=== PATIENT | female | born 1970 | race Caucasian/White ===

== ENCOUNTER 2018-05-04 12:03 | Inpatient (IN) | payer OTHER ==
[2018-05-04 12:42] VITALS: BMI 42.2
--- NOTE | 2018-05-04 15:35 | HP ---
CIWA Score - CIWA Score Nausea/Vomitin-No Nausea/No Vomiting Muscle Tremors: 4-Moderate,w/Arms Extend Anxiety: 5 Agitation: 4-Moderately Restless Paroxysmal Sweats: 2 Orientation: 0-Oriented Tacttile Disturbances: 0-None Auditory Disturbances: 0-None Visual Disturbances: 0-None Headache: 0-None Present CIWA-Ar Total Score: 15 Admission ROS BHS - HPI Chief Complaint: ALCOHOL WITHDRAWAL SX Allergies/Adverse Reactions: Allergies Allergy/AdvReac Type Severity Reaction Status Date / Time No Known Allergies Allergy Verified 05/04/18 12:52 History of Present Illness: 47 Y/O FEMALE WITH A HX OF ALCOHOL DEPENDENCE SEEKING DETOX TREATMENT. PT REPORTS ABOUT 2 MONTHS CLEAN TIME AND STARTED DRINKING HEAVILY AGAIN WITH TREMORS ASSOCIATED. Exam Limitations: No Limitations - Ebola screening Have you traveled outside of the country in the last 21 days: No (N) Have you had contact with anyone from an Ebola affected area: No Have you been sick,other than usual withdrawal symptoms: No Do you have a fever: No - Review of Systems Constitutional: Chills, Loss of Appetite, Night Sweats, Changes in sleep EENT: reports: Blurred Vision, Nose Congestion (ALLERGIES) Respiratory: reports: No Symptoms reported Cardiac: reports: Lightheadedness GI: reports: Constipated, Diarrhea, Nausea, Poor Appetite, Vomiting, Indigestion , Abdominal cramping : reports: No Symptoms Reported Musculoskeletal: reports: Back Pain, Joint Pain, Muscle Pain Integumentary: reports: No Symptoms Reported Neuro: reports: Headache, Dizziness Endocrine: reports: No Symptoms Reported Hematology: reports: No Symptoms Reported Psychiatric: reports: Orientated x3, Anxious, Depressed Other Systems: Reviewed and Negative Patient History - Patient Medical History Hx Anemia: No Hx Asthma: No Hx Chronic Obstructive Pulmonary Disease (COPD): No Hx Cardiac Disorders: No Hx Hypertension: No Hx Hypercholesterolemia: No HX Cerebrovascular Accident: No Hx Seizures: No Hx Diabetes: No Hx Gastrointestinal Disorders: Yes (HX GERD-NO MED) Hx Genitourinary Disorders: No Hx Sexually Transmitted Disorders: No (DENIES) Hx Renal Disease (ESRD): No Hx Thyroid Disease: No Hx Human Immunodeficiency Virus (HIV): No (NEGATIVE HX) Hx Hepatitis C: No Hx Depression: Yes (AND ANXIETY-ON MEDS) Hx Suicide Attempt: No (DENIES S/H/I) Hx Schizophrenia: No - Patient Surgical History Past Surgical History: Yes Other Surgical History: D AND C IN 2007 Anesthesia Reaction: No - PPD History Previous Implant?: Yes Documented Results: Negative w/proof Implanted On Prior R Admission?: Yes Date: 06/28/15 PPD to be Administered?: Yes - Reproductive History Patient is a Female of Child Bearing Age (11 -55 yrs old): Yes Last Menstrual Period: 06/01/15 Patient : No - Smoking Cessation Smoking history: Never smoked Have you smoked in the past 12 months: No Hx Chewing Tobacco Use: No Initiated information on smoking cessation: No - Substance & Tx. History Hx Alcohol Use: Yes (WINE/VODKA) Hx Substance Use: No (DENIES) Hx Substance Use Treatment: Yes (LAST TX AT [facility]) - Substances Abused Alcohol Route: Oral Frequency: Daily Amount used: 5 GLASSES OF WINE OR VODKA Age of first use: 18 Date of Last Use: 05/03/18 Family Disease History - Family Disease History Family Disease History: [place]: Grandparent (GF-PROSTATE) Admission Physical Exam S - Vital Signs Vital Signs: Vital Signs - 24 hr 05/04/18 12:40 Temperature 99.9 F H Pulse Rate 91 H Respiratory 19 Rate Blood Pressure 140/97 - Physical General Appearance: Yes: Moderate Distress, Irritable, Anxious HEENTM: Yes: EOMI, Normocephalic, ROSANA, Pharynx Normal Respiratory: Yes: Chest Non-Tender, Lungs Clear, Normal Breath Sounds, No Respiratory Distress Neck: Yes: No masses,lesions,Nodules, Supple, Trachea in good position Breast: Yes: Breast Exam Deferred Cardiology: Yes: Regular Rhythm, Regular Rate, S1, S2 Abdominal: Yes: Normal Bowel Sounds, Non Tender, Soft Genitourinary: Yes: Other (N/C) Back: Yes: Within Normal Limits Musculoskeletal: Yes: full range of Motion, Gait Steady Extremities: Yes: Normal Capillary Refill, Normal Range of Motion, Non-Tender Neurological: Yes: property maintenance supervisor II-XII NML intact, Fully Oriented, Alert, Motor Strength 5/5 Integumentary: Yes: Dry, Warm Lymphatic: Yes: Within Normal Limits - Diagnostic (1) GERD (gastroesophageal reflux disease) Current Visit: Yes Status: Chronic Qualifiers: Esophagitis presence: esophagitis presence not specified Qualified Code(s) : K21.9 - Gastro-esophageal reflux disease without esophagitis (2) Alcohol dependence with uncomplicated withdrawal Current Visit: Yes Status: Acute Cleared for Admission [facility] - Detox or Rehab [facility] Level of Care: Medically Managed Detox Regimen/Protocol: Librium [facility] Breath Alcohol Content Breath Alcohol Content: 0 Urine Pregancy Test - Result Urine Test Results: Negative- NO Line Present Urine Drug Screen - Results Urine Drug Screen Results: TCA-Tricyclic Antidepress
[2018-05-04] MEDS ORDERED: guaiFENesin/D-METHORPHAN HB 10 ML UNIT-DOSE CUPS PO PRN (15:43)
[2018-05-04] MEDS ORDERED: P-EPHED 60MG/TRIPROLIDI 2.5MG TABLET PO PRN (15:43)
[2018-05-04] MEDS ORDERED: MAG HYDROX/AL HYDROX/SIMETH 30 ML UNIT-DOSE CUP PO PRN (15:43)
[2018-05-04] MEDS ORDERED: MAGNESIUM CITRATE 300 ML BOTTLE PO PRN (15:43)
[2018-05-04] MEDS ORDERED: LOPERAMIDE HCL 2 MG CAPSULE PO PRN (15:43)
[2018-05-04] MEDS ORDERED: ACETAMINOPHEN 325 MG TABLET (FP) PO PRN (15:43)
[2018-05-04] MEDS ORDERED: hydrOXYzine PAMOATE 50 MG CAPSULE (FP) PO PRN (15:43)
[2018-05-04] MEDS ORDERED: MAGNESIUM HYDROX 2400MG/30ML ORAL SUSPENSION 30 ML CUP PO PRN (15:43)
[2018-05-04] MEDS ORDERED: MENTHOL/PHENOL 1 EACH UD MM PRN (15:43)
[2018-05-04] MEDS ORDERED: chlordiazePOXIDE HCL 25 MG CAPSULE PO PRN (15:48)
[2018-05-04] MEDS: chlordiazePOXIDE HCL 25 MG CAPSULE PO SCH ×2 (17:51→22:37)
[2018-05-04] MEDS ORDERED: COLLOIDAL OATMEAL 1 BAR EACH TP PRN (19:53)
[2018-05-04 22:32] LABS: URINE APPEARANCE CLEAR; URINE BILIRUBIN NEGATIVE (<2.0 mg/dL); URINE COLOR YELLOW; URINE GLUCOSE (UA) NEGATIVE (NEGATIVE); URINE KETONE NEGATIVE (NEGATIVE); URINE LEUK ESTERASE TRACE (NEGATIVE); URINE NITRITE NEGATIVE (NEGATIVE)
[2018-05-04 22:34] LABS: URINE PROTEIN 1+ (NEGATIVE)
[2018-05-04] MEDS: THIAMINE HCL 100 MG TABLET (FP) PO SCH (22:37)
[2018-05-04 22:38] LABS: EPI CELLS RARE /HPF (FEW); URINE BACTERIA RARE /hpf (NONE SEEN); URINE MUCUS MODERATE
[2018-05-05] MEDS: chlordiazePOXIDE HCL 25 MG CAPSULE PO SCH ×4 (05:49→22:34)
--- NOTE | 2018-05-05 09:23 | EKG ---
Test Reason : Blood Pressure : / mmHG Vent. Rate : 067 BPM Atrial Rate : 067 BPM P-R Int : 130 ms QRS Dur : 076 ms QT Int : 392 ms P-R-T Axes : 049 007 020 degrees QTc Int : 414 ms NORMAL SINUS RHYTHM NORMAL ECG WHEN COMPARED WITH ECG OF 23-DEC-2010 15:41, NO SIGNIFICANT CHANGE WAS FOUND Confirmed by ADELAIDA LOZADA MD ([id number]) on 05/05/2018 9:23:08 AM Referred By: Confirmed By:ADELAIDA LOZADA MD
[2018-05-05 09:58] LABS: HEMATOCRIT 43.7 % (32.4-45.2); HEMOGLOBIN 14.9 GM/dL (10.7-15.3); MCH 32.2 pg (25.7-33.7); MEAN CELL VOLUME 94.9 fl (80-96); MEAN PLT VOLUME 8.8 fl (7.5-11.1); PLATELET COUNT 214 K/MM3 (134-434); RBC 4.61 M/mm3 (3.60-5.2); RDW 14.3 % (11.6-15.6); WHITE BLOOD COUNT 5.5 K/mm3 (4.0-10.0)
[2018-05-05 10:43] LABS: CHLORIDE 99 mmol/L (98-107); SODIUM 136 mmol/L (136-145)
[2018-05-05] MEDS: PRENATAL VITAMINS W/ FOLIC ACID TABLET (FP) PO SCH (10:53)
[2018-05-05 11:14] LABS: ALBUMIN 4.1 g/dl (3.4-5.0); ALK PHOS 93 U/L (45-117); ANION GAP 8 (8-16); BILIRUBIN,TOTAL 1.2 mg/dL (0.2-1.0); BLOOD UREA NITROGEN 13 mg/dL (7-18); CALCIUM 9.1 mg/dL (8.5-10.1); CO2 29 mmol/L (21-32); CREATININE 0.6 mg/dL (0.55-1.02); GLUCOSE,RANDOM 98 mg/dL (74-106); SGOT/AST 202 U/L (15-37); SGPT/ALT 255 U/L (12-78); TOT PROT 7.7 g/dl (6.4-8.2)
--- NOTE | 2018-05-05 14:45 | PN ---
S CIWA - CIWA Score Nausea/Vomitin Muscle Tremors: 3 Anxiety: 2 Agitation: 2 Paroxysmal Sweats: 2 Orientation: 0-Oriented Tacttile Disturbances: 0-None Auditory Disturbances: 0-None Visual Disturbances: 0-None Headache: 0-None Present CIWA-Ar Total Score: 12 S Progress Note (SOAP) Subjective: Abd pain/constipation Sweats Objective: 05/05/18 14:42 A & O x 3 gait steady Vital Signs Temperature 98.2 F 05/05/18 14:35 Pulse Rate 84 05/05/18 14:35 Respiratory Rate 18 05/05/18 14:35 Blood Pressure 146/84 05/05/18 14:35 O2 Sat by Pulse Oximetry (%) Laboratory Last Values WBC 5.5 K/mm3 (4.0-10.0) D 05/05/18 08:00 RBC 4.61 M/mm3 (3.60-5.2) 05/05/18 08:00 Hgb 14.9 GM/dL (10.7-15.3) D 05/05/18 08:00 Hct 43.7 % (32.4-45.2) D 05/05/18 08:00 MCV 94.9 fl (80-96) 05/05/18 08:00 MCH 32.2 pg (25.7-33.7) D 05/05/18 08:00 MCHC 34.0 g/dl (32.0-36.0) 05/05/18 08:00 RDW 14.3 % (11.6-15.6) 05/05/18 08:00 Plt Count 214 K/MM3 (134-434) 05/05/18 08:00 MPV 8.8 fl (7.5-11.1) 05/05/18 08:00 Sodium 136 mmol/L (136-145) 05/05/18 08:00 Potassium 4.0 mmol/L (3.5-5.1) 05/05/18 08:00 Chloride 99 mmol/L (98-107) 05/05/18 08:00 Carbon Dioxide 29 mmol/L (21-32) 05/05/18 08:00 Anion Gap 8 (8-16) 05/05/18 08:00 BUN 13 mg/dL (7-18) 05/05/18 08:00 Creatinine 0.6 mg/dL (0.55-1.02) 05/05/18 08:00 Creat Clearance w eGFR > 60 (>60) 05/05/18 08:00 Random Glucose 98 mg/dL (74-106) 05/05/18 08:00 Calcium 9.1 mg/dL (8.5-10.1) 05/05/18 08:00 Total Bilirubin 1.2 mg/dL (0.2-1.0) H D 05/05/18 08:00 AST 202 U/L (15-37) H 05/05/18 08:00 ALT 255 U/L (12-78) H 05/05/18 08:00 Alkaline Phosphatase 93 U/L (45-117) 05/05/18 08:00 Total Protein 7.7 g/dl (6.4-8.2) 05/05/18 08:00 Albumin 4.1 g/dl (3.4-5.0) 05/05/18 08:00 Urine Color Yellow 05/04/18 22:00 Urine Appearance Clear 05/04/18 22:00 Urine pH 5.0 (5.0-8.0) 05/04/18 22:00 Ur Specific [place] 1.025 (1.001-1.035) 05/04/18 22:00 Urine Protein 1+ (NEGATIVE) H 05/04/18 22:00 Urine Glucose (UA) Negative (NEGATIVE) 05/04/18 22:00 Urine Ketones Negative (NEGATIVE) 05/04/18 22:00 Urine Blood 1+ (NEGATIVE) H 05/04/18 22:00 Urine Nitrite Negative (NEGATIVE) 05/04/18 22:00 Urine Bilirubin Negative (<2.0 mg/dL) 05/04/18 22:00 Urine Urobilinogen 2.0 mg/dL (0.2-1.0) H 05/04/18 22:00 Ur Leukocyte Esterase Trace (NEGATIVE) 05/04/18 22:00 Urine WBC (Auto) 3 /hpf (3-5) 05/04/18 22:00 Urine RBC (Auto) <1 /hpf (0-3) 05/04/18 22:00 Ur Epithelial Cells Rare /HPF (FEW) 05/04/18 22:00 Urine Bacteria Rare /hpf (NONE SEEN) 05/04/18 22:00 Urine Mucus Moderate 05/04/18 22:00 labs noted, abnormal urine result Assessment: 05/05/18 14:44 withdrawal sx Abnormal urinalysis Plan: Continue detox Increase hydration repeat UA in a.m
[2018-05-05] MEDS: LORATADINE 10 MG TABLET PO SCH (15:25)
[2018-05-05] MEDS: IBUPROFEN 400 MG TABLET (FP) PO PRN (18:32)
[2018-05-05 19:33] LABS: URINE APPEARANCE CLEAR; URINE BILIRUBIN NEGATIVE (<2.0 mg/dL); URINE COLOR LTYELLOW; URINE GLUCOSE (UA) NEGATIVE (NEGATIVE); URINE KETONE NEGATIVE (NEGATIVE); URINE NITRITE NEGATIVE (NEGATIVE); URINE PROTEIN NEGATIVE (NEGATIVE); URINE UROBILINOGEN NEGATIVE mg/dL (0.2-1.0)
[2018-05-05 19:34] LABS: URINE LEUK ESTERASE 3+ (NEGATIVE)
[2018-05-05 19:38] LABS: EPI CELLS FEW /HPF (FEW); URINE BACTERIA FEW /hpf (NONE SEEN); URINE MUCUS RARE
[2018-05-05] MEDS: MELATONIN 5 MG TABLETS PO PRN (22:34)
[2018-05-05] MEDS: THIAMINE HCL 100 MG TABLET (FP) PO SCH (22:34)
[2018-05-06] MEDS: chlordiazePOXIDE HCL 25 MG CAPSULE PO SCH ×2 (05:46→10:51)
[2018-05-06] MEDS: LORATADINE 10 MG TABLET PO SCH (10:51)
[2018-05-06] MEDS: PRENATAL VITAMINS W/ FOLIC ACID TABLET (FP) PO SCH (10:51)
--- NOTE | 2018-05-06 11:38 | CONSULT ---
[facility] Psychiatric Consult - Data Date of interview: 05/06/18 Admission source: Self-referred was accompanied by family Identifying data: Patient is a 47 y/o female , employed , no children Substance Abuse History: She reporta a [facility] history of alcohol use disorder, drink mostly wine and Vokka. She has been drinking daily, she has a prior Deox treatment @ This facility in 2014. She felt stressed over her chronic medical sickness. Piease refer to addiction counselor summary for more detailed drug history Medical History: She denies past acute medical illnesses, History of G-E reflux. Past history of tonsillectomy Psychiatric History: Patient has a history of depression and anxiety, she has no prior psychiatric hospitalization, she is treated by a private psychiatrist and medciated with Zoloft 100 mg po daily with effectiveness and good outcome Physical/Sexual Abuse/Trauma History: Denied Additional Comment: No history of prior trouble with the law Mental Status Exam - Mental Status Exam Alert and Oriented to: Time, Place, Person Cognitive Function: Grossly Intact Patient Appearance: Well Groomed Mood: Nervous, Euthymic Affect: Appropriate Patient Behavior: Cooperative Speech Pattern: Clear Voice Loudness: Normal Thought Process: Intact Thought Disorder: Not Present Hallucinations: Denies Suicidal Ideation: Denies Homicidal Ideation: Denies Insight/Judgement: Poor Sleep: Poorly Appetite: Good Muscle strength/Tone: Normal Gait/Station: Normal Psychiatric Findings - Problem List ([place] 1, 2,3) (1) Alcohol dependence with uncomplicated withdrawal Current Visit: Yes Status: Acute (2) GERD (gastroesophageal reflux disease) Current Visit: Yes Status: Chronic Qualifiers: Esophagitis presence: esophagitis presence not specified Qualified Code(s) : K21.9 - Gastro-esophageal reflux disease without esophagitis (3) Alcohol-induced mood disorder Current Visit: No Status: Chronic (4) Depression Current Visit: No Status: Chronic - Initial Treatment Plan Initial Treatment Plan: Continue currentDetox treatment. Renew Zoloft 100 mg po daily
[2018-05-06] MEDS ORDERED: SERTRALINE HCL 50 MG TABLET (FP) PO SCH (12:00)
--- NOTE | 2018-05-06 12:40 | PN ---
S CIWA - CIWA Score Nausea/Vomitin-Mild Nausea/No Vomiting Muscle Tremors: 4-Moderate,w/Arms Extend Anxiety: 3 Agitation: 3 Paroxysmal Sweats: 1-Minimal Palms Moist Orientation: 0-Oriented Tacttile Disturbances: 0-None Auditory Disturbances: 0-None Visual Disturbances: 0-None Headache: 1-Very Mild CIWA-Ar Total Score: 13 BHS Progress Note (SOAP) Subjective: SWEAT TREMOR TROUBLE SLEEP AT NIGHT GI DISTRESS IRRITABLE Objective: 05/06/18 12:41 Vital Signs Temperature 98.1 F 05/06/18 09:56 Pulse Rate 83 05/06/18 09:56 Respiratory Rate 18 05/06/18 09:56 Blood Pressure 129/76 05/06/18 09:56 O2 Sat by Pulse Oximetry (%) Laboratory Last Values WBC 5.5 K/mm3 (4.0-10.0) D 05/05/18 08:00 RBC 4.61 M/mm3 (3.60-5.2) 05/05/18 08:00 Hgb 14.9 GM/dL (10.7-15.3) D 05/05/18 08:00 Hct 43.7 % (32.4-45.2) D 05/05/18 08:00 MCV 94.9 fl (80-96) 05/05/18 08:00 MCH 32.2 pg (25.7-33.7) D 05/05/18 08:00 MCHC 34.0 g/dl (32.0-36.0) 05/05/18 08:00 RDW 14.3 % (11.6-15.6) 05/05/18 08:00 Plt Count 214 K/MM3 (134-434) 05/05/18 08:00 MPV 8.8 fl (7.5-11.1) 05/05/18 08:00 Sodium 136 mmol/L (136-145) 05/05/18 08:00 Potassium 4.0 mmol/L (3.5-5.1) 05/05/18 08:00 Chloride 99 mmol/L (98-107) 05/05/18 08:00 Carbon Dioxide 29 mmol/L (21-32) 05/05/18 08:00 Anion Gap 8 (8-16) 05/05/18 08:00 BUN 13 mg/dL (7-18) 05/05/18 08:00 Creatinine 0.6 mg/dL (0.55-1.02) 05/05/18 08:00 Creat Clearance w eGFR > 60 (>60) 05/05/18 08:00 Random Glucose 98 mg/dL (74-106) 05/05/18 08:00 Calcium 9.1 mg/dL (8.5-10.1) 05/05/18 08:00 Total Bilirubin 1.2 mg/dL (0.2-1.0) H D 05/05/18 08:00 AST 202 U/L (15-37) H 05/05/18 08:00 ALT 255 U/L (12-78) H 05/05/18 08:00 Alkaline Phosphatase 93 U/L (45-117) 05/05/18 08:00 Total Protein 7.7 g/dl (6.4-8.2) 05/05/18 08:00 Albumin 4.1 g/dl (3.4-5.0) 05/05/18 08:00 Urine Color Ltyellow 05/05/18 15:50 Urine Appearance Clear 05/05/18 15:50 Urine pH 7.0 (5.0-8.0) D 05/05/18 15:50 Ur Specific [place] 1.014 (1.001-1.035) 05/05/18 15:50 Urine Protein Negative (NEGATIVE) 05/05/18 15:50 Urine Glucose (UA) Negative (NEGATIVE) 05/05/18 15:50 Urine Ketones Negative (NEGATIVE) 05/05/18 15:50 Urine Blood Negative (NEGATIVE) 05/05/18 15:50 Urine Nitrite Negative (NEGATIVE) 05/05/18 15:50 Urine Bilirubin Negative (<2.0 mg/dL) 05/05/18 15:50 Urine Urobilinogen Negative mg/dL (0.2-1.0) 05/05/18 15:50 Ur Leukocyte Esterase 3+ (NEGATIVE) H 05/05/18 15:50 Urine WBC (Auto) 41 /hpf (3-5) 05/05/18 15:50 Urine RBC (Auto) 2 /hpf (0-3) 05/05/18 15:50 Ur Epithelial Cells Few /HPF (FEW) 05/05/18 15:50 Urine Bacteria Few /hpf (NONE SEEN) 05/05/18 15:50 Urine Mucus Rare 05/05/18 15:50 RPR Titer Nonreactive (NONREACTIVE) 05/05/18 08:00 LAB NOTED REPEAT AST ALT REPEAT UA Assessment: 05/06/18 12:44 WITHDRAWAL SX ELEVATION OF LIVER ENZYME Plan: CONTINUE DETOX REPEAT ALT AST PERSONAL HYGIENE REPEAT UA
[2018-05-06] MEDS: chlordiazePOXIDE 5 MG CAPSULE PO SCH ×2 (17:22→22:20)
[2018-05-06] MEDS: THIAMINE HCL 100 MG TABLET (FP) PO SCH (22:19)
[2018-05-06] MEDS: MELATONIN 5 MG TABLETS PO PRN (22:20)
[2018-05-06] MEDS: IBUPROFEN 400 MG TABLET (FP) PO PRN (22:28)
[2018-05-07] MEDS ORDERED: chlordiazePOXIDE HCL 10 MG CAPSULE PO SCH (05:00)
[2018-05-07 07:06] VITALS: BP 122/84; PULSE 76; TEMP 97.3
[2018-05-07 10:31] LABS: URINE APPEARANCE CLEAR; URINE BILIRUBIN NEGATIVE (<2.0 mg/dL); URINE COLOR YELLOW; URINE GLUCOSE (UA) NEGATIVE (NEGATIVE); URINE KETONE NEGATIVE (NEGATIVE); URINE NITRITE NEGATIVE (NEGATIVE); URINE PROTEIN NEGATIVE (NEGATIVE); URINE UROBILINOGEN NEGATIVE mg/dL (0.2-1.0)
[2018-05-07 10:49] LABS: URINE LEUK ESTERASE 2+ (NEGATIVE)
[2018-05-07 10:58] LABS: SGOT/AST 114 U/L (15-37); SGPT/ALT 217 U/L (12-78)
--- NOTE | 2018-05-07 11:08 | DS ---
[facility] Detox Discharge Summary Admission Date: 05/04/18 Discharge Date: 05/07/18 - History Present History: Alcohol Dependence Additional Comments: 47 years old female admitted 05/04/18 for alcohol withdrawal sx denies alcohol withdrawal sx alert oriented x 3 no acute distress discussed aftercare community self support groups and meetings patient wants to maintenance sober through sponsor ship - Physical Exam Results Vital Signs: Vital Signs Temperature 97.3 F L 05/07/18 07:05 Pulse Rate 76 05/07/18 07:05 Respiratory Rate 18 05/07/18 07:05 Blood Pressure 122/84 05/07/18 07:05 O2 Sat by Pulse Oximetry (%) Pertinent Admission Physical Exam Findings: alcohol withdrawal sx Vital Signs Temperature 97.3 F L 05/07/18 07:05 Pulse Rate 76 05/07/18 07:05 Respiratory Rate 18 05/07/18 07:05 Blood Pressure 122/84 05/07/18 07:05 O2 Sat by Pulse Oximetry (%) Laboratory Last Values WBC 5.5 K/mm3 (4.0-10.0) D 05/05/18 08:00 RBC 4.61 M/mm3 (3.60-5.2) 05/05/18 08:00 Hgb 14.9 GM/dL (10.7-15.3) D 05/05/18 08:00 Hct 43.7 % (32.4-45.2) D 05/05/18 08:00 MCV 94.9 fl (80-96) 05/05/18 08:00 MCH 32.2 pg (25.7-33.7) D 05/05/18 08:00 MCHC 34.0 g/dl (32.0-36.0) 05/05/18 08:00 RDW 14.3 % (11.6-15.6) 05/05/18 08:00 Plt Count 214 K/MM3 (134-434) 05/05/18 08:00 MPV 8.8 fl (7.5-11.1) 05/05/18 08:00 Sodium 136 mmol/L (136-145) 05/05/18 08:00 Potassium 4.0 mmol/L (3.5-5.1) 05/05/18 08:00 Chloride 99 mmol/L (98-107) 05/05/18 08:00 Carbon Dioxide 29 mmol/L (21-32) 05/05/18 08:00 Anion Gap 8 (8-16) 05/05/18 08:00 BUN 13 mg/dL (7-18) 05/05/18 08:00 Creatinine 0.6 mg/dL (0.55-1.02) 05/05/18 08:00 Creat Clearance w eGFR > 60 (>60) 05/05/18 08:00 Random Glucose 98 mg/dL (74-106) 05/05/18 08:00 Calcium 9.1 mg/dL (8.5-10.1) 05/05/18 08:00 Total Bilirubin 1.2 mg/dL (0.2-1.0) H D 05/05/18 08:00 AST 202 U/L (15-37) H 05/05/18 08:00 ALT 255 U/L (12-78) H 05/05/18 08:00 Alkaline Phosphatase 93 U/L (45-117) 05/05/18 08:00 Total Protein 7.7 g/dl (6.4-8.2) 05/05/18 08:00 Albumin 4.1 g/dl (3.4-5.0) 05/05/18 08:00 Urine Color Yellow 05/07/18 06:50 Urine Appearance Clear 05/07/18 06:50 Urine pH 6.0 (5.0-8.0) 05/07/18 06:50 Ur Specific [place] 1.012 (1.001-1.035) 05/07/18 06:50 Urine Protein Negative (NEGATIVE) 05/07/18 06:50 Urine Glucose (UA) Negative (NEGATIVE) 05/07/18 06:50 Urine Ketones Negative (NEGATIVE) 05/07/18 06:50 Urine Blood Negative (NEGATIVE) 05/07/18 06:50 Urine Nitrite Negative (NEGATIVE) 05/07/18 06:50 Urine Bilirubin Negative (<2.0 mg/dL) 05/07/18 06:50 Urine Urobilinogen Negative mg/dL (0.2-1.0) 05/07/18 06:50 Ur Leukocyte Esterase 2+ (NEGATIVE) H 05/07/18 06:50 Urine WBC (Auto) 10 /hpf (3-5) 05/07/18 06:50 Urine RBC (Auto) None /hpf (0-3) 05/07/18 06:50 Ur Epithelial Cells Rare /HPF (FEW) 05/07/18 06:50 Urine Bacteria Few /hpf (NONE SEEN) 05/05/18 15:50 Urine Mucus Few 05/07/18 06:50 RPR Titer Nonreactive (NONREACTIVE) 05/05/18 08:00 lab noted repeat liver enzyme pending - Treatment Hospital Course: Detox Protocol Followed, Detoxed Safely, Responded well, Discharged Condition Good, Rehab Referral Accepted Patient has Accepted a Rehab Referral to: community self help support groups - Medication Discharge Medications: Ambulatory Orders Sertraline HCl [Zoloft -] 100 mg PO DAILY #30 tablet 06/27/15 Cetirizine HCl [Zyrtec -] 10 mg PO DAILY 05/04/18 - Diagnosis (1) Alcohol dependence with uncomplicated withdrawal Status: Acute (2) GERD (gastroesophageal reflux disease) Status: Chronic Qualifiers: Esophagitis presence: without esophagitis Qualified Code(s): K21.9 - Gastro -esophageal reflux disease without esophagitis - AMA Did Patient Leave Against Medical Advice: No
[2018-05-07 11:09] LABS: EPI CELLS RARE /HPF (FEW); URINE MUCUS FEW
== END 2018-05-07 10:10 | disposition home or self-care (01) | DRG 897 ==
LOC: YASAS 12:03 → Y6N 15:34
PROVIDERS: ADMIT Family Medicine Addiction Medicine; ATTEND Family Medicine Addiction Medicine
PROC: HZ2ZZZZ Detoxification Services for Substance Abuse Treatment (ICD-10-PCS; principal; 2018-05-04)
DX: F10.230 Alcohol dependence with withdrawal, uncomplicated (principal); F10.24 Alcohol dependence with alcohol-induced mood disorder; F32.9 Major depressive disorder, single episode, unspecified; F41.8 Other specified anxiety disorders; K21.9 Gastro-esophageal reflux disease without esophagitis
CPT/HCPCS: 36415; 80053; 81003; 81015; 84450; 84460; 85027; 86593; 93005; 93010

== ENCOUNTER 2018-07-30 10:28 | Inpatient (IN) | payer OTHER ==
[2018-07-30] MEDS ORDERED: morphine CARPU-JECT 4 MG/1 ML DISP.SYRIN IVPUSH ONE ×3 (10:59→17:37)
[2018-07-30] MEDS ORDERED: SODIUM CHLORIDE 1,000 ML IV SCH (11:00)
--- NOTE | 2018-07-30 11:07 | PDOC ---
History of Present Illness - General Stated Complaint: LEG PAIN Time Seen by Provider: 07/30/18 10:40 History Source: Patient Exam Limitations: No Limitations - History of Present Illness Initial Comments: 07/30/18 11:05 48 year old woman with history of anxiety who presents with L knee pain, warmth and difficulty walking for the past 2 days. The patient was assessed at her PCP last week for L knee pain was referred to orthopedics and was found to have a higgins cyst. She did not have any procedures, injections or aspirations done on the knee. She was informed that if the pain worsened, it would likely be due to a ruptured higgins cyst and she should come to the ED. The patient complains of swelling on the L knee and some tingling on the L worthy, ankle and foot. She denies fever, chills, sweating, shortness of breath, chest pain. She has no other complaints at bedside. PMHX: as in HPI PSHX: Meds: zoloft Allergies: none Tob: Etoh: nightly use Rec drugs: none Past History - Past Medical History Allergies/Adverse Reactions: Allergies Allergy/AdvReac Type Severity Reaction Status Date / Time No Known Allergies Allergy Verified 07/30/18 10:34 Home Medications: Ambulatory Orders Sertraline HCl [Zoloft -] 100 mg PO DAILY #30 tablet 06/27/15 Cetirizine HCl [Zyrtec -] 10 mg PO DAILY 05/04/18 Oxycodone HCl/Acetaminophen [Percocet 5-325 mg Tablet] 1 - 2 tab PO Q6H PRN #20 tab MDD 8 tabs 07/30/18 Anemia: No Asthma: No Cardiac Disorders: No CVA: No COPD: No Diabetes: No GI Disorders: Yes (HX GERD) Disorders: No HTN: No Hypercholesterolemia: No Kidney Stones: No Seizures: No Thyroid Disease: No - Reproductive History PID: No - Suicide/Smoking/Psychosocial Hx Smoking History: Never smoked Have you smoked in the past 12 months: No Hx Alcohol Use: Yes (WINE/VODKA) Drug/Substance Use Hx: No (DENIES) Substance Use Type: Alcohol Hx Substance Use Treatment: Yes (LAST TX AT [facility]) Review of Systems - Review of Systems Able to Perform ROS?: Yes Is the patient limited [place] proficient: No Constitutional: No: Chills, Diaphoresis, Fever Respiratory: No: Cough, Orthopnea, Shortness of Breath Cardiac (ROS): No: Chest Pain ABD/GI: No: Constipated, Diarrhea, Nausea, Vomiting : No: Burning, Dysuria Neurological: No: Headache *Physical Exam - Vital Signs Last Vital Signs Temp Pulse Resp BP Pulse Ox 98.5 F 104 H 20 116/76 96 07/30/18 10:34 07/30/18 10:34 07/30/18 10:34 07/30/18 10:34 07/30/18 10:34 - Physical Exam Comments: 07/30/18 11:45 GENERAL: Awake, alert, and fully oriented HEAD: No signs of trauma, normocephalic, atraumatic EYES: EOMI, sclera anicteric, conjunctiva clear ENT: oropharynx clear without exudates. Moist mucosa NECK: Normal ROM, supple, no lymphadenopathy, JVD, or masses LUNGS: No distress, speaks full sentences, clear to auscultation bilaterally HEART: Regular rate and rhythm, normal S1 and S2, no murmurs, rubs or gallops, peripheral pulses normal and equal bilaterally. ABDOMEN: Soft, nontender, normoactive bowel sounds. No guarding, no rebound. No masses EXTREMITIES : L knee with notable swelling, decreased passive ROM to 45 degrees. Very limited active ROM on L knee 2/2 pain. Palpable pulses with normal L ankle ROM and NV intact. Mild to moderate warmth to touch of L knee. No erythema. NEUROLOGICAL: Normal speech, normal gait, no focal sensorimotor deficits SKIN: Warm, Dry, normal turgor, no rashes or lesions noted ED Treatment Course - LABORATORY CBC & Chemistry Diagram: 07/30/18 11:09 07/30/18 11:09 Medical Decision Making - Medical Decision Making 48 year old woman with history of anxiety who presents with L knee pain, warmth and difficulty walking for the past 2 days. The patient was assessed at her PCP last week for L knee pain was referred to orthopedics and was found to have a higgins cyst. She did not have any procedures, injections or aspirations done on the knee. She was informed that of the pain worsened, it would likely be due to a ruptured higgins cyst. DDX including but not limited to: higgins cyst rupture vs septic joint vs gout vs cellutlitis W/U: - cbc, cmp, PT/ INR, PTT, blood culture - soft tissue US - L knee XR TX: - morphine 4 - 1L NS Scores: Zak = 2 ED Course: 07/30/18 11:46 Pt assessed. In pain but stable. 07/30/18 14:53 US: thrombosed superficial varicosity 07/30/18 15:19 Patient and family informed lab results 07/30/18 18:32 PCP informed of patient in the ED. 07/30/18 18:57 Patient with intractable pain and unable to ambulate. Patient admitted for observation. *DC/Admit/Observation/Transfer Diagnosis at time of Disposition: Leg pain, Superficial thrombophlebitis - Discharge Dispostion Condition at time of disposition: Stable Decision to Admit order: Yes - Prescriptions - Referrals - Patient Instructions - Post Discharge Activity
[2018-07-30 11:14] LABS: BASO % 1.3 % (0-2.0); EOS % 3.6 % (0-4.5); HEMATOCRIT 43.9 % (32.4-45.2); HEMOGLOBIN 14.9 GM/dL (10.7-15.3); MCH 31.3 pg (25.7-33.7); MEAN CELL VOLUME 91.9 fl (80-96); MEAN PLT VOLUME 7.6 fl (7.5-11.1); MONO % 6.5 % (3.8-10.2); NEUT % 70.6 % (42.8-82.8); PLATELET COUNT 367 K/MM3 (134-434); RBC 4.78 M/mm3 (3.60-5.2); RDW 14.1 % (11.6-15.6); WHITE BLOOD COUNT 7.3 K/mm3 (4.0-10.0)
[2018-07-30 11:26] LABS: PROTHROMBIN TIME (PATIENT) 11.3 SEC (9.7-13.0)
[2018-07-30] MEDS ORDERED: morphine SULFATE 4 MG/ML VIAL ONE ×3 (11:37→18:03)
[2018-07-30 11:39] LABS: ALBUMIN 3.6 g/dl (3.4-5.0); ALK PHOS 134 U/L (45-117); ANION GAP 8 MMOL/L (8-16); BILIRUBIN,TOTAL 0.4 mg/dL (0.2-1.0); BLOOD UREA NITROGEN 8 mg/dL (7-18); CALCIUM 8.8 mg/dL (8.5-10.1); CHLORIDE 102 mmol/L (98-107); CO2 31 mmol/L (21-32); CREATININE 0.5 mg/dL (0.55-1.02); GLUCOSE,RANDOM 90 mg/dL (74-106); SGPT/ALT 38 U/L (12-78); SODIUM 141 mmol/L (136-145); TOT PROT 8.6 g/dl (6.4-8.2)
--- NOTE | 2018-07-30 11:42 | PDOC ---
Attending Attestation - HPI HPI: 07/30/18 13:32 Patient is a 48 yoF with a pmh of anxiety c/o of a 2 day history of moderate left knee pain with +swelling. Pt reports difficulty ambulating. Pt saw orthopedics last week and was found to have a cheek cyst. She notes tingling of the left lower extremity. Pt prompted to visit the ED if the pain worsened. The patient denies chest pain, SOB, fever, chills, sweating, dizziness, and headache. She has no other complaints at bedside. <Chinyere Acuna - Last Filed: 07/30/18 13:31> - Resident Resident Name: Tami Brown - ED Attending Attestation I have performed the following: I have examined & evaluated the patient, The case was reviewed & discussed with the resident, I agree w/resident's findings & plan, Exceptions are as noted - Physicial Exam PE: GENERAL: Awake, alert, and fully oriented, in no acute distress HEAD: No signs of trauma EYES: PERRLA, EOMI, sclera anicteric, conjunctiva clear ENT: Auricles normal inspection, hearing grossly normal, nares patent, oropharynx clear without exudates. Moist mucosa NECK: Normal ROM, supple, no lymphadenopathy, JVD, or masses LUNGS: Breath sounds equal, clear to auscultation bilaterally. No wheezes, and no crackles HEART: Regular rate and rhythm, normal S1 and S2, no murmurs, rubs or gallops ABDOMEN: Soft, nontender, normoactive bowel sounds. No guarding, no rebound. No masses EXTREMITIES: L knee with edema, effusion, tenderness. No erythema, no warmth. Dec ROM due to severe pain. +Tenderness in the popliteal fossa and calf. Distal N/V intact. Remainder of extremities with normal range of motion, no edema. No clubbing or cyanosis. No cords, erythema, or tenderness NEUROLOGICAL: Cranial nerves II through XII grossly intact. Normal speech, normal gait SKIN: Warm, Dry, normal turgor, no rashes or lesions noted. - Medical Decision Making Pt with knee pain, possibly ruptured Cheek's cyst based on prior history. Septic joint unlikely based on presentation- no warmth, redness, fever. Obtained labs, XR, and sono. Sono showed Cheek's Cyst, but also with what appeared to be superficial vessel with thrombus. Reading somewhat unclear, attempted to obtain CT to further elucidate, but radiology advised against. Will d/w Dr. Guzman, as the size of the patient's knee is out of proportion to a superficial thrombophlebitis. <Shelly iY - Last Filed: 07/30/18 18:07> Attestations - Attestations Documentation prepared by Chinyere Acuna, acting as medical administrative technician for Shelly Yi MD. <Chinyere Acuna - Last Filed: 07/30/18 13:31>
[2018-07-30 11:52] LABS: SGOT/AST 30 U/L (15-37)
[2018-07-30] MEDS ORDERED: KETOROLAC TROMETHAMINE 30 MG/1 ML VIAL IVPUSH ONE ×2 (13:34→17:37)
[2018-07-30] MEDS ORDERED: KETOROLAC TROMETHAMINE 30 MG/1 ML VIAL ONE ×2 (13:41→18:03)
[2018-07-30] MEDS ORDERED: ASPIRIN 325 MG TABLET PO ONE (18:54)
[2018-07-30] MEDS ORDERED: ASPIRIN 81 MG CHEWABLE TABLETS ONE (18:58)
--- NOTE | 2018-07-30 19:18 | HP ---
Admitting History and Physical - Primary Care Physician PCP: George Evans - Admission Chief Complaint: pain LLex History of Present Illness: 48 yoF with a pmh of anxiety c/o of a 2 day history of moderate left knee pain with +swelling. Pt reports difficulty ambulating. Pt saw orthopedics last week and was found to have a higgins cyst. She notes tingling of the left lower extremity. Pt prompted to visit the ED if the pain worsened. The patient denies chest pain, SOB, fever, chills, sweating, dizziness, and headache. She has no other complaints at bedside. - Past Medical History ...LMP: 06/01/15 - Smoking History Smoking history: Never smoked Have you smoked in the past 12 months: No - Alcohol/Substance Use Hx Alcohol Use: Yes (WINE/VODKA) Home Medications - Allergies Allergies/Adverse Reactions: Allergies Allergy/AdvReac Type Severity Reaction Status Date / Time No Known Allergies Allergy Verified 07/30/18 10:34 - Home Medications Home Medications: Ambulatory Orders Sertraline HCl [Zoloft -] 100 mg PO DAILY #30 tablet 06/27/15 Cetirizine HCl [Zyrtec -] 10 mg PO DAILY 05/04/18 Oxycodone HCl/Acetaminophen [Percocet 5-325 mg Tablet] 1 - 2 tab PO Q6H PRN #20 tab MDD 8 tabs 07/30/18 Family Disease History - Family Disease History Family Disease History: CA: Grandparent (GF-PROSTATE) Physical Examination Vital Signs: Vital Signs Temperature 98.5 F 07/30/18 10:34 Pulse Rate 104 H 07/30/18 10:34 Respiratory Rate 20 07/30/18 10:34 Blood Pressure 116/76 07/30/18 10:34 O2 Sat by Pulse Oximetry (%) 96 07/30/18 10:34 Constitutional: Yes: Anxious HENT: Yes: Atraumatic Cardiovascular: Yes: Regular Rate and Rhythm Respiratory: Yes: CTA Bilaterally Gastrointestinal: Yes: Normal Bowel Sounds Extremities: Yes: Other (L knee swollen , warm and tender) Edema: Yes Edema: LLE: 1+ Neurological: Yes: Alert, Oriented Labs: CBC, BMP 07/30/18 11:09 07/30/18 11:09 Imaging - Results Ultrasound: Report Reviewed Problem List - Problems (1) Leg pain Assessment/Plan: on pain meds will get ortho involved Code(s): M79.606 - PAIN IN LEG, UNSPECIFIED (2) Superficial thrombophlebitis Assessment/Plan: nsaids Code(s): I80.9 - PHLEBITIS AND THROMBOPHLEBITIS OF UNSPECIFIED SITE (3) GERD (gastroesophageal reflux disease) Code(s): K21.9 - GASTRO-ESOPHAGEAL REFLUX DISEASE WITHOUT ESOPHAGITIS Qualifiers: Assessment/Plan Laboratory Tests 07/30/18 07/30/18 07/30/18 11:09 11:09 11:09 WBC 7.3 RBC 4.78 Hgb 14.9 Hct 43.9 MCV 91.9 MCH 31.3 MCHC 34.0 RDW 14.1 Plt Count 367 D MPV 7.6 D Absolute Neuts (auto) 5.1 Neutrophils % 70.6 Lymphocytes % 18.0 Monocytes % 6.5 Eosinophils % 3.6 Basophils % 1.3 Nucleated RBC % 0 ESR PT with INR 11.30 INR 1.00 PTT (Actin FS) Sodium 141 Potassium 4.0 Chloride 102 Carbon Dioxide 31 Anion Gap 8 BUN 8 Creatinine 0.5 L Creat Clearance w eGFR > 60 Random Glucose 90 Calcium 8.8 Total Bilirubin 0.4 AST 30 ALT 38 Alkaline Phosphatase 134 H Total Protein 8.6 H Albumin 3.6 07/30/18 07/30/18 11:09 11:35 WBC RBC Hgb Hct MCV MCH MCHC RDW Plt Count MPV Absolute Neuts (auto) Neutrophils % Lymphocytes % Monocytes % Eosinophils % Basophils % Nucleated RBC % ESR 68 H PT with INR INR PTT (Actin FS) 38.1 H Sodium Potassium Chloride Carbon Dioxide Anion Gap BUN Creatinine Creat Clearance w eGFR Random Glucose Calcium Total Bilirubin AST ALT Alkaline Phosphatase Total Protein Albumin Active Medications Generic Name Dose Route Start Last Admin Trade Name Freq PRN Reason Stop Dose Admin Sodium Chloride 1,000 mls @ 0 mls/hr 07/30/18 11:00 07/30/18 11:42 Normal Saline - IV 1,000 mls/hr ASDIR MANDI Administration Wide Open Active Medications Generic Name Dose Route Start Last Admin Trade Name Freq PRN Reason Stop Dose Admin Heparin Sodium (Porcine) 5,000 unit 07/30/18 22:00 08/02/18 09:59 Heparin - SQ 5,000 unit BID MANDI Administration Ceftriaxone Sodium 2 gm/ 100 mls @ 100 mls/hr 08/01/18 12:45 08/02/18 10:00 Dextrose IVPB 100 mls/hr DAILY MANDI Administration Protocol Vancomycin HCl 1,000 mg/ 250 mls @ 166.667 mls/hr 08/01/18 13:00 08/02/18 13: 49 Dextrose IVPB 166.667 mls/hr Q12H MANDI Administration Protocol Ibuprofen 600 mg 07/31/18 22:00 08/02/18 13:16 Motrin - PO 600 mg TID MANDI Administration Morphine Sulfate 3 mg 07/31/18 18:25 07/31/18 19:01 Morphine Sulfate IVPUSH 3 mg Q4H PRN Administration PAIN LEVEL 4 - 6 Oxycodone HCl 10 mg 07/30/18 19:18 08/01/18 13:56 Roxicodone - PO 10 mg Q6H PRN Administration PAIN LEVEL 4 - 6 Sertraline HCl 100 mg 07/31/18 10:00 08/02/18 09:59 Zoloft - PO 100 mg DAILY MANDI Administration
[2018-07-30] MEDS: ACETAMINOPHEN 325 MG TABLET (FP) PO PRN (22:39)
[2018-07-30] MEDS: HEPARIN NA (PORCINE) 5,000 UNITS/ML 1ML VIAL SQ SCH (22:42)
[2018-07-31] MEDS: oxyCODONE HCL 5 MG TABLET PO PRN ×2 (03:38→09:54)
[2018-07-31] MEDS: SERTRALINE HCL 50 MG TABLET (FP) PO SCH (09:57)
[2018-07-31] MEDS: HEPARIN NA (PORCINE) 5,000 UNITS/ML 1ML VIAL SQ SCH ×2 (09:58→21:39)
--- NOTE | 2018-07-31 13:44 | CON.ID ---
Consult - History of Present Illness History of Present Illness: 48 y.o. female with PMH of Anxiety presents with c/o Lt knee pain that began over a week ago. She was referred to Orthopedics that attributed it to a possible bakers cyst. She came to the ER because pain became severe 2 days ago after work. 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 She describes the pain as severe and persistent and she is unable to walk. Pt denies recent injection at site or trauma. She has been afebrile but with occasional chills (none currently). Knee Xray revealed suprapatellar joint effusion and LE US revealed possible medial bakers cyst on 07/27/18 and on current one a largely thrombosed superficial vein. No other specific complaints. - History Source History Provided By: Patient Limitations to Obtaining History: No Limitations - Past Medical History ...LMP: 06/01/15 ...: No Psych: Yes: Anxiety - Alcohol/Substance Use Hx Alcohol Use: Yes (WINE/VODKA) - Smoking History Smoking history: Never smoked Have you smoked in the past 12 months: No - Social History History of Recent Travel: No Home Medications - Allergies Allergies/Adverse Reactions: Allergies Allergy/AdvReac Type Severity Reaction Status Date / Time No Known Allergies Allergy Verified 07/30/18 10:34 - Home Medications Home Medications: Ambulatory Orders Sertraline HCl [Zoloft -] 100 mg PO DAILY #30 tablet 06/27/15 Cetirizine HCl [Zyrtec -] 10 mg PO DAILY 05/04/18 Oxycodone HCl/Acetaminophen [Percocet 5-325 mg Tablet] 1 - 2 tab PO Q6H PRN #20 tab MDD 8 tabs 07/30/18 Family Disease History - Family Disease History Family Disease History: CA: Grandparent (GF-PROSTATE) Physical Exam Vital Signs: Vital Signs Temperature 99.2 F 07/31/18 10:00 Pulse Rate 84 07/31/18 10:00 Respiratory Rate 18 07/31/18 10:00 Blood Pressure 140/92 07/31/18 10:00 O2 Sat by Pulse Oximetry (%) 100 07/31/18 03:19 Constitutional: Yes: Mild Distress (due to pain in LLE) Eyes: Yes: Conjunctiva Clear HENT: Yes: Atraumatic Neck: Yes: Supple Cardiovascular: Yes: Regular Rate and Rhythm Respiratory: Yes: CTA Bilaterally Gastrointestinal: Yes: Normal Bowel Sounds, Soft Renal/: Yes: WNL Musculoskeletal: Yes: Other (Lt knee mild edema/+tenderness/mild warmth/ decreased ROM due to pain, no erythema no clear calf edema/warmth) Integumentary: Yes: WNL Neurological: Yes: Alert, Oriented Psychiatric: Yes: Alert Labs: CBC, BMP 07/30/18 11:09 07/30/18 11:09 Laboratory Tests 07/30/18 07/30/18 07/30/18 11:09 11:09 11:09 WBC 7.3 RBC 4.78 Hgb 14.9 Hct 43.9 MCV 91.9 MCH 31.3 MCHC 34.0 RDW 14.1 Plt Count 367 D MPV 7.6 D Absolute Neuts (auto) 5.1 Neutrophils % 70.6 Lymphocytes % 18.0 Monocytes % 6.5 Eosinophils % 3.6 Basophils % 1.3 Nucleated RBC % 0 ESR PT with INR 11.30 INR 1.00 PTT (Actin FS) Sodium 141 Potassium 4.0 Chloride 102 Carbon Dioxide 31 Anion Gap 8 BUN 8 Creatinine 0.5 L Creat Clearance w eGFR > 60 Random Glucose 90 Calcium 8.8 Total Bilirubin 0.4 AST 30 ALT 38 Alkaline Phosphatase 134 H Total Protein 8.6 H Albumin 3.6 07/30/18 07/30/18 11:09 11:35 WBC RBC Hgb Hct MCV MCH MCHC RDW Plt Count MPV Absolute Neuts (auto) Neutrophils % Lymphocytes % Monocytes % Eosinophils % Basophils % Nucleated RBC % ESR 68 H PT with INR INR PTT (Actin FS) 38.1 H Sodium Potassium Chloride Carbon Dioxide Anion Gap BUN Creatinine Creat Clearance w eGFR Random Glucose Calcium Total Bilirubin AST ALT Alkaline Phosphatase Total Protein Albumin Imaging - Results Chest X-ray: Report Reviewed X-ray: Report Reviewed (Lt knee) Ultrasound: Report Reviewed (LE) Problem List - Problems (1) Leg pain Code(s): M79.606 - PAIN IN LEG, UNSPECIFIED (2) Superficial thrombophlebitis Code(s): I80.9 - PHLEBITIS AND THROMBOPHLEBITIS OF UNSPECIFIED SITE Assessment/Plan 48 y.o. female with PMH of anxiety presents with LT knee pain/mild swelling/ with difficulty ambulating worsened in the last 2 days. She is afebrile, without leukocytosis, blood cultures no growth in 24 hrs. LE US with thrombosis of superficial vein. Superficial venous thrombosis/thrombophlebitis -- no clear evidence/risk factor for suppurative thrombophlebitis -- pt afebrile, blood cultures negative so far -- monitor off antibiotics for now -- pt on anticoagulation, suggest NSAIDS -- pain control will f/u Thank you
[2018-07-31] MEDS: ACETAMINOPHEN 325 MG TABLET (FP) PO PRN (15:04)
[2018-07-31 16:24] LABS: BASO % 0.8 % (0-2.0); EOS % 5.8 % (0-4.5); HEMATOCRIT 38.6 % (32.4-45.2); HEMOGLOBIN 13.1 GM/dL (10.7-15.3); LYMPH % 16.4 % (8-40); MCH 31.1 pg (25.7-33.7); MCHC 33.8 g/dl (32.0-36.0); MEAN PLT VOLUME 8.1 fl (7.5-11.1); MONO % 8.1 % (3.8-10.2); NEUT % 68.9 % (42.8-82.8); PLATELET COUNT 279 K/MM3 (134-434); RDW 13.8 % (11.6-15.6); WHITE BLOOD COUNT 5.3 K/mm3 (4.0-10.0)
--- NOTE | 2018-07-31 18:24 | PN ---
Progress Note, Physician - Current Medication List Current Medications: Active Medications Acetaminophen (Tylenol -) 650 mg PO Q6H PRN PRN Reason: FEVER Last Admin: 07/31/18 15:04 Dose: 650 mg Heparin Sodium (Porcine) (Heparin -) 5,000 unit SQ BID [facility] Last Admin: 07/31/18 09:58 Dose: 5,000 unit Oxycodone HCl (Roxicodone -) 10 mg PO Q6H PRN PRN Reason: PAIN LEVEL 4 - 6 Last Admin: 07/31/18 09:54 Dose: 10 mg Sertraline HCl (Zoloft -) 100 mg PO DAILY [facility] Last Admin: 07/31/18 09:57 Dose: 100 mg - Objective Vital Signs: Vital Signs Temperature 98.9 F 07/31/18 18:00 Pulse Rate 96 H 07/31/18 18:00 Respiratory Rate 20 07/31/18 18:00 Blood Pressure 126/77 07/31/18 18:00 O2 Sat by Pulse Oximetry (%) 100 07/31/18 03:19 Constitutional: Yes: Anxious HENT: Yes: Atraumatic Neck: Yes: Supple Cardiovascular: Yes: Regular Rate and Rhythm Respiratory: Yes: CTA Bilaterally Gastrointestinal: Yes: Normal Bowel Sounds Extremities: Yes: Other (llecx tender to touch) Edema: LLE: Trace Neurological: Yes: Alert, Oriented Labs: CBC, BMP 07/31/18 15:30 07/30/18 11:09 INR, PTT INR 1.00 (0.83-1.09) 07/30/18 11:09 Problem List - Problems (1) Leg pain Assessment/Plan: on pain meds will get ortho involved Code(s): M79.606 - PAIN IN LEG, UNSPECIFIED (2) Superficial thrombophlebitis Assessment/Plan: nsaids Code(s): I80.9 - PHLEBITIS AND THROMBOPHLEBITIS OF UNSPECIFIED SITE (3) GERD (gastroesophageal reflux disease) Code(s): K21.9 - GASTRO-ESOPHAGEAL REFLUX DISEASE WITHOUT ESOPHAGITIS Qualifiers:
[2018-07-31] MEDS ORDERED: morphine SULFATE 4 MG/ML VIAL IVPUSH PRN (18:25)
[2018-07-31] MEDS: IBUPROFEN 600 MG TABLET (FP) PO SCH (21:39)
[2018-08-01] MEDS: IBUPROFEN 600 MG TABLET (FP) PO SCH ×3 (06:13→22:16)
--- NOTE | 2018-08-01 10:16 | CONSULT ---
Consult - text type - Consultation Consultation Note: FULL CONSULT DICTATED IMP: EFFUSION RIGHT KNEE PLAN: WE WILL ASPIRATE AND INJECT DEPOMEDROL INTO THE KNEE LATER TODAY
[2018-08-01] MEDS ORDERED: methylPREDNISolone ACET (DEPO) 80 MG/1 ML VIAL IAR ONE (10:30)
[2018-08-01] MEDS ORDERED: LIDOCAINE HCL 1%, 10 MG/ML (50 mL VIAL) SQ ONE (10:35)
[2018-08-01] MEDS ORDERED: LIDOCAINE HCL 2% (50ML VIAL) NR ONE (10:45)
--- NOTE | 2018-08-01 10:46 | PROC ---
Arthrocentesis - Arthrocentesis Indication: Septic Joint, Inflammation, Reduce Pain Arthrocentesis Site: left: knee Flexion: <20 degrees Skin prep: Betadine Anesthesia: 2% Lidocaine Drainage, Color/Appearance: Cloudy Tube Drainage(ml): 60 Sterile Dressing Applied: Yes
--- NOTE | 2018-08-01 11:52 | CONS ---
DATE OF CONSULTATION: 08/01/2018 ORTHOPEDIC CONSULTATION/[facility] Patient is a 48-year-old female complaining of atraumatic left knee pain. She had been in to see my partner, Dr. Montague last week, who diagnosed her with a small Cheek cyst and she was sent home. Patient's pain only increased over the weekend and was admitted on Monday with significant pain inside the knee. No fever or chills. No recent fall or trauma. On physical exam she has moderate effusion in the left knee. No erythema, no tenderness to light touch around the knee, no ecchymosis. Her calf is soft, nontender, negative Homans sign. She has tenderness of the lateral joint line and posteriorly. No tenderness medially. Negative Beni, anterior, posterior draw. She has no tenderness in the patellar facets, negative apprehension. Good stability varus, valgus, anterior, posterior. Good motion of hip, ankle, and toes. Pulses and reflexes 2+, intact sensation throughout. Ultrasound was positive for a Cheek cyst and a thrombosed varicosity. Lab values revealed normal white count. She does have a C-reactive protein of 6.7, though. Sedimentation rate is 85. IMPRESSION: Infusion, left knee. We will tap the knee later today, possibly inject cortisone. See what the tap results show. Ice and antiinflammatories in the interim. GEORGI GRIFFIN M.D. TONG/[id number]
[2018-08-01 12:29] LABS: SYNOVIAL FLUID RBC 9081 /mm3
--- NOTE | 2018-08-01 12:42 | PN ---
Progress Note, Physician History of Present Illness: Pt remains afebrile. States she began ambulating yesterday. Had Lt knee fluid aspiration with steroid injection. Pain controlled. - Current Medication List Current Medications: Active Medications Heparin Sodium (Porcine) (Heparin -) 5,000 unit SQ BID [facility] Last Admin: 07/31/18 21:39 Dose: 5,000 unit Ceftriaxone Sodium (Ceftriaxone 2 Gm-D5w Bag) 2 gm in 50 mls @ 100 mls/hr IVPB DAILY MANDI; Protocol Vancomycin HCl 1,000 mg/ (Dextrose) 250 mls @ 166.667 mls/hr IVPB Q12H MANDI; Protocol Ibuprofen (Motrin -) 600 mg PO TID MANDI Last Admin: 08/01/18 06:13 Dose: 600 mg Morphine Sulfate (Morphine Sulfate) 3 mg IVPUSH Q4H PRN PRN Reason: PAIN LEVEL 4 - 6 Last Admin: 07/31/18 19:01 Dose: 3 mg Oxycodone HCl (Roxicodone -) 10 mg PO Q6H PRN PRN Reason: PAIN LEVEL 4 - 6 Last Admin: 07/31/18 09:54 Dose: 10 mg Sertraline HCl (Zoloft -) 100 mg PO DAILY [facility] Last Admin: 07/31/18 09:57 Dose: 100 mg - Objective Vital Signs: Vital Signs Temperature 98.2 F 08/01/18 05:00 Pulse Rate 83 08/01/18 05:00 Respiratory Rate 20 08/01/18 05:00 Blood Pressure 137/76 08/01/18 05:00 O2 Sat by Pulse Oximetry (%) 96 08/01/18 03:00 Constitutional: Yes: No Distress, Calm Neck: Yes: Supple Cardiovascular: Yes: Regular Rate and Rhythm Respiratory: Yes: CTA Bilaterally Gastrointestinal: Yes: Normal Bowel Sounds, Soft Genitourinary: Yes: WNL Wound/Incision: Yes: Dressing Dry and Intact (Lt knee wrapped) Neurological: Yes: Alert, Oriented Labs: CBC, BMP 07/31/18 15:30 07/30/18 11:09 INR, PTT INR 1.00 (0.83-1.09) 07/30/18 11:09 Microbiology 07/30/18 11:09 Blood - Peripheral Venous Blood Culture - Preliminary NO GROWTH OBTAINED AFTER 48 HOURS, INCUBATION TO CONTINUE FOR 3 DAYS. 07/30/18 11:09 Blood - Peripheral Venous Blood Culture - Preliminary NO GROWTH OBTAINED AFTER 48 HOURS, INCUBATION TO CONTINUE FOR 3 DAYS. Lt knee synovial culture pending synovial: Laboratory Last Values WBC 5.3 K/mm3 (4.0-10.0) 07/31/18 15:30 RBC 4.20 M/mm3 (3.60-5.2) 07/31/18 15:30 Hgb 13.1 GM/dL (10.7-15.3) 07/31/18 15:30 Hct 38.6 % (32.4-45.2) 07/31/18 15:30 MCV 92.0 fl (80-96) 07/31/18 15:30 MCH 31.1 pg (25.7-33.7) 07/31/18 15:30 MCHC 33.8 g/dl (32.0-36.0) 07/31/18 15:30 RDW 13.8 % (11.6-15.6) 07/31/18 15:30 Plt Count 279 K/MM3 (134-434) D 07/31/18 15:30 MPV 8.1 fl (7.5-11.1) 07/31/18 15:30 Absolute Neuts (auto) 3.6 K/mm3 (1.5-8.0) 07/31/18 15:30 Neutrophils % 68.9 % (42.8-82.8) 07/31/18 15:30 Lymphocytes % 16.4 % (8-40) 07/31/18 15:30 Monocytes % 8.1 % (3.8-10.2) 07/31/18 15:30 Eosinophils % 5.8 % (0-4.5) H 07/31/18 15:30 Basophils % 0.8 % (0-2.0) 07/31/18 15:30 Nucleated RBC % 0 % (0-0) 07/31/18 15:30 ESR 85 mm/hr (0-30) H 07/31/18 15:30 PT with INR 11.30 SEC (9.7-13.0) 07/30/18 11:09 INR 1.00 (0.83-1.09) 07/30/18 11:09 PTT (Actin FS) 38.1 SECONDS (25.2-36.5) H 07/30/18 11:09 Sodium 141 mmol/L (136-145) 07/30/18 11:09 Potassium 4.0 mmol/L (3.5-5.1) 07/30/18 11:09 Chloride 102 mmol/L (98-107) 07/30/18 11:09 Carbon Dioxide 31 mmol/L (21-32) 07/30/18 11:09 Anion Gap 8 MMOL/L (8-16) 07/30/18 11:09 BUN 8 mg/dL (7-18) 07/30/18 11:09 Creatinine 0.5 mg/dL (0.55-1.02) L 07/30/18 11:09 Creat Clearance w eGFR > 60 (>60) 07/30/18 11:09 Random Glucose 90 mg/dL (74-106) 07/30/18 11:09 Calcium 8.8 mg/dL (8.5-10.1) 07/30/18 11:09 Total Bilirubin 0.4 mg/dL (0.2-1.0) 07/30/18 11:09 AST 30 U/L (15-37) 07/30/18 11:09 ALT 38 U/L (12-78) 07/30/18 11:09 Alkaline Phosphatase 134 U/L (45-117) H 07/30/18 11:09 C-Reactive Protein 6.7 MG/DL (0.00-0.3) H 07/31/18 15:30 Total Protein 8.6 g/dl (6.4-8.2) H 07/30/18 11:09 Albumin 3.6 g/dl (3.4-5.0) 07/30/18 11:09 Synovial WBC 92466 /mm3 08/01/18 10:00 Synovial RBC 9081 /mm3 08/01/18 10:00 Problem List - Problems (1) Leg pain Code(s): M79.606 - PAIN IN LEG, UNSPECIFIED (2) Superficial thrombophlebitis Code(s): I80.9 - PHLEBITIS AND THROMBOPHLEBITIS OF UNSPECIFIED SITE Assessment/Plan 48 y.o. female with PMH of anxiety presents with LT knee pain/mild swelling/ with difficulty ambulating worsened in the last 2 days. She is afebrile, without leukocytosis, blood cultures no growth in 24 hrs. LE US with thrombosis of superficial vein. Superficial venous thrombosis/thrombophlebitis R/O Lt knee septic arthritis -- Lt knee fluid aspirated -- synovial fluid analysis noted, wbc >40K, rbc>9K, f/u fluid cultures -- will empirically start Ceftriaxone, Vancomycin while cultures pending -- pt remains afebrile, without leukocytosis
[2018-08-01] MEDS: HEPARIN NA (PORCINE) 5,000 UNITS/ML 1ML VIAL SQ SCH ×2 (12:43→22:16)
[2018-08-01] MEDS: SERTRALINE HCL 50 MG TABLET (FP) PO SCH (12:44)
[2018-08-01] MEDS ORDERED: DEXTROSE 5%-WATER 100 ML IVPB ONE (12:54)
[2018-08-01 13:23] LABS: SYNOVIAL FLUID LYMPHOCYTES 4 %; SYNOVIAL FLUID MONOCYTES 5 %; SYNOVIAL FLUID NEUTROPHILS 91 %; SYNOVIAL FLUID SOURCE KNEE
[2018-08-01 13:55] LABS: CRYSTALS,SYNOVIAL FLUID NEGATIVE
[2018-08-01] MEDS: oxyCODONE HCL 5 MG TABLET PO PRN (13:56)
[2018-08-01] MEDS: CEFTRIAXONE 2 GM in DEXTROSE 5%-WATER 100 ML IVPB SCH (13:57)
[2018-08-01] MEDS: VANCOMYCIN 1,000 MG in DEXTROSE 5%-WATER - 250 ML IVPB SCH (16:27)
[2018-08-01] MEDS ORDERED: PT OWN MED DRAWER 7, Y5N ONE (18:50)
--- NOTE | 2018-08-01 20:01 | PN ---
Progress Note, Physician - Current Medication List Current Medications: Active Medications Heparin Sodium (Porcine) (Heparin -) 5,000 unit SQ BID [facility] Last Admin: 08/01/18 12:43 Dose: 5,000 unit Ceftriaxone Sodium 2 gm/ (Dextrose) 100 mls @ 100 mls/hr IVPB DAILY [facility]; Protocol Last Admin: 08/01/18 13:57 Dose: 100 mls/hr Vancomycin HCl 1,000 mg/ (Dextrose) 250 mls @ 166.667 mls/hr IVPB Q12H MANDI; Protocol Last Admin: 08/01/18 16:27 Dose: 166.667 mls/hr Ibuprofen (Motrin -) 600 mg PO TID [facility] Last Admin: 08/01/18 15:01 Dose: 600 mg Morphine Sulfate (Morphine Sulfate) 3 mg IVPUSH Q4H PRN PRN Reason: PAIN LEVEL 4 - 6 Last Admin: 07/31/18 19:01 Dose: 3 mg Oxycodone HCl (Roxicodone -) 10 mg PO Q6H PRN PRN Reason: PAIN LEVEL 4 - 6 Last Admin: 08/01/18 13:56 Dose: 10 mg Sertraline HCl (Zoloft -) 100 mg PO DAILY [facility] Last Admin: 08/01/18 12:44 Dose: 100 mg - Objective Vital Signs: Vital Signs Temperature 98.9 F 08/01/18 18:00 Pulse Rate 101 H 08/01/18 18:00 Respiratory Rate 20 08/01/18 18:00 Blood Pressure 117/72 08/01/18 18:00 O2 Sat by Pulse Oximetry (%) 96 08/01/18 03:00 Constitutional: Yes: No Distress HENT: Yes: Atraumatic Neck: Yes: Supple Cardiovascular: Yes: Regular Rate and Rhythm Respiratory: Yes: CTA Bilaterally Gastrointestinal: Yes: Normal Bowel Sounds Extremities: Yes: Other (llex tender, mild swelling) Neurological: Yes: Alert, Oriented Labs: CBC, BMP 07/31/18 15:30 07/30/18 11:09 INR, PTT INR 1.00 (0.83-1.09) 07/30/18 11:09 Problem List - Problems (1) Leg pain Assessment/Plan: on pain meds will get ortho involved s/p needle aspiration L knee Code(s): M79.606 - PAIN IN LEG, UNSPECIFIED (2) Superficial thrombophlebitis Assessment/Plan: nsaids Code(s): I80.9 - PHLEBITIS AND THROMBOPHLEBITIS OF UNSPECIFIED SITE (3) GERD (gastroesophageal reflux disease) Code(s): K21.9 - GASTRO-ESOPHAGEAL REFLUX DISEASE WITHOUT ESOPHAGITIS Qualifiers:
[2018-08-02] MEDS: VANCOMYCIN 1,000 MG in DEXTROSE 5%-WATER - 250 ML IVPB SCH ×2 (01:21→13:49)
[2018-08-02] MEDS: IBUPROFEN 600 MG TABLET (FP) PO SCH ×3 (05:26→22:03)
[2018-08-02] MEDS ORDERED: DEXTROSE 5%-WATER 100 ML IVPB ONE (09:56)
[2018-08-02] MEDS: HEPARIN NA (PORCINE) 5,000 UNITS/ML 1ML VIAL SQ SCH ×2 (09:59→22:04)
[2018-08-02] MEDS: SERTRALINE HCL 50 MG TABLET (FP) PO SCH (09:59)
[2018-08-02] MEDS: CEFTRIAXONE 2 GM in DEXTROSE 5%-WATER 100 ML IVPB SCH (10:00)
--- NOTE | 2018-08-02 10:01 | PN ---
Progress Note (short form) - Note Progress Note: Ortho Pt seen and examined- c/o left knee pain, swelling- s/p aspiration Laboratory Tests 07/31/18 08/01/18 15:30 10:00 WBC 5.3 Hgb 13.1 Hct 38.6 Plt Count 279 D Synovial Source Knee Synovial WBC 36133 Synovial Neutrophils 91 Synovial Crystals Negative 2+ effusion, +ttp, rom 0-70, calf soft, nt nvi a/p Risks and benefits were d/w pt in detail OR tomorrow for left knee arthroscopy with washout NPO after midnight surgical clearance d/w Dr. Daley
[2018-08-02] MEDS ORDERED: PT OWN MED DRAWER 7, Y5N ONE ×2 (13:11→13:24)
--- NOTE | 2018-08-02 15:18 | PN ---
Progress Note, Physician History of Present Illness: Pt is alert, remains afebrile. Still with Lt knee swelling, tenderness. Now on motrin. - Current Medication List Current Medications: Active Medications Heparin Sodium (Porcine) (Heparin -) 5,000 unit SQ BID [facility] Last Admin: 08/02/18 09:59 Dose: 5,000 unit Ceftriaxone Sodium 2 gm/ (Dextrose) 100 mls @ 100 mls/hr IVPB DAILY [facility]; Protocol Last Admin: 08/02/18 10:00 Dose: 100 mls/hr Vancomycin HCl 1,000 mg/ (Dextrose) 250 mls @ 166.667 mls/hr IVPB Q12H [facility]; Protocol Last Admin: 08/02/18 13:49 Dose: 166.667 mls/hr Ibuprofen (Motrin -) 600 mg PO TID [facility] Last Admin: 08/02/18 13:16 Dose: 600 mg Morphine Sulfate (Morphine Sulfate) 3 mg IVPUSH Q4H PRN PRN Reason: PAIN LEVEL 4 - 6 Last Admin: 07/31/18 19:01 Dose: 3 mg Oxycodone HCl (Roxicodone -) 10 mg PO Q6H PRN PRN Reason: PAIN LEVEL 4 - 6 Last Admin: 08/01/18 13:56 Dose: 10 mg Sertraline HCl (Zoloft -) 100 mg PO DAILY [facility] Last Admin: 08/02/18 09:59 Dose: 100 mg - Objective Vital Signs: Vital Signs Temperature 98.8 F 08/02/18 14:47 Pulse Rate 67 08/02/18 14:47 Respiratory Rate 20 08/02/18 14:47 Blood Pressure 108/67 08/02/18 14:47 O2 Sat by Pulse Oximetry (%) 97 08/02/18 14:00 Constitutional: Yes: No Distress, Calm Cardiovascular: Yes: Regular Rate and Rhythm Respiratory: Yes: CTA Bilaterally Gastrointestinal: Yes: Normal Bowel Sounds, Soft Musculoskeletal: Yes: Joint Swelling (Lt knee swelling/tenderness) Edema: No Integumentary: Yes: WNL Neurological: Yes: Alert Labs: CBC, BMP 07/31/18 15:30 07/30/18 11:09 INR, PTT INR 1.00 (0.83-1.09) 07/30/18 11:09 Microbiology 08/01/18 11:16 Synovial Fluid - Knee Gram Stain - Final 08/01/18 11:16 Synovial Fluid - Knee Body Fluid Culture - Preliminary NO AEROBIC GROWTH, 24 HRS 07/30/18 11:09 Blood - Peripheral Venous Blood Culture - Preliminary NO GROWTH OBTAINED AFTER 72 HOURS, INCUBATION TO CONTINUE FOR 2 DAYS. 07/30/18 11:09 Blood - Peripheral Venous Blood Culture - Preliminary NO GROWTH OBTAINED AFTER 72 HOURS, INCUBATION TO CONTINUE FOR 2 DAYS. Problem List - Problems (1) Leg pain Code(s): M79.606 - PAIN IN LEG, UNSPECIFIED (2) Superficial thrombophlebitis Code(s): I80.9 - PHLEBITIS AND THROMBOPHLEBITIS OF UNSPECIFIED SITE Assessment/Plan 48 y.o. female with PMH of anxiety presents with LT knee pain/mild swelling/ with difficulty ambulating worsened in the last 2 days. She is afebrile, without leukocytosis, blood cultures no growth in 24 hrs. LE US with thrombosis of superficial vein. Superficial venous thrombosis/thrombophlebitis R/O Lt knee septic arthritis -- scheduled for Lt knee arthroscopy -- synovial fluid cultures without growth so far, cont. f/u final report -- cont. Ceftriaxone/Vancomycin empirically -- monitor renal function, Vancomycin trough prior to 4th dose -- pt remains afebrile, without leukocytosis
--- NOTE | 2018-08-02 17:29 | PN ---
Progress Note, Physician - Current Medication List Current Medications: Active Medications Heparin Sodium (Porcine) (Heparin -) 5,000 unit SQ BID [facility] Last Admin: 08/02/18 09:59 Dose: 5,000 unit Ceftriaxone Sodium 2 gm/ (Dextrose) 100 mls @ 100 mls/hr IVPB DAILY [facility]; Protocol Last Admin: 08/02/18 10:00 Dose: 100 mls/hr Vancomycin HCl 1,000 mg/ (Dextrose) 250 mls @ 166.667 mls/hr IVPB Q12H [facility]; Protocol Last Admin: 08/02/18 13:49 Dose: 166.667 mls/hr Ibuprofen (Motrin -) 600 mg PO TID [facility] Last Admin: 08/02/18 13:16 Dose: 600 mg Morphine Sulfate (Morphine Sulfate) 3 mg IVPUSH Q4H PRN PRN Reason: PAIN LEVEL 4 - 6 Last Admin: 07/31/18 19:01 Dose: 3 mg Oxycodone HCl (Roxicodone -) 10 mg PO Q6H PRN PRN Reason: PAIN LEVEL 4 - 6 Last Admin: 08/01/18 13:56 Dose: 10 mg Sertraline HCl (Zoloft -) 100 mg PO DAILY [facility] Last Admin: 08/02/18 09:59 Dose: 100 mg - Objective Vital Signs: Vital Signs Temperature 98.3 F 08/02/18 17:09 Pulse Rate 81 08/02/18 17:09 Respiratory Rate 20 08/02/18 17:09 Blood Pressure 139/73 08/02/18 17:09 O2 Sat by Pulse Oximetry (%) 97 08/02/18 14:00 Constitutional: Yes: No Distress HENT: Yes: Atraumatic Neck: Yes: Supple Cardiovascular: Yes: Regular Rate and Rhythm Respiratory: Yes: CTA Bilaterally Gastrointestinal: Yes: Normal Bowel Sounds Extremities: Yes: Internal Rotation, Other (L knee swollen) Edema: LLE: 1+ Neurological: Yes: Alert, Oriented Labs: CBC, BMP 07/31/18 15:30 07/30/18 11:09 INR, PTT INR 1.00 (0.83-1.09) 07/30/18 11:09 Problem List - Problems (1) Leg pain Assessment/Plan: on pain meds will get ortho involved for arthroscopy Code(s): M79.606 - PAIN IN LEG, UNSPECIFIED (2) Superficial thrombophlebitis Assessment/Plan: nsaids Code(s): I80.9 - PHLEBITIS AND THROMBOPHLEBITIS OF UNSPECIFIED SITE (3) GERD (gastroesophageal reflux disease) Code(s): K21.9 - GASTRO-ESOPHAGEAL REFLUX DISEASE WITHOUT ESOPHAGITIS Qualifiers:
[2018-08-03] MEDS: VANCOMYCIN 1,000 MG in DEXTROSE 5%-WATER - 250 ML IVPB SCH ×2 (01:10→15:36)
[2018-08-03] MEDS: IBUPROFEN 600 MG TABLET (FP) PO SCH ×3 (05:55→21:45)
[2018-08-03 07:47] LABS: ANION GAP 7 MMOL/L (8-16); BLOOD UREA NITROGEN 9 mg/dL (7-18); CALCIUM 8.5 mg/dL (8.5-10.1); CHLORIDE 105 mmol/L (98-107); CO2 29 mmol/L (21-32); CREATININE 0.4 mg/dL (0.55-1.3); GLUCOSE,RANDOM 106 mg/dL (74-106); SODIUM 141 mmol/L (136-145)
[2018-08-03 07:48] LABS: BASO % 0.5 % (0-2.0); HEMATOCRIT 40.1 % (32.4-45.2); HEMOGLOBIN 13.6 GM/dL (10.7-15.3); LYMPH % 14.5 % (8-40); MCH 31.2 pg (25.7-33.7); MCHC 33.8 g/dl (32.0-36.0); MEAN CELL VOLUME 92.3 fl (80-96); MEAN PLT VOLUME 8.5 fl (7.5-11.1); PLATELET COUNT 275 K/MM3 (134-434); RBC 4.35 M/mm3 (3.60-5.2); RDW 13.8 % (11.6-15.6); WHITE BLOOD COUNT 4.9 K/mm3 (4.0-10.0)
[2018-08-03] MEDS ORDERED: PT OWN MED DRAWER 7, Y5N ONE ×2 (09:22→15:24)
[2018-08-03] MEDS ORDERED: DEXTROSE 5%-WATER 100 ML IVPB ONE (09:22)
[2018-08-03] MEDS: CEFTRIAXONE 2 GM in DEXTROSE 5%-WATER 100 ML IVPB SCH (09:38)
[2018-08-03] MEDS: HEPARIN NA (PORCINE) 5,000 UNITS/ML 1ML VIAL SQ SCH (10:47)
[2018-08-03] MEDS: SERTRALINE HCL 50 MG TABLET (FP) PO SCH (10:48)
[2018-08-03] MEDS ORDERED: MIDAZOLAM HCL 2 MG/2 ML SINGLE DOSE VIAL ONE (12:41)
[2018-08-03 12:45] LABS: ERYTHROCYTE SEDIMENTATION RATE 87 mm/hr (0-30)
[2018-08-03] MEDS ORDERED: PROPOFOL 20 ML ONE (12:47)
[2018-08-03] MEDS ORDERED: SUCCINYLCHOLINE CHLORIDE 200 MG/10 ML VIAL ONE (12:47)
[2018-08-03] MEDS ORDERED: BUPIVACAINE HCL/PF 0.25% (2.5MG/ML) 10 ML VIAL ONE (12:50)
[2018-08-03] MEDS ORDERED: LIDOCAINE HCL 1% PRESERVATIVE FREE - 30ML VIAL IJ ONE (13:00)
[2018-08-03] MEDS ORDERED: LIDOCAINE HCL/PF 2% SDV 5ML VIAL ONE (13:07)
[2018-08-03] MEDS ORDERED: DEXAMETHASONE SOD PHOSPHATE 4 MG/1 ML VIAL ONE (13:07)
[2018-08-03] MEDS ORDERED: KETOROLAC TROMETHAMINE 30 MG/1 ML VIAL ONE (13:07)
--- NOTE | 2018-08-03 13:32 | OP ---
Operative Note - Note: Operative Date: 08/03/18 Pre-Operative Diagnosis: septic arthritis left knee Operation: arthroscopy left knee and debridement synovial plica and partial MM Post-Operative Diagnosis: Other (same + MM tear and medial synovial plica) Surgeon: Clif Daley Anesthesia: General Operative Report Dictated: Yes
[2018-08-03] MEDS ORDERED: ONDANSETRON 4 MG/2 ML VIAL IVPUSH PRN (13:37)
[2018-08-03] MEDS: LACTATED RINGERS SOLUTION 1,000 ML IV SCH (15:36)
--- NOTE | 2018-08-03 17:42 | PN ---
Progress Note, Physician - Current Medication List Current Medications: Active Medications Fentanyl (Sublimaze Injection -) 50 mcg IVPUSH [id number] PRN PRN Reason: PAIN-PACU ORDER X 4 DOSES ONLY Last Admin: 08/03/18 13:55 Dose: 50 mcg Lactated Ringer's (Lactated Ringers Solution) 1,000 mls @ 125 mls/hr IV [facility] Last Admin: 08/03/18 15:36 Dose: 125 mls/hr Ceftriaxone Sodium 2 gm/ (Dextrose) 100 mls @ 100 mls/hr IVPB DAILY [facility]; Protocol Vancomycin HCl 1,000 mg/ (Dextrose) 250 mls @ 166.667 mls/hr IVPB Q12H [facility]; Protocol Ibuprofen (Motrin -) 600 mg PO TID [facility] Last Admin: 08/03/18 14:00 Dose: Not Given Morphine Sulfate (Morphine Sulfate) 3 mg IVPUSH Q4H PRN PRN Reason: PAIN LEVEL 4 - 6 Ondansetron HCl (Zofran Injection) 4 mg IVPUSH Q6H PRN PRN Reason: NAUSEA AND/OR VOMITING Sertraline HCl (Zoloft -) 100 mg PO DAILY [facility] - Objective Vital Signs: Vital Signs Temperature 98.2 F 08/03/18 15:45 Pulse Rate 92 H 08/03/18 15:45 Respiratory Rate 20 08/03/18 15:45 Blood Pressure 135/77 08/03/18 15:45 O2 Sat by Pulse Oximetry (%) 97 08/03/18 15:20 Constitutional: Yes: No Distress HENT: Yes: Atraumatic Neck: Yes: Supple Cardiovascular: Yes: Regular Rate and Rhythm Respiratory: Yes: CTA Bilaterally Gastrointestinal: Yes: Normal Bowel Sounds Extremities: Yes: Other (left knee in dressing) Neurological: Yes: Alert, Oriented Labs: CBC, BMP 08/03/18 06:00 08/03/18 06:00 INR, PTT INR 1.00 (0.83-1.09) 07/30/18 11:09 Problem List - Problems (1) Leg pain Assessment/Plan: on pain meds Code(s): M79.606 - PAIN IN LEG, UNSPECIFIED (2) Superficial thrombophlebitis Code(s): I80.9 - PHLEBITIS AND THROMBOPHLEBITIS OF UNSPECIFIED SITE (3) GERD (gastroesophageal reflux disease) Code(s): K21.9 - GASTRO-ESOPHAGEAL REFLUX DISEASE WITHOUT ESOPHAGITIS Qualifiers: (4) Left knee pain Assessment/Plan: septic arthritis s/p arthroscopy on ivabx Code(s): M25.562 - PAIN IN LEFT KNEE
[2018-08-04] MEDS ORDERED: PT OWN MED DRAWER 7, Y5N ONE (00:21)
[2018-08-04] MEDS: VANCOMYCIN 1,000 MG in DEXTROSE 5%-WATER - 250 ML IVPB SCH ×2 (01:21→13:17)
[2018-08-04] MEDS: LACTATED RINGERS SOLUTION 1,000 ML IV SCH (04:20)
[2018-08-04] MEDS: IBUPROFEN 600 MG TABLET (FP) PO SCH ×3 (06:04→21:21)
--- NOTE | 2018-08-04 08:19 | OP ---
DATE OF OPERATION: 08/03/2018 PREOPERATIVE DIAGNOSIS: Septic left knee. POSTOPERATIVE DIAGNOSIS: Septic left knee, medial meniscal tear, medial synovial plica. PROCEDURE: Arthroscopy left knee with debridement and irrigation and debridement of synovial plica and partial medial meniscectomy. SURGEON: Clif Daley MD ANESTHESIA: General with LMA. CLOSURES: 4-0 nylon. COMPLICATIONS: None. CONDITION: To recovery room in stable condition. DESCRIPTION OF PROCEDURE: The patient was taken to the operating room on July 24, 2018. General anesthesia with LMA was administered by the anesthesiologist. No antibiotics were given as the patient has already been on antibiotics on the floor. The left lower extremity was prepped and draped in the usual sterile fashion. The medial and lateral infrapatellar portal sites were then made with a 15 blade blunt trocar. The scope was placed in the lateral infrapatellar port up to suprapatellar pouch. The knee was drained of about 20 mL of fluid, and this fluid was sent to the laboratory for analysis. The shaver was placed in the lateral and the medial infrapatellar portal, and it was used to suck out the fluid as we investigated the entire knee running a great deal of antibiotic irrigation throughout the knee. The pouch was visualized to be clean. The medial and lateral gutters were clean except there was a large, thickened synovial plica extending medially that was draping over the medial femoral condyle. It was rubbing on its edge as it was. It was taken through a range of motion. This plica was debrided using the shaver. With valgus stress on the knee, the medial component was entered. The medial meniscus was found to have a small flap tear of its midportion. This was debrided back to smooth, stable meniscal tissues with meniscal biter and arthroscopic shaver. The medial femoral condyle was run and found to be intact as was the medial tibial plateau. At 90 degrees, the ACL was visualized and probed and found to be intact. In figure-4 position lateral compartment was entered. Lateral meniscus was visualized and probed and found to be intact. Lateral femoral condyle was run and found to be intact as was the lateral tibial plateau. The undersurface of the patella was visualized and seemed to be completely intact. There were some grade 1-2 changes on the trochlea side more medially, but it was basically intact. It was left in situ. We flushed through the knee greater than 6 L of fluid and sucked it out with the shaver. We drained all of the fluid from the knee. We closed the 2 portals with 3-0 nylon and injected 20 mL of 0.5% Marcaine for postoperative analgesia. A sterile pressure dressing was placed over the knee. The patient was awakened from anesthesia and transferred to recovery in stable condition with no complications. Estimated blood loss negligible. Justin CHAN/[id number]
--- NOTE | 2018-08-04 08:34 | PN ---
Progress Note (short form) - Note Progress Note: Anesthesia Post op Pt seen and examined S:Alert and awake comfortable O: Vital Signs Temperature 97.9 F 08/04/18 07:00 Pulse Rate 76 08/04/18 07:00 Respiratory Rate 17 08/04/18 07:00 Blood Pressure 135/61 08/04/18 07:00 O2 Sat by Pulse Oximetry (%) 97 08/03/18 21:00 CBC, BMP 08/03/18 06:00 08/03/18 06:00 A/P Current Active Problems Left knee pain (Acute) Leg pain (Acute) Superficial thrombophlebitis (Acute) s/p arthroscopy of knee Doing well post op Continue current care Branden Barboza MD
[2018-08-04] MEDS ORDERED: DEXTROSE 5%-WATER 100 ML IVPB ONE (10:33)
[2018-08-04] MEDS: CEFTRIAXONE 2 GM in DEXTROSE 5%-WATER 100 ML IVPB SCH (10:40)
[2018-08-04] MEDS: SERTRALINE HCL 50 MG TABLET (FP) PO SCH (10:41)
--- NOTE | 2018-08-04 13:49 | PN ---
Progress Note, Physician History of Present Illness: Pt is alert, afebrile. She had Lt knee arthroscopy and debridement done yesterday. She c/o LLE swelling, + tenderness. Tolerating antibiotics. - Current Medication List Current Medications: Active Medications Fentanyl (Sublimaze Injection -) 50 mcg IVPUSH [id number] PRN PRN Reason: PAIN-PACU ORDER X 4 DOSES ONLY Last Admin: 08/03/18 13:55 Dose: 50 mcg Lactated Ringer's (Lactated Ringers Solution) 1,000 mls @ 125 mls/hr IV [facility]IR [facility] Last Admin: 08/04/18 04:20 Dose: 125 mls/hr Ceftriaxone Sodium 2 gm/ (Dextrose) 100 mls @ 100 mls/hr IVPB DAILY [facility]; Protocol Last Admin: 08/04/18 10:40 Dose: 100 mls/hr Vancomycin HCl 1,000 mg/ (Dextrose) 250 mls @ 166.667 mls/hr IVPB Q12H [facility]; Protocol Last Admin: 08/04/18 13:17 Dose: 166.667 mls/hr Ibuprofen (Motrin -) 600 mg PO TID [facility] Last Admin: 08/04/18 13:30 Dose: 600 mg Morphine Sulfate (Morphine Sulfate) 3 mg IVPUSH Q4H PRN PRN Reason: PAIN LEVEL 4 - 6 Ondansetron HCl (Zofran Injection) 4 mg IVPUSH Q6H PRN PRN Reason: NAUSEA AND/OR VOMITING Sertraline HCl (Zoloft -) 100 mg PO DAILY [facility] Last Admin: 08/04/18 10:41 Dose: 100 mg - Objective Vital Signs: Vital Signs Temperature 97.9 F 08/04/18 07:00 Pulse Rate 88 08/04/18 11:00 Respiratory Rate 18 08/04/18 11:00 Blood Pressure 140/84 08/04/18 11:00 O2 Sat by Pulse Oximetry (%) 97 08/03/18 21:00 Constitutional: Yes: No Distress, Calm Cardiovascular: Yes: Regular Rate and Rhythm Respiratory: Yes: Regular Gastrointestinal: Yes: Normal Bowel Sounds, Soft Genitourinary: Yes: WNL Musculoskeletal: Yes: Joint Swelling (Lt knee swelling/tenderness, wrapped) Neurological: Yes: Alert, Oriented Psychiatric: Yes: Alert Labs: CBC, BMP 08/03/18 06:00 08/03/18 06:00 INR, PTT INR 1.00 (0.83-1.09) 07/30/18 11:09 Microbiology 08/03/18 13:00 Body Fluid - Other Gram Stain - Final 08/03/18 13:00 Body Fluid - Other Body Fluid Culture - Preliminary NO AEROBIC GROWTH, 24 HRS 07/30/18 11:09 Blood - Peripheral Venous Blood Culture - Final NO GROWTH AFTER 5 DAYS INCUBATION 07/30/18 11:09 Blood - Peripheral Venous Blood Culture - Final NO GROWTH AFTER 5 DAYS INCUBATION 08/01/18 11:16 Synovial Fluid - Knee Gram Stain - Final 08/01/18 11:16 Synovial Fluid - Knee Body Fluid Culture - Final NO GROWTH OF AEROBIC ORGANISMS AFTER 48 HOURS INCUBATION 08/01/18 11:16 Synovial Fluid - Knee Anaerobic Culture - Final NO ANAEROBES WERE ISOLATED Problem List - Problems (1) Leg pain Code(s): M79.606 - PAIN IN LEG, UNSPECIFIED (2) Superficial thrombophlebitis Code(s): I80.9 - PHLEBITIS AND THROMBOPHLEBITIS OF UNSPECIFIED SITE Assessment/Plan 48 y.o. female with PMH of anxiety presents with LT knee pain/mild swelling/ with difficulty ambulating worsened in the last 2 days. She is afebrile, without leukocytosis, blood cultures no growth in 24 hrs. LE US with thrombosis of superficial vein. Superficial venous thrombosis/thrombophlebitis Lt knee swelling -- s/p Lt knee arthroscopy -- f/u the cultures sent -- initial synovial fluid cultures without growth so far -- Lyme, GC testing requested -- cont. Ceftriaxone/Vancomycin empirically for now -- monitor renal function, repeat Vancomycin Trough -- pt remains afebrile, without leukocytosis -- Orthopedics following
--- NOTE | 2018-08-04 18:30 | PN ---
Progress Note, Physician History of Present Illness: has pain left knee - Current Medication List Current Medications: Active Medications Fentanyl (Sublimaze Injection -) 50 mcg IVPUSH [id number] PRN PRN Reason: PAIN-PACU ORDER X 4 DOSES ONLY Last Admin: 08/03/18 13:55 Dose: 50 mcg Lactated Ringer's (Lactated Ringers Solution) 1,000 mls @ 125 mls/hr IV [facility] Last Admin: 08/04/18 04:20 Dose: 125 mls/hr Ceftriaxone Sodium 2 gm/ (Dextrose) 100 mls @ 100 mls/hr IVPB DAILY [facility]; Protocol Last Admin: 08/04/18 10:40 Dose: 100 mls/hr Vancomycin HCl 1,000 mg/ (Dextrose) 250 mls @ 166.667 mls/hr IVPB Q12H [facility]; Protocol Last Admin: 08/04/18 13:17 Dose: 166.667 mls/hr Ibuprofen (Motrin -) 600 mg PO TID [facility] Last Admin: 08/04/18 13:30 Dose: 600 mg Morphine Sulfate (Morphine Sulfate) 3 mg IVPUSH Q4H PRN PRN Reason: PAIN LEVEL 4 - 6 Ondansetron HCl (Zofran Injection) 4 mg IVPUSH Q6H PRN PRN Reason: NAUSEA AND/OR VOMITING Sertraline HCl (Zoloft -) 100 mg PO DAILY [facility] Last Admin: 08/04/18 10:41 Dose: 100 mg - Objective Vital Signs: Vital Signs Temperature 98.3 F 08/04/18 18:00 Pulse Rate 87 08/04/18 18:00 Respiratory Rate 20 08/04/18 18:00 Blood Pressure 121/71 08/04/18 18:00 O2 Sat by Pulse Oximetry (%) 97 08/04/18 09:00 Constitutional: Yes: No Distress HENT: Yes: Atraumatic Neck: Yes: Supple Cardiovascular: Yes: Regular Rate and Rhythm Respiratory: Yes: CTA Bilaterally Gastrointestinal: Yes: Normal Bowel Sounds Extremities: Yes: Other (left knee in dressing) Neurological: Yes: Alert, Oriented Labs: CBC, BMP 08/03/18 06:00 08/03/18 06:00 INR, PTT INR 1.00 (0.83-1.09) 07/30/18 11:09 Problem List - Problems (1) Leg pain Assessment/Plan: on pain meds Code(s): M79.606 - PAIN IN LEG, UNSPECIFIED (2) Superficial thrombophlebitis Code(s): I80.9 - PHLEBITIS AND THROMBOPHLEBITIS OF UNSPECIFIED SITE (3) GERD (gastroesophageal reflux disease) Code(s): K21.9 - GASTRO-ESOPHAGEAL REFLUX DISEASE WITHOUT ESOPHAGITIS Qualifiers: (4) Left knee pain Assessment/Plan: septic arthritis s/p arthroscopy on ivabx Code(s): M25.562 - PAIN IN LEFT KNEE
[2018-08-04] MEDS: HEPARIN NA (PORCINE) 5,000 UNITS/ML 1ML VIAL SQ SCH (21:22)
[2018-08-04] MEDS: morphine SULFATE 4 MG/ML VIAL IVPUSH PRN (22:30)
[2018-08-05] MEDS ORDERED: PT OWN MED DRAWER 7, Y5N ONE (00:40)
[2018-08-05] MEDS: VANCOMYCIN 1,000 MG in DEXTROSE 5%-WATER - 250 ML IVPB SCH ×2 (01:27→13:26)
[2018-08-05] MEDS: IBUPROFEN 600 MG TABLET (FP) PO SCH ×3 (05:56→22:08)
--- NOTE | 2018-08-05 09:04 | PN ---
Progress Note (short form) - Note Progress Note: less swelling in left knee no redness AROM 3-90 CALF SOFT AND NT WBC WNL NO GROWTH FROM ANY CULTURE PLAN: IV ABX PER ID, WILL FOLLOW
[2018-08-05] MEDS ORDERED: DEXTROSE 5%-WATER 100 ML IVPB ONE (09:30)
[2018-08-05] MEDS: CEFTRIAXONE 2 GM in DEXTROSE 5%-WATER 100 ML IVPB SCH (09:48)
[2018-08-05] MEDS: HEPARIN NA (PORCINE) 5,000 UNITS/ML 1ML VIAL SQ SCH ×2 (09:48→22:09)
[2018-08-05] MEDS: SERTRALINE HCL 50 MG TABLET (FP) PO SCH (09:48)
--- NOTE | 2018-08-05 12:25 | PN ---
Progress Note, Physician History of Present Illness: Pt remains afebrile. Pain mainly with ambulation, still with some Lt knee edema. No other complaints. - Current Medication List Current Medications: Active Medications Heparin Sodium (Porcine) (Heparin -) 5,000 unit SQ BID [facility] Last Admin: 08/05/18 09:48 Dose: 5,000 unit Ceftriaxone Sodium 2 gm/ (Dextrose) 100 mls @ 100 mls/hr IVPB DAILY [facility]; Protocol Last Admin: 08/05/18 09:48 Dose: 100 mls/hr Vancomycin HCl 1,000 mg/ (Dextrose) 250 mls @ 166.667 mls/hr IVPB Q12H [facility]; Protocol Last Admin: 08/05/18 01:27 Dose: 166.667 mls/hr Ibuprofen (Motrin -) 600 mg PO TID [facility] Last Admin: 08/05/18 05:56 Dose: 600 mg Morphine Sulfate (Morphine Sulfate) 3 mg IVPUSH Q4H PRN PRN Reason: PAIN LEVEL 4 - 6 Last Admin: 08/04/18 22:30 Dose: 3 mg Ondansetron HCl (Zofran Injection) 4 mg IVPUSH Q6H PRN PRN Reason: NAUSEA AND/OR VOMITING Sertraline HCl (Zoloft -) 100 mg PO DAILY [facility] Last Admin: 08/05/18 09:48 Dose: 100 mg - Objective Vital Signs: Vital Signs Temperature 98.4 F 08/05/18 09:32 Pulse Rate 75 08/05/18 09:32 Respiratory Rate 20 08/05/18 09:32 Blood Pressure 130/68 08/05/18 09:32 O2 Sat by Pulse Oximetry (%) 97 08/04/18 21:00 Constitutional: Yes: No Distress, Calm Cardiovascular: Yes: Regular Rate and Rhythm Respiratory: Yes: Regular Gastrointestinal: Yes: Normal Bowel Sounds, Soft Genitourinary: Yes: WNL Musculoskeletal: Yes: Joint Swelling (Lt knee, no erythema +mild/mod tenderness) Extremities: Yes: WNL Wound/Incision: Yes: Sutures Intact Neurological: Yes: Alert, Oriented Labs: CBC, BMP 08/03/18 06:00 08/03/18 06:00 INR, PTT INR 1.00 (0.83-1.09) 07/30/18 11:09 Microbiology 08/03/18 13:00 Body Fluid - Other Gram Stain - Final 08/03/18 13:00 Body Fluid - Other Body Fluid Culture - Final NO GROWTH OF AEROBIC ORGANISMS AFTER 48 HOURS INCUBATION 08/03/18 13:00 Body Fluid - Other Anaerobic Culture - Final NO ANAEROBES WERE ISOLATED 07/30/18 11:09 Blood - Peripheral Venous Blood Culture - Final NO GROWTH AFTER 5 DAYS INCUBATION 07/30/18 11:09 Blood - Peripheral Venous Blood Culture - Final NO GROWTH AFTER 5 DAYS INCUBATION 08/01/18 11:16 Synovial Fluid - Knee Gram Stain - Final 08/01/18 11:16 Synovial Fluid - Knee Body Fluid Culture - Final NO GROWTH OF AEROBIC ORGANISMS AFTER 48 HOURS INCUBATION 08/01/18 11:16 Synovial Fluid - Knee Anaerobic Culture - Final NO ANAEROBES WERE ISOLATED Problem List - Problems (1) Leg pain Code(s): M79.606 - PAIN IN LEG, UNSPECIFIED (2) Superficial thrombophlebitis Code(s): I80.9 - PHLEBITIS AND THROMBOPHLEBITIS OF UNSPECIFIED SITE Assessment/Plan 48 y.o. female with PMH of anxiety presents with LT knee pain/mild swelling/ with difficulty ambulating worsened in the last 2 days. She is afebrile, without leukocytosis, blood cultures no growth in 24 hrs. LE US with thrombosis of superficial vein. Superficial venous thrombosis/thrombophlebitis Lt knee swelling -- s/p Lt knee arthroscopy -- cultures no growth 48 hrs -- initial synovial fluid cultures without growth so far -- Lyme testing pending, can not r/o lyme arthritis entirely eventho no previous history of erythema migrans -- cont. Ceftriaxone/Vancomycin empirically , will decide on d/c tomorrow -- pt remains afebrile, without leukocytosis -- Orthopedics following
--- NOTE | 2018-08-05 12:49 | PN ---
Progress Note, Physician - Current Medication List Current Medications: Active Medications Heparin Sodium (Porcine) (Heparin -) 5,000 unit SQ BID [facility] Last Admin: 08/05/18 09:48 Dose: 5,000 unit Ceftriaxone Sodium 2 gm/ (Dextrose) 100 mls @ 100 mls/hr IVPB DAILY [facility]; Protocol Last Admin: 08/05/18 09:48 Dose: 100 mls/hr Vancomycin HCl 1,000 mg/ (Dextrose) 250 mls @ 166.667 mls/hr IVPB Q12H [facility]; Protocol Last Admin: 08/05/18 01:27 Dose: 166.667 mls/hr Ibuprofen (Motrin -) 600 mg PO TID [facility] Last Admin: 08/05/18 05:56 Dose: 600 mg Morphine Sulfate (Morphine Sulfate) 3 mg IVPUSH Q4H PRN PRN Reason: PAIN LEVEL 4 - 6 Last Admin: 08/04/18 22:30 Dose: 3 mg Ondansetron HCl (Zofran Injection) 4 mg IVPUSH Q6H PRN PRN Reason: NAUSEA AND/OR VOMITING Sertraline HCl (Zoloft -) 100 mg PO DAILY [facility] Last Admin: 08/05/18 09:48 Dose: 100 mg - Objective Vital Signs: Vital Signs Temperature 98.4 F 08/05/18 09:32 Pulse Rate 75 08/05/18 09:32 Respiratory Rate 20 08/05/18 09:32 Blood Pressure 130/68 08/05/18 09:32 O2 Sat by Pulse Oximetry (%) 97 08/04/18 21:00 Constitutional: Yes: No Distress HENT: Yes: Atraumatic Neck: Yes: Supple Cardiovascular: Yes: Regular Rate and Rhythm Respiratory: Yes: CTA Bilaterally Gastrointestinal: Yes: Normal Bowel Sounds Extremities: Yes: WNL, Other (left knee mild swelling) Edema: Yes Edema: LLE: Trace Neurological: Yes: Alert, Oriented Labs: CBC, BMP 08/03/18 06:00 08/03/18 06:00 INR, PTT INR 1.00 (0.83-1.09) 07/30/18 11:09 Problem List - Problems (1) Leg pain Assessment/Plan: on pain meds Code(s): M79.606 - PAIN IN LEG, UNSPECIFIED (2) Superficial thrombophlebitis Code(s): I80.9 - PHLEBITIS AND THROMBOPHLEBITIS OF UNSPECIFIED SITE (3) GERD (gastroesophageal reflux disease) Code(s): K21.9 - GASTRO-ESOPHAGEAL REFLUX DISEASE WITHOUT ESOPHAGITIS Qualifiers: (4) Left knee pain Assessment/Plan: septic arthritis s/p arthroscopy on ivabx cxs negative to date Code(s): M25.562 - PAIN IN LEFT KNEE Assessment/Plan dc in am if cleared by id
[2018-08-05] MEDS: morphine SULFATE 4 MG/ML VIAL IVPUSH PRN (22:09)
[2018-08-06] MEDS ORDERED: PT OWN MED DRAWER 7, Y5N ONE ×2 (01:18→12:28)
[2018-08-06] MEDS: VANCOMYCIN 1,000 MG in DEXTROSE 5%-WATER - 250 ML IVPB SCH ×2 (02:03→12:31)
[2018-08-06] MEDS: IBUPROFEN 600 MG TABLET (FP) PO SCH ×2 (06:16→14:36)
[2018-08-06 07:50] LABS: BASO % 0.8 % (0-2.0); EOS % 8.8 % (0-4.5); HEMATOCRIT 37.6 % (32.4-45.2); HEMOGLOBIN 12.4 GM/dL (10.7-15.3); LYMPH % 16.6 % (8-40); MCH 30.6 pg (25.7-33.7); MEAN CELL VOLUME 92.8 fl (80-96); MEAN PLT VOLUME 8.1 fl (7.5-11.1); MONO % 9.2 % (3.8-10.2); NEUT % 64.6 % (42.8-82.8); PLATELET COUNT 269 K/MM3 (134-434); RBC 4.05 M/mm3 (3.60-5.2); WHITE BLOOD COUNT 4.8 K/mm3 (4.0-10.0)
[2018-08-06 08:35] LABS: ALBUMIN 2.9 g/dl (3.4-5.0); ANION GAP 7 MMOL/L (8-16); BILIRUBIN,TOTAL 0.8 mg/dL (0.2-1.0); BLOOD UREA NITROGEN 7 mg/dL (7-18); CALCIUM 8.6 mg/dL (8.5-10.1); CHLORIDE 102 mmol/L (98-107); CO2 32 mmol/L (21-32); CREATININE 0.4 mg/dL (0.55-1.3); GLUCOSE,RANDOM 84 mg/dL (74-106); POTASSIUM 3.7 mmol/L (3.5-5.1); SGOT/AST 30 U/L (15-37); SGPT/ALT 43 U/L (13-61); SODIUM 141 mmol/L (136-145); TOT PROT 6.5 g/dl (6.4-8.2)
[2018-08-06 08:36] LABS: ALK PHOS 81 U/L (45-117)
--- NOTE | 2018-08-06 08:42 | PN ---
Progress Note (short form) - Note Progress Note: Ortho Pt seen and examined s/p left knee arthroscopy with washout Selected Entries 08/06/18 06:00 Temperature 98.1 F Pulse Rate 65 Respiratory 20 Rate Blood Pressure 131/74 Laboratory Tests 08/06/18 06:20 WBC 4.8 Hgb 12.4 Hct 37.6 Plt Count [address], mild swelling, rom 3-80, calf soft, nt nvi cultures neg Lyme pending a/p PT f/u lyme abx as per ID ok to d/c from ortho pov f/u in the office in 1 week
[2018-08-06] MEDS ORDERED: DEXTROSE 5%-WATER 100 ML IVPB ONE (09:58)
[2018-08-06] MEDS: CEFTRIAXONE 2 GM in DEXTROSE 5%-WATER 100 ML IVPB SCH (10:01)
[2018-08-06] MEDS: HEPARIN NA (PORCINE) 5,000 UNITS/ML 1ML VIAL SQ SCH (10:01)
[2018-08-06] MEDS: SERTRALINE HCL 50 MG TABLET (FP) PO SCH (10:01)
--- NOTE | 2018-08-06 12:10 | PN ---
Progress Note, Physician History of Present Illness: doing well no issues knee still swollen but no erythema noted - Current Medication List Current Medications: Active Medications Heparin Sodium (Porcine) (Heparin -) 5,000 unit SQ BID [facility] Last Admin: 08/06/18 10:01 Dose: 5,000 unit Ceftriaxone Sodium 2 gm/ (Dextrose) 100 mls @ 100 mls/hr IVPB DAILY [facility]; Protocol Last Admin: 08/06/18 10:01 Dose: 100 mls/hr Vancomycin HCl 1,000 mg/ (Dextrose) 250 mls @ 166.667 mls/hr IVPB Q12H MANDI; Protocol Last Admin: 08/06/18 02:03 Dose: 166.667 mls/hr Ibuprofen (Motrin -) 600 mg PO TID [facility] Last Admin: 08/06/18 06:16 Dose: 600 mg Morphine Sulfate (Morphine Sulfate) 3 mg IVPUSH Q4H PRN PRN Reason: PAIN LEVEL 4 - 6 Last Admin: 08/05/18 22:09 Dose: 3 mg Ondansetron HCl (Zofran Injection) 4 mg IVPUSH Q6H PRN PRN Reason: NAUSEA AND/OR VOMITING Sertraline HCl (Zoloft -) 100 mg PO DAILY [facility] Last Admin: 08/06/18 10:01 Dose: 100 mg - Objective Vital Signs: Vital Signs Temperature 98.1 F 08/06/18 09:00 Pulse Rate 82 08/06/18 09:00 Respiratory Rate 20 08/06/18 09:00 Blood Pressure 128/91 08/06/18 09:00 O2 Sat by Pulse Oximetry (%) 97 08/05/18 21:00 Constitutional: Yes: No Distress, Calm Cardiovascular: Yes: Regular Rate and Rhythm Respiratory: Yes: Regular, CTA Bilaterally Gastrointestinal: Yes: Normal Bowel Sounds, Soft Musculoskeletal: Yes: WNL Extremities: Yes: Other (swelling of left knee) Integumentary: Yes: WNL Wound/Incision: Yes: Clean/Dry Neurological: Yes: Alert, Oriented Labs: CBC, BMP 08/06/18 06:20 08/06/18 06:20 INR, PTT INR 1.00 (0.83-1.09) 07/30/18 11:09 Assessment/Plan Problem List - Problems (1) Leg pain Code(s): M79.606 - PAIN IN LEG, UNSPECIFIED (2) Superficial thrombophlebitis Code(s): I80.9 - PHLEBITIS AND THROMBOPHLEBITIS OF UNSPECIFIED SITE (3) GERD (gastroesophageal reflux disease) Code(s): K21.9 - GASTRO-ESOPHAGEAL REFLUX DISEASE WITHOUT ESOPHAGITIS Qualifiers: (4) Left knee pain Code(s): M25.562 - PAIN IN LEFT KNEE swelling of the left knee plan we will send patient home without abx as all her cx have been negative so far f/u of lymes monitor swelling rest as per the team
[2018-08-06 12:59] VITALS: BMI 28.8
[2018-08-06 15:24] VITALS: BP 138/93; PULSE 88; TEMP 98.3
[2018-08-07 11:48] LABS: TOTAL PROTEIN,SYNOVIAL FLUID 6 gm/dL
[2018-08-07 11:49] LABS: GLUCOSE,SYNOVIAL FLUID 15 mg/dL
--- NOTE | 2018-08-07 17:33 | PATH ---
Surgical Pathology Report Patient Name: EMERSON ESPAÑA [facility]. Rec. #: [id number] /Age/Gender: 1970 (Age: 48) / F Account: [id number] Location: [address] [place] [address]/[facility] Taken: 08/03/2018 Received: 08/06/2018 Reported: 08/07/2018 Physicians: Justin Malin M.D. Specimen(s) Received LEFT KNEE SHAVINGS Clinical History Superficial thrombophlebitis arthritis-septic possible Final Diagnosis LEFT KNEE SHAVINGS: FRAGMENTS OF SYNOVIAL TISSUE SHOWING SEVERE SYNOVITIS, PREDOMINANTLY ACUTE, WITH ABSCESS FORMATION AND INFLAMMATORY EXUDATE. Electronically Signed Caleb Kunz M.D. Gross Description Received in formalin, labeled "left knee shavings," is a 6.5 x 5.0 x 0.7 cm. aggregate of villalobos-yellow soft tissue fragments. A delivery representative portion is submitted in one cassette. /08/06/2018 [facility]08/06/2018
--- NOTE | 2018-08-07 18:03 | DS ---
Physical Examination Vital Signs: Vital Signs Temperature 98.3 F 08/06/18 14:22 Pulse Rate 88 08/06/18 14:22 Respiratory Rate 20 08/06/18 14:22 Blood Pressure 138/93 08/06/18 14:22 O2 Sat by Pulse Oximetry (%) 99 08/06/18 09:00 Labs: CBC, BMP 08/06/18 06:20 08/06/18 06:20 Discharge Summary Reason For Visit: SUPERFICIAL THROMBOPHLEBITIS Condition: Stable - Instructions Diet, Activity, Other Instructions: You were seen in the ED for complaints of L knee pain. In the ED you were evaluated with labwork and imaging. Your results were consistent with superficial thrombophlebitis. There does not appear to be an acute need for immediate hospitalization. You are advised to follow up with your primary care physician within 1 week. You were given a referral to vascular surgery and advised to follow up within in 1 week. Please take ASA 325mg once a day, motrin as directed and use warm compresses on the knee. Return to the ED immediately if you experience worsening L knee pain, fever, chills, nausea, vomiting, difficulty ambulating. Referrals: Wily Guzman MD [Staff Physician] - Disposition: HOME - Home Medications Comprehensive Discharge Medication List: Ambulatory Orders Sertraline HCl [Zoloft -] 100 mg PO DAILY #30 tablet 06/27/15 Cetirizine HCl [Zyrtec -] 10 mg PO DAILY 05/04/18 Oxycodone HCl/Acetaminophen [Percocet 5-325 mg Tablet] 1 - 2 tab PO Q6H PRN #20 tab MDD 8 tabs 07/30/18 Oxycodone HCl/Acetaminophen [Oxycodone-Acetaminophen 5-325] 1 each PO TID #20 tablet MDD 3 08/05/18 dc
== END 2018-08-06 15:28 | disposition home or self-care (01) | DRG 488 ==
LOC: JER 10:28 → OBSVTOIN 19:18 → JERBED 19:18 → J5S 21:00
PROVIDERS: ADMIT Internal Medicine; ATTEND Internal Medicine
PROC: 0SJC3ZZ Inspection of Right Knee Joint, Percutaneous Approach (ICD-10-PCS; 2018-08-01)
PROC: 3E0U33Z Introduction of Anti-inflammatory into Joints, Percutaneous Approach (ICD-10-PCS; 2018-08-01)
PROC: 3E0U3BZ Introduction of Anesthetic Agent into Joints, Percutaneous Approach (ICD-10-PCS; 2018-08-01)
PROC: 0SBD4ZZ Excision of Left Knee Joint, Percutaneous Endoscopic Approach (ICD-10-PCS; principal; 2018-08-03 14:00)
DX: M71.22 Synovial cyst of popliteal space [Baker], left knee (principal); M00.9 Pyogenic arthritis, unspecified; S83.242A Other tear of medial meniscus, current injury, left knee, initial encounter; M25.462 Effusion, left knee; K21.9 Gastro-esophageal reflux disease without esophagitis; M79.606 Pain in leg, unspecified; I80.9 Phlebitis and thrombophlebitis of unspecified site; F41.9 Anxiety disorder, unspecified; M67.52 Plica syndrome, left knee
CPT/HCPCS: 36415; 73562-TC-LT-FY; 76882-TC-RT-FY; 80048; 80053; 82150; 82945; 83615; 84157; 85025; 85610; 85651; 85730; 86140; 86618; 87040; 87070; 87075; 87205; 88304-TC; 89051; 89060; 94760; 99282-25; G0480; J1644; J7030

== ENCOUNTER 2019-02-14 04:37 | Inpatient (IN) | payer OTHER ==
--- NOTE | 2019-02-14 05:06 | HP ---
CIWA Score Nausea/Vomitin-No Nausea/No Vomiting Muscle Tremors: 1-None Visible, but [place] Anxiety: 0-No Anxiety, at Ease Agitation: 0-Normal Activity Paroxysmal Sweats: No Perspiration Orientation: 0-Oriented Tacttile Disturbances: 0-None Auditory Disturbances: 0-None Visual Disturbances: 0-None Headache: 2-Mild CIWA-Ar Total Score: 3 - Admission Criteria OASAS Guidelines: Admission for Medically Managed Detox: Requires at least one of the followin. CIWA greater than 12 2. Seizures within the past 24 hours 3. Delirium tremens within the past 24 hours 4. Hallucinations within the past 24 hours 5. Acute intervention needed for co occurring medical disorder 6. Acute intervention needed for co occurring psychiatric disorder 7. Severe withdrawal that cannot be handled at a lower level of care (continued vomiting, continued diarrhea, abnormal vital signs) requiring intravenous medication and/or fluids 8. Admission ROS [facility] Chief Complaint: Alcohol withdrawal symptoms Allergies/Adverse Reactions: Allergies Allergy/AdvReac Type Severity Reaction Status Date / Time No Known Allergies Allergy Verified 07/30/18 10:34 History of Present Illness: Patient is seeking admission to detox from Alcohol. She is alert, oriented and in no acute distress at this time. Vital signs stable and patienyt is medically stable at this time. The facility is at full capacity and there is no bed available to admit patient at this time. Alternative treatment facility/ long-term provided. Exam Limitations: No Limitations - Ebola screening Have you had contact with anyone from an Ebola affected area: No Have you been sick,other than usual withdrawal symptoms: No Do you have a fever: No - Review of Systems Constitutional: No Symptoms Reported EENT: reports: No Symptoms Reported Respiratory: reports: No Symptoms reported Cardiac: reports: No Symptoms Reported GI: reports: Nausea, Poor Appetite, Abdominal cramping : reports: No Symptoms Reported Musculoskeletal: reports: No Symptoms Reported Integumentary: reports: Dryness, Flushing Neuro: reports: No Symptoms reported Endocrine: reports: No Symptoms Reported Hematology: reports: No Symptoms Reported Psychiatric: reports: Depressed Other Systems: Reviewed and Negative Patient History - Patient Medical History Hx Anemia: No Hx Asthma: No Hx Chronic Obstructive Pulmonary Disease (COPD): No Hx Cancer: No Hx Cardiac Disorders: No Hx Congestive Heart Failure: No Hx Hypertension: No Hx Hypercholesterolemia: No Hx Pacemaker: No HX Cerebrovascular Accident: No Hx Seizures: No Hx Diabetes: No Hx Gastrointestinal Disorders: Yes (HX GERD) Hx Liver Disease: No Hx Genitourinary Disorders: No Hx Sexually Transmitted Disorders: No (DENIES) Hx Renal Disease (ESRD): No Hx Thyroid Disease: No Hx Human Immunodeficiency Virus (HIV): No Hx Hepatitis C: No Hx Depression: Yes (AND ANXIETY-ON MEDS) Hx Suicide Attempt: No (DENIES S/H/I) Hx Schizophrenia: No - Patient Surgical History Past Surgical History: Yes Hx Neurologic Surgery: No Hx Cataract Extraction: No Hx Cardiac Surgery: No Hx Lung Surgery: No Hx Breast Surgery: No Hx Breast Biopsy: No Hx Abdominal Surgery: No Hx Appendectomy: No Hx Cholecystectomy: No Hx Genitourinary Surgery: No Hx Section: No Hx Orthopedic Surgery: No Hx Hysterectomy: No Other Surgical History: D AND C IN 2007 Anesthesia Reaction: No - PPD History Date: 05/06/18 - Reproductive History Last Menstrual Period: 06/01/15 - Smoking Cessation Smoking history: Never smoked Have you smoked in the past 12 months: No Hx Chewing Tobacco Use: No Family Disease History - Family Disease History Family Disease History: CA: Grandparent (GF-PROSTATE) Admission Physical Exam [facility] - Physical General Appearance: Yes: No Apparent Distress HEENTM: Yes: Within Normal Limits Respiratory: Yes: Lungs Clear, Normal Breath Sounds, No Respiratory Distress Neck: Yes: Supple Breast: Yes: Breast Exam Deferred Cardiology: Yes: Regular Rhythm, Regular Rate Abdominal: Yes: Normal Bowel Sounds, Soft Genitourinary: Yes: Within Normal Limits Back: Yes: Normal Inspection Musculoskeletal: Yes: Within Normal Limits Extremities: Yes: Normal Inspection Neurological: Yes: Alert, Normal Mood/Affect Integumentary: Yes: Warm Lymphatic: Yes: Within Normal Limits Screened but not Admitted - Documentation of Visit Additional Information/Explanation: Patient is seeking admission to detox from Alcohol. She is alert, oriented and in no acute distress at this time. Vital signs stable and patienyt is medically stable at this time. The facility is at full capacity and there is no bed available to admit patient at this time. Alternative treatment facility/ long-term provided. [facility] provided by [facility] Breath Alcohol Content Breath Alcohol Content: 0 Inpatient Rehab Admission - Rehab Decision to Admit Inpatient rehab admission?: No
[2019-02-14 19:07] VITALS: BMI 28.3
--- NOTE | 2019-02-14 22:33 | PN ---
"[facility] Progress Note Note: HX/PE COPIED AND PASTE FROM [facility]PL[facility]ATE ACCT. HX/PE/ ORDERS COMPLETED BY DR. LAKEISHA ENGLE [facility] History and Physical Patient Name: FABIAN RAMOS Date of : [birth year] Patient Status: Referred Attending Provider: Ana Acuan Date: 02/14/19 17:54 Initialization Date: 02/14/19 17:54 CIWA Score Nausea/Vomitin-No Nausea/No Vomiting Muscle Tremors: 1-None Visible, but [place] Anxiety: 4-Mod. Anxious/Guarded Agitation: 4-Moderately Restless Paroxysmal Sweats: 2 Orientation: 0-Oriented Tacttile Disturbances: 0-None Auditory Disturbances: 0-None Visual Disturbances: 0-None Headache: 4-Moderately Severe CIWA-Ar Total Score: 15 - Admission Criteria OASAS Guidelines: Admission for Medically Managed Detox: Requires at least one of the followin. CIWA greater than 12 2. Seizures within the past 24 hours 3. Delirium tremens within the past 24 hours 4. Hallucinations within the past 24 hours 5. Acute intervention needed for co occurring medical disorder 6. Acute intervention needed for co occurring psychiatric disorder 7. Severe withdrawal that cannot be handled at a lower level of care (continued vomiting, continued diarrhea, abnormal vital signs) requiring intravenous medication and/or fluids 8. Admission ROS [facility] - HPI Allergies/Adverse Reactions: Allergies Allergy/AdvReac Type Severity Reaction Status Date / Time No Known Allergies Allergy Verified 07/30/18 10:34 History of Present Illness: pt here requesting detox from etoh use , reports wine or vodka, 1 bottle/day since 1 yr ago , prior sobriety x 1 month , first age of use 20 , denies seizures, reports blackouts, + tremors, reports drinking alcohol around 12 noon daily , has difficulty writing otherwise while at work . Denies recent falls while intoxicated, had a fall in the past . denies driving after drinking . PMHx : anxiety , depression - denies current SI / HI PSHx : left knee surgery Jul 2018 Cheek's cyst David's lmp 2 years ago , ut fibroids in the past . no children Search Terms: fabian ramos, 1970 Search Date: 02/14/2019 06:00:30 PM The Drug Utilization Report below displays all of the controlled substance prescriptions, if any, that your patient has filled in the last twelve months. The information displayed on this report is compiled from pharmacy submissions to the Department, and accurately reflects the information as submitted by the pharmacies. This report was requested by: Lakeisha Engle | Reference #: [id number] Others' Prescriptions Patient Name: Fabian Ramos Date: 1970 Address: [address] [place] [address] Sex: Female Rx Written Rx Dispensed Drug Quantity Days Supply Prescriber Name 08/23/2018 08/23/2018 oxycodone-acetaminophen 5-325 mg tablet 30 5 Clif Daley MD 07/30/2018 08/06/2018 oxycodone-acetaminophen 5-325 mg tablet 20 3 Shelly Yi () * - Drugs marked with an asterisk are compound drugs. If the compound drug is made up of more than one controlled substance, then each controlled substance will be a separate row in the table. Exam Limitations: Clinical Condition, Intoxication - Ebola screening Have you traveled outside of the country in the last 21 days: No Have you had contact with anyone from an Ebola affected area: No Have you been sick,other than usual withdrawal symptoms: No - Review of Systems Constitutional: See HPI, Loss of Appetite EENT: reports: Other (glasses , denies dysphagia) Respiratory: reports: No Symptoms reported Cardiac: reports: No Symptoms Reported GI: reports: See HPI : reports: No Symptoms Reported Musculoskeletal: reports: No Symptoms Reported Integumentary: reports: Dryness Neuro: reports: See HPI Endocrine: reports: No Symptoms Reported Psychiatric: reports: Orientated x3, Agitated, Anxious, Depressed Patient History - Patient Medical History Hx Anemia: No Hx Asthma: No Hx Chronic Obstructive Pulmonary Disease (COPD): No Hx Cancer: No Hx Cardiac Disorders: No Hx Congestive Heart Failure: No Hx Hypertension: No Hx Hypercholesterolemia: No Hx Pacemaker: No HX Cerebrovascular Accident: No Hx Seizures: No Hx Diabetes: No Hx Gastrointestinal Disorders: Yes (HX GERD) Hx Liver Disease: No Hx Genitourinary Disorders: No Hx Sexually Transmitted Disorders: No (DENIES) Hx Renal Disease (ESRD): No Hx Thyroid Disease: No Hx Human Immunodeficiency Virus (HIV): No Hx Hepatitis C: No Hx Depression: Yes (AND ANXIETY-ON MEDS) Hx Suicide Attempt: No (DENIES S/H/I) Hx Schizophrenia: No - Patient Surgical History Past Surgical History: Yes Hx Neurologic Surgery: No Hx Cataract Extraction: No Hx Cardiac Surgery: No Hx Lung Surgery: No Hx Breast Surgery: No Hx Breast Biopsy: No Hx Abdominal Surgery: No Hx Appendectomy: No Hx Cholecystectomy: No Hx Genitourinary Surgery: No Hx Section: No Hx Orthopedic Surgery: No Hx Hysterectomy: No Other Surgical History: D AND C IN 2007 Anesthesia Reaction: No - PPD History Date: 05/06/18 - Reproductive History Last Menstrual Period: 06/01/15 - Smoking Cessation Smoking history: Never smoked Have you smoked in the past 12 months: No Hx Chewing Tobacco Use: No Family Disease History - Family Disease History Family Disease History: CA: Grandparent (GF-PROSTATE) Admission Physical Exam [facility] - Vital Signs Vital Signs: Vital Signs - 24 hr 02/14/19 14:28 Temperature 98.9 F Pulse Rate 90 Respiratory 18 Rate Blood Pressure 136/83 - Physical General Appearance: Yes: Severe Distress, Alcohol on Breath, Intoxicated, Tremorous, Anxious HEENTM: Yes: EOMI, Hearing grossly Normal, Normocephalic, Normal Voice Respiratory: Yes: Chest Non-Tender, Lungs Clear, Normal Breath Sounds Neck: Yes: No masses,lesions,Nodules, Trachea in good position Cardiology: Yes: Regular Rhythm, Regular Rate, S1, S2, Tachycardia Genitourinary: Yes: Within Normal Limits Back: Yes: Normal Inspection Musculoskeletal: Yes: full range of Motion, Gait Steady Extremities: Yes: Normal Range of Motion, Non-Tender Neurological: Yes: Motor Strength 5/5 Integumentary: Yes: Normal Color, Dry - Diagnostic (1) Alcohol intoxication Current Visit: Yes Status: Acute Qualifiers: Complication of substance-induced condition: uncomplicated Qualified Code(s ): F10.920 - Alcohol use, unspecified with intoxication, uncomplicated (2) Alcohol dependence with uncomplicated withdrawal Current Visit: Yes Status: Acute S Breath Alcohol Content Breath Alcohol Content: 0.162 Urine Pregancy Test - Result Urine Test Results: Negative - NO line present Urine Drug Screen - Results Drug Screen Negative: Yes Inpatient Rehab Admission - Rehab Decision to Admit Inpatient rehab admission?: No"
[2019-02-14] MEDS ORDERED: DICYCLOMINE HCL 10 MG CAPSULE PO PRN (22:37)
[2019-02-14] MEDS ORDERED: guaiFENesin 200 MG/10 ML 10 ML UNIT-DOSE CUPS PO PRN (22:37)
[2019-02-14] MEDS ORDERED: MELATONIN 5 MG TABLETS PO PRN (22:37)
[2019-02-14] MEDS ORDERED: MAGNESIUM CITRATE 300 ML BOTTLE PO PRN (22:37)
[2019-02-14] MEDS ORDERED: METHOCARBAMOL 500 MG TABLET PO PRN (22:37)
[2019-02-14] MEDS ORDERED: ACETAMINOPHEN 325 MG TABLET (FP) PO PRN (22:37)
[2019-02-14] MEDS ORDERED: MAGNESIUM HYDROX 2400MG/30ML ORAL SUSPENSION 30 ML CUP PO PRN (22:37)
[2019-02-14] MEDS ORDERED: P-EPHED 60MG/TRIPROLIDI 2.5MG TABLET PO PRN (22:37)
[2019-02-14] MEDS ORDERED: ONDANSETRON *ODT* 4 MG TABLET SL PRN (22:37)
[2019-02-14] MEDS ORDERED: BISMUTH SUBSALICYLATE 524 MG/30 ML UD PO PRN (22:37)
[2019-02-14] MEDS ORDERED: IBUPROFEN 400 MG TABLET (FP) PO PRN (22:37)
[2019-02-14] MEDS ORDERED: MENTHOL/PHENOL 1 EACH UD MM PRN (22:37)
[2019-02-14] MEDS ORDERED: hydrOXYzine PAMOATE 25 MG CAPSULE (FP) PO PRN (22:37)
[2019-02-14] MEDS ORDERED: MAG HYDROX/AL HYDROX/SIMETH 30 ML UNIT-DOSE CUP PO PRN (22:37)
[2019-02-14] MEDS ORDERED: chlordiazePOXIDE HCL 10 MG CAPSULE PO PRN (22:37)
[2019-02-14] MEDS: ACETAMINOPHEN 325 MG TABLET (FP) PO PRN (22:57)
[2019-02-14] MEDS: chlordiazePOXIDE HCL 25 MG CAPSULE PO SCH (22:59)
[2019-02-15] MEDS: chlordiazePOXIDE HCL 25 MG CAPSULE PO SCH ×2 (05:42→13:25)
[2019-02-15 10:17] LABS: EPI CELLS 7.2 /HPF (0-5); PH,URINE 6.5 (5.0-8.0); URINE APPEARANCE CLEAR; URINE BACTERIA 99.9 /hpf (NEGATIVE); URINE BILIRUBIN 1+ (NEGATIVE); URINE CASTS 6 /hpf (0-8); URINE COLOR DK YELLOW; URINE GLUCOSE (UA) NEGATIVE (NEGATIVE); URINE KETONE TRACE (NEGATIVE); URINE LEUK ESTERASE 1+ (NEGATIVE); URINE NITRITE NEGATIVE (NEGATIVE); URINE PROTEIN 1+ (NEGATIVE); URINE RBC 41 /hpf (0-4); URINE WBC 8 /hpf (0-5)
[2019-02-15] MEDS: PRENATAL VITAMINS W/ FOLIC ACID TABLET (FP) PO SCH (10:17)
--- NOTE | 2019-02-15 11:47 | CONSULT ---
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 This is one of multiple admissions for patient. Patient admitted to for alcohol dependence. Substance Abuse History: h/o alcohol dependence- one bottle of wine or a small bottle of vodka daily Medical History: GERD, D and C in 2007 Psychiatric History: Patient denies h/o psychiatric hospitalization and suicide attempt. Patient's first psychiatric contact was in [place], [place] by Dr. Naqvi six years ago to address depression and anxiety. She continues to see the same psychiatrist today and is currently prescribed zoloft 100mg. Patient reports medication compliance. At present she reports stable mood and mild anxiety. Physical/Sexual Abuse/Trauma History: denies. Mental Status Exam - Mental Status Exam Alert and Oriented to: Time, Place, Person Cognitive Function: Good Patient Appearance: Well Groomed Mood: Euthymic Affect: Mood Congruent Patient Behavior: Cooperative Speech Pattern: Appropriate Voice Loudness: Normal Thought Process: Intact, Goal Oriented Thought Disorder: Not Present Hallucinations: Denies Suicidal Ideation: Denies Homicidal Ideation: Denies Insight/Judgement: Poor Sleep: Poorly Appetite: Fair Muscle strength/Tone: Normal Gait/Station: Normal Psychiatric Findings - Problem List ([place] 1, 2,3) (1) Alcohol-induced mood disorder Current Visit: Yes Status: Acute (2) Alcohol dependence with uncomplicated withdrawal Current Visit: Yes Status: Acute - Initial Treatment Plan Initial Treatment Plan: Psychoeducation provided. Detoxification in progress. Will order Zoloft 100mg daily. Verbal consent given.
[2019-02-15] MEDS ORDERED: COLLOIDAL OATMEAL 1 BAR EACH TP PRN (12:46)
[2019-02-15] MEDS ORDERED: COLLOIDAL OATMEAL 1 BAR EACH TP ONE (12:46)
[2019-02-15] MEDS ORDERED: IBUPROFEN 400 MG TABLET (FP) PO PRN (12:46)
--- NOTE | 2019-02-15 12:51 | PN ---
S CIWA - CIWA Score Nausea/Vomitin-No Nausea/No Vomiting Muscle Tremors: 3 Anxiety: 2 Agitation: 2 Paroxysmal Sweats: 1-Minimal Palms Moist Orientation: 0-Oriented Tacttile Disturbances: 0-None Auditory Disturbances: 0-None Visual Disturbances: 0-None Headache: 0-None Present CIWA-Ar Total Score: 8 [facility] Progress Note (SOAP) Subjective: shakes sweats anxiety facial rash Objective: 02/15/19 12:49 Vital Signs Temperature 98.6 F 02/15/19 10:11 Pulse Rate 101 H 02/15/19 10:11 Respiratory Rate 18 02/15/19 10:11 Blood Pressure 143/81 02/15/19 10:11 O2 Sat by Pulse Oximetry (%) Laboratory Tests 02/15/19 07:00 Urine Color Dk yellow Urine Appearance Clear Urine pH 6.5 Ur Specific [place] 1.026 Urine Protein 1+ H Urine Glucose (UA) Negative Urine Ketones Trace H Urine Blood 1+ H Urine Nitrite Negative Urine Bilirubin 1+ H Urine Urobilinogen 1.0 Ur Leukocyte Esterase 1+ H Urine WBC (Auto) 8 Urine RBC (Auto) 41 Urine Casts (Auto) 6 U Epithel Cells (Auto) 7.2 Urine Bacteria (Auto) 99.9 rest of labs pending repeat u/a aaox3 ambulating no acute distress Assessment: 02/15/19 12:49 withdrawal sx Plan: continue detox increase fluids repeat u/a pending labs aveeno soap for facial dryness noted lidocaine patch motrin 800mg tid prn leoncio bandage ice pack prn for right knee pain d/t surgery 2yrs ago.
[2019-02-15] MEDS ORDERED: LIDOCAINE 5% TOPICAL PATCH TP ONE (13:00)
[2019-02-15] MEDS: SERTRALINE HCL 50 MG TABLET (FP) PO SCH (13:00)
[2019-02-15] MEDS ORDERED: chlordiazePOXIDE 5 MG CAPSULE PO ONE (18:00)
[2019-02-15] MEDS: METHYL SALICYLATE/MENTHOL OINT 30 GM TUBE TP SCH (22:11)
[2019-02-15] MEDS: chlordiazePOXIDE 5 MG CAPSULE PO SCH (22:11)
[2019-02-15] MEDS: LIDOCAINE PATCH REMOVAL MC SCH (22:12)
[2019-02-15] MEDS: THIAMINE HCL 100 MG TABLET (FP) PO SCH (22:13)
[2019-02-15] MEDS: FLUTICASONE PROP 0.05% 16 GM NASAL SPRAY NS SCH (23:00)
[2019-02-16] MEDS: ACETAMINOPHEN 325 MG TABLET (FP) PO PRN ×2 (04:39→15:32)
[2019-02-16] MEDS: chlordiazePOXIDE 5 MG CAPSULE PO SCH ×2 (05:37→12:32)
[2019-02-16] MEDS ORDERED: LIDOCAINE 5% TOPICAL PATCH TP SCH (10:00)
[2019-02-16] MEDS: PRENATAL VITAMINS W/ FOLIC ACID TABLET (FP) PO SCH (10:12)
[2019-02-16] MEDS: FLUTICASONE PROP 0.05% 16 GM NASAL SPRAY NS SCH ×2 (10:12→22:10)
[2019-02-16] MEDS: METHYL SALICYLATE/MENTHOL OINT 30 GM TUBE TP SCH ×2 (10:12→22:10)
[2019-02-16] MEDS: SERTRALINE HCL 50 MG TABLET (FP) PO SCH (10:12)
--- NOTE | 2019-02-16 14:40 | PN ---
S CIWA - CIWA Score Nausea/Vomitin Muscle Tremors: 2 Anxiety: 2 Agitation: 2 Paroxysmal Sweats: 2 Orientation: 0-Oriented Tacttile Disturbances: 2-Mild Itch/Numbness/Burn Auditory Disturbances: 0-None Visual Disturbances: 0-None Headache: 1-Very Mild CIWA-Ar Total Score: 13 S Progress Note (SOAP) Subjective: SHAKES, INTERRUPTED SLEEP DESPITE SLEEPING PILL, IRRITABILITY Objective: 02/16/19 14:39 Vital Signs 02/16/19 02/16/19 02/16/19 08:33 09:46 14:37 Temperature 97.7 F 99.5 F 99.7 F H Pulse Rate 71 92 H 98 H Respiratory 16 18 18 Rate Blood Pressure 117/79 126/89 122/78 Laboratory Last Values Urine Color Dk yellow 02/15/19 07:00 Urine Appearance Clear 02/15/19 07:00 Urine pH 6.5 (5.0-8.0) 02/15/19 07:00 Ur Specific [place] 1.026 (1.010-1.035) 02/15/19 07:00 Urine Protein 1+ (NEGATIVE) H 02/15/19 07:00 Urine Glucose (UA) Negative (NEGATIVE) 02/15/19 07:00 Urine Ketones Trace (NEGATIVE) H 02/15/19 07:00 Urine Blood 1+ (NEGATIVE) H 02/15/19 07:00 Urine Nitrite Negative (NEGATIVE) 02/15/19 07:00 Urine Bilirubin 1+ (NEGATIVE) H 02/15/19 07:00 Urine Urobilinogen 1.0 mg/dL (0.2-1.0) 02/15/19 07:00 Ur Leukocyte Esterase 1+ (NEGATIVE) H 02/15/19 07:00 Urine WBC (Auto) 8 /hpf (0-5) 02/15/19 07:00 Urine RBC (Auto) 41 /hpf (0-4) 02/15/19 07:00 Urine Casts (Auto) 6 /hpf (0-8) 02/15/19 07:00 U Epithel Cells (Auto) 7.2 /HPF (0-5) 02/15/19 07:00 Urine Bacteria (Auto) 99.9 /hpf (NEGATIVE) 02/15/19 07:00 UA appreciated-possible contamination Labs pending Assessment: 02/16/19 14:44 Withdrawal sx Plan: Continue detox Repeat UA pending
[2019-02-16 17:45] VITALS: TEMP 98.2
[2019-02-16] MEDS ORDERED: chlordiazePOXIDE HCL 10 MG CAPSULE PO PRN (21:00)
[2019-02-16] MEDS: chlordiazePOXIDE HCL 10 MG CAPSULE PO SCH (22:10)
[2019-02-16] MEDS: LIDOCAINE PATCH REMOVAL MC SCH (22:11)
[2019-02-16] MEDS: THIAMINE HCL 100 MG TABLET (FP) PO SCH (22:11)
[2019-02-17] MEDS: chlordiazePOXIDE HCL 10 MG CAPSULE PO SCH (05:46)
[2019-02-17 08:15] VITALS: BP 120/75; PULSE 88
--- NOTE | 2019-02-17 09:43 | DS ---
[facility] Detox Discharge Summary Admission Date: 02/14/19 Discharge Date: 02/17/19 - History Present History: Alcohol Dependence - Physical Exam Results Vital Signs: Vital Signs Temperature 98.2 F 02/17/19 08:14 Pulse Rate 88 02/17/19 08:14 Respiratory Rate 18 02/17/19 08:14 Blood Pressure 120/75 02/17/19 08:14 O2 Sat by Pulse Oximetry (%) - Treatment Hospital Course: Detox Protocol Followed, Detoxed Safely, Responded well, Discharged Condition Good, Rehab Referral Accepted - Medication Discharge Medications: Ambulatory Orders Sertraline HCl [Zoloft -] 100 mg PO DAILY #30 tablet 06/27/15 Cetirizine HCl [Zyrtec -] 10 mg PO DAILY 05/04/18 - Diagnosis (1) Alcohol dependence with uncomplicated withdrawal Current Visit: Yes Status: Chronic (2) Alcohol-induced mood disorder Current Visit: Yes Status: Acute (3) Left knee pain Current Visit: No Status: Chronic Qualifiers: Chronicity: chronic Qualified Code(s): M25.562 - Pain in left knee; G89.29 - Other chronic pain (4) Superficial thrombophlebitis Current Visit: No Status: Acute (5) Depression Current Visit: No Status: Chronic (6) GERD (gastroesophageal reflux disease) Current Visit: Yes Status: Chronic Qualifiers: Esophagitis presence: without esophagitis - AMA Did Patient Leave Against Medical Advice: No (going home referred to outpatient detox)
[2019-02-17] MEDS: PRENATAL VITAMINS W/ FOLIC ACID TABLET (FP) PO SCH (09:47)
[2019-02-17] MEDS: SERTRALINE HCL 50 MG TABLET (FP) PO SCH (09:47)
[2019-02-17] MEDS: METHYL SALICYLATE/MENTHOL OINT 30 GM TUBE TP SCH (09:48)
[2019-02-17] MEDS: FLUTICASONE PROP 0.05% 16 GM NASAL SPRAY NS SCH (09:48)
== END 2019-02-17 09:57 | disposition home or self-care (01) | DRG 897 ==
LOC: YASAS 04:37 → Y6N 19:36
PROVIDERS: ADMIT Surgery; ATTEND Surgery
PROC: HZ2ZZZZ Detoxification Services for Substance Abuse Treatment (ICD-10-PCS; principal; 2019-02-14)
DX: F10.230 Alcohol dependence with withdrawal, uncomplicated (principal); F10.24 Alcohol dependence with alcohol-induced mood disorder; F41.8 Other specified anxiety disorders; F32.9 Major depressive disorder, single episode, unspecified; K21.9 Gastro-esophageal reflux disease without esophagitis; I80.9 Phlebitis and thrombophlebitis of unspecified site; M25.562 Pain in left knee; G89.29 Other chronic pain
CPT/HCPCS: 81003

== ENCOUNTER 2019-04-16 15:25 | Inpatient (IN) | payer OTHER ==
[2019-04-16 19:23] VITALS: BMI 28.3
--- NOTE | 2019-04-16 20:43 | HP ---
CIWA Score - Admission Criteria [facility]ASAS Guidelines: Admission for Medically Managed Detox: Requires at least one of the followin. CIWA greater than 12 2. Seizures within the past 24 hours 3. Delirium tremens within the past 24 hours 4. Hallucinations within the past 24 hours 5. Acute intervention needed for co occurring medical disorder 6. Acute intervention needed for co occurring psychiatric disorder 7. Severe withdrawal that cannot be handled at a lower level of care (continued vomiting, continued diarrhea, abnormal vital signs) requiring intravenous medication and/or fluids 8. Admission ROS S - HPI Chief Complaint: Seeking admission to Rehab. Allergies/Adverse Reactions: Allergies Allergy/AdvReac Type Severity Reaction Status Date / Time No Known Allergies Allergy Verified 02/14/19 19:00 History of Present Illness: 48 years old female with alcohol dependence is seeking admission to Rehab. Patient was in admission at [facility] from 04/12/2019 - 04/12/2019 for alcohol intoxication. She has medical history of GERD and anxiety. She denies suicidal ideation at this time Exam Limitations: No Limitations - Ebola screening Have you traveled outside of the country in the last 21 days: No (N) Have you had contact with anyone from an Ebola affected area: No Do you have a fever: No - Review of Systems Constitutional: No Symptoms Reported EENT: reports: No Symptoms Reported Respiratory: reports: No Symptoms reported Cardiac: reports: No Symptoms Reported GI: reports: No Symptoms Reported : reports: No Symptoms Reported Musculoskeletal: reports: No Symptoms Reported Integumentary: reports: No Symptoms Reported Neuro: reports: No Symptoms reported Endocrine: reports: No Symptoms Reported Hematology: reports: No Symptoms Reported Psychiatric: reports: No Sypmtoms Reported, Mood/Affect Appropiate, Orientated x3 Other Systems: Reviewed and Negative Patient History - Patient Medical History Hx Anemia: No Hx Asthma: No Hx Chronic Obstructive Pulmonary Disease (COPD): No Hx Cancer: No Hx Cardiac Disorders: No Hx Congestive Heart Failure: No Hx Hypertension: No Hx Hypercholesterolemia: No Hx Pacemaker: No HX Cerebrovascular Accident: No Hx Seizures: No Hx Diabetes: No Hx Gastrointestinal Disorders: Yes (HX GERD) Hx Liver Disease: No Hx Genitourinary Disorders: No Hx Sexually Transmitted Disorders: No (DENIES) Hx Renal Disease (ESRD): No Hx Thyroid Disease: No Hx Human Immunodeficiency Virus (HIV): No Hx Hepatitis C: No Hx Depression: Yes Hx Suicide Attempt: No (DENIES S/H/I) Hx Schizophrenia: No Other Medical History: Anxiety - Zoloft - Patient Surgical History Past Surgical History: Yes Hx Neurologic Surgery: No Hx Cataract Extraction: No Hx Cardiac Surgery: No Hx Lung Surgery: No Hx Breast Surgery: No Hx Breast Biopsy: No Hx Abdominal Surgery: No Hx Appendectomy: No Hx Cholecystectomy: No Hx Genitourinary Surgery: No Hx Section: No Hx Orthopedic Surgery: No Hx Hysterectomy: Yes (left knee sx for Cheek's cyst) Other Surgical History: D AND C IN 2007 Anesthesia Reaction: No - PPD History Date: 05/06/18 - Reproductive History Last Menstrual Period: 06/01/15 - Smoking Cessation Smoking history: Unknown if ever smoked Have you smoked in the past 12 months: No Hx Chewing Tobacco Use: No - Substances abused Alcohol Substance route: Oral Amount used: 1 bottle of wine / 1/2 pint of vodka Age of first use: 18 Date of last use: 04/11/19 Family Disease History - Family Disease History Family Disease History: CA: Grandparent (GF-PROSTATE) Admission Physical Exam [facility] - Vital Signs Vital Signs: Vital Signs - 24 hr 04/16/19 19:16 Temperature 97.6 F Pulse Rate 91 H Respiratory 19 Rate Blood Pressure 125/77 - Physical General Appearance: Yes: Within Normal Limits, Nourished, Appropriately Dressed HEENTM: Yes: EOMI, Normal ENT Inspection, Normocephalic, Normal Voice, ROSANA Respiratory: Yes: Lungs Clear, Normal Breath Sounds, No Respiratory Distress Neck: Yes: Supple Breast: Yes: Breast Exam Deferred Cardiology: Yes: Regular Rhythm, Regular Rate Abdominal: Yes: Normal Bowel Sounds, Soft Genitourinary: Yes: Within Normal Limits Back: Yes: Normal Inspection Musculoskeletal: Yes: Within Normal Limits Extremities: Yes: Normal Inspection 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 NML intact, Alert, Normal Mood/Affect Integumentary: Yes: Warm Lymphatic: Yes: Within Normal Limits - Diagnostic (1) Alcohol dependence Current Visit: Yes Status: Chronic Qualifiers: Substance use status: uncomplicated Qualified Code(s): F10.20 - Alcohol dependence, uncomplicated (2) Anxiety Current Visit: Yes Status: Chronic (3) GERD (gastroesophageal reflux disease) Current Visit: Yes Status: Chronic Qualifiers: Esophagitis presence: without esophagitis Qualified Code(s): K21.9 - Gastro -esophageal reflux disease without esophagitis Cleared for Admission [facility] - Detox or Rehab [facility] Level of Care: Observation Bed Claeared for Rehab Admission: Yes Breathalyzer - Breathalyzer Breathalyzer: 0 Urine Drug Screen - Test Device Lot number: [id number] Expiration date: 03/19/20 - Control Is test valid?: Yes - Results Drug screen NEGATIVE: No Urine drug screen results: BZO-Benzodiazepines Inpatient Rehab Admission - Rehab Decision to Admit Inpatient rehab admission?: Yes - Initial Determination Are CD services needed?: No Free of communicable disease: Yes Not in need of hospitalization: Yes - Rehab Admission Criteria Previous failed treatment: Yes Poor recovery environment: Yes Comorbidities: Yes Lacks judgement: No Patient is meeting Inpatient Rehab admission criteria:: Yes
[2019-04-16] MEDS ORDERED: guaiFENesin 200 MG/10 ML 10 ML UNIT-DOSE CUPS PO PRN (20:55)
[2019-04-16] MEDS ORDERED: MENTHOL/PHENOL 1 EACH UD MM PRN (20:55)
[2019-04-16] MEDS ORDERED: LOPERAMIDE HCL 2 MG CAPSULE PO PRN (20:55)
[2019-04-16] MEDS ORDERED: MAGNESIUM HYDROX 2400MG/30ML ORAL SUSPENSION 30 ML CUP PO PRN (20:55)
[2019-04-16] MEDS ORDERED: P-EPHED 60MG/TRIPROLIDI 2.5MG TABLET PO PRN (20:55)
[2019-04-16] MEDS ORDERED: MAG HYDROX/AL HYDROX/SIMETH 30 ML UNIT-DOSE CUP PO PRN (20:55)
[2019-04-16] MEDS ORDERED: MAGNESIUM CITRATE 300 ML BOTTLE PO PRN (20:55)
[2019-04-16] MEDS ORDERED: NICOTINE POLACRILEX 2 MG GUM BUC PRN (20:55)
[2019-04-16] MEDS: THIAMINE HCL 100 MG TABLET (FP) PO SCH (22:01)
[2019-04-16] MEDS: MELATONIN 5 MG TABLETS PO PRN (22:02)
[2019-04-16] MEDS ORDERED: TUBERCULIN PPD 5 TU/0.1ML VIAL ID ONE ×2 (22:02→22:16)
[2019-04-17] MEDS: IBUPROFEN 400 MG TABLET (FP) PO PRN (10:41)
[2019-04-17] MEDS: PRENATAL VITAMINS W/ FOLIC ACID TABLET (FP) PO SCH (10:41)
[2019-04-17] MEDS: NICOTINE 14 MG/24 HOURS TOPICAL PATCH TD SCH (10:42)
[2019-04-17] MEDS: THIAMINE HCL 100 MG TABLET (FP) PO SCH (21:32)
[2019-04-17] MEDS: MELATONIN 5 MG TABLETS PO PRN (21:32)
--- NOTE | 2019-04-18 08:59 | CONSULT ---
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 This is patient' s first admission to rehab but has several admissions to detox at [facility]. Patient admitted to for alcohol dependence. Substance Abuse History: Smoking Cessation. Smoking history: Unknown if ever smoked. Have you smoked in the past 12 months: No. Hx Chewing Tobacco Use: No. - Substances abused. Alcohol. Substance route: Oral. Amount used: 1 bottle of wine / 1/2 pint of vodka. Age of first use: 18. Date of last use: Medical History: GERD, D and C in 2007 Psychiatric History: Patient denies h/o psychiatric hospitalization and suicide attempt. Patient's first psychiatric contact was in [place], [place] by Dr. Naqvi approximately 7-8 years ago to address depression and anxiety. She continues to see the same psychiatrist today and is currently prescribed zoloft 100mg. Patient reports medication compliance. At present she reports stable mood and mild anxiety. Physical/Sexual Abuse/Trauma History: denies. Mental Status Exam - Mental Status Exam Alert and Oriented to: Time, Place, Person Cognitive Function: Good Patient Appearance: Well Groomed Mood: Hopeful Affect: Appropriate Patient Behavior: Appropriate, Cooperative Speech Pattern: Appropriate Voice Loudness: Normal Thought Process: Goal Oriented Thought Disorder: Not Present Hallucinations: Denies Suicidal Ideation: Denies Homicidal Ideation: Denies Insight/Judgement: Poor Sleep: Fair Appetite: Fair Muscle strength/Tone: Normal Gait/Station: Normal Psychiatric Findings - Problem List ([place] 1, 2,3) (1) Alcohol dependence Current Visit: Yes Status: Chronic Qualifiers: Substance use status: uncomplicated Qualified Code(s): F10.20 - Alcohol dependence, uncomplicated (2) Alcohol-induced mood disorder Current Visit: Yes Status: Acute - Initial Treatment Plan Initial Treatment Plan: Psychoeducation provided. Detoxification in progress. Observation.
[2019-04-18] MEDS: COLLOIDAL OATMEAL 1 BAR EACH TP PRN (10:29)
[2019-04-18] MEDS: SERTRALINE HCL 50 MG TABLET (FP) PO SCH (10:31)
[2019-04-18] MEDS: NICOTINE 14 MG/24 HOURS TOPICAL PATCH TD SCH (10:31)
[2019-04-18] MEDS: PRENATAL VITAMINS W/ FOLIC ACID TABLET (FP) PO SCH (10:31)
[2019-04-18] MEDS: MINERAL OIL/PETROLAT/WATER TOPICAL CREAM 113 GM JAR TP PRN (14:01)
[2019-04-18] MEDS: MELATONIN 5 MG TABLETS PO PRN (21:44)
[2019-04-18] MEDS: THIAMINE HCL 100 MG TABLET (FP) PO SCH (21:44)
[2019-04-19] MEDS: ACETAMINOPHEN 325 MG TABLET (FP) PO PRN ×2 (06:17→20:05)
[2019-04-19] MEDS: PRENATAL VITAMINS W/ FOLIC ACID TABLET (FP) PO SCH (10:30)
[2019-04-19] MEDS: SERTRALINE HCL 50 MG TABLET (FP) PO SCH (10:30)
[2019-04-19] MEDS: MINERAL OIL/PETROLAT/WATER TOPICAL CREAM 113 GM JAR TP PRN (10:31)
--- NOTE | 2019-04-19 11:27 | PN ---
S Progress Note Note: Pt's blood random blood glucose is 133mg/dl. Pt denies any s/s of hypo/ hyperglycemia at the moment. Hemoglobin A1c order. Pt is placed on BGM BIDAC, awaiting A1c results.
[2019-04-19] MEDS: THIAMINE HCL 100 MG TABLET (FP) PO SCH (21:44)
[2019-04-19] MEDS: MELATONIN 5 MG TABLETS PO PRN (21:45)
[2019-04-19] MEDS ORDERED: PT OWN MED DRAWER 7, Y5N ONE (23:17)
[2019-04-20] MEDS: ACETAMINOPHEN 325 MG TABLET (FP) PO PRN (08:51)
[2019-04-20] MEDS: SERTRALINE HCL 50 MG TABLET (FP) PO SCH (09:50)
[2019-04-20] MEDS: PRENATAL VITAMINS W/ FOLIC ACID TABLET (FP) PO SCH (09:50)
[2019-04-20] MEDS: COLLOIDAL OATMEAL 1 BAR EACH TP PRN (12:21)
[2019-04-20] MEDS: MINERAL OIL/PETROLAT/WATER TOPICAL CREAM 113 GM JAR TP PRN (12:23)
[2019-04-20] MEDS: MELATONIN 5 MG TABLETS PO PRN (21:27)
[2019-04-20] MEDS: THIAMINE HCL 100 MG TABLET (FP) PO SCH (21:27)
[2019-04-21] MEDS: IBUPROFEN 400 MG TABLET (FP) PO PRN ×2 (06:35→19:05)
[2019-04-21] MEDS: SERTRALINE HCL 50 MG TABLET (FP) PO SCH (10:07)
[2019-04-21] MEDS: PRENATAL VITAMINS W/ FOLIC ACID TABLET (FP) PO SCH (10:07)
[2019-04-21] MEDS: MINERAL OIL/PETROLAT/WATER TOPICAL CREAM 113 GM JAR TP PRN (10:07)
--- NOTE | 2019-04-21 13:12 | PN ---
[facility] Progress Note Note: Patient is scheduled for discharge tomorrow. Script for 30 days supply of Zoloft 100 mg/day will be electonically transmitted to [facility] at [address] [place] [address]
[2019-04-21] MEDS: THIAMINE HCL 100 MG TABLET (FP) PO SCH (21:31)
[2019-04-21] MEDS: MELATONIN 5 MG TABLETS PO PRN (21:31)
[2019-04-22] MEDS: ACETAMINOPHEN 325 MG TABLET (FP) PO PRN (06:16)
[2019-04-22 06:46] VITALS: BP 106/73; PULSE 73; TEMP 97.4
[2019-04-22] MEDS: SERTRALINE HCL 50 MG TABLET (FP) PO SCH (09:03)
[2019-04-22] MEDS: PRENATAL VITAMINS W/ FOLIC ACID TABLET (FP) PO SCH (09:03)
--- NOTE | 2019-04-22 15:02 | PN ---
S Progress Note (SOAP) Subjective: PT COMPLETED REHAB AND DISCHARGED TODAY. PT MET WITH HER COUNSELOR AND DISCUSSED CD AFTERCARE RECOMMENDATIONS. PT REPORTS SHE HAS PCP, DR. MARRUFO AND PSYCHIATRIST DR. MARROQUIN FOR MEDICAL AND PSYCHIATRIC MANAGEMENT. PT IS ALERT O X 3. PT IS AMBULATING WITH STEADY GAIT. DENIES S/H/I. Objective: 04/22/19 15:02 Vital Signs - 24 hr 04/22/19 04/22/19 03:30 06:45 Temperature 97.4 F L Pulse Rate 73 Respiratory 18 18 Rate Blood Pressure 106/73 Laboratory Tests 04/16/19 04/20/19 04/20/19 20:33 06:19 07:35 POC Glucometer 83 Hemoglobin A1c % 6.4 H POC Urine HCG, Qual Negative 04/20/19 04/21/19 04/21/19 16:34 06:33 16:48 POC Glucometer 140 92 106 Hemoglobin A1c % POC Urine HCG, Qual 04/22/19 06:15 POC Glucometer 93 Hemoglobin A1c % POC Urine HCG, Qual Assessment: 04/22/19 15:03 NAD MEDICALLY STABLE Plan: D/C PT TODAY FOLLOW UP WITH CD AFTERCARE FOLLOW UP WITH MEDICAL MANAGEMENT WITHIN 1-2 WEEKS AFTER DISCHARGE.
== END 2019-04-22 09:08 | disposition home or self-care (01) | DRG 895 ==
LOC: YASAS 15:25 → Y3E 19:44
PROVIDERS: ADMIT Neuromusculoskeletal Medicine & OMM; ATTEND Neuromusculoskeletal Medicine & OMM
PROC: HZ42ZZZ Group Counseling for Substance Abuse Treatment, Cognitive-Behavioral (ICD-10-PCS; principal; 2019-04-16)
DX: F10.20 Alcohol dependence, uncomplicated (principal); F10.24 Alcohol dependence with alcohol-induced mood disorder; F41.9 Anxiety disorder, unspecified; K21.9 Gastro-esophageal reflux disease without esophagitis
CPT/HCPCS: 81025; 82962; 83036

== ENCOUNTER 2019-09-05 10:40 | Emergency (ER) | payer OTHER ==
[2019-09-05 10:47] VITALS: BP 128/80; PULSE 87; TEMP 98.2; BMI 28.3
[2019-09-05] MEDS ORDERED: IBUPROFEN 400 MG TABLET (FP) PO ONE ×2 (10:53→10:55)
--- NOTE | 2019-09-05 10:59 | PDOC ---
History of Present Illness - General Chief Complaint: Abscess Boil Stated Complaint: CYST/PAIN LT LEG Time Seen by Provider: 09/05/19 10:53 History Source: Patient Exam Limitations: No Limitations - History of Present Illness Initial Comments: 09/05/19 10:58 Patient came for evaluation of "lump" to her left lower thigh. Had concerns as had a popliteal cyst/Cheek's cyst that ruptured last year and became infected requiring a 7-day hospitalization. Was concerned this may be the same type of problem came for evaluation. Denies fever, denies heat, is not painful. Is this a multiple visit Asthma Patient?: No Timing/Duration: unsure Past History - Travel Traveled outside of the country in the last 30 days: No Close contact w/someone who was outside of country & ill: No - Past Medical History Allergies/Adverse Reactions: Allergies Allergy/AdvReac Type Severity Reaction Status Date / Time No Known Allergies Allergy Verified 02/14/19 19:00 Home Medications: Ambulatory Orders Cetirizine HCl [Zyrtec -] 10 mg PO DAILY 05/04/18 Sertraline HCl [Zoloft -] 100 mg PO DAILY tablet 04/16/19 Sertraline HCl [Zoloft] 100 mg PO DAILY #30 tablet 04/21/19 Anemia: No Asthma: No Cancer: No Cardiac Disorders: No CVA: No COPD: No CHF: No Diabetes: No GI Disorders: Yes (HX GERD) Disorders: No HTN: No Hypercholesterolemia: No Kidney Stones: No Liver Disease: No Psychiatric Problems: Yes Seizures: No Thyroid Disease: No - Surgical History Abdominal Surgery: No Appendectomy: No Cardiac Surgery: No Cholecystectomy: No Lung Surgery: No Neurologic Surgery: No Orthopedic Surgery: No - Reproductive History PID: No - Immunization History Immunization Up to Date: No - Psycho Social/Smoking Cessation Hx Smoking History: Never smoked Have you smoked in the past 12 months: No Information on smoking cessation initiated: No Hx Alcohol Use: No Drug/Substance Use Hx: No Substance Use Type: Alcohol Hx Substance Use Treatment: No Review of Systems - Review of Systems Able to Perform ROS?: Yes Is the patient limited Faroese proficient: Yes Constitutional: Yes: Symptoms Reported, See HPI. No: Fever, Malaise Respiratory: No: Symptoms reported Musculoskeletal: Yes: Symptoms Reported, See HPI, Muscle Pain Integumentary: Yes: Symptoms Reported, See HPI, Lumps. No: Bruising All Other Systems: Reviewed and Negative *Physical Exam - Vital Signs Last Vital Signs Temp Pulse Resp BP Pulse Ox 98.2 F 87 18 128/80 97 09/05/19 10:45 09/05/19 10:45 09/05/19 10:45 09/05/19 10:45 09/05/19 10:45 - Physical Exam General Appearance: Yes: Nourished, Appropriately Dressed. No: Apparent Distress HEENT: positive: ROSANA, Normal ENT Inspection, TMs Normal, Pharynx Normal Musculoskeletal: positive: Normal Inspection, Other (Soft nonfluctuant mass on the lower left lateral aspect of thigh approximately 3 cm, is mobile, nontender , without erythema or evidence of cellulitis. Neurovascular intact to foot) Extremity: positive: Normal Capillary Refill, Normal Inspection, Normal Range of Motion. negative: Tender Integumentary: positive: Normal Color, Dry, Warm Neurologic: positive: pca II-XII NML intact, Fully Oriented, Alert, Normal Mood/ Affect, Normal Response, Motor Strength 5/5 Medical Decision Making - Medical Decision Making 09/05/19 11:02 Lipoma, no evidence of cellulitis. Instructed to follow-up as needed with Dr. Daley who is her surgeon for last years Cheek's cyst incident Discharge - Discharge Information Problems reviewed: Yes Clinical Impression/Diagnosis: Lipoma of left lower extremity Condition: Stable Disposition: HOME - Admission No - Follow up/Referral Referrals: Clif Daley MD [Staff Physician] - - Patient Discharge Instructions Patient Printed Discharge Instructions: Lipoma Additional Instructions: Rest, ice to area on and off for 15 minutes 4-6 times a day Avoid heavy lifting or exercise until pain and swelling is resolved or until further directed Keep area highly elevated to reduce swelling Use splints/Shade wrap as directed Followup with orthopedist in one to 2 days if not improving, if significantly improved may wait one week for followup with orthopedist May use ibuprofen every 6 hours as needed for pain - Post Discharge Activity Work/Back to School Note: Back to Work
== END 2019-09-05 11:00 | disposition home or self-care (01) ==
LOC: JERFT 10:40
DX: D17.24 Benign lipomatous neoplasm of skin and subcutaneous tissue of left leg (principal); K21.9 Gastro-esophageal reflux disease without esophagitis; F99 Mental disorder, not otherwise specified
CPT/HCPCS: 99281-25

== ENCOUNTER 2020-08-04 19:34 | Inpatient (IN) | payer OTHER ==
--- OUTSIDE RECORDS SUMMARY | 2020-08-04 19:53 | XMS ---
:1970 Author Organization [facility] Care Team Providers Name Role Phone MD LILLY Unavailable Unavailable ALEXA COHEN O Unavailable Unavailable [id number] Unavailable Unavailable ED STAFF PHYSICIAN Unavailable Unavailable NICK ELLSWORTH Unavailable Unavailable MD JENY Unavailable Unavailable DUNCAN-LENNIE Unavailable Unavailable SADAF Unavailable Unavailable RIGO Unavailable Unavailable MD JAIME Unavailable Unavailable MD Blake Unavailable MD Blake Unavailable MD Blake Unavailable MD Blake Unavailable MD Blake Unavailable MD Blake Unavailable MD Blake Unavailable STEPHANIE Unavailable Unavailable Re-disclosure Warning The records that you are about to access may contain information from federally- assisted alcohol or drug abuse programs. If such information is present, then the following federally mandated warning applies: This information has been disclosed to you from records protected by federal confidentiality rules (42 CFR part 2). The federal rules prohibit you from making any further disclosure of this information unless further disclosure is expressly permitted by the written consent of the person to whom it pertains or as otherwise permitted by 42 CFR part 2. A general authorization for the release of medical or other information is NOT sufficient for this purpose. The Federal rules restrict any use of the information to criminally investigate or prosecute any alcohol or drug abuse patient.The records that you are about to access may contain highly sensitive health information, the redisclosure of which is protected by Article 27-F of the [facility] [place] Public Health law. If you continue you may haveaccess to information: Regarding HIV / AIDS; Provided by facilities licensed or operated by the [facility] [place] Office of Mental Health; or Provided by the [facility] [place] Office for People With Developmental Disabilities. If such information is present, then the following [facility] [place] mandated warning applies: This information has been disclosed to you from confidential records which are protected by state law. State law prohibits you from making any further disclosure of this information without the specific written consent of the person to whom it pertains, or as otherwise permitted by law. Any unauthorized further disclosure in violation of state law may result in a fine or prison sentence or both. A general authorization for the release of medical or other information is NOT sufficient authorization for further disclosure. Encounters Encounter Providers Location Date Indications Data Source(s ) Inpatient Attender: ALBERTO Nieves-HAL5 06/01/2020 [facility] 12:24:[address] [facility] KATHAttender: STAFF ED EDT - STAFF PHYSICIANAdmitter: 06/04/2020 ALBERTO ROMERO 01:08:00 PM KATHReferrer: ALBERTO ELLSWORTH Patient discharged. Inpatient Attender: Timo Lozano H-HAL5 12/10/2019 08:00:00 [place] UMANAttender: STAFF ED STAFF PM EST - 12/13/2019 [facility] PHYSICIANAdmitter: Timo 01:00:00 PM PRICE Lozano MDReferrer: Timo Lozano MD Patient discharged. Inpatient Attender: NOEL Nieves-HAL6 09/09/2019 06:05:00 PM [facility] ALEXA COHEN EDT - 09/11/2019 [facility] OAdmitter: NOEL 03:30:00 PM EDT ALEXA NOEL OReferrer: NOEL GUILLAUMERONKE O Patient discharged. Attender: 05/21/2019 [facility] [id number] 03:54:00 PM EDT Hospital [facility]6766 Outpatient Attender: DHEERAJ [facility] 05/02/2019 [facility] BETANCOURTttender: MENDEL 10:05:00 AM EDT - Hospital REIDAdmitter: SCARLET SIERRA 10/03/2019 10:04:00 AM EST Patient discharged. Attender: 05/02/2019 [facility] [id number] 10:05:00 AM EDT Hospital [facility]6766 Outpatient Attender: FLORENCE ROLDANdmitter: [facility] 01[facility]15:00 PM EDT - H ospital 05/01/2019 02:22:00 PM EDT Patient discharged. Attender: [facility]30/2019 [facility] [id number] 01:15:00 PM EDT Hospital [facility]_6766 Outpatient Attender: DHEERAJ EPSTEINdmitter: [facility] DUNCAN-LENNIE 01:01:00 PM EDT Ho spital Admission cancelled. Disregard status an d admitted date. Attender: [id number] 2014 01:07:00 [facility]_6766 PM EDT Hospital Attender: [id number] 2014 09:48:00 [facility]_6766 AM EDT Hospital Immunizations Vaccine Date Status Description Data Source(s) New in 2011. IIV4 12/13/2019 completed [facility] 12:23:00 PM EST Center pneumococcal 12/13/2019 completed [facility] edical polysaccharide PPV23 12:23:00 PM EST Cent er Medications Medication Brand Start Product Dose Route Administrative Pharmacy [facility] Indications Reaction Description Data Name Date Form Instructions Instructions Source(s) Disulfiram Antabu ORAL complet Antabus e - [facility] 500 MG Oral 2018 Table ed 500 MG ORAL [facility] Tablet 500 MG 12:00: t Tablet Hospita l [Antabuse] ORAL 00 AM Tablet EST Disulfiram Antabu ORAL complet Antabus e - [facility] 500 MG Oral 2018 Table ed 500 MG ORAL [facility] Tablet 500 MG 12:00: t Tablet Hospita l [Antabuse] ORAL 00 AM Tablet EDT Naltrexone Vivitr INTRAM complet Vivit rol - [facility] 112 MG/ML 2018 Tiana USCULA ed 380 MG Sal nts Injectable 380 MG 12:00: gram R [facility]TRAMUSCU [facility] Suspension INTRAM 00 AM R Powder fo r [Vivitrol] USCULA EDT Suspension, R Extended Powder Release for Suspen maura, Extend ed Releas e Naltrexone Vivitr INTRAM complet Vivit rol - [facility] 112 MG/ML 2018 Tiana USCULA ed 380 MG Sal nts Injectable 380 MG 12:00: gram R INTRAMUSCU [facility] Suspension INTRAM 00 AM R Powder fo r [Vivitrol] USCULA EDT Suspension, R Extended Powder Release for Suspen maura, Extend ed Releas e Naltrexone Vivitr INTRAM complet Vivit rol - [facility] 112 MG/ML 2018 Tiana USCULA ed 380 MG Sal nts Injectable 380 MG 12:00: gram R INTRAMUSCU [facility] Suspension INTRAM 00 AM R Powder fo r [Vivitrol] USCULA EDT Suspension, R Extended Powder Release for Suspen maura, Extend ed Releas e Trazodone traZOD ORAL complet traZODon e [facility] Hydrochlori one 2018 Table ed hydrochlorid [facility] de 50 MG hydroc 12:00: t e - 50 MG Ho spital Oral Tablet hlorid 00 AM ORAL Table t e - 50 EDT MG ORAL Tablet Naltrexone Naltre ORAL complet Naltrex one - [facility] hydrochlori x2018 Table ed 50 MG ORAL [facility] de 50 MG 50 MG 12:00: t Tablet Hospit al Oral Tablet ORAL 00 AM Tablet EDT Docusate sennos 2 complet [facility] Sodium 50 ides-d ed Olivia MG / ocusat Medical sennosides, e Center FDC 8.6 MG sodium Oral Tablet 8.6 sennosides- mg-50 docusate mg sodium 8.6 Tablet mg-50 mg , Tablet, Ordere Ordered By: d By: Tyrese Venegas, s: 2 tablet MDDire oral daily ctions at bedtime : 2 PRN tablet constipatio oral n daily at bedtim e PRN consti pation Simethicone simeth 1 complet [facility] nt 80 MG icone ed Olivia Chewable 80 mg Medical Tablet tablet Center simethicone ,chewa 80 mg ble, tablet,chew Ordere able, d By: Ordered By: Kendra Osborn MDDirection MDDire s: 1 tablet ctions oral three : 1 times a day tablet oral three times a day Sertraline sertra 1 complet Lesley t 100 MG Oral line ed [facility] Tablet 100 mg Medical sertraline Tablet Center 100 mg , Tablet, Ordere Ordered By: d By: Tyrese Venegas, s: 1 tablet MDDire oral daily ctions : 1 tablet oral daily quetiapine QUEtia 1 complet [facility] t 25 MG Oral pine ed [facility] Tablet 25 mg Medical QUEtiapine Tablet Center 25 mg , Tablet, Ordere Ordered By: d By: Tyrese Venegas, s: 1 tablet MDDire oral daily ctions at bedtime : 1 tablet oral daily at bedtim e Thiamine thiami 1 complet [facility] 100 MG Oral ne ed [facility] Tablet mononi Medical thiamine trate Center mononitrate (vit (vit B1) B1) 100 mg 100 mg Tablet, Tablet Ordered By: , Mauri Venegas MDDirection d By: s: 1 tablet Sein oral daily Kendra, MDDire ctions : 1 tablet oral daily Folic Acid foLIC 1 complet [facility] 1 MG Oral Acid 1 ed [facility] Tablet mg Medical foLIC Acid Tablet Center 1 mg , Tablet, Ordere Ordered By: d By: Tyrese Venegas, s: 1 tablet MDDire oral daily ctions : 1 tablet oral daily Fluoxetine FLUoxe 1 complet Lesley t 40 MG Oral dano ed [facility] Capsule 40 mg Medical FLUoxetine Capsul Center 40 mg e, Capsule, Ordere Ordered By: d By: Shira Lemusirection ia, s: 1 MDDire capsule ctions oral daily : 1 capsul e oral daily Naltrexone naltre 1 mL complet Vivitrol [facility] 112 MG/ML xone ed [facility] Injectable micros Medical Suspension pheres [place] [Vivitrol] (Vivit naltrexone rol) microsphere 380 mg s suspen (Vivitrol) maura,e 380 mg xtende suspension, d rel extended recon, rel recon, Ordere Ordered By: d By: Mars Thorne MDDirection neno, s: 1 mL MDDire intramuscul ctions ar monthly : 1 mL intram uscula r monthl y Chlordiazep chlord 1 complet [facility] nt oxide iazePO ed [facility] Hydrochlori XIDE Medical de 25 MG HCl 25 Center Oral mg Capsule Capsul chlordiazeP e, OXIDE HCl Ordere 25 mg d By: Alonzo Sears Ordered By: Joey Little MDDire MDDirection ctions s: 1 : 1 capsule capsul oral daily e oral daily Doxepin doxepi 1 complet [facility] Hydrochlori n 25 ed Oliiva de 25 MG mg Medical Oral Capsul Center Capsule e, doxepin 25 Ordere mg Capsule, d By: Ordered By: mushtaq Shelton MDDirection MDDire s: 1 ctions capsule : 1 oral daily capsul at bedtime e oral daily at bedtim e potassium 1 complet [facility] chloride 20 ed [facility] mEq Medical PacketDirec Center tions: 1 each oral daily Famotidine famoti 1 complet Lesley t 20 MG Oral dine ed Olivia Tablet 20 mg Medical famotidine Tablet Center 20 mg , Tablet, Ordere Ordered By: d By: Tyrese Venegas MDDirection Kendra, s: 1 tablet MDDire oral daily ctions : 1 tablet oral daily Thiamine thiami 1 complet [facility] 100 MG Oral ne HCl ed Guille s Tablet (vitam Medical thiamine in B1) Center HCl 100 mg (vitamin Tablet B1) 100 mg , Tablet, Ordere Ordered By: d By: Mars Thorne MDDirection neno, s: 1 tablet MDDire oral daily ctions : 1 tablet oral daily Sertraline sertra 1 complet Zoloft Sa int 100 MG Oral line [facility] Tablet (Zolof Medical [Zoloft] t) 100 Center sertraline mg (Zoloft) Tablet 100 mg , Tablet, Ordere Ordered By: d By: Mars Thorne MDDirection neno, s: 1 tablet MDDire oral daily ctions : 1 tablet oral daily multivitami 1 complet Thera Lesley t n with [facility] foLIC Acid Medical (Thera) 400 Center mcg Tablet, Ordered By: LUANNE Woodirection s: 1 tablet oral daily Insurance Providers Payer name Policy type Policy ID Covered Covered libertarian's Policy P tammy / Coverage libertarian ID relationship to [employer] Inf ormation type munoz O LOCAL 1199 O [id number] 01 [id number] LOCAL 1199 O [id number] [facility] [id number] SP [id number] NATIONAL ROLDAN FUND SELF PAY 0000 Self 0000 LOCAL 1199 [id number] Self [id number] BENEFIT FUND [facility] [id number] Self [id number] BENEFIT FUND SELF PAY 00 Self 00 Problems, Conditions, and Diagnoses Code Display Name Description Problem Type Effective Data Sour ce(s) Dates F41.1 Generalized GENERALIZED Diagnosis 06/04/2020 [facility] anxiety disorder ANXIETY DISORDER 01:08:00 PM [facility] EDT Y90.8 Blood alcohol BLOOD ALCOHOL Diagnosis 06/04/2020 [facility] level of 240 LEVEL OF 240 01:08:00 PM Medical C enter mg/100 ml or more MG/100 ML OR MORE EDT F10.20 Alcohol ALCOHOL Diagnosis 06/01/2020 [facility] dependence, DEPENDENCE, 12:24:[address] uncomplicated UNCOMPLICATED EDT F32.9 Major depressive MAJOR DEPRESSIVE Diagnosis 12/13/2019 [facility] disorder, single DISORDER, SINGLE 01:00:00 PM [facility] episode, EPISODE, EST unspecified UNSPECIFIED F41.9 Anxiety disorder, ANXIETY DISORDER, Diagnosis 12/13/2019 [facility] unspecified UNSPECIFIED 01:00:[address] EST K70.0 Alcoholic fatty ALCOHOLIC FATTY Diagnosis 12/13/2019 [facility] liver LIVER 01:00:00 PM Medical Cente r EST F10.229 Alcohol dependence ALCOHOL DEPENDENCE Diagnosis 9 [facility] with intoxication, WITH INTOXICATION, 03:30:00 PM Medical Center unspecified UNSPECIFIED EDT F10.239 Alcohol dependence ALCOHOL DEPENDENCE Diagnosis 9 [facility] with withdrawal, WITH WITHDRAWAL, 03:30:00 PM M edical Center unspecified UNSPECIFIED EDT R41.82 Altered mental ALTERED MENTAL Diagnosis 09/09/2019 [facility] status, STATUS, 06:05:00 PM Medical Cente r unspecified UNSPECIFIED EDT Results ID Date Data Source Liver 06/04/2020 05:40:00 AM EDT [facility] Profile.[id number] Name Value Range Interpretation Description Data Sup porting Code Source(s) Document(s ) Alanine 7-30 Above high <content [facility] aminotransferase normal styleCode="Bold"> Craig hs [Enzymatic Alanine Medical activity/volume] Aminotransferase Center in Serum or Plasma (ALT) </content>31 IU/L H<content styleCode="Italic s"> (7-30 IU/L)</content> Aspartate 14-36 Above high <content [facility] aminotransferase normal styleCode="Bold"> [facility] hs [Enzymatic Aspartate Medical activity/volume] Aminotransferase Center in Serum or Plasma (AST) </content>37 IU/L H<content styleCode="Italic s"> (14-36 IU/L)</content> Bilirubin.total 0.2-1.3 <content [facility] [Mass/volume] in styleCode="Bold"> Craig hs Serum or Plasma Bilirubin Total Medical </content>0.8 Center MG/DL<content styleCode="Italic s"> (0.2-1.3 MG/DL)</content> Alkaline 38-126 <content [facility] phosphatase styleCode="Bold"> Olivia [Enzymatic Alkaline Medical activity/volume] Phosphatase (ALP) Cente r in Serum or Plasma </content>78 IU/L<content styleCode="Italic s"> (38-126 IU/L)</content> Albumin 3.5-5.0 <content [facility] [Mass/volume] in styleCode="Bold"> Craig hs Serum or Plasma Albumin Medical </content>3.6 Center G/DL<content styleCode="Italic s"> (3.5-5.0 G/DL)</content> ID Date Data Source HematologyRou.[id number] 06/04/2020 05:40:00 AM EDT [facility] 0400 Name Value Range Interpretation Description Data Sup porting Code Source(s) Document(s ) Leukocytes 4.4-11.0 Below low normal <content [facility] [#/volume] in styleCode="Bold [facility] Blood by ">White Blood Medical Automated count Cell Count Center </content>4.29 KCUMM L<content styleCode="Ital ics"> (4.4-11.0 KCUMM)</content > Hemoglobin 12.3-16. <content [facility] [Mass/volume] in 0 styleCode="Bold Olivia Blood ">Hemoglobin Medical </content>13.7 Center G/DL<content styleCode="Ital ics"> (12.3-16.0 G/DL)</content> Erythrocytes 4.0-5.1 <content Saint [#/volume] in styleCode="Bold [facility] Blood by ">Red Blood Medical Automated count Cell Count Center </content>4.76 MCUMM<content styleCode="Ital ics"> (4.0-5.1 MCUMM)</content > Hematocrit 36.0-46. <content Saint [Volume 0 styleCode="Bold [facility] Fraction] of ">Hematocrit Medical Blood by </content>42.1 Center Automated count %<content styleCode="Ital ics"> (36.0-46.0 %)</content> Erythrocyte 11.5-14. Above high <content [facility] distribution 5 normal styleCode="Bold [facility] width [Ratio] by ">Red Cell Medical Automated count Distribution Center Width </content>15.0 % H<content styleCode="Ital ics"> (11.5-14.5 %)</content> Erythrocyte mean 26.0-34. <content [facility] corpuscular 0 styleCode="Bold Olivia hemoglobin ">Mean Medical [Entitic mass] Corposcular Center by Automated Hemoglobin count </content>28.8 PG<content styleCode="Ital ics"> (26.0-34.0 PG)</content> Erythrocyte mean 80.0-100 <content [facility] corpuscular .0 styleCode="Bold Olivia volume [Entitic ">Mean Medical volume] by Corpuscular Center Automated count Volume </content>88.4 FL<content styleCode="Ital ics"> (80.0-100.0 FL)</content> Erythrocyte mean 32.0-37. <content [facility] corpuscular 0 styleCode="Bold Olivia hemoglobin ">Mean Corpus. Medical concentration Hgb Center [Mass/volume] by Concentration Automated count (MCHC) </content>32.5 G/DL<content styleCode="Ital ics"> (32.0-37.0 G/DL)</content> UNK 0 <content Saint styleCode="Bold Olivia ">Nucleated Red Medical Blood Cell Center </content>0.0 /100<content styleCode="Ital ics"> (0 /100)</content> Platelets 130-400 <content Saint [#/volume] in styleCode="Bold [facility] Blood by ">Platelet Medical Automated count Count Center </content>162 KCUMM<content styleCode="Ital ics"> (130-400 KCUMM)</content > Platelet mean 8.0-11.0 <content Saint volume [Entitic styleCode="Bold Olivia volume] in Blood ">Mean Platelet Medical by Automated Volume Center count </content>10.2 FL<content styleCode="Ital ics"> (8.0-11.0 FL)</content> UNK 0.0 <content Saint styleCode="Bold Olivia ">Nucleated Red Medical Blood Cell Center Count </content>0.00 KCUMM<content styleCode="Ital ics"> (0.0 KCUMM)</content > ID Date Data Source GFR(Creatinine).[id number] 06/04/2020 05:40:00 AM EDT [facility] 0-0400 Name Value Range Interpretation Code Description Data Nadia rce(s) Supporting Document(s ) UNK > 60 <content [facility] styleCode="Bold"> Medical Cent er EGFR </content>179 GFR<content styleCode="Italic s"> (> 60 GFR)</content> ID Date Data Source CHMROUTINECCDA.[id number] 06/04/2020 05:40:00 AM EDT [facility] -0400 Name Value Range Interpretation Description Data Sup porting Code Source(s) Document(s ) UNK >= 1.0 <content Saint styleCode="Viktor Olivia d">AG Ratio Medical </content>1.2 Center <content styleCode="Neno lics"> (>= 1.0 )</content> UNK 2.3-3.5 <content Saint styleCode="Viktor Olivia d">Globulin Medical </content>3.1 Center G/DL<content styleCode="Neno lics"> (2.3-3.5 G/DL)</content > Phosphate 2.5-4.5 <content Saint [Mass/volume] styleCode="Viktor Hans in Serum or d">Phosphorus Medical Plasma </content>3.9 Center MG/DL<content styleCode="Neno lics"> (2.5-4.5 MG/DL)</conten t> Protein 6.3-8.2 <content Saint [Mass/volume] styleCode="Viktor Hans in Serum or d">Total Medical Plasma Protein Center </content>6.7 G/DL<content styleCode="Neno lics"> (6.3-8.2 G/DL)</content > Magnesium 1.6-2.3 <content Saint [Mass/volume] styleCode="Viktor Olivia in Serum or d">Magnesium Medical Plasma </content>2.1 Center MG/DL<content styleCode="Neno lics"> (1.6-2.3 MG/DL)</conten t> ID Date Data Source [facility].[id number] 06/04/2020 05:40:[address] [facility] Name Value Range Interpretation Description Data Sup porting Code Source(s) Document(s ) Sodium 137-145 Below low <content Saint [Moles/volume] in normal styleCode="Bold"> Suhas phs Serum or Plasma Sodium Medical </content>136 Center MEQ/L L<content styleCode="Italic s"> (137-145 MEQ/L)</content> Chloride 98-107 <content Saint [Moles/volume] in styleCode="Bold"> Suhas phs Serum or Plasma Chloride Medical </content>105 Center MEQ/L<content styleCode="Italic s"> (98-107 MEQ/L)</content> Potassium 3.5-5.3 Below low <content Saint [Moles/volume] in normal styleCode="Bold"> Suhas phs Serum or Plasma Potassium Medical </content>3.4 Center MEQ/L L<content styleCode="Italic s"> (3.5-5.3 MEQ/L)</content> UNK 7-17 <content Saint styleCode="Bold"> Olivia BUN </content>8 Medical MG/DL<content Center styleCode="Italic s"> (7-17 MG/DL)</content> Glucose 74-106 Above high <content Saint [Mass/volume] in normal styleCode="Bold"> Craig hs Serum or Plasma Glucose Medical </content>117 Center MG/DL H<content styleCode="Italic s"> (74-106 MG/DL)</content> Carbon dioxide, 22-30 <content Saint total styleCode="Bold"> Olivia [Moles/volume] in Carbon Dioxide Medical Serum or Plasma </content>24 Center MEQ/L<content styleCode="Italic s"> (22-30 MEQ/L)</content> Creatinine 0.5-1.3 Below low <content [facility] [Mass/volume] in normal styleCode="Bold"> Craig hs Serum or Plasma Creatinine Medical </content>0.4 Center MG/DL L<content styleCode="Italic s"> (0.5-1.3 MG/DL)</content> Calcium 8.4-10. <content Saint [Mass/volume] in 2 styleCode="Bold"> Craig hs Serum or Plasma Calcium Medical </content>9.1 Center MG/DL<content styleCode="Italic s"> (8.4-10.2 MG/DL)</content> UNK > 60 <content Saint styleCode="Bold"> Olivia EGFR Medical </content>179 Center GFR<content styleCode="Italic s"> (> 60 GFR)</content> Alanine 7-30 Above high <content [facility] aminotransferase normal styleCode="Bold"> Craig hs [Enzymatic Alanine Medical activity/volume] Aminotransferase Center in Serum or Plasma (ALT) </content>31 IU/L H<content styleCode="Italic s"> (7-30 IU/L)</content> Aspartate 14-36 Above high <content [facility] aminotransferase normal styleCode="Bold"> Craig hs [Enzymatic Aspartate Medical activity/volume] Aminotransferase Center in Serum or Plasma (AST) </content>37 IU/L H<content styleCode="Italic s"> (14-36 IU/L)</content> Albumin 3.5-5.0 <content Saint [Mass/volume] in styleCode="Bold"> Craig hs Serum or Plasma Albumin Medical </content>3.6 Center G/DL<content styleCode="Italic s"> (3.5-5.0 G/DL)</content> Alkaline 38-126 <content [facility] phosphatase styleCode="Bold"> Olivia [Enzymatic Alkaline Medical activity/volume] Phosphatase (ALP) Cente r in Serum or Plasma </content>78 IU/L<content styleCode="Italic s"> (38-126 IU/L)</content> Bilirubin.total 0.2-1.3 <content Saint [Mass/volume] in styleCode="Bold"> Craig hs Serum or Plasma Bilirubin Total Medical </content>0.8 Center MG/DL<content styleCode="Italic s"> (0.2-1.3 MG/DL)</content> ID Date Data Source Liver 06/03/2020 06:20:00 AM EDT [facility] Profile.[id number] Name Value Range Interpretation Description Data Sup porting Code Source(s) Document(s ) Alanine 7-30 <content [facility] aminotransferase styleCode="Bold"> Craig hs [Enzymatic Alanine Medical activity/volume] Aminotransferase Center in Serum or Plasma (ALT) </content>29 IU/L<content styleCode="Italic s"> (7-30 IU/L)</content> Aspartate 14-36 <content [facility] aminotransferase styleCode="Bold"> Craig hs [Enzymatic Aspartate Medical activity/volume] Aminotransferase Center in Serum or Plasma (AST) </content>36 IU/L<content styleCode="Italic s"> (14-36 IU/L)</content> Albumin 3.5-5.0 <content Saint [Mass/volume] in styleCode="Bold"> Craig hs Serum or Plasma Albumin Medical </content>3.9 Center G/DL<content styleCode="Italic s"> (3.5-5.0 G/DL)</content> Bilirubin.total 0.2-1.3 Above high <content Saint [Mass/volume] in normal styleCode="Bold"> Craig hs Serum or Plasma Bilirubin Total Medical </content>1.4 Center MG/DL H<content styleCode="Italic s"> (0.2-1.3 MG/DL)</content> Alkaline 38-126 <content [facility] phosphatase styleCode="Bold"> Olivia [Enzymatic Alkaline Medical activity/volume] Phosphatase (ALP) Cente r in Serum or Plasma </content>82 IU/L<content styleCode="Italic s"> (38-126 IU/L)</content> ID Date Data Source HematologyRou.[id number] 06/03/2020 06:20:00 AM EDT [facility] 0400 Name Value Range Interpretation Description Data Sup porting Code Source(s) Document(s ) Leukocytes 4.4-11.0 <content Saint [#/volume] in styleCode="Bold [facility] Blood by ">White Blood Medical Automated count Cell Count Center </content>6.17 KCUMM<content styleCode="Ital ics"> (4.4-11.0 KCUMM)</content > Hemoglobin 12.3-16. <content Saint [Mass/volume] in 0 styleCode="Bold Olivia Blood ">Hemoglobin Medical </content>13.9 Center G/DL<content styleCode="Ital ics"> (12.3-16.0 G/DL)</content> Hematocrit 36.0-46. <content Saint [Volume 0 styleCode="Bold Olivia Fraction] of ">Hematocrit Medical Blood by </content>41.1 Center Automated count %<content styleCode="Ital ics"> (36.0-46.0 %)</content> Erythrocytes 4.0-5.1 <content Saint [#/volume] in styleCode="Bold Olivia Blood by ">Red Blood Medical Automated count Cell Count Center </content>4.68 MCUMM<content styleCode="Ital ics"> (4.0-5.1 MCUMM)</content > Erythrocyte mean 80.0-100 <content [facility] corpuscular .0 styleCode="Bold Olivia volume [Entitic ">Mean Medical volume] by Corpuscular Center Automated count Volume </content>87.8 FL<content styleCode="Ital ics"> (80.0-100.0 FL)</content> Erythrocyte mean 26.0-34. <content [facility] corpuscular 0 styleCode="Bold Olivia hemoglobin ">Mean Medical [Entitic mass] Corposcular Center by Automated Hemoglobin count </content>29.7 PG<content styleCode="Ital ics"> (26.0-34.0 PG)</content> Erythrocyte 11.5-14. Above high <content [facility] distribution 5 normal styleCode="Bold Olivia width [Ratio] by ">Red Cell Medical Automated count Distribution Center Width </content>15.1 % H<content styleCode="Ital ics"> (11.5-14.5 %)</content> Erythrocyte mean 32.0-37. <content [facility] corpuscular 0 styleCode="Bold Olivia hemoglobin ">Mean Corpus. Medical concentration Hgb Center [Mass/volume] by Concentration Automated count (MCHC) </content>33.8 G/DL<content styleCode="Ital ics"> (32.0-37.0 G/DL)</content> Platelet mean 8.0-11.0 <content [facility] volume [Entitic styleCode="Bold Olivia volume] in Blood ">Mean Platelet Medical by Automated Volume Center count </content>9.9 FL<content styleCode="Ital ics"> (8.0-11.0 FL)</content> UNK 0 <content Saint styleCode="Bold Olivia ">Nucleated Red Medical Blood Cell Center </content>0.0 /100<content styleCode="Ital ics"> (0 /100)</content> Platelets 130-400 <content Saint [#/volume] in styleCode="Bold Olivia Blood by ">Platelet Medical Automated count Count Center </content>157 KCUMM<content styleCode="Ital ics"> (130-400 KCUMM)</content > UNK 0.0 <content Saint styleCode="Bold Loivia ">Nucleated Red Medical Blood Cell Center Count </content>0.00 KCUMM<content styleCode="Ital ics"> (0.0 KCUMM)</content > ID Date Data Source GFR(Creatinine).[id number] 06/03/2020 06:20:00 AM EDT [facility] 0-0400 Name Value Range Interpretation Code Description Data Nadia rce(s) Supporting Document(s ) UNK > 60 <content Olivia styleCode="Bold"> Medical Cent er EGFR </content>138 GFR<content styleCode="Italic s"> (> 60 GFR)</content> ID Date Data Source IRMAMROUTINECCDA.[id number] 06/03/2020 06:20:00 AM EDT [facility] -0400 Name Value Range Interpretation Description Data Sup porting Code Source(s) Document(s ) Phosphate 2.5-4.5 <content Saint [Mass/volume] styleCode="Viktor Olivia in Serum or d">Phosphorus Medical Plasma </content>3.8 Center MG/DL<content styleCode="Neno lics"> (2.5-4.5 MG/DL)</conten t> Magnesium 1.6-2.3 <content Saint [Mass/volume] styleCode="Viktor Olivia in Serum or d">Magnesium Medical Plasma </content>1.9 Center MG/DL<content styleCode="Neno lics"> (1.6-2.3 MG/DL)</conten t> UNK >= 1.0 <content Saint styleCode="Viktor Olivia d">AG Ratio Medical </content>1.3 Center <content styleCode="Neno lics"> (>= 1.0 )</content> UNK 2.3-3.5 <content Saint styleCode="Viktor Olivia d">Globulin Medical </content>3.1 Center G/DL<content styleCode="Neno lics"> (2.3-3.5 G/DL)</content > Protein 6.3-8.2 <content Saint [Mass/volume] styleCode="Viktor Olivia in Serum or d">Total Medical Plasma Protein Center </content>7.0 G/DL<content styleCode="Neno lics"> (6.3-8.2 G/DL)</content > ID Date Data Source [facility].[id number] 06/03/2020 06:20:00 AM EDT [facility] Name Value Range Interpretation Description Data Sup porting Code Source(s) Document(s ) Chloride 98-107 <content Saint [Moles/volume] in styleCode="Bold"> [facility] Serum or Plasma Chloride Medical </content>99 Center MEQ/L<content styleCode="Italic s"> (98-107 MEQ/L)</content> Potassium 3.5-5.3 Below low <content Saint [Moles/volume] in normal styleCode="Bold"> [facility] Serum or Plasma Potassium Medical </content>3.2 Center MEQ/L L<content styleCode="Italic s"> (3.5-5.3 MEQ/L)</content> Sodium 137-145 Below low <content Saint [Moles/volume] in normal styleCode="Bold"> [facility] Serum or Plasma Sodium Medical </content>133 Center MEQ/L L<content styleCode="Italic s"> (137-145 MEQ/L)</content> Carbon dioxide, 22-30 Above high <content [facility] total normal styleCode="Bold"> Olivia [Moles/volume] in Carbon Dioxide Medical Serum or Plasma </content>31 Center MEQ/L H<content styleCode="Italic s"> (22-30 MEQ/L)</content> Creatinine 0.5-1.3 <content Saint [Mass/volume] in styleCode="Bold"> [facility] Serum or Plasma Creatinine Medical </content>0.5 Center MG/DL<content styleCode="Italic s"> (0.5-1.3 MG/DL)</content> UNK 7-17 Below low <content Saint normal styleCode="Bold"> Olivia BUN </content>6 Medical MG/DL L<content Center styleCode="Italic s"> (7-17 MG/DL)</content> Calcium 8.4-10. <content Saint [Mass/volume] in 2 styleCode="Bold"> [facility] Serum or Plasma Calcium Medical </content>9.1 Center MG/DL<content styleCode="Italic s"> (8.4-10.2 MG/DL)</content> Glucose 74-106 Above high <content Saint [Mass/volume] in normal styleCode="Bold"> [facility] Serum or Plasma Glucose Medical </content>115 Center MG/DL H<content styleCode="Italic s"> (74-106 MG/DL)</content> UNK > 60 <content Saint styleCode="Bold"> Olivia EGFR Medical </content>138 Center GFR<content styleCode="Italic s"> (> 60 GFR)</content> Aspartate 14-36 <content [facility] aminotransferase styleCode="Bold"> [facility] [Enzymatic Aspartate Medical activity/volume] Aminotransferase Center in Serum or Plasma (AST) </content>36 IU/L<content styleCode="Italic s"> (14-36 IU/L)</content> Alanine 7-30 <content [facility] aminotransferase styleCode="Bold"> [facility] [Enzymatic Alanine Medical activity/volume] Aminotransferase Center in Serum or Plasma (ALT) </content>29 IU/L<content styleCode="Italic s"> (7-30 IU/L)</content> Bilirubin.total 0.2-1.3 Above high <content Saint [Mass/volume] in normal styleCode="Bold"> [facility] Serum or Plasma Bilirubin Total Medical </content>1.4 Center MG/DL H<content styleCode="Italic s"> (0.2-1.3 MG/DL)</content> Albumin 3.5-5.0 <content Saint [Mass/volume] in styleCode="Bold"> [facility] Serum or Plasma Albumin Medical </content>3.9 Center G/DL<content styleCode="Italic s"> (3.5-5.0 G/DL)</content> Alkaline 38-126 <content [facility] phosphatase styleCode="Bold"> Olivia [Enzymatic Alkaline Medical activity/volume] Phosphatase (ALP) Cente r in Serum or Plasma </content>82 IU/L<content styleCode="Italic s"> (38-126 IU/L)</content> ID Date Data Source Urinalysis.[id number] 06/03/2020 05:00:00 AM EDT [facility] 0 Name Value Range Interpretation Description Data Sup porting Code Source(s) Document(s ) Color of Urine YELLOW <content Saint styleCode="[facility] Olivia d">Color, Medical Urine Center </content>YELL OW <content styleCode="Neno lics"> (YELLOW )</content> UNK CLEAR <content Saint styleCode="Viktor Hans d">Urine Medical Clarity Center </content>HAYES R <content styleCode="Neno lics"> (CLEAR )</content> Glucose NEGATIVE <content Saint [Mass/volume] styleCode="Viktor Hans in Urine by d">Urine Medical Test strip Glucose Center </content>NEGA TIVE MG/DL<content styleCode="Neno lics"> (NEGATIVE MG/DL)</conten t> UNK NEGATIVE <content Saint styleCode="Viktor Olivia d">Urine Medical Bilirubin Center </content>NEGA TIVE <content styleCode="Neno lics"> (NEGATIVE )</content> Ketones NEGATIVE <content Saint [Mass/volume] styleCode="Viktor Hans in Urine by d">Urine Medical Test strip Ketone Center </content>NEGA TIVE MG/DL<content styleCode="Neno lics"> (NEGATIVE MG/DL)</conten t> pH of Urine by 4.5-8.0 <content Saint Test strip styleCode="Viktor Olivia d">Urine pH Medical </content>7.0 Center <content styleCode="Neno lics"> (4.5-8.0 )</content> Hemoglobin NEGATIVE <content Saint [Presence] in styleCode="Viktor Olivia Urine by Test d">Urine Blood Medical strip </content>TRAC Center E <content styleCode="Neno lics"> (NEGATIVE )</content> Specific 1.015-1.02 Below low normal <content Saint gravity of 5 styleCode="Viktor Olivia Urine by Test d">Urine Medical strip Specific Center [place] </content><= 1.005 L<content styleCode="Neno lics"> (1.015-1.025 )</content> Urobilinogen 0.2-1.0 <content Saint [Units/volume] styleCode="Viktor Olivia in Urine by d">Urine Medical Test strip Urobilinogen Center </content>0.2 MG/DL<content styleCode="Neno lics"> (0.2-1.0 MG/DL)</conten t> Protein NEGATIVE <content Saint [Mass/volume] styleCode="Viktor Olivia in Urine by d">Urine Medical Test strip Protein Center </content>NEGA TIVE MG/DL<content styleCode="Neno lics"> (NEGATIVE MG/DL)</conten t> Nitrite NEGATIVE <content Saint [Presence] in styleCode="Viktor Olivia Urine by Test d">Urine Medical strip Nitrite Center </content>NEGA TIVE <content styleCode="Neno lics"> (NEGATIVE )</content> UNK 0-3 <content Saint styleCode="Viktor Olivia d">Urine White Medical Blood Cell Center </content>0-3 HPF<content styleCode="Neno lics"> (0-3 HPF)</content> Leukocyte NEGATIVE <content Saint esterase styleCode="Viktor Olivia [Presence] in d">Urine Medical Urine by Test Leukocyte Center strip </content>TRAC E <content styleCode="Neno lics"> (NEGATIVE )</content> UNK 0-3 <content Saint styleCode="Viktor Baker d">Urine Red Medical Blood Cell Center </content>0-3 HPF<content styleCode="Neno lics"> (0-3 HPF)</content> UNK NEGATIVE <content Saint styleCode="Viktor Baker d">Urine Medical Bacteria Center </content>FEW HPF<content styleCode="Neno lics"> (NEGATIVE HPF)</content> UNK NONE SEEN <content Saint styleCode="Viktor Baker d">Epithelial Medical Cell Center </content>2-5 HPF<content styleCode="Neno lics"> (NONE SEEN HPF)</content> ID Date Data Source Liver 06/01/2020 08:00:00 AM EDT [facility] Profile.[id number] Name Value Range Interpretation Description Data Sup porting Code Source(s) Document(s ) Alkaline 38-126 <content Saint phosphatase styleCode="Bold"> Olivia [Enzymatic Alkaline Medical activity/volume] Phosphatase (ALP) Cente r in Serum or Plasma </content>106 IU/L<content styleCode="Italic s"> (38-126 IU/L)</content> Aspartate 14-36 Above high <content Saint aminotransferase normal styleCode="Bold"> [facility] [Enzymatic Aspartate Medical activity/volume] Aminotransferase Center in Serum or Plasma (AST) </content>41 IU/L H<content styleCode="Italic s"> (14-36 IU/L)</content> Alanine 7-30 Above high <content [facility] aminotransferase normal styleCode="Bold"> [facility] [Enzymatic Alanine Medical activity/volume] Aminotransferase Center in Serum or Plasma (ALT) </content>32 IU/L H<content styleCode="Italic s"> (7-30 IU/L)</content> Albumin 3.5-5.0 <content Saint [Mass/volume] in styleCode="Bold"> [facility] hs Serum or Plasma Albumin Medical </content>4.2 Center G/DL<content styleCode="Italic s"> (3.5-5.0 G/DL)</content> Bilirubin.total 0.2-1.3 <content Saint [Mass/volume] in styleCode="Bold"> [facility] Serum or Plasma Bilirubin Total Medical </content>1.1 Center MG/DL<content styleCode="Italic s"> (0.2-1.3 MG/DL)</content> ID Date Data Source HematologyRou.[id number] 06/01/2020 08:00:00 AM EDT [facility] 0400 Name Value Range Interpretation Description Data Sup porting Code Source(s) Document(s ) Leukocytes 4.4-11.0 <content Saint [#/volume] in styleCode="Bold Olivia Blood by ">White Blood Medical Automated count Cell Count Center </content>4.75 KCUMM<content styleCode="Ital ics"> (4.4-11.0 KCUMM)</content > Erythrocytes 4.0-5.1 <content Saint [#/volume] in styleCode="Bold Olivia Blood by ">Red Blood Medical Automated count Cell Count Center </content>4.88 MCUMM<content styleCode="Ital ics"> (4.0-5.1 MCUMM)</content > Hematocrit 36.0-46. <content Saint [Volume 0 styleCode="Bold [facility] Fraction] of ">Hematocrit Medical Blood by </content>42.3 Center Automated count %<content styleCode="Ital ics"> (36.0-46.0 %)</content> Hemoglobin 12.3-16. <content Saint [Mass/volume] in 0 styleCode="Bold Olivia Blood ">Hemoglobin Medical </content>14.2 Center G/DL<content styleCode="Ital ics"> (12.3-16.0 G/DL)</content> Erythrocyte mean 80.0-100 <content [facility] corpuscular .0 styleCode="Bold Olivia volume [Entitic ">Mean Medical volume] by Corpuscular Center Automated count Volume </content>86.7 FL<content styleCode="Ital ics"> (80.0-100.0 FL)</content> Erythrocyte mean 26.0-34. <content [facility] corpuscular 0 styleCode="Bold Olivia hemoglobin ">Mean Medical [Entitic mass] Corposcular Center by Automated Hemoglobin count </content>29.1 PG<content styleCode="Ital ics"> (26.0-34.0 PG)</content> Erythrocyte 11.5-14. Above high <content Saint distribution 5 normal styleCode="Bold Olivia width [Ratio] by ">Red Cell Medical Automated count Distribution Center Width </content>15.6 % H<content styleCode="Ital ics"> (11.5-14.5 %)</content> Erythrocyte mean 32.0-37. <content [facility] corpuscular 0 styleCode="Bold Olivai hemoglobin ">Mean Corpus. Medical concentration Hgb Center [Mass/volume] by Concentration Automated count (MCHC) </content>33.6 G/DL<content styleCode="Ital ics"> (32.0-37.0 G/DL)</content> Platelet mean 8.0-11.0 <content Saint volume [Entitic styleCode="Bold Olivia volume] in Blood ">Mean Platelet Medical by Automated Volume Center count </content>9.0 FL<content styleCode="Ital ics"> (8.0-11.0 FL)</content> Platelets 130-400 <content Saint [#/volume] in styleCode="Bold Olivia Blood by ">Platelet Medical Automated count Count Center </content>221 KCUMM<content styleCode="Ital ics"> (130-400 KCUMM)</content > UNK 0 <content Saint styleCode="Bold Olivia ">Nucleated Red Medical Blood Cell Center </content>0.0 /100<content styleCode="Ital ics"> (0 /100)</content> UNK 0.0 <content Saint styleCode="Bold Olivia ">Nucleated Red Medical Blood Cell Center Count </content>0.00 KCUMM<content styleCode="Ital ics"> (0.0 KCUMM)</content > ID Date Data Source GFR(Creatinine).[id number] 06/01/2020 08:00:00 AM EDT [facility] 0-0400 Name Value Range Interpretation Code Description Data Nadia rce(s) Supporting Document(s ) UNK > 60 <content [facility] Olivia styleCode="Bold"> Medical Cent er EGFR </content>138 GFR<content styleCode="Italic s"> (> 60 GFR)</content> ID Date Data Source FANTA.[id number] 06/01/2020 08:00:00 AM EDT [facility] -0400 Name Value Range Interpretation Description Data Sup porting Code Source(s) Document(s ) UNK >= 1.0 <content Saint styleCode="Viktor Olivia d">AG Ratio Medical </content>1.2 Center <content styleCode="Neno lics"> (>= 1.0 )</content> Phosphate 2.5-4.5 <content Saint [Mass/volume] styleCode="Viktor Olivia in Serum or d">Phosphorus Medical Plasma </content>2.6 Center MG/DL<content styleCode="Neno lics"> (2.5-4.5 MG/DL)</conten t> Magnesium 1.6-2.3 <content Saint [Mass/volume] styleCode="Viktor Olivia in Serum or d">Magnesium Medical Plasma </content>1.8 Center MG/DL<content styleCode="Neno lics"> (1.6-2.3 MG/DL)</conten t> Protein 6.3-8.2 <content Saint [Mass/volume] styleCode="Viktor Olivia in Serum or d">Total Medical Plasma Protein Center </content>7.6 G/DL<content styleCode="Neno lics"> (6.3-8.2 G/DL)</content > UNK 2.3-3.5 <content Saint styleCode="Viktor Olivia d">Globulin Medical </content>3.4 Center G/DL<content styleCode="Neno lics"> (2.3-3.5 G/DL)</content > ID Date Data Source [facility].[id number] 06/01/2020 08:00:00 AM EDT [facility] Name Value Range Interpretation Description Data Sup porting Code Source(s) Document(s ) Sodium 137-145 Below low <content Saint [Moles/volume] in normal styleCode="Bold"> Suhas phs Serum or Plasma Sodium Medical </content>136 Center MEQ/L L<content styleCode="Italic s"> (137-145 MEQ/L)</content> Potassium 3.5-5.3 <content Saint [Moles/volume] in styleCode="Bold"> Suhas phs Serum or Plasma Potassium Medical </content>3.9 Center MEQ/L<content styleCode="Italic s"> (3.5-5.3 MEQ/L)</content> UNK 7-17 <content Saint styleCode="Bold"> Olivia BUN </content>12 Medical MG/DL<content Center styleCode="Italic s"> (7-17 MG/DL)</content> Chloride 98-107 <content Saint [Moles/volume] in styleCode="Bold"> Suhas phs Serum or Plasma Chloride Medical </content>100 Center MEQ/L<content styleCode="Italic s"> (98-107 MEQ/L)</content> Carbon dioxide, 22-30 <content Saint total styleCode="Bold"> Olivia [Moles/volume] in Carbon Dioxide Medical Serum or Plasma </content>25 Center MEQ/L<content styleCode="Italic s"> (22-30 MEQ/L)</content> Glucose 74-106 <content Saint [Mass/volume] in styleCode="Bold"> [facility] Serum or Plasma Glucose Medical </content>92 Center MG/DL<content styleCode="Italic s"> (74-106 MG/DL)</content> UNK > 60 <content Saint styleCode="Bold"> Olivia EGFR Medical </content>138 Center GFR<content styleCode="Italic s"> (> 60 GFR)</content> Creatinine 0.5-1.3 <content Saint [Mass/volume] in styleCode="Bold"> [facility] Serum or Plasma Creatinine Medical </content>0.5 Center MG/DL<content styleCode="Italic s"> (0.5-1.3 MG/DL)</content> Calcium 8.4-10. <content Saint [Mass/volume] in 2 styleCode="Bold"> [facility] Serum or Plasma Calcium Medical </content>8.4 Center MG/DL<content styleCode="Italic s"> (8.4-10.2 MG/DL)</content> Aspartate 14-36 Above high <content Saint aminotransferase normal styleCode="Bold"> [facility] [Enzymatic Aspartate Medical activity/volume] Aminotransferase Center in Serum or Plasma (AST) </content>41 IU/L H<content styleCode="Italic s"> (14-36 IU/L)</content> Bilirubin.total 0.2-1.3 <content Saint [Mass/volume] in styleCode="Bold"> [facility] hs Serum or Plasma Bilirubin Total Medical </content>1.1 Center MG/DL<content styleCode="Italic s"> (0.2-1.3 MG/DL)</content> Alkaline 38-126 <content Saint phosphatase styleCode="Bold"> [facility] [Enzymatic Alkaline Medical activity/volume] Phosphatase (ALP) Cente r in Serum or Plasma </content>106 IU/L<content styleCode="Italic s"> (38-126 IU/L)</content> Alanine 7-30 Above high <content Saint aminotransferase normal styleCode="Bold"> [facility] [Enzymatic Alanine Medical activity/volume] Aminotransferase Center in Serum or Plasma (ALT) </content>32 IU/L H<content styleCode="Italic s"> (7-30 IU/L)</content> Albumin 3.5-5.0 <content Saint [Mass/volume] in styleCode="Bold"> [facility] hs Serum or Plasma Albumin Medical </content>4.2 Center G/DL<content styleCode="Italic s"> (3.5-5.0 G/DL)</content> ID Date Data Source Liver 06/01/2020 03:15:00 AM EDT [facility] Profile.[id number] Name Value Range Interpretation Description Data Sup porting Code Source(s) Document(s ) Alanine 7-30 Above high <content [facility] aminotransferase normal styleCode="Bold"> [facility] [Enzymatic Alanine Medical activity/volume] Aminotransferase Center in Serum or Plasma (ALT) </content>34 IU/L H<content styleCode="Italic s"> (7-30 IU/L)</content> Alkaline 38-126 <content Saint phosphatase styleCode="Bold"> Olivia [Enzymatic Alkaline Medical activity/volume] Phosphatase (ALP) Cente r in Serum or Plasma </content>114 IU/L<content styleCode="Italic s"> (38-126 IU/L)</content> Aspartate 14-36 Above high <content Saint aminotransferase normal styleCode="Bold"> [facility] [Enzymatic Aspartate Medical activity/volume] Aminotransferase Center in Serum or Plasma (AST) </content>41 IU/L H<content styleCode="Italic s"> (14-36 IU/L)</content> Bilirubin.total 0.2-1.3 <content Saint [Mass/volume] in styleCode="Bold"> [facility] Serum or Plasma Bilirubin Total Medical </content>0.7 Center MG/DL<content styleCode="Italic s"> (0.2-1.3 MG/DL)</content> Albumin 3.5-5.0 <content Saint [Mass/volume] in styleCode="Bold"> [facility] hs Serum or Plasma Albumin Medical </content>4.3 Center G/DL<content styleCode="Italic s"> (3.5-5.0 G/DL)</content> UNK 0.0-0.3 <content Saint styleCode="Bold"> Olivia Bilirubin, Direct Medical </content>< 0.2 Center MG/DL<content styleCode="Italic s"> (0.0-0.3 MG/DL)</content> ID Date Data Source HematologyRou.[id number] 06/01/2020 03:15:00 AM EDT [facility] 0400 Name Value Range Interpretation Description Data Sup porting Code Source(s) Document(s ) Leukocytes 4.4-11.0 <content Saint [#/volume] in styleCode="Bold Olivia Blood by ">White Blood Medical Automated count Cell Count Center </content>5.27 KCUMM<content styleCode="Ital ics"> (4.4-11.0 KCUMM)</content > Erythrocyte mean 80.0-100 <content Saint corpuscular .0 styleCode="Bold Olivia volume [Entitic ">Mean Medical volume] by Corpuscular Center Automated count Volume </content>87.0 FL<content styleCode="Ital ics"> (80.0-100.0 FL)</content> Erythrocytes 4.0-5.1 <content Saint [#/volume] in styleCode="Bold Olivia Blood by ">Red Blood Medical Automated count Cell Count Center </content>4.99 MCUMM<content styleCode="Ital ics"> (4.0-5.1 MCUMM)</content > Hematocrit 36.0-46. <content Saint [Volume 0 styleCode="Bold Olivia Fraction] of ">Hematocrit Medical Blood by </content>43.4 Center Automated count %<content styleCode="Ital ics"> (36.0-46.0 %)</content> Hemoglobin 12.3-16. <content Saint [Mass/volume] in 0 styleCode="Bold Olivia Blood ">Hemoglobin Medical </content>14.7 Center G/DL<content styleCode="Ital ics"> (12.3-16.0 G/DL)</content> Erythrocyte mean 32.0-37. <content [facility] corpuscular 0 styleCode="Bold Olivia hemoglobin ">Mean Corpus. Medical concentration Hgb Center [Mass/volume] by Concentration Automated count (MCHC) </content>33.9 G/DL<content styleCode="Ital ics"> (32.0-37.0 G/DL)</content> Erythrocyte mean 26.0-34. <content Saint corpuscular 0 styleCode="Bold Olivia hemoglobin ">Mean Medical [Entitic mass] Corposcular Center by Automated Hemoglobin count </content>29.5 PG<content styleCode="Ital ics"> (26.0-34.0 PG)</content> Erythrocyte 11.5-14. Above high <content Saint distribution 5 normal styleCode="Bold Olivia width [Ratio] by ">Red Cell Medical Automated count Distribution Center Width </content>15.8 % H<content styleCode="Ital ics"> (11.5-14.5 %)</content> Platelet mean 8.0-11.0 <content Saint volume [Entitic styleCode="Bold Olivia volume] in Blood ">Mean Platelet Medical by Automated Volume Center count </content>9.5 FL<content styleCode="Ital ics"> (8.0-11.0 FL)</content> Platelets 130-400 <content Saint [#/volume] in styleCode="Bold Olivia Blood by ">Platelet Medical Automated count Count Center </content>256 KCUMM<content styleCode="Ital ics"> (130-400 KCUMM)</content > UNK 0 <content Saint styleCode="Bold Olivia ">Nucleated Red Medical Blood Cell Center </content>0.0 /100<content styleCode="Ital ics"> (0 /100)</content> UNK 0.0 <content Saint styleCode="Bold Olivia ">Nucleated Red Medical Blood Cell Center Count </content>0.00 KCUMM<content styleCode="Ital ics"> (0.0 KCUMM)</content > ID Date Data Source GFR(Creatinine).[id number] 06/01/2020 03:15:00 AM EDT [facility] 0-0400 Name Value Range Interpretation Code Description Data Nadia rce(s) Supporting Document(s ) UNK > 60 <content [facility] styleCode="Bold"> Medical Cent er EGFR </content>138 GFR<content styleCode="Italic s"> (> 60 GFR)</content> ID Date Data Source BMP.[id number] 06/01/2020 03:15:[address] [facility] Name Value Range Interpretation Description Data Sup porting Code Source(s) Document(s ) Sodium 137-145 <content Saint [Moles/volume] in styleCode="Bold"> Suhas phs Serum or Plasma Sodium Medical </content>141 Center MEQ/L<content styleCode="Italic s"> (137-145 MEQ/L)</content> Potassium 3.5-5.3 <content Saint [Moles/volume] in styleCode="Bold"> Suhas phs Serum or Plasma Potassium Medical </content>3.8 Center MEQ/L<content styleCode="Italic s"> (3.5-5.3 MEQ/L)</content> Carbon dioxide, 22-30 <content Saint total styleCode="Bold"> Olivia [Moles/volume] in Carbon Dioxide Medical Serum or Plasma </content>23 Center MEQ/L<content styleCode="Italic s"> (22-30 MEQ/L)</content> Chloride 98-107 <content Saint [Moles/volume] in styleCode="Bold"> Suhas phs Serum or Plasma Chloride Medical </content>105 Center MEQ/L<content styleCode="Italic s"> (98-107 MEQ/L)</content> UNK 7-17 <content Saint styleCode="Bold"> Olivia BUN </content>17 Medical MG/DL<content Center styleCode="Italic s"> (7-17 MG/DL)</content> Glucose 74-106 <content Saint [Mass/volume] in styleCode="Bold"> [facility] hs Serum or Plasma Glucose Medical </content>102 Center MG/DL<content styleCode="Italic s"> (74-106 MG/DL)</content> Calcium 8.4-10. <content Saint [Mass/volume] in 2 styleCode="Bold"> Craig hs Serum or Plasma Calcium Medical </content>8.4 Center MG/DL<content styleCode="Italic s"> (8.4-10.2 MG/DL)</content> Creatinine 0.5-1.3 <content Saint [Mass/volume] in styleCode="Bold"> Craig hs Serum or Plasma Creatinine Medical </content>0.5 Center MG/DL<content styleCode="Italic s"> (0.5-1.3 MG/DL)</content> Alanine 7-30 Above high <content [facility] aminotransferase normal styleCode="Bold"> Craig hs [Enzymatic Alanine Medical activity/volume] Aminotransferase Center in Serum or Plasma (ALT) </content>34 IU/L H<content styleCode="Italic s"> (7-30 IU/L)</content> UNK > 60 <content [facility] styleCode="Bold"> Olivia EGFR Medical </content>138 Center GFR<content styleCode="Italic s"> (> 60 GFR)</content> Aspartate 14-36 Above high <content [facility] aminotransferase normal styleCode="Bold"> Craig hs [Enzymatic Aspartate Medical activity/volume] Aminotransferase Center in Serum or Plasma (AST) </content>41 IU/L H<content styleCode="Italic s"> (14-36 IU/L)</content> Albumin 3.5-5.0 <content [facility] [Mass/volume] in styleCode="Bold"> Craig hs Serum or Plasma Albumin Medical </content>4.3 Center G/DL<content styleCode="Italic s"> (3.5-5.0 G/DL)</content> Bilirubin.total 0.2-1.3 <content [facility] [Mass/volume] in styleCode="Bold"> Craig hs Serum or Plasma Bilirubin Total Medical </content>0.7 Center MG/DL<content styleCode="Italic s"> (0.2-1.3 MG/DL)</content> Alkaline 38-126 <content [facility] phosphatase styleCode="Bold"> Olivia [Enzymatic Alkaline Medical activity/volume] Phosphatase (ALP) Cente r in Serum or Plasma </content>114 IU/L<content styleCode="Italic s"> (38-126 IU/L)</content> ID Date Data Source Urinalysis.[id number] 06/01/2020 12:35:00 AM EDT [facility] 0 Name Value Range Interpretation Description Data Sup porting Code Source(s) Document(s ) Color of Urine YELLOW <content Saint styleCode="Viktor Baker d">Color, Medical Urine Center </content>YELL OW <content styleCode="Neno lics"> (YELLOW )</content> UNK CLEAR <content [facility] styleCode="Viktor Hans d">Urine Medical Clarity Center </content>HAYES R <content styleCode="Neno lics"> (CLEAR )</content> UNK NEGATIVE <content [facility] styleCode="Viktor Olivia d">Urine Medical Bilirubin Center </content>NEGA TIVE <content styleCode="Neno lics"> (NEGATIVE )</content> Glucose NEGATIVE <content [facility] [Mass/volume] styleCode="Viktor Baker in Urine by d">Urine Medical Test strip Glucose Center </content>NEGA TIVE MG/DL<content styleCode="Neno lics"> (NEGATIVE MG/DL)</conten t> Specific 1.015-1.02 Above high <content [facility] gravity of 5 normal styleCode="Viktor Baker Urine by Test d">Urine Medical strip Specific Center [place] </content>>= 1.030 H<content styleCode="Neno lics"> (1.015-1.025 )</content> Ketones NEGATIVE <content [facility] [Mass/volume] styleCode="Viktor Hans in Urine by d">Urine Medical Test strip Ketone Center </content>40 MG/DL<content styleCode="Neno lics"> (NEGATIVE MG/DL)</conten t> Hemoglobin NEGATIVE <content [facility] [Presence] in styleCode="Viktor Baker Urine by Test d">Urine Blood Medical strip </content>LARG Center E <content styleCode="Neno lics"> (NEGATIVE )</content> pH of Urine by 4.5-8.0 <content [facility] Test strip styleCode="Viktor Hans d">Urine pH Medical </content>6.0 Center <content styleCode="Neno lics"> (4.5-8.0 )</content> Urobilinogen 0.2-1.0 <content [facility] [Units/volume] styleCode="Viktro Hans in Urine by d">Urine Medical Test strip Urobilinogen Center </content>0.2 MG/DL<content styleCode="Neno lics"> (0.2-1.0 MG/DL)</conten t> Protein NEGATIVE <content [facility] [Mass/volume] styleCode="Viktor Baker in Urine by d">Urine Medical Test strip Protein Center </content>100 MG/DL<content styleCode="Neno lics"> (NEGATIVE MG/DL)</conten t> UNK 0-3 <content Saint styleCode="Viktor Olivia d">Urine Red Medical Blood Cell Center </content>10 - 20 HPF<content styleCode="Neno lics"> (0-3 HPF)</content> Leukocyte NEGATIVE <content [facility] esterase styleCode="Viktor Baker [Presence] in d">Urine Medical Urine by Test Leukocyte Center strip </content>NEGA TIVE <content styleCode="Neno lics"> (NEGATIVE )</content> Nitrite NEGATIVE <content [facility] [Presence] in styleCode="Viktor Hans Urine by Test d">Urine Medical strip Nitrite Center </content>NEGA TIVE <content styleCode="Neno lics"> (NEGATIVE )</content> UNK NONE SEEN <content Saint styleCode="Viktor Olivia d">Epithelial Medical Cell Center </content>2-5 HPF<content styleCode="Neno lics"> (NONE SEEN HPF)</content> UNK 0-3 <content Saint styleCode="Viktor Olivia d">Urine White Medical Blood Cell Center </content>0-3 HPF<content styleCode="Neno lics"> (0-3 HPF)</content> UNK NEGATIVE <content Saint styleCode="Viktor Olivia d">Urine Medical Bacteria Center </content>FEW HPF<content styleCode="Neno lics"> (NEGATIVE HPF)</content> ID Date Data Source CHMROUTINECCDA.[id number] 06/01/2020 12:35:00 AM EDT [facility] -0400 Name Value Range Interpretation Description Data Sup porting Code Source(s) Document(s ) Cannabinoids <content [facility] [Presence] in styleCode="Viktor Baker Urine by Screen d">Cannabinoid Medical method >50 ng/mL s Center </content>NEGA TIVE NG/ML (Reference Range: not available)<br/ > ID Date Data Source [id number] 06/01/2020 12:00:00 AM EDT [facility] Name Value Range Interpretation Code Description Data Nadia rce(s) Supporting Document(s ) 2019-nCoV [facility] RNA XXX ADARSH+probe- Imp This lab was ordered by [facility] and reported by [employer]. ID Date Data Source Liver 12/13/2019 06:30:00 AM EST [facility] Profile.[id number] Name Value Range Interpretation Description Data Sup porting Code Source(s) Document(s ) Alanine 7-30 Above high <content [facility] aminotransferase normal styleCode="Bold"> Craig hs [Enzymatic Alanine Medical activity/volume] Aminotransferase Center in Serum or Plasma (ALT) </content>79 IU/L H<content styleCode="Italic s"> (7-30 IU/L)</content> Aspartate 14-36 Above high <content [facility] aminotransferase normal styleCode="Bold"> Craig hs [Enzymatic Aspartate Medical activity/volume] Aminotransferase Center in Serum or Plasma (AST) </content>94 IU/L H<content styleCode="Italic s"> (14-36 IU/L)</content> Alkaline 38-126 <content [facility] phosphatase styleCode="Bold"> Olivia [Enzymatic Alkaline Medical activity/volume] Phosphatase (ALP) Cente r in Serum or Plasma </content>83 IU/L<content styleCode="Italic s"> (38-126 IU/L)</content> Bilirubin.total 0.2-1.3 <content [facility] [Mass/volume] in styleCode="Bold"> Craig hs Serum or Plasma Bilirubin Total Medical </content>1.3 Center MG/DL<content styleCode="Italic s"> (0.2-1.3 MG/DL)</content> Albumin 3.5-5.0 <content [facility] [Mass/volume] in styleCode="Bold"> Craig hs Serum or Plasma Albumin Medical </content>4.2 Center G/DL<content styleCode="Italic s"> (3.5-5.0 G/DL)</content> ID Date Data Source GFR(Creatinine).[id number] 12/13/2019 06:30:[address] [facility] 0-0500 Name Value Range Interpretation Code Description Data Nadia rce(s) Supporting Document(s ) UNK > 60 <content [facility] styleCode="Bold"> Medical Cent er EGFR </content>138 GFR<content styleCode="Italic s"> (> 60 GFR)</content> ID Date Data Source CHMROUTINECCDA.[id number] 12/13/2019 06:30:[address] [facility] -0500 Name Value Range Interpretation Description Data Sup porting Code Source(s) Document(s ) UNK 2.3-3.5 <content [facility] styleCode="Bold Medical ">Globulin Center </content>3.2 G/DL<content styleCode="Ital ics"> (2.3-3.5 G/DL)</content> UNK >= 1.0 <content [facility] styleCode="Bold Medical ">AG Ratio Center </content>1.3 <content styleCode="Ital ics"> (>= 1.0 )</content> Protein 6.3-8.2 <content [facility] [Mass/volum styleCode="Bold Medical e] in Serum ">Total Protein Center or Plasma </content>7.4 G/DL<content styleCode="Ital ics"> (6.3-8.2 G/DL)</content> ID Date Data Source [facility].[id number] 12/13/2019 06:30:[address] [facility] Name Value Range Interpretation Description Data Sup porting Code Source(s) Document(s ) Potassium 3.5-5.3 <content Saint [Moles/volume] in styleCode="Bold"> Suhas phs Serum or Plasma Potassium Medical </content>3.6 Center MEQ/L<content styleCode="Italic s"> (3.5-5.3 MEQ/L)</content> Sodium 137-145 Below low <content [facility] [Moles/volume] in normal styleCode="Bold"> Suhas phs Serum or Plasma Sodium Medical </content>136 Center MEQ/L L<content styleCode="Italic s"> (137-145 MEQ/L)</content> Chloride 98-107 <content [facility] [Moles/volume] in styleCode="Bold"> Suhas phs Serum or Plasma Chloride Medical </content>101 Center MEQ/L<content styleCode="Italic s"> (98-107 MEQ/L)</content> Creatinine 0.5-1.3 <content [facility] [Mass/volume] in styleCode="Bold"> Craig hs Serum or Plasma Creatinine Medical </content>0.5 Center MG/DL<content styleCode="Italic s"> (0.5-1.3 MG/DL)</content> Glucose 74-106 Above high <content [facility] [Mass/volume] in normal styleCode="Bold"> Craig hs Serum or Plasma Glucose Medical </content>115 Center MG/DL H<content styleCode="Italic s"> (74-106 MG/DL)</content> Carbon dioxide, 22-30 <content [facility] total styleCode="Bold"> Olivia [Moles/volume] in Carbon Dioxide Medical Serum or Plasma </content>25 Center MEQ/L<content styleCode="Italic s"> (22-30 MEQ/L)</content> Calcium 8.4-10. <content [facility] [Mass/volume] in 2 styleCode="Bold"> Craig hs Serum or Plasma Calcium Medical </content>9.3 Center MG/DL<content styleCode="Italic s"> (8.4-10.2 MG/DL)</content> UNK 7-17 <content [facility] styleCode="Bold"> Olivia BUN </content>11 Medical MG/DL<content Center styleCode="Italic s"> (7-17 MG/DL)</content> UNK > 60 <content [facility] styleCode="Bold"> Olivia EGFR Medical </content>138 Center GFR<content styleCode="Italic s"> (> 60 GFR)</content> Bilirubin.total 0.2-1.3 <content [facility] [Mass/volume] in styleCode="Bold"> Craig hs Serum or Plasma Bilirubin Total Medical </content>1.3 Center MG/DL<content styleCode="Italic s"> (0.2-1.3 MG/DL)</content> Alkaline 38-126 <content [facility] phosphatase styleCode="Bold"> Olivia [Enzymatic Alkaline Medical activity/volume] Phosphatase (ALP) Cente r in Serum or Plasma </content>83 IU/L<content styleCode="Italic s"> (38-126 IU/L)</content> Alanine 7-30 Above high <content [facility] aminotransferase normal styleCode="Bold"> Craig hs [Enzymatic Alanine Medical activity/volume] Aminotransferase Center in Serum or Plasma (ALT) </content>79 IU/L H<content styleCode="Italic s"> (7-30 IU/L)</content> Aspartate 14-36 Above high <content [facility] aminotransferase normal styleCode="Bold"> Craig hs [Enzymatic Aspartate Medical activity/volume] Aminotransferase Center in Serum or Plasma (AST) </content>94 IU/L H<content styleCode="Italic s"> (14-36 IU/L)</content> Albumin 3.5-5.0 <content [facility] [Mass/volume] in styleCode="Bold"> Craig hs Serum or Plasma Albumin Medical </content>4.2 Center G/DL<content styleCode="Italic s"> (3.5-5.0 G/DL)</content> ID Date Data Source GFR(Creatinine).[id number] 12/12/2019 06:25:00 AM [facility] 0-0500 Name Value Range Interpretation Code Description Data Nadia rce(s) Supporting Document(s ) UNK > 60 <content [facility] Baker styleCode="Bold"> Medical Cent er EGFR </content>112 GFR<content styleCode="Italic s"> (> 60 GFR)</content> ID Date Data Source CHMROUTINECCDA.[id number] 12/12/2019 06:25:00 AM [facility] -0500 Name Value Range Interpretation Description Data Sup porting Code Source(s) Document(s ) Magnesium 1.6-2.3 <content [facility] [Mass/volume] styleCode="Viktor Olivia in Serum or d">Magnesium Medical Plasma </content>1.7 Center MG/DL<content styleCode="Neno lics"> (1.6-2.3 MG/DL)</conten t> UNK >= 1.0 <content [facility] styleCode="Viktor Olivia d">AG Ratio Medical </content>1.3 Center <content styleCode="Neno lics"> (>= 1.0 )</content> Protein 6.3-8.2 <content [facility] [Mass/volume] styleCode="Viktor Olivia in Serum or d">Total Medical Plasma Protein Center </content>7.9 G/DL<content styleCode="Neno lics"> (6.3-8.2 G/DL)</content > UNK 2.3-3.5 <content [facility] styleCode="Viktro Olivia d">Globulin Medical </content>3.4 Center G/DL<content styleCode="Neno lics"> (2.3-3.5 G/DL)</content > ID Date Data Source [facility].[id number] 12/12/2019 06:25:00 AM EST [facility] Name Value Range Interpretation Description Data Sup porting Code Source(s) Document(s ) Potassium 3.5-5.3 <content [facility] [Moles/volume] in styleCode="Bold"> [facility] Serum or Plasma Potassium Medical </content>3.6 Center MEQ/L<content styleCode="Italic s"> (3.5-5.3 MEQ/L)</content> Chloride 98-107 <content [facility] [Moles/volume] in styleCode="Bold"> [facility] Serum or Plasma Chloride Medical </content>100 Center MEQ/L<content styleCode="Italic s"> (98-107 MEQ/L)</content> Sodium 137-145 Below low <content [facility] [Moles/volume] in normal styleCode="Bold"> Suhas phs Serum or Plasma Sodium Medical </content>135 Center MEQ/L L<content styleCode="Italic s"> (137-145 MEQ/L)</content> Creatinine 0.5-1.3 <content [facility] [Mass/volume] in styleCode="Bold"> Craig hs Serum or Plasma Creatinine Medical </content>0.6 Center MG/DL<content styleCode="Italic s"> (0.5-1.3 MG/DL)</content> Carbon dioxide, 22-30 <content [facility] total styleCode="Bold"> Olivia [Moles/volume] in Carbon Dioxide Medical Serum or Plasma </content>28 Center MEQ/L<content styleCode="Italic s"> (22-30 MEQ/L)</content> Calcium 8.4-10. <content [facility] [Mass/volume] in 2 styleCode="Bold"> Craig hs Serum or Plasma Calcium Medical </content>9.3 Center MG/DL<content styleCode="Italic s"> (8.4-10.2 MG/DL)</content> UNK 7-17 <content Saint styleCode="Bold"> Olivia BUN </content>11 Medical MG/DL<content Center styleCode="Italic s"> (7-17 MG/DL)</content> Glucose 74-106 Above high <content [facility] [Mass/volume] in normal styleCode="Bold"> Craig hs Serum or Plasma Glucose Medical </content>115 Center MG/DL H<content styleCode="Italic s"> (74-106 MG/DL)</content> UNK > 60 <content [facility] styleCode="Bold"> Olivia EGFR Medical </content>112 Center GFR<content styleCode="Italic s"> (> 60 GFR)</content> Aspartate 14-36 Above high <content [facility] aminotransferase normal styleCode="Bold"> Craig hs [Enzymatic Aspartate Medical activity/volume] Aminotransferase Center in Serum or Plasma (AST) </content>98 IU/L H<content styleCode="Italic s"> (14-36 IU/L)</content> Alanine 7-30 Above high <content [facility] aminotransferase normal styleCode="Bold"> Craig hs [Enzymatic Alanine Medical activity/volume] Aminotransferase Center in Serum or Plasma (ALT) </content>66 IU/L H<content styleCode="Italic s"> (7-30 IU/L)</content> Alkaline 38-126 <content [facility] phosphatase styleCode="Bold"> Olivia [Enzymatic Alkaline Medical activity/volume] Phosphatase (ALP) Cente r in Serum or Plasma </content>85 IU/L<content styleCode="Italic s"> (38-126 IU/L)</content> Bilirubin.total 0.2-1.3 Above high <content [facility] [Mass/volume] in normal styleCode="Bold"> Craig hs Serum or Plasma Bilirubin Total Medical </content>1.6 Center MG/DL H<content styleCode="Italic s"> (0.2-1.3 MG/DL)</content> Albumin 3.5-5.0 <content [facility] [Mass/volume] in styleCode="Bold"> Craig hs Serum or Plasma Albumin Medical </content>4.5 Center G/DL<content styleCode="Italic s"> (3.5-5.0 G/DL)</content> ID Date Data Source Liver 12/12/2019 06:25:00 AM EST [facility] Profile.[id number] Name Value Range Interpretation Description Data Sup porting Code Source(s) Document(s ) Aspartate 14-36 Above high <content [facility] aminotransferase normal styleCode="Bold"> Craig hs [Enzymatic Aspartate Medical activity/volume] Aminotransferase Center in Serum or Plasma (AST) </content>98 IU/L H<content styleCode="Italic s"> (14-36 IU/L)</content> Alanine 7-30 Above high <content [facility] aminotransferase normal styleCode="Bold"> Craig hs [Enzymatic Alanine Medical activity/volume] Aminotransferase Center in Serum or Plasma (ALT) </content>66 IU/L H<content styleCode="Italic s"> (7-30 IU/L)</content> Alkaline 38-126 <content [facility] phosphatase styleCode="Bold"> Olivia [Enzymatic Alkaline Medical activity/volume] Phosphatase (ALP) Cente r in Serum or Plasma </content>85 IU/L<content styleCode="Italic s"> (38-126 IU/L)</content> Albumin 3.5-5.0 <content [facility] [Mass/volume] in styleCode="Bold"> Craig hs Serum or Plasma Albumin Medical </content>4.5 Center G/DL<content styleCode="Italic s"> (3.5-5.0 G/DL)</content> Bilirubin.total 0.2-1.3 Above high <content [facility] [Mass/volume] in normal styleCode="Bold"> Craig hs Serum or Plasma Bilirubin Total Medical </content>1.6 Center MG/DL H<content styleCode="Italic s"> (0.2-1.3 MG/DL)</content> ID Date Data Source HematologyRou.[id number] 12/12/2019 06:25:00 AM PR[facility] [place] [facility] 0500 Name Value Range Interpretation Description Data Sup porting Code Source(s) Document(s ) Leukocytes 4.4-11.0 Below low normal <content Saint [#/volume] in styleCode="Bold [facility] Blood by ">White Blood Medical Automated count Cell Count Center </content>4.10 KCUMM L<content styleCode="Ital ics"> (4.4-11.0 KCUMM)</content > Erythrocytes 4.0-5.1 <content Saint [#/volume] in styleCode="Bold Olivia Blood by ">Red Blood Medical Automated count Cell Count Center </content>4.78 MCUMM<content styleCode="Ital ics"> (4.0-5.1 MCUMM)</content > Hemoglobin 12.3-16. <content [facility] [Mass/volume] in 0 styleCode="Bold Olivia Blood ">Hemoglobin Medical </content>14.5 Center G/DL<content styleCode="Ital ics"> (12.3-16.0 G/DL)</content> Erythrocyte mean 32.0-37. <content [facility] corpuscular 0 styleCode="Bold Olivia hemoglobin ">Mean Corpus. Medical concentration Hgb Center [Mass/volume] by Concentration Automated count (MCHC) </content>33.0 G/DL<content styleCode="Ital ics"> (32.0-37.0 G/DL)</content> Erythrocyte 11.5-14. Above high <content [facility] distribution 5 normal styleCode="Bold Olivia width [Ratio] by ">Red Cell Medical Automated count Distribution Center Width </content>15.3 % H<content styleCode="Ital ics"> (11.5-14.5 %)</content> Erythrocyte mean 26.0-34. <content [facility] corpuscular 0 styleCode="Bold Olivia hemoglobin ">Mean Medical [Entitic mass] Corposcular Center by Automated Hemoglobin count </content>30.3 PG<content styleCode="Ital ics"> (26.0-34.0 PG)</content> Erythrocyte mean 80.0-100 <content [facility] corpuscular .0 styleCode="Bold Olivia volume [Entitic ">Mean Medical volume] by Corpuscular Center Automated count Volume </content>92.1 FL<content styleCode="Ital ics"> (80.0-100.0 FL)</content> Hematocrit 36.0-46. <content Saint [Volume 0 styleCode="Bold Olivia Fraction] of ">Hematocrit Medical Blood by </content>44.0 Center Automated count %<content styleCode="Ital ics"> (36.0-46.0 %)</content> UNK 0.0 <content Saint styleCode="Bold Olivia ">Nucleated Red Medical Blood Cell Center Count </content>0.00 KCUMM<content styleCode="Ital ics"> (0.0 KCUMM)</content > UNK 0 <content Saint styleCode="Bold Olivia ">Nucleated Red Medical Blood Cell Center </content>0.0 /100<content styleCode="Ital ics"> (0 /100)</content> Platelets 130-400 <content Saint [#/volume] in styleCode="Bold Olivia Blood by ">Platelet Medical Automated count Count Center </content>242 KCUMM<content styleCode="Ital ics"> (130-400 KCUMM)</content > Platelet mean 8.0-11.0 <content [facility] volume [Entitic styleCode="Bold Olivia volume] in Blood ">Mean Platelet Medical by Automated Volume Center count </content>9.7 FL<content styleCode="Ital ics"> (8.0-11.0 FL)</content> ID Date Data Source CHMROUTINECCDA.[id number] 12/11/2019 11:57:[address] [facility] -0500 Name Value Range Interpretation Description Data Sup porting Code Source(s) Document(s ) UNK 30-110 <content [facility] Olivia styleCode="Bold Medical ">Amylase Center </content>68 IU/L<content styleCode="Ital ics"> (30-110 IU/L)</content> Lipase 23-300 <content [facility] Olivia [Enzymatic styleCode="Bold Medical activity/vo ">Lipase Center lume] in </content>96 Serum or IU/L<content Plasma styleCode="Ital ics"> (23-300 IU/L)</content> ID Date Data Source Urinalysis.[id number] 12/11/2019 12:55:[address] [facility] 0 Name Value Range Interpretation Description Data Sup porting Code Source(s) Document(s ) Glucose NEGATIVE <content [facility] [Mass/volume] styleCode="Viktor Olivia in Urine by d">Urine Medical Test strip Glucose Center </content>NEGA TIVE MG/DL<content styleCode="Neno lics"> (NEGATIVE MG/DL)</conten t> UNK CLEAR <content [facility] styleCode="Viktor Olivia d">Urine Medical Clarity Center </content>HAYES R <content styleCode="Neno lics"> (CLEAR )</content> UNK NEGATIVE <content [facility] styleCode="Viktor Olivia d">Urine Medical Bilirubin Center </content>NEGA TIVE <content styleCode="Neno lics"> (NEGATIVE )</content> Color of Urine YELLOW <content [facility] styleCode="Viktor Olivia d">Color, Medical Urine Center </content>YELL OW <content styleCode="Neno lics"> (YELLOW )</content> pH of Urine by 4.5-8.0 <content Saint Test strip styleCode="Viktor Olviia d">Urine pH Medical </content>7.0 Center <content styleCode="Neno lics"> (4.5-8.0 )</content> Specific 1.015-1.02 <content [facility] gravity of 5 styleCode="Viktor Olivia Urine by Test d">Urine Medical strip Specific Center [place] </content>1.01 5 <content styleCode="Neno lics"> (1.015-1.025 )</content> Hemoglobin NEGATIVE <content [facility] [Presence] in styleCode="Viktor Olivia Urine by Test d">Urine Blood Medical strip </content>SMAL Center L <content styleCode="Neno lics"> (NEGATIVE )</content> Ketones NEGATIVE <content [facility] [Mass/volume] styleCode="Viktor Olivia in Urine by d">Urine Medical Test strip Ketone Center </content>NEGA TIVE MG/DL<content styleCode="Neno lics"> (NEGATIVE MG/DL)</conten t> Urobilinogen 0.2-1.0 <content Saint [Units/volume] styleCode="Viktor Olivia in Urine by d">Urine Medical Test strip Urobilinogen Center </content>0.2 MG/DL<content styleCode="Neno lics"> (0.2-1.0 MG/DL)</conten t> Protein NEGATIVE <content [facility] [Mass/volume] styleCode="Viktor Olivia in Urine by d">Urine Medical Test strip Protein Center </content>30 MG/DL<content styleCode="Neno lics"> (NEGATIVE MG/DL)</conten t> Nitrite NEGATIVE <content Saint [Presence] in styleCode="Viktor Olivia Urine by Test d">Urine Medical strip Nitrite Center </content>NEGA TIVE <content styleCode="Neno lics"> (NEGATIVE )</content> Leukocyte NEGATIVE <content [facility] esterase styleCode="Viktor Olivia [Presence] in d">Urine Medical Urine by Test Leukocyte Center strip </content>NEGA TIVE <content styleCode="Neno lics"> (NEGATIVE )</content> UNK NONE SEEN <content Saint styleCode="Viktor Olivia d">Epithelial Medical Cell Center </content>2-5 HPF<content styleCode="Neno lics"> (NONE SEEN HPF)</content> UNK NEGATIVE <content Saint styleCode="Viktor Hans d">Urine Medical Bacteria Center </content>FEW HPF<content styleCode="Neno lics"> (NEGATIVE HPF)</content> UNK 0-3 <content Saint styleCode="Viktor Hans d">Urine White Medical Blood Cell Center </content>0-3 HPF<content styleCode="Neno lics"> (0-3 HPF)</content> UNK 0-3 <content Saint styleCode="Viktor Hans d">Urine Red Medical Blood Cell Center </content>3-5 HPF<content styleCode="Neno lics"> (0-3 HPF)</content> ID Date Data Source MROUTINECCDA.[id number] 12/11/2019 12:55:[address] [facility] -0500 Name Value Range Interpretation Description Data Sup porting Code Source(s) Document(s ) Cannabinoids <content Saint [Presence] in styleCode="Viktor [facility] Urine by Screen d">Cannabinoid Medical method >50 ng/mL s Center </content>NEGA TIVE NG/ML (Reference Range: not available)<br/ > ID Date Data Source Liver 12/10/2019 10:02:00 PM [facility] Profile.[id number] Name Value Range Interpretation Description Data Sup porting Code Source(s) Document(s ) Aspartate 14-36 Above high <content [facility] aminotransferase normal styleCode="Bold"> Craig hs [Enzymatic Aspartate Medical activity/volume] Aminotransferase Center in Serum or Plasma (AST) </content>56 IU/L H<content styleCode="Italic s"> (14-36 IU/L)</content> Alanine 7-30 Above high <content [facility] aminotransferase normal styleCode="Bold"> Craig hs [Enzymatic Alanine Medical activity/volume] Aminotransferase Center in Serum or Plasma (ALT) </content>55 IU/L H<content styleCode="Italic s"> (7-30 IU/L)</content> UNK 0.0-0.3 <content [facility] styleCode="Bold"> Olivia Bilirubin, Direct Medical </content>< 0.2 Center MG/DL<content styleCode="Italic s"> (0.0-0.3 MG/DL)</content> Albumin 3.5-5.0 <content [facility] [Mass/volume] in styleCode="Bold"> Craig hs Serum or Plasma Albumin Medical </content>4.5 Center G/DL<content styleCode="Italic s"> (3.5-5.0 G/DL)</content> Alkaline 38-126 <content [facility] phosphatase styleCode="Bold"> Olivia [Enzymatic Alkaline Medical activity/volume] Phosphatase (ALP) Cente r in Serum or Plasma </content>85 IU/L<content styleCode="Italic s"> (38-126 IU/L)</content> Bilirubin.total 0.2-1.3 <content [facility] [Mass/volume] in styleCode="Bold"> Craig hs Serum or Plasma Bilirubin Total Medical </content>0.5 Center MG/DL<content styleCode="Italic s"> (0.2-1.3 MG/DL)</content> ID Date Data Source LIPID.[id number] 12/10/2019 10:02:00 PM EST [facility] Name Value Range Interpretation Description Data Sup porting Code Source(s) Document(s ) UNK > 60 <content [facility] styleCode="Viktor Olivia d">HDL- Medical Cholesterol Center </content>105 MG/DL<content styleCode="Neno lics"> (> 60 MG/DL)</conten t> Cholesterol -<200 Above high normal <content [facility] [Mass/volume] in styleCode="Viktor Olivia Serum or Plasma d">Cholesterol Medical </content>230 Center MG/DL H<content styleCode="Neno lics"> (-<200 MG/DL)</conten t> Triglyceride < 150 Above high normal <content [facility] [Mass/volume] in styleCode="[facility] Serum or Plasma d">Tr[facility] </content>241 MG/DL H<content styleCode="Neno lics"> (< 150 MG/DL)</conten t> UNK < 100 <content [facility] styleCode="Viktor [facility] d">LDL-Cholest [facility] </content>77 MG/DL<content styleCode="Neno lics"> (< 100 MG/DL)</conten t> ID Date Data Source HematologyRou.[id number] 12/10/2019 10:02:00 PM PRICE [facility] 0500 Name Value Range Interpretation Description Data Sup porting Code Source(s) Document(s ) Leukocytes 4.4-11.0 <content [facility] [#/volume] in styleCode="Bold Olivia Blood by ">White Blood Medical Automated count Cell Count Center </content>4.66 KCUMM<content styleCode="Ital ics"> (4.4-11.0 KCUMM)</content > Hematocrit 36.0-46. <content [facility] [Volume 0 styleCode="Bold Olivia Fraction] of ">Hematocrit Medical Blood by </content>42.6 Center Automated count %<content styleCode="Ital ics"> (36.0-46.0 %)</content> Hemoglobin 12.3-16. <content [facility] [Mass/volume] in 0 styleCode="Bold Olivia Blood ">Hemoglobin Medical </content>14.3 Center G/DL<content styleCode="Ital ics"> (12.3-16.0 G/DL)</content> Erythrocyte mean 80.0-100 <content [facility] corpuscular .0 styleCode="Bold Olivia volume [Entitic ">Mean Medical volume] by Corpuscular Center Automated count Volume </content>91.0 FL<content styleCode="Ital ics"> (80.0-100.0 FL)</content> Erythrocytes 4.0-5.1 <content [facility] [#/volume] in styleCode="Bold Olivia Blood by ">Red Blood Medical Automated count Cell Count Center </content>4.68 MCUMM<content styleCode="Ital ics"> (4.0-5.1 MCUMM)</content > Platelet mean 8.0-11.0 <content [facility] volume [Entitic styleCode="Bold Olivia volume] in Blood ">Mean Platelet Medical by Automated Volume Center count </content>9.2 FL<content styleCode="Ital ics"> (8.0-11.0 FL)</content> Platelets 130-400 <content [facility] [#/volume] in styleCode="Bold Olivia Blood by ">Platelet Medical Automated count Count Center </content>286 KCUMM<content styleCode="Ital ics"> (130-400 KCUMM)</content > Erythrocyte mean 26.0-34. <content [facility] corpuscular 0 styleCode="Bold Olivia hemoglobin ">Mean Medical [Entitic mass] Corposcular Center by Automated Hemoglobin count </content>30.6 PG<content styleCode="Ital ics"> (26.0-34.0 PG)</content> Erythrocyte 11.5-14. Above high <content [facility] distribution 5 normal styleCode="Bold Olivia width [Ratio] by ">Red Cell Medical Automated count Distribution Center Width </content>15.9 % H<content styleCode="Ital ics"> (11.5-14.5 %)</content> Erythrocyte mean 32.0-37. <content [facility] corpuscular 0 styleCode="Bold Olivia hemoglobin ">Mean Corpus. Medical concentration Hgb Center [Mass/volume] by Concentration Automated count (MCHC) </content>33.6 G/DL<content styleCode="Ital ics"> (32.0-37.0 G/DL)</content> UNK 0.0 <content [facility] styleCode="Bold Olivia ">Nucleated Red Medical Blood Cell Center Count </content>0.00 KCUMM<content styleCode="Ital ics"> (0.0 KCUMM)</content > UNK 0 <content [facility] styleCode="Bold Olivia ">Nucleated Red Medical Blood Cell Center </content>0.0 /100<content styleCode="Ital ics"> (0 /100)</content> ID Date Data Source GFR(Creatinine).[id number] 12/10/2019 10:02:[address] [facility] 0-0500 Name Value Range Interpretation Code Description Data Nadia rce(s) Supporting Document(s ) UNK > 60 <content [facility] styleCode="Bold"> Medical Cent er EGFR </content>112 GFR<content styleCode="Italic s"> (> 60 GFR)</content> ID Date Data Source CHMROUTINECCDA.[id number] 12/10/2019 10:02:00 PM EST [facility] -0500 Name Value Range Interpretation Code Description Data Nadia rce(s) Supporting Document(s ) UNK 4.2-5.8 Above high normal <content [facility] styleCode="Bold" Medical Cente r >Hemoglobin A1C </content>5.9 % H<content styleCode="Itali cs"> (4.2-5.8 %)</content> ID Date Data Source BMP.[id number] 12/10/2019 10:02:[address] [facility] Name Value Range Interpretation Description Data Sup porting Code Source(s) Document(s ) Chloride 98-107 <content [facility] [Moles/volume] in styleCode="Bold"> [facility] Serum or Plasma Chloride Medical </content>105 Center MEQ/L<content styleCode="Italic s"> (98-107 MEQ/L)</content> Sodium 137-145 <content [facility] [Moles/volume] in styleCode="Bold"> [facility] Serum or Plasma Sodium Medical </content>143 Center MEQ/L<content styleCode="Italic s"> (137-145 MEQ/L)</content> Potassium 3.5-5.3 <content [facility] [Moles/volume] in styleCode="Bold"> [facility] Serum or Plasma Potassium Medical </content>3.7 Center MEQ/L<content styleCode="Italic s"> (3.5-5.3 MEQ/L)</content> Creatinine 0.5-1.3 <content [facility] [Mass/volume] in styleCode="Bold"> Craig hs Serum or Plasma Creatinine Medical </content>0.6 Center MG/DL<content styleCode="Italic s"> (0.5-1.3 MG/DL)</content> Glucose 74-106 <content [facility] [Mass/volume] in styleCode="Bold"> Craig hs Serum or Plasma Glucose Medical </content>100 Center MG/DL<content styleCode="Italic s"> (74-106 MG/DL)</content> Carbon dioxide, 22-30 <content [facility] total styleCode="Bold"> Olivia [Moles/volume] in Carbon Dioxide Medical Serum or Plasma </content>27 Center MEQ/L<content styleCode="Italic s"> (22-30 MEQ/L)</content> UNK 7-17 <content [facility] styleCode="Bold"> Olivia BUN </content>9 Medical MG/DL<content Center styleCode="Italic s"> (7-17 MG/DL)</content> Calcium 8.4-10. <content [facility] [Mass/volume] in 2 styleCode="Bold"> Craig hs Serum or Plasma Calcium Medical </content>9.0 Center MG/DL<content styleCode="Italic s"> (8.4-10.2 MG/DL)</content> Alkaline 38-126 <content [facility] phosphatase styleCode="Bold"> Olivia [Enzymatic Alkaline Medical activity/volume] Phosphatase (ALP) Cente r in Serum or Plasma </content>85 IU/L<content styleCode="Italic s"> (38-126 IU/L)</content> Aspartate 14-36 Above high <content [facility] aminotransferase normal styleCode="Bold"> Craig hs [Enzymatic Aspartate Medical activity/volume] Aminotransferase Center in Serum or Plasma (AST) </content>56 IU/L H<content styleCode="Italic s"> (14-36 IU/L)</content> Alanine 7-30 Above high <content [facility] aminotransferase normal styleCode="Bold"> Craig hs [Enzymatic Alanine Medical activity/volume] Aminotransferase Center in Serum or Plasma (ALT) </content>55 IU/L H<content styleCode="Italic s"> (7-30 IU/L)</content> UNK > 60 <content [facility] styleCode="Bold"> [facility] EGFR Medical </content>112 Center GFR<content styleCode="Italic s"> (> 60 GFR)</content> Bilirubin.total 0.2-1.3 <content [facility] [Mass/volume] in styleCode="Bold"> Craig hs Serum or Plasma Bilirubin Total Medical </content>0.5 Center MG/DL<content styleCode="Italic s"> (0.2-1.3 MG/DL)</content> Albumin 3.5-5.0 <content [facility] [Mass/volume] in styleCode="Bold"> Craig hs Serum or Plasma Albumin Medical </content>4.5 Center G/DL<content styleCode="Italic s"> (3.5-5.0 G/DL)</content> ID Date Data Source Liver 09/11/2019 05:27:00 AM EDT [facility] Profile.[id number] Name Value Range Interpretation Description Data Sup porting Code Source(s) Document(s ) Aspartate 14-36 Above high <content [facility] aminotransferase normal styleCode="Bold"> Craig hs [Enzymatic Aspartate Medical activity/volume] Aminotransferase Center in Serum or Plasma (AST) </content>40 IU/L H<content styleCode="Italic s"> (14-36 IU/L)</content> Alanine 7-30 Above high <content [facility] aminotransferase normal styleCode="Bold"> Craig hs [Enzymatic Alanine Medical activity/volume] Aminotransferase Center in Serum or Plasma (ALT) </content>31 IU/L H<content styleCode="Italic s"> (7-30 IU/L)</content> Alkaline 38-126 <content [facility] phosphatase styleCode="Bold"> Olivia [Enzymatic Alkaline Medical activity/volume] Phosphatase (ALP) Cente r in Serum or Plasma </content>104 IU/L<content styleCode="Italic s"> (38-126 IU/L)</content> Bilirubin.total 0.2-1.3 <content [facility] [Mass/volume] in styleCode="Bold"> Craig hs Serum or Plasma Bilirubin Total Medical </content>1.3 Center MG/DL<content styleCode="Italic s"> (0.2-1.3 MG/DL)</content> Albumin 3.5-5.0 <content [facility] [Mass/volume] in styleCode="Bold"> Craig hs Serum or Plasma Albumin Medical </content>4.1 Center G/DL<content styleCode="Italic s"> (3.5-5.0 G/DL)</content> ID Date Data Source HematologyRou.[id number] 09/11/2019 05:27:00 AM EDT [facility] 0400 Name Value Range Interpretation Description Data Sup porting Code Source(s) Document(s ) Hemoglobin 12.3-16. <content [facility] [Mass/volume] in 0 styleCode="Bold Olivia Blood ">Hemoglobin Medical </content>13.8 Center G/DL<content styleCode="Ital ics"> (12.3-16.0 G/DL)</content> Erythrocytes 4.0-5.1 <content [facility] [#/volume] in styleCode="Bold Olivia Blood by ">Red Blood Medical Automated count Cell Count Center </content>4.83 MCUMM<content styleCode="Ital ics"> (4.0-5.1 MCUMM)</content > Leukocytes 4.4-11.0 <content [facility] [#/volume] in styleCode="Bold Olivia Blood by ">White Blood Medical Automated count Cell Count Center </content>5.26 KCUMM<content styleCode="Ital ics"> (4.4-11.0 KCUMM)</content > Erythrocyte mean 80.0-100 <content [facility] corpuscular .0 styleCode="Bold Olivia volume [Entitic ">Mean Medical volume] by Corpuscular Center Automated count Volume </content>88.0 FL<content styleCode="Ital ics"> (80.0-100.0 FL)</content> Hematocrit 36.0-46. <content [facility] [Volume 0 styleCode="Bold Olivia Fraction] of ">Hematocrit Medical Blood by </content>42.5 Center Automated count %<content styleCode="Ital ics"> (36.0-46.0 %)</content> Erythrocyte 11.5-14. Above high <content [facility] distribution 5 normal styleCode="Bold Olivia width [Ratio] by ">Red Cell Medical Automated count Distribution Center Width </content>16.7 % H<content styleCode="Ital ics"> (11.5-14.5 %)</content> Erythrocyte mean 32.0-37. <content [facility] corpuscular 0 styleCode="Bold Olivia hemoglobin ">Mean Corpus. Medical concentration Hgb Center [Mass/volume] by Concentration Automated count (MCHC) </content>32.5 G/DL<content styleCode="Ital ics"> (32.0-37.0 G/DL)</content> Erythrocyte mean 26.0-34. <content [facility] corpuscular 0 styleCode="Bold Olivia hemoglobin ">Mean Medical [Entitic mass] Corposcular Center by Automated Hemoglobin count </content>28.6 PG<content styleCode="Ital ics"> (26.0-34.0 PG)</content> UNK 0 <content [facility] styleCode="Bold Olivia ">Nucleated Red Medical Blood Cell Center </content>0.0 /100<content styleCode="Ital ics"> (0 /100)</content> Platelets 130-400 <content [facility] [#/volume] in styleCode="Bold Olivia Blood by ">Platelet Medical Automated count Count Center </content>281 KCUMM<content styleCode="Ital ics"> (130-400 KCUMM)</content > UNK 0.0 <content [facility] styleCode="Bold Olivia ">Nucleated Red Medical Blood Cell Center Count </content>0.00 KCUMM<content styleCode="Ital ics"> (0.0 KCUMM)</content > Platelet mean 8.0-11.0 <content [facility] volume [Entitic styleCode="Bold Olivia volume] in Blood ">Mean Platelet Medical by Automated Volume Center count </content>9.7 FL<content styleCode="Ital ics"> (8.0-11.0 FL)</content> ID Date Data Source GFR(Creatinine).[id number] 09/11/2019 05:27:00 AM EDT [facility] 0-0400 Name Value Range Interpretation Code Description Data Nadia rce(s) Supporting Document(s ) UNK > 60 <content [facility] styleCode="Bold"> Medical Cent er EGFR </content>138 GFR<content styleCode="Italic s"> (> 60 GFR)</content> ID Date Data Source IRMAMROUTINECCDA.[id number] 09/11/2019 05:27:00 AM EDT [facility] -0400 Name Value Range Interpretation Description Data Sup porting Code Source(s) Document(s ) UNK >= 1.0 <content [facility] styleCode="Viktor Olivia d">AG Ratio Medical </content>1.2 Center <content styleCode="Neno lics"> (>= 1.0 )</content> Magnesium 1.6-2.3 <content [facility] [Mass/volume] styleCode="Viktor Olivia in Serum or d">Magnesium Medical Plasma </content>2.0 Center MG/DL<content styleCode="Neno lics"> (1.6-2.3 MG/DL)</conten t> UNK 2.3-3.5 <content [facility] styleCode="Viktor Olivia d">Globulin Medical </content>3.4 Center G/DL<content styleCode="Neno lics"> (2.3-3.5 G/DL)</content > Phosphate 2.5-4.5 <content [facility] [Mass/volume] styleCode="Viktor Olivia in Serum or d">Phosphorus Medical Plasma </content>4.5 Center MG/DL<content styleCode="Neno lics"> (2.5-4.5 MG/DL)</conten t> Protein 6.3-8.2 <content [facility] [Mass/volume] styleCode="Viktor Olivia in Serum or d">Total Medical Plasma Protein Center </content>7.5 G/DL<content styleCode="Neno lics"> (6.3-8.2 G/DL)</content > ID Date Data Source [facility].[id number] 09/11/2019 05:27:00 AM EDT [facility] Name Value Range Interpretation Description Data Sup porting Code Source(s) Document(s ) Potassium 3.5-5.3 <content [facility] [Moles/volume] in styleCode="Bold"> [facility] Serum or Plasma Potassium Medical </content>4.0 Center MEQ/L<content styleCode="Italic s"> (3.5-5.3 MEQ/L)</content> Sodium 137-145 Below low <content [facility] [Moles/volume] in normal styleCode="Bold"> [facility] Serum or Plasma Sodium Medical </content>136 Center MEQ/L L<content styleCode="Italic s"> (137-145 MEQ/L)</content> Carbon dioxide, 22-30 <content [facility] total styleCode="Bold"> Olivia [Moles/volume] in Carbon Dioxide Medical Serum or Plasma </content>29 Center MEQ/L<content styleCode="Italic s"> (22-30 MEQ/L)</content> Glucose 74-106 Above high <content [facility] [Mass/volume] in normal styleCode="Bold"> Craig hs Serum or Plasma Glucose Medical </content>107 Center MG/DL H<content styleCode="Italic s"> (74-106 MG/DL)</content> Chloride 98-107 <content [facility] [Moles/volume] in styleCode="Bold"> [facility] Serum or Plasma Chloride Medical </content>100 Center MEQ/L<content styleCode="Italic s"> (98-107 MEQ/L)</content> UNK 7-17 <content [facility] styleCode="Bold"> Olivia BUN </content>11 Medical MG/DL<content Center styleCode="Italic s"> (7-17 MG/DL)</content> Creatinine 0.5-1.3 <content [facility] [Mass/volume] in styleCode="Bold"> Craig hs Serum or Plasma Creatinine Medical </content>0.5 Center MG/DL<content styleCode="Italic s"> (0.5-1.3 MG/DL)</content> UNK > 60 <content [facility] styleCode="Bold"> Olivia EGFR Medical </content>138 Center GFR<content styleCode="Italic s"> (> 60 GFR)</content> Calcium 8.4-10. <content [facility] [Mass/volume] in 2 styleCode="Bold"> Craig hs Serum or Plasma Calcium Medical </content>9.6 Center MG/DL<content styleCode="Italic s"> (8.4-10.2 MG/DL)</content> Aspartate 14-36 Above high <content [facility] aminotransferase normal styleCode="Bold"> Craig hs [Enzymatic Aspartate Medical activity/volume] Aminotransferase Center in Serum or Plasma (AST) </content>40 IU/L H<content styleCode="Italic s"> (14-36 IU/L)</content> Alkaline 38-126 <content [facility] phosphatase styleCode="Bold"> Olivia [Enzymatic Alkaline Medical activity/volume] Phosphatase (ALP) Cente r in Serum or Plasma </content>104 IU/L<content styleCode="Italic s"> (38-126 IU/L)</content> Alanine 7-30 Above high <content [facility] aminotransferase normal styleCode="Bold"> Craig hs [Enzymatic Alanine Medical activity/volume] Aminotransferase Center in Serum or Plasma (ALT) </content>31 IU/L H<content styleCode="Italic s"> (7-30 IU/L)</content> Bilirubin.total 0.2-1.3 <content [facility] [Mass/volume] in styleCode="Bold"> Craig hs Serum or Plasma Bilirubin Total Medical </content>1.3 Center MG/DL<content styleCode="Italic s"> (0.2-1.3 MG/DL)</content> Albumin 3.5-5.0 <content [facility] [Mass/volume] in styleCode="Bold"> Craig hs Serum or Plasma Albumin Medical </content>4.1 Center G/DL<content styleCode="Italic s"> (3.5-5.0 G/DL)</content> ID Date Data Source Liver 09/10/2019 01:13:00 AM EDT [facility] Profile.[id number] Name Value Range Interpretation Description Data Sup porting Code Source(s) Document(s ) Aspartate 14-36 <content [facility] aminotransferase styleCode="Bold"> Craig hs [Enzymatic Aspartate Medical activity/volume] Aminotransferase Center in Serum or Plasma (AST) </content>36 IU/L<content styleCode="Italic s"> (14-36 IU/L)</content> Alanine 7-30 Above high <content [facility] aminotransferase normal styleCode="Bold"> Craig hs [Enzymatic Alanine Medical activity/volume] Aminotransferase Center in Serum or Plasma (ALT) </content>32 IU/L H<content styleCode="Italic s"> (7-30 IU/L)</content> Alkaline 38-126 <content [facility] phosphatase styleCode="Bold"> Olivia [Enzymatic Alkaline Medical activity/volume] Phosphatase (ALP) Cente r in Serum or Plasma </content>82 IU/L<content styleCode="Italic s"> (38-126 IU/L)</content> Albumin 3.5-5.0 <content [facility] [Mass/volume] in styleCode="Bold"> Craig hs Serum or Plasma Albumin Medical </content>4.1 Center G/DL<content styleCode="Italic s"> (3.5-5.0 G/DL)</content> Bilirubin.total 0.2-1.3 <content [facility] [Mass/volume] in styleCode="Bold"> Craig hs Serum or Plasma Bilirubin Total Medical </content>0.5 Center MG/DL<content styleCode="Italic s"> (0.2-1.3 MG/DL)</content> ID Date Data Source LIPID.[id number] 09/10/2019 01:13:00 AM EDT [facility] Name Value Range Interpretation Description Data Sup porting Code Source(s) Document(s ) Cholesterol -<200 Above high normal <content [facility] [Mass/volume] styleCode="Bold"> Olivia in Serum or Cholesterol Medical Plasma </content>259 Center MG/DL H<content styleCode="Italic s"> (-<200 MG/DL)</content> UNK <content [facility] styleCode="Bold"> Olivia LDL-Cholesterol Medical </content> Center (Reference Range: not available)
<c ontent styleCode="xLocal PreformattedText" >Triglycerides are >250 mg/dl; therefore, the LDL calculation is invalid.
Chol esterol electrophoresis is recommended if medically appropriate.</con tent> UNK > 60 <content [facility] styleCode="Bold"> Olivia HDL- Cholesterol Medical </content>64 Center MG/DL<content styleCode="Italic s"> (> 60 MG/DL)</content> Triglyceride < 150 Above high normal <content [facility] [Mass/volume] styleCode="Bold"> Olivia in Serum or Triglycerides Medical Plasma </content>394 Center MG/DL H<content styleCode="Italic s"> (< 150 MG/DL)</content> ID Date Data Source HematologyRou.[id number] 09/10/2019 01:13:00 AM EDT [facility] 0400 Name Value Range Interpretation Description Data Sup porting Code Source(s) Document(s ) Leukocytes 4.4-11.0 <content [facility] [#/volume] in styleCode="Bold Olivia Blood by ">White Blood Medical Automated count Cell Count Center </content>4.62 KCUMM<content styleCode="Ital ics"> (4.4-11.0 KCUMM)</content > Erythrocyte mean 80.0-100 <content [facility] corpuscular .0 styleCode="Bold Olivia volume [Entitic ">Mean Medical volume] by Corpuscular Center Automated count Volume </content>87.8 FL<content styleCode="Ital ics"> (80.0-100.0 FL)</content> Erythrocytes 4.0-5.1 <content [facility] [#/volume] in styleCode="Bold Olivia Blood by ">Red Blood Medical Automated count Cell Count Center </content>4.85 MCUMM<content styleCode="Ital ics"> (4.0-5.1 MCUMM)</content > Erythrocyte mean 26.0-34. <content [facility] corpuscular 0 styleCode="Bold Olivia hemoglobin ">Mean Medical [Entitic mass] Corposcular Center by Automated Hemoglobin count </content>28.9 PG<content styleCode="Ital ics"> (26.0-34.0 PG)</content> Hematocrit 36.0-46. <content [facility] [Volume 0 styleCode="Bold Olivia Fraction] of ">Hematocrit Medical Blood by </content>42.6 Center Automated count %<content styleCode="Ital ics"> (36.0-46.0 %)</content> Hemoglobin 12.3-16. <content [facility] [Mass/volume] in 0 styleCode="Bold Olivia Blood ">Hemoglobin Medical </content>14.0 Center G/DL<content styleCode="Ital ics"> (12.3-16.0 G/DL)</content> Platelet mean 8.0-11.0 <content [facility] volume [Entitic styleCode="Bold Olivia volume] in Blood ">Mean Platelet Medical by Automated Volume Center count </content>9.2 FL<content styleCode="Ital ics"> (8.0-11.0 FL)</content> Neutrophils 36-66 <content [facility] [#/volume] in styleCode="Bold Olivia Blood by ">Neutrophil Medical Automated count </content>49.4 Center %<content styleCode="Ital ics"> (36-66 %)</content> Platelets 130-400 <content [facility] [#/volume] in styleCode="Bold Olivia Blood by ">Platelet Medical Automated count Count Center </content>310 KCUMM<content styleCode="Ital ics"> (130-400 KCUMM)</content > Erythrocyte 11.5-14. Above high <content [facility] distribution 5 normal styleCode="Bold Olivia width [Ratio] by ">Red Cell Medical Automated count Distribution Center Width </content>17.2 % H<content styleCode="Ital ics"> (11.5-14.5 %)</content> Erythrocyte mean 32.0-37. <content [facility] corpuscular 0 styleCode="Bold Olivia hemoglobin ">Mean Corpus. Medical concentration Hgb Center [Mass/volume] by Concentration Automated count (MCHC) </content>32.9 G/DL<content styleCode="Ital ics"> (32.0-37.0 G/DL)</content> Lymphocytes 24.0-44. <content [facility] [#/volume] in 0 styleCode="Bold Olivia Blood by ">Lymphocyte Medical Automated count </content>28.1 Center %<content styleCode="Ital ics"> (24.0-44.0 %)</content> Monocytes 3.0-10.0 Above high <content [facility] [#/volume] in normal styleCode="Bold Olivia Blood by ">Monocyte Medical Automated count </content>10.4 Center % H<content styleCode="Ital ics"> (3.0-10.0 %)</content> UNK 1.6-7.3 <content [facility] styleCode="Bold Olivia ">Neutrophil Medical Count Center </content>2.28 KCUMM<content styleCode="Ital ics"> (1.6-7.3 KCUMM)</content > UNK 1.0-4.8 <content [facility] styleCode="Bold Olivia ">Lymphocyte Medical Count Center </content>1.30 KCUMM<content styleCode="Ital ics"> (1.0-4.8 KCUMM)</content > UNK 0.2-0.9 <content [facility] styleCode="Bold Olivia ">Monocyte Medical Count Center </content>0.48 KCUMM<content styleCode="Ital ics"> (0.2-0.9 KCUMM)</content > Basophils 0.0-1.0 Above high <content [facility] [#/volume] in normal styleCode="Bold Olivia Blood by ">Basophil Medical Automated count </content>1.9 % Center H<content styleCode="Ital ics"> (0.0-1.0 %)</content> Eosinophils 0-5.0 Above high <content [facility] [#/volume] in normal styleCode="Bold Olivia Blood by ">Eosinophil Medical Automated count </content>10.0 Center % H<content styleCode="Ital ics"> (0-5.0 %)</content> UNK 0.0-0.6 <content [facility] styleCode="Bold Olivia ">Eosinophil Medical Count Center </content>0.46 KCUMM<content styleCode="Ital ics"> (0.0-0.6 KCUMM)</content > UNK 0-0.1 <content [facility] styleCode="Bold Olivia ">Immature Medical Granulocyte Center Count </content>0.01 KCUMM<content styleCode="Ital ics"> (0-0.1 KCUMM)</content > UNK 0 <content [facility] styleCode="Bold Olivia ">Nucleated Red Medical Blood Cell Center </content>0.0 /100<content styleCode="Ital ics"> (0 /100)</content> UNK 0.0-0.3 <content [facility] styleCode="Bold Olivia ">Basophil Medical Count Center </content>0.09 KCUMM<content styleCode="Ital ics"> (0.0-0.3 KCUMM)</content > UNK < 1 <content [facility] styleCode="Bold Olivia ">Immature Medical Granulocyte Center Ratio </content>0.2 %<content styleCode="Ital ics"> (< 1 %)</content> UNK 0.0 <content [facility] styleCode="Bold Olivia ">Nucleated Red Medical Blood Cell Center Count </content>0.00 KCUMM<content styleCode="Ital ics"> (0.0 KCUMM)</content > ID Date Data Source GFR(Creatinine).[id number] 09/10/2019 01:13:00 AM EDT [facility] 0-0400 Name Value Range Interpretation Code Description Data Nadia rce(s) Supporting Document(s ) UNK > 60 <content [facility] styleCode="Bold"> Medical Cent er EGFR </content>138 GFR<content styleCode="Italic s"> (> 60 GFR)</content> ID Date Data Source [facility].[id number] 09/10/2019 01:13:00 AM EDT [facility] -0400 Name Value Range Interpretation Description Data Sup porting Code Source(s) Document(s ) UNK 2.3-3.5 Above high normal <content [facility] styleCode="Viktor Olivia d">Globulin Medical </content>3.6 Center G/DL H<content styleCode="Neno lics"> (2.3-3.5 G/DL)</content > UNK >= 1.0 <content [facility] styleCode="Viktor Olivia d">AG Ratio Medical </content>1.1 Center <content styleCode="Neno lics"> (>= 1.0 )</content> UNK 4.2-5.8 Above high normal <content [facility] styleCode="Viktor Olivia d">Hemoglobin Medical A1C Center </content>6.1 % H<content styleCode="Neno lics"> (4.2-5.8 %)</content> Magnesium 1.6-2.3 <content Saint [Mass/volume] styleCode="Viktor Olivia in Serum or d">Magnesium Medical Plasma </content>1.9 Center MG/DL<content styleCode="Neno lics"> (1.6-2.3 MG/DL)</conten t> Protein 6.3-8.2 <content [facility] [Mass/volume] styleCode="Viktor Olivia in Serum or d">Total Medical Plasma Protein Center </content>7.7 G/DL<content styleCode="Neno lics"> (6.3-8.2 G/DL)</content > Phosphate 2.5-4.5 Above high normal <content [facility] [Mass/volume] styleCode="Viktor Olivia in Serum or d">Phosphorus Medical Plasma </content>4.9 Center MG/DL H<content styleCode="Neno lics"> (2.5-4.5 MG/DL)</conten t> ID Date Data Source [facility].[id number] 09/10/2019 01:13:00 AM EDT [facility] Name Value Range Interpretation Description Data Sup porting Code Source(s) Document(s ) Chloride 98-107 <content [facility] [Moles/volume] in styleCode="Bold"> [facility] Serum or Plasma Chloride Medical </content>104 Center MEQ/L<content styleCode="Italic s"> (98-107 MEQ/L)</content> Potassium 3.5-5.3 <content [facility] [Moles/volume] in styleCode="Bold"> [facility] Serum or Plasma Potassium Medical </content>4.2 Center MEQ/L<content styleCode="Italic s"> (3.5-5.3 MEQ/L)</content> Sodium 137-145 <content [facility] [Moles/volume] in styleCode="Bold"> [facility] Serum or Plasma Sodium Medical </content>143 Center MEQ/L<content styleCode="Italic s"> (137-145 MEQ/L)</content> Glucose 74-106 <content [facility] [Mass/volume] in styleCode="Bold"> Craig [facility] Serum or Plasma Glucose Medical </content>91 Center MG/DL<content styleCode="Italic s"> (74-106 MG/DL)</content> Calcium 8.4-10. <content [facility] [Mass/volume] in 2 styleCode="Bold"> Craig hs Serum or Plasma Calcium Medical </content>9.5 Center MG/DL<content styleCode="Italic s"> (8.4-10.2 MG/DL)</content> Carbon dioxide, 22-30 <content Saint total styleCode="Bold"> Olivia [Moles/volume] in Carbon Dioxide Medical Serum or Plasma </content>28 Center MEQ/L<content styleCode="Italic s"> (22-30 MEQ/L)</content> Creatinine 0.5-1.3 <content [facility] [Mass/volume] in styleCode="Bold"> Craig hs Serum or Plasma Creatinine Medical </content>0.5 Center MG/DL<content styleCode="Italic s"> (0.5-1.3 MG/DL)</content> UNK 7-17 <content Saint styleCode="Bold"> [facility] BUN </content>17 Medical MG/DL<content Center styleCode="Italic s"> (7-17 MG/DL)</content> UNK > 60 <content Saint styleCode="Bold"> [facility] EGFR Medical </content>138 Center GFR<content styleCode="Italic s"> (> 60 GFR)</content> Alanine 7-30 Above high <content [facility] aminotransferase normal styleCode="Bold"> Craig hs [Enzymatic Alanine Medical activity/volume] Aminotransferase Center in Serum or Plasma (ALT) </content>32 IU/L H<content styleCode="Italic s"> (7-30 IU/L)</content> Bilirubin.total 0.2-1.3 <content [facility] [Mass/volume] in styleCode="Bold"> Craig hs Serum or Plasma Bilirubin Total Medical </content>0.5 Center MG/DL<content styleCode="Italic s"> (0.2-1.3 MG/DL)</content> Alkaline 38-126 <content [facility] phosphatase styleCode="Bold"> [facility] [Enzymatic Alkaline Medical activity/volume] Phosphatase (ALP) Cente r in Serum or Plasma </content>82 IU/L<content styleCode="Italic s"> (38-126 IU/L)</content> Aspartate 14-36 <content [facility] aminotransferase styleCode="Bold"> [facility] [Enzymatic Aspartate Medical activity/volume] Aminotransferase Center in Serum or Plasma (AST) </content>36 IU/L<content styleCode="Italic s"> (14-36 IU/L)</content> Albumin 3.5-5.0 <content [facility] [Mass/volume] in styleCode="Bold"> Craig hs Serum or Plasma Albumin Medical </content>4.1 Center G/DL<content styleCode="Italic s"> (3.5-5.0 G/DL)</content> ID Date Data Source Urinalysis.[id number] 09/09/2019 08:25:00 PM EDT Severo nt [facility] 0 Name Value Range Interpretation Description Data Sup porting Code Source(s) Document(s ) Glucose NEGATIVE <content [facility] [Mass/volume] styleCode="Viktor Baker in Urine by d">Urine Medical Test strip Glucose Center </content>NEGA TIVE MG/DL<content styleCode="Neno lics"> (NEGATIVE MG/DL)</conten t> Color of Urine YELLOW <content [facility] styleCode="Viktor Hans d">Color, Medical Urine Center </content>YELL OW <content styleCode="Neno lics"> (YELLOW )</content> UNK CLEAR <content [facility] styleCode="Viktor Hans d">Urine Medical Clarity Center </content>HAYES R <content styleCode="Neno lics"> (CLEAR )</content> Specific 1.015-1.02 Above high <content [facility] gravity of 5 normal styleCode="Viktor Baker Urine by Test d">Urine Medical strip Specific Center [place] </content>>= 1.030 H<content styleCode="Neno lics"> (1.015-1.025 )</content> UNK NEGATIVE <content [facility] styleCode="Viktor Hans d">Urine Medical Bilirubin Center </content>NEGA TIVE <content styleCode="Neno lics"> (NEGATIVE )</content> Hemoglobin NEGATIVE <content [facility] [Presence] in styleCode="Viktor Baker Urine by Test d">Urine Blood Medical strip </content>MODE Center RATE <content styleCode="Neno lics"> (NEGATIVE )</content> Ketones NEGATIVE <content [facility] [Mass/volume] styleCode="Viktor Baker in Urine by d">Urine Medical Test strip Ketone Center </content>NEGA TIVE MG/DL<content styleCode="Neno lics"> (NEGATIVE MG/DL)</conten t> Protein NEGATIVE <content [facility] [Mass/volume] styleCode="Viktor Baker in Urine by d">Urine Medical Test strip Protein Center </content>30 MG/DL<content styleCode="Neno lics"> (NEGATIVE MG/DL)</conten t> pH of Urine by 4.5-8.0 <content [facility] Test strip styleCode="Viktor Hans d">Urine pH Medical </content>5.5 Center <content styleCode="Neno lics"> (4.5-8.0 )</content> Urobilinogen 0.2-1.0 <content [facility] [Units/volume] styleCode="Viktor Baker in Urine by d">Urine Medical Test strip Urobilinogen Center </content>0.2 MG/DL<content styleCode="Neno lics"> (0.2-1.0 MG/DL)</conten t> Nitrite NEGATIVE <content [facility] [Presence] in styleCode="Viktor Baker Urine by Test d">Urine Medical strip Nitrite Center </content>NEGA TIVE <content styleCode="Neno lics"> (NEGATIVE )</content> UNK 0-3 <content [facility] styleCode="Viktor Hans d">Urine Red Medical Blood Cell Center </content>5 - 10 HPF<content styleCode="Neno lics"> (0-3 HPF)</content> UNK NEGATIVE <content [facility] styleCode="Viktor Hans d">Urine Medical Bacteria Center </content>FEW HPF<content styleCode="Neno lics"> (NEGATIVE HPF)</content> UNK 0-3 <content [facility] styleCode="Viktor Hans d">Urine White Medical Blood Cell Center </content>3-5 HPF<content styleCode="Neno lics"> (0-3 HPF)</content> Leukocyte NEGATIVE <content Saint esterase styleCode="Viktor Baker [Presence] in d">Urine Medical Urine by Test Leukocyte Center strip </content>NEGA TIVE <content styleCode="Neno lics"> (NEGATIVE )</content> UNK NONE SEEN <content Saint styleCode="Viktor Loivia d">Urine Mucus Medical </content>MANY Center HPF<content styleCode="Neno lics"> (NONE SEEN HPF)</content> UNK NONE SEEN <content Saint styleCode="Viktor Olivia d">Epithelial Medical Cell Center </content>10 - 20 HPF<content styleCode="Neno lics"> (NONE SEEN HPF)</content> UNK 0-2 <content Saint styleCode="Viktor Olivia d">[facility] Center </content>1-3 LPF<content styleCode="Neno lics"> (0-2 LPF)</content> ID Date Data Source [facility]OU[facility].[id number] 09/09/2019 08:25:00 PM EDT [facility] -0400 Name Value Range Interpretation Description Data Sup porting Code Source(s) Document(s ) Cannabinoids <content Saint [Presence] in styleCode="Viktor [facility] Urine by Screen d">Cannabinoid Medical method >50 ng/mL s Center </content>NEGA TIVE NG/ML (Reference Range: not available)<br/ > ID Date Data Source [facility].[id number] 09/09/2019 08:19:[address] [facility] Name Value Range Interpretation Description Data Sup porting Code Source(s) Document(s ) Potassium 3.5-5.3 <content [facility] [Moles/volume] in styleCode="Bold"> [facility] Serum or Plasma Potassium Medical </content>4.5 Center MEQ/L<content styleCode="Italic s"> (3.5-5.3 MEQ/L)</content> Sodium 137-145 <content [facility] [Moles/volume] in styleCode="Bold"> [facility] Serum or Plasma Sodium Medical </content>143 Center MEQ/L<content styleCode="Italic s"> (137-145 MEQ/L)</content> Chloride 98-107 <content [facility] [Moles/volume] in styleCode="Bold"> [facility] Serum or Plasma Chloride Medical </content>106 Center MEQ/L<content styleCode="Italic s"> (98-107 MEQ/L)</content> Carbon dioxide, 22-30 <content [facility] total styleCode="Bold"> Olivia [Moles/volume] in Carbon Dioxide Medical Serum or Plasma </content>26 Center MEQ/L<content styleCode="Italic s"> (22-30 MEQ/L)</content> UNK 7-17 <content [facility] styleCode="Bold"> Olivia BUN </content>16 Medical MG/DL<content Center styleCode="Italic s"> (7-17 MG/DL)</content> Calcium 8.4-10. <content [facility] [Mass/volume] in 2 styleCode="Bold"> Craig hs Serum or Plasma Calcium Medical </content>10.0 Center MG/DL<content styleCode="Italic s"> (8.4-10.2 MG/DL)</content> Creatinine 0.5-1.3 <content [facility] [Mass/volume] in styleCode="Bold"> Craig hs Serum or Plasma Creatinine Medical </content>0.5 Center MG/DL<content styleCode="Italic s"> (0.5-1.3 MG/DL)</content> Glucose 74-106 <content [facility] [Mass/volume] in styleCode="Bold"> Craig hs Serum or Plasma Glucose Medical </content>105 Center MG/DL<content styleCode="Italic s"> (74-106 MG/DL)</content> Alkaline 38-126 <content Saint phosphatase styleCode="Bold"> [facility] [Enzymatic Alkaline Medical activity/volume] Phosphatase (ALP) Cente r in Serum or Plasma </content>101 IU/L<content styleCode="Italic s"> (38-126 IU/L)</content> Aspartate 14-36 Above high <content [facility] aminotransferase normal styleCode="Bold"> Craig hs [Enzymatic Aspartate Medical activity/volume] Aminotransferase Center in Serum or Plasma (AST) </content>39 IU/L H<content styleCode="Italic s"> (14-36 IU/L)</content> Alanine 7-30 Above high <content [facility] aminotransferase normal styleCode="Bold"> Craig hs [Enzymatic Alanine Medical activity/volume] Aminotransferase Center in Serum or Plasma (ALT) </content>34 IU/L H<content styleCode="Italic s"> (7-30 IU/L)</content> Bilirubin.total 0.2-1.3 <content [facility] [Mass/volume] in styleCode="Bold"> Craig hs Serum or Plasma Bilirubin Total Medical </content>0.3 Center MG/DL<content styleCode="Italic s"> (0.2-1.3 MG/DL)</content> UNK > 60 <content [facility] styleCode="Bold"> Olivia EGFR Medical </content>138 Center GFR<content styleCode="Italic s"> (> 60 GFR)</content> Albumin 3.5-5.0 <content [facility] [Mass/volume] in styleCode="Bold"> Craig hs Serum or Plasma Albumin Medical </content>4.7 Center G/DL<content styleCode="Italic s"> (3.5-5.0 G/DL)</content> ID Date Data Source Liver 09/09/2019 08:19:00 PM EDT [facility] Profile.[id number] Name Value Range Interpretation Description Data Sup porting Code Source(s) Document(s ) Alanine 7-30 Above high <content [facility] aminotransferase normal styleCode="Bold"> Craig hs [Enzymatic Alanine Medical activity/volume] Aminotransferase Center in Serum or Plasma (ALT) </content>34 IU/L H<content styleCode="Italic s"> (7-30 IU/L)</content> Alkaline 38-126 <content [facility] phosphatase styleCode="Bold"> Olivia [Enzymatic Alkaline Medical activity/volume] Phosphatase (ALP) Cente r in Serum or Plasma </content>101 IU/L<content styleCode="Italic s"> (38-126 IU/L)</content> Aspartate 14-36 Above high <content [facility] aminotransferase normal styleCode="Bold"> Craig hs [Enzymatic Aspartate Medical activity/volume] Aminotransferase Center in Serum or Plasma (AST) </content>39 IU/L H<content styleCode="Italic s"> (14-36 IU/L)</content> Bilirubin.total 0.2-1.3 <content [facility] [Mass/volume] in styleCode="Bold"> Craig hs Serum or Plasma Bilirubin Total Medical </content>0.3 Center MG/DL<content styleCode="Italic s"> (0.2-1.3 MG/DL)</content> UNK 0.0-0.3 <content [facility] styleCode="Bold"> Olivia Bilirubin, Direct Medical </content>< 0.2 Center MG/DL<content styleCode="Italic s"> (0.0-0.3 MG/DL)</content> Albumin 3.5-5.0 <content [facility] [Mass/volume] in styleCode="Bold"> Craig hs Serum or Plasma Albumin Medical </content>4.7 Center G/DL<content styleCode="Italic s"> (3.5-5.0 G/DL)</content> ID Date Data Source [facility]ematology[facility]ou.[id number] 09/09/2019 08:19:00 PM EDT Severo nt [facility] 0400 Name Value Range Interpretation Description Data Sup porting Code Source(s) Document(s ) Erythrocytes 4.0-5.1 Above high <content [facility] [#/volume] in normal styleCode="Bold Olivia Blood by ">Red Blood Medical Automated count Cell Count Center </content>5.23 MCUMM H<content styleCode="Ital ics"> (4.0-5.1 MCUMM)</content > Leukocytes 4.4-11.0 <content [facility] [#/volume] in styleCode="Bold Olivia Blood by ">White Blood Medical Automated count Cell Count Center </content>4.69 KCUMM<content styleCode="Ital ics"> (4.4-11.0 KCUMM)</content > Erythrocyte mean 26.0-34. <content [facility] corpuscular 0 styleCode="Bold Olivia hemoglobin ">Mean Medical [Entitic mass] Corposcular Center by Automated Hemoglobin count </content>28.7 PG<content styleCode="Ital ics"> (26.0-34.0 PG)</content> Hematocrit 36.0-46. <content [facility] [Volume 0 styleCode="Bold Olivia Fraction] of ">Hematocrit Medical Blood by </content>45.8 Center Automated count %<content styleCode="Ital ics"> (36.0-46.0 %)</content> Erythrocyte mean 80.0-100 <content [facility] corpuscular .0 styleCode="Bold Olivia volume [Entitic ">Mean Medical volume] by Corpuscular Center Automated count Volume </content>87.6 FL<content styleCode="Ital ics"> (80.0-100.0 FL)</content> Hemoglobin 12.3-16. <content [facility] [Mass/volume] in 0 styleCode="Bold Olivia Blood ">Hemoglobin Medical </content>15.0 Center G/DL<content styleCode="Ital ics"> (12.3-16.0 G/DL)</content> Platelet mean 8.0-11.0 <content [facility] volume [Entitic styleCode="Bold Olivia volume] in Blood ">Mean Platelet Medical by Automated Volume Center count </content>9.2 FL<content styleCode="Ital ics"> (8.0-11.0 FL)</content> UNK 0 <content Saint styleCode="Bold Olivia ">Nucleated Red Medical Blood Cell Center </content>0.0 /100<content styleCode="Ital ics"> (0 /100)</content> Platelets 130-400 <content Saint [#/volume] in styleCode="Bold Olivia Blood by ">Platelet Medical Automated count Count Center </content>362 KCUMM<content styleCode="Ital ics"> (130-400 KCUMM)</content > Erythrocyte 11.5-14. Above high <content [facility] distribution 5 normal styleCode="Bold Olivia width [Ratio] by ">Red Cell Medical Automated count Distribution Center Width </content>17.3 % H<content styleCode="Ital ics"> (11.5-14.5 %)</content> Erythrocyte mean 32.0-37. <content [facility] corpuscular 0 styleCode="Bold Olivia hemoglobin ">Mean Corpus. Medical concentration Hgb Center [Mass/volume] by Concentration Automated count (MCHC) </content>32.8 G/DL<content styleCode="Ital ics"> (32.0-37.0 G/DL)</content> UNK 0.0 <content Saint styleCode="Bold Olivia ">Nucleated Red Medical Blood Cell Center Count </content>0.00 KCUMM<content styleCode="Ital ics"> (0.0 KCUMM)</content > ID Date Data Source GFR(Creatinine).[id number] 09/09/2019 08:19:00 PM EDT [facility] 0-0400 Name Value Range Interpretation Code Description Data Nadia rce(s) Supporting Document(s ) UNK > 60 <content [facility] Olivia styleCode="Bold"> Medical Cent er EGFR </content>138 GFR<content styleCode="Italic s"> (> 60 GFR)</content> Procedure Social History Code Duration Value Status Description Data Source(s ) Smoking 06/01/2020 Denies Ever completed Denies Ever Smoked [facility] 03:51:00 PM EDT Smoked Medical C enter Smoking 06/01/2020 Denies Ever completed Denies Ever Smoked [facility] 03:02:00 AM EDT Smoked Medical C enter Smoking 06/01/2020 Denies Ever completed Denies Ever Smoked [facility] 12:38:00 AM EDT Smoked Medical C enter Smoking 06/01/2020 Denies Ever completed Denies Ever Smoked [facility] 12:24:00 AM EDT Smoked Medical C enter Smoking 12/11/2019 Former Smoker completed Former Smoker [facility] 01:36:00 AM EST Medical C enter Smoking 12/11/2019 Occasional Smoker completed Occasional Smoker [facility] 12:06:00 AM EST Medical C enter Smoking 12/10/2019 Denies Ever completed Denies Ever Smoked [facility] 09:40:00 PM EST Smoked Medical C enter Smoking 12/10/2019 Denies Ever completed Denies Ever Smoked [facility] 09:20:00 PM EST Smoked Medical C enter Smoking 12/10/2019 Denies Ever completed Denies Ever Smoked [facility] 09:16:00 PM EST Smoked Medical C enter Smoking 09/10/2019 Denies Ever completed Denies Ever Smoked [facility] 02:26:00 AM EDT Smoked Medical C enter Smoking 09/10/2019 Not Known completed Not Known [facility] 12:57:00 AM EDT Medical C enter Smoking 09/09/2019 Denies Ever completed Denies Ever Smoked [facility] 10:00:00 PM EDT Smoked Medical C enter Smoking 09/09/2019 Denies Ever completed Denies Ever Smoked [facility] 08:19:00 PM EDT Smoked Medical C enter Smoking 09/09/2019 Denies Ever completed Denies Ever Smoked [facility] 07:45:00 PM EDT Smoked Medical C enter Vital Signs ID Date Data Source UNK Name Value Range Interpretation Code Description Data Source(s) Body weight 64.879869 kg 64. kg [facility] Oxygen saturation 98 % 98 % [facility] blood [facility] Center by Pulse oximetry Body height 167.123194 167.828326 cm [facility] Body mass index 22.84 kg/m2 22.84 kg/m2 [facility] (BMI) [Ratio] Medical [facility]ie ter Body temperature 36.997102 36.082944 [facility] Respiratory rate 18 /min 18 /min [facility] Heart rate 88 /min 88 /min [facility] Diastolic blood 76 mm[Hg] 76 mm[Hg] [facility] Systolic blood 109 mm[Hg] 109 mm[Hg] [facility] Body temperature 36.410273 36.192446 [facility] Respiratory rate 20 /min 20 /min [facility] Heart rate 80 /min 80 /min [facility] Diastolic blood 58 mm[Hg] 58 mm[Hg] [facility] Systolic blood 128 mm[Hg] 128 mm[Hg] [facility] Body temperature 37.271472 37.357572 [facility] Respiratory rate 20 /min 20 /min [facility] Heart rate 79 /min 79 /min [facility] Diastolic blood 59 mm[Hg] 59 mm[Hg] [facility] Systolic blood 102 mm[Hg] 102 mm[Hg] [facility] Respiratory rate 20 /min 20 /min [facility] Heart rate 83 /min 83 /min [facility] Diastolic blood 66 mm[Hg] 66 mm[Hg] [facility] Systolic blood 123 mm[Hg] 123 mm[Hg] [facility] Body temperature 36.046773 36.205617 [facility] Body weight 64.269937 kg 64.373410 kg [facility] Oxygen saturation 97 % 97 % [facility] by Pulse oximetry Body height 167.928408 167.860730 cm [facility] Body mass index 22.84 kg/m2 22.84 kg/m2 [facility] [Ratio] Medical [facility] ter Body temperature 36.212341 36.954305 [facility] Respiratory rate 20 /min 20 /min [facility] Heart rate 89 /min 89 /min [facility] Diastolic blood 80 mm[Hg] 80 mm[Hg] [facility] pressure Medical Center Systolic blood 118 mm[Hg] 118 mm[Hg] [facility] Body weight 64.006130 kg 64.112323 kg [facility] Body temperature 36.982543 36.574907 [facility] Respiratory rate 20 /min 20 /min [facility] Heart rate 111 /min 111 /min [facility] Diastolic blood 83 mm[Hg] 83 mm[Hg] [facility] Systolic blood 135 mm[Hg] 135 mm[Hg] [facility] Body height 167.262890 167.896214 cm [facility] Body temperature 36.705059 36.419927 [facility] Respiratory rate 18 /min 18 /min [facility] Heart rate 92 /min 92 /min [facility] Diastolic blood 99 mm[Hg] 99 mm[Hg] [facility] Systolic blood 142 mm[Hg] 142 mm[Hg] [facility] Oxygen saturation 96 % 96 % [facility] J [facility] in [facility] blood [facility] by Pulse oximetry Body temperature 37.961588 37.471306 [facility] Respiratory rate 18 /min 18 /min [facility] Heart rate 96 /min 96 /min [facility] Diastolic blood 101 mm[Hg] 101 mm[Hg] [facility] Systolic blood 145 mm[Hg] 145 mm[Hg] [facility] Oxygen saturation 96 % 96 % [facility] J [facility]ph[facility] in [facility] blood [facility] by Pulse oximetry Body temperature 37.576364 37.424303 [facility] Respiratory rate 17 /min 17 /min [facility] Heart rate 110 /min 110 /min [facility] Diastolic blood 112 mm[Hg] 112 mm[Hg] [facility] Medical Center Systolic blood 171 mm[Hg] 171 mm[Hg] [facility] Oxygen saturation 96 % 96 % [facility] in Arterial blood [facility] by Pulse oximetry Body weight 67.622253 kg 67.216305 kg [facility] Body height 149.060881 149.321360 cm [facility] Body mass index 29.89 kg/m2 29.89 kg/m2 [facility] osephs (BMI) [Ratio] Medical [facility] ter Body temperature 36.834094 36.532572 [facility] Respiratory rate 18 /min 18 /min [facility] Heart rate 69 /min 69 /min [facility] Diastolic blood 78 mm[Hg] 78 mm[Hg] [facility] Systolic blood 141 mm[Hg] 141 mm[Hg] [facility] Center Body temperature 36.119639 36.057632 [facility] Respiratory rate 18 /min 18 /min [facility] Oxygen saturation 98 % 98 % [facility] blood [facility] Center by Pulse oximetry Heart rate 83 /min 83 /min [facility] Diastolic blood 76 mm[Hg] 76 mm[Hg] [facility] Systolic blood 124 mm[Hg] 124 mm[Hg] [facility] Body mass index 29.89 kg/m2 29.89 kg/m2 [facility] osep (BMI) [Ratio] Medical [facility] Body weight 67.764761 kg 67.356873 kg [facility] Body height 149.418087 149.659160 cm [facility] Body temperature 36.294438 36.673751 [facility] Respiratory rate 20 /min 20 /min [facility] Heart rate 89 /min 89 /min [facility] Diastolic blood 89 mm[Hg] 89 mm[Hg] [facility] Systolic blood 129 mm[Hg] 129 mm[Hg] [facility] Body temperature 36.621951 36.354484 [facility] Respiratory rate 18 /min 18 /min [facility] Heart rate 98 /min 98 /min [facility] Diastolic blood 79 mm[Hg] 79 mm[Hg] [facility] pressure Medical Center Systolic blood 129 mm[Hg] 129 mm[Hg] [facility] Body temperature 36.151692 36.653011 [facility] Respiratory rate 18 /min 18 /min [facility] Oxygen saturation 99 % 99 % [facility] Ar[facility] blood [facility] by Pulse oximetry Heart rate 80 /min 80 /min [facility] Diastolic blood 79 mm[Hg] 79 mm[Hg] [facility] pressure Medical Center Systolic blood 141 mm[Hg] 141 mm[Hg] [facility] Body temperature 36.775232 36.358388 [facility] Respiratory rate 20 /min 20 /min [facility] Heart rate 80 /min 80 /min [facility] Diastolic blood 75 mm[Hg] 75 mm[Hg] [facility] Center Systolic blood 144 mm[Hg] 144 mm[Hg] [facility] Body temperature 36.964227 36.812105 [facility] Respiratory rate 18 /min 18 /min [facility] Heart rate 85 /min 85 /min [facility] Diastolic blood 90 mm[Hg] 90 mm[Hg] [facility] Center Systolic blood 132 mm[Hg] 132 mm[Hg] [facility] Body weight 67.809175 kg 67.707708 kg [facility] Body height 149.167395 149.495750 cm [facility] Body mass index 29.89 kg/m2 29.89 kg/m2 [facility] osephs (BMI) [Ratio] Medical [facility] ter Body weight 67.119536 kg 67.622451 kg [facility] Oxygen saturation 96 % 96 % [facility] Ar[facility] blood [facility] Center by Pulse oximetry Body height 149.218820 149.564836 cm [facility] Body mass index 30.15 kg/m2 30.15 kg/m2 [facility] (BMI) [Ratio] Medical [facility] ter Body temperature 36.735354 36.718071 [facility] Respiratory rate 18 /min 18 /min [facility] Heart rate 86 /min 86 /min [facility] Diastolic blood 81 mm[Hg] 81 mm[Hg] [facility] pressure Medical Center Systolic blood 141 mm[Hg] 141 mm[Hg] [facility] Oxygen saturation 98 % 98 % [facility] Arterial blood [facility] Center by Pulse oximetry Body temperature 36.753921 36.479836 [facility] Respiratory rate 18 /min 18 /min [facility] Heart rate 95 /min 95 /min [facility] Diastolic blood 86 mm[Hg] 86 mm[Hg] [facility] Center Systolic blood 143 mm[Hg] 143 mm[Hg] [facility] Oxygen saturation 98 % 98 % [facility] blood [facility] by Pulse oximetry Body temperature 36.439533 36.510547 [facility] Respiratory rate 18 /min 18 /min [facility] Heart rate 95 /min 95 /min [facility] Diastolic blood 86 mm[Hg] 86 mm[Hg] [facility] Medical [place] Systolic blood 143 mm[Hg] 143 mm[Hg] [facility] Body weight 68.243054 kg 68.582972 kg [facility] Body height 152.272516 152.433491 cm [facility] Body mass index 29.2 kg/m2 29.2 kg/m2 [facility] (BMI) [Ratio] Medical [facility] Oxygen saturation 97 % 97 % [facility] blood [facility] Center by Pulse oximetry Body temperature 36.425562 36.553220 [facility] Respiratory rate 20 /min 20 /min [facility] Heart rate 100 /min 100 /min [facility] Diastolic blood 81 mm[Hg] 81 mm[Hg] [facility] pressure Medical Center Systolic blood 134 mm[Hg] 134 mm[Hg] [facility] Body temperature 36.814455 36.319424 [facility] Respiratory rate 20 /min 20 /min [facility] Heart rate 80 /min 80 /min [facility] Diastolic blood 77 mm[Hg] 77 mm[Hg] [facility] Systolic blood 132 mm[Hg] 132 mm[Hg] [facility] Heart rate 83 /min 83 /min [facility] Diastolic blood 79 mm[Hg] 79 mm[Hg] [facility] Center Systolic blood 133 mm[Hg] 133 mm[Hg] [facility] Body temperature 36.755031 36.241899 [facility] Respiratory rate 20 /min 20 /min [facility] Body weight 66.687302 kg 66.218044 kg [facility] Body height 149.309691 149.453457 cm [facility] Body mass index 29.39 kg/m2 29.39 kg/m2 [facility] osephs (BMI) [Ratio] Medical [facility] Body temperature 36.634316 36.852542 [facility] Respiratory rate 20 /min 20 /min [facility] Heart rate 82 /min 82 /min [facility] Diastolic blood 68 mm[Hg] 68 mm[Hg] [facility] Center Systolic blood 122 mm[Hg] 122 mm[Hg] [facility] Body temperature 36.379155 36.877671 [facility] Respiratory rate 20 /min 20 /min [facility] Heart rate 93 /min 93 /min [facility] Diastolic blood 78 mm[Hg] 78 mm[Hg] [facility] Center Systolic blood 139 mm[Hg] 139 mm[Hg] [facility] Body weight 66.452826 kg 66.027443 kg [facility] Body height 149.404093 149.454539 cm [facility] Body mass index 29.39 kg/m2 29.39 kg/m2 [facility]sephs (BMI) [Ratio] Medical [facility] Body temperature 36.381470 36.288259 [facility] Respiratory rate 20 /min 20 /min [facility] Heart rate 86 /min 86 /min [facility] Diastolic blood 86 mm[Hg] 86 mm[Hg] [facility] Center Systolic blood 145 mm[Hg] 145 mm[Hg] [facility] Body weight 66.034719 kg 66.248613 kg [facility] Body height 149.421718 149.456594 cm [facility] Body mass index 29.39 kg/m2 29.39 kg/m2 [facility] (BMI) [Ratio] Medical [facility] ter Body temperature 36.695321 36.774377 [facility] Respiratory rate 18 /min 18 /min [facility] Heart rate 88 /min 88 /min [facility] Diastolic blood 78 mm[Hg] 78 mm[Hg] [facility] pressure Medical Center Systolic blood 120 mm[Hg] 120 mm[Hg] [facility] pressure Medical Center Oxygen saturation 96 % 96 % [facility] in Arterial blood Medical Center by Pulse oximetry Body weight 63.302110 kg 63.844216 kg [facility] Oxygen saturation 97 % 97 % [facility] in Arterial blood Medical Center by Pulse oximetry Body height 149.344888 149.651512 cm [facility] Body mass index 28.2 kg/m2 28.2 kg/m2 [facility] (BMI) [Ratio] Medical [facility] ter Patient Treatment Plan of Care Planned Activity Planned Date Details Description Data Source (s) Doxepin Hydrochloride 25 MG [facility] Oral Capsule [place] Chlordiazepoxide Hydrochloride [facility] 25 MG Oral Capsule [place] potassium chloride 20 mEq [facility] PacketDirections: 1 each oral Center daily Fluoxetine 40 MG Oral Capsule [facility] Famotidine 20 MG Oral Tablet [facility] Docusate Sodium 50 MG / [facility] sennosides, FDC 8.6 MG Oral Center Tablet quetiapine 25 MG Oral Tablet [facility] Thiamine 100 MG Oral Tablet [facility] Simethicone 80 MG Chewable S [facility] Tablet Center Sertraline 100 MG Oral Tablet [facility] Folic Acid 1 MG Oral Tablet [facility] multivitamin with foLIC Acid [facility] (Thera) 400 mcg Tablet, Cent er Ordered By: LUANNE Woodirections: 1 tablet oral daily Thiamine 100 MG Oral Tablet [facility] Sertraline 100 MG Oral Tablet [facility] [Zoloft] [place] Naltrexone 112 MG/ML [facility] Injectable Suspension Center [Vivitrol]
[2020-08-04 20:40] VITALS: BMI 28.6
--- NOTE | 2020-08-04 21:05 | HP ---
CIWA Score Nausea/Vomitin-No Nausea/No Vomiting Muscle Tremors: 2 Anxiety: 4-Mod. Anxious/Guarded Agitation: 4-Moderately Restless Paroxysmal Sweats: 1-Minimal Palms Moist Orientation: 1-Uncertain about Date Tacttile Disturbances: 0-None Auditory Disturbances: 0-None Visual Disturbances: 0-None Headache: 1-Very Mild CIWA-Ar Total Score: 13 - Admission Criteria OASAS Guidelines: Admission for Medically Managed Detox: Requires at least one of the followin. CIWA greater than 12 2. Seizures within the past 24 hours 3. Delirium tremens within the past 24 hours 4. Hallucinations within the past 24 hours 5. Acute intervention needed for co occurring medical disorder 6. Acute intervention needed for co occurring psychiatric disorder 7. Severe withdrawal that cannot be handled at a lower level of care (continued vomiting, continued diarrhea, abnormal vital signs) requiring intravenous medication and/or fluids 8. Admitting History and Physical - Past Medical History ...LMP: 06/01/15 Psych: Yes: Anxiety - Smoking History Smoking history: Never smoked Have you smoked in the past 12 months: No - Alcohol/Substance Use Hx Alcohol Use: No - Social History History of Recent Travel: No Admission ROS [facility] Allergies/Adverse Reactions: Allergies Allergy/AdvReac Type Severity Reaction Status Date / Time No Known Allergies Allergy Verified 02/14/19 19:00 History of Present Illness: 50 y.o. female requesting detox from alcohol use , reports drinking " a lot " , cannot quantify . Pt intoxicated w/ NATHALIA 0.242 , tearful at times, agitated. Previous admissions at this facility ,most recent in 2019 Exam Limitations: Clinical Condition, Intoxication - Review of Systems Constitutional: No Symptoms Reported EENT: reports: No Symptoms Reported Respiratory: reports: No Symptoms reported Cardiac: reports: No Symptoms Reported GI: reports: No Symptoms Reported : reports: No Symptoms Reported Musculoskeletal: reports: No Symptoms Reported Integumentary: reports: No Symptoms Reported Neuro: reports: No Symptoms reported Endocrine: reports: No Symptoms Reported Hematology: reports: No Symptoms Reported Psychiatric: reports: Agitated, Anxious, Disorientated Patient History - Patient Medical History Hx Anemia: No Hx Asthma: No Hx Chronic Obstructive Pulmonary Disease (COPD): No Hx Cancer: No Hx Cardiac Disorders: No Hx Congestive Heart Failure: No Hx Hypertension: No Hx Hypercholesterolemia: No Hx Pacemaker: No HX Cerebrovascular Accident: No Hx Seizures: No Hx Diabetes: No Hx Gastrointestinal Disorders: Yes (HX GERD) Hx Liver Disease: No Hx Genitourinary Disorders: No Hx Sexually Transmitted Disorders: No (DENIES) Hx Renal Disease (ESRD): No Hx Thyroid Disease: No Hx Human Immunodeficiency Virus (HIV): No Hx Hepatitis C: No Hx Depression: Yes Hx Suicide Attempt: No (DENIES S/H/I) Hx Schizophrenia: No - Patient Surgical History Past Surgical History: Yes Hx Neurologic Surgery: No Hx Cataract Extraction: No Hx Cardiac Surgery: No Hx Lung Surgery: No Hx Breast Surgery: No Hx Breast Biopsy: No Hx Abdominal Surgery: No Hx Appendectomy: No Hx Cholecystectomy: No Hx Genitourinary Surgery: No Hx Section: No Hx Orthopedic Surgery: No Hx Hysterectomy: Yes (left knee sx for Hceek's cyst) Other Surgical History: D AND C IN 2007 Anesthesia Reaction: No - PPD History Date: 04/18/19 - Reproductive History Last Menstrual Period: 06/01/15 - Smoking Cessation Smoking history: Never smoked Have you smoked in the past 12 months: No Hx Chewing Tobacco Use: No - Substances abused Alcohol Substance route: Oral Frequency: Daily Amount used: Vodka 1/2 bottle Age of first use: 20 Date of last use: 08/04/20 Admission Physical Exam [facility] - Vital Signs Vital Signs: Vital Signs - 24 hr 08/04/20 20:38 Temperature 97.0 F L Pulse Rate 98 H Respiratory 19 Rate Blood Pressure 139/90 - Physical General Appearance: Yes: Disheveled, Intoxicated, Tremorous, Irritable, Anxious HEENTM: Yes: EOMI, Hearing grossly Normal, Normocephalic, Normal Voice Respiratory: Yes: Chest Non-Tender, Lungs Clear, Normal Breath Sounds, No Respiratory Distress, No Accessory Muscle Use Neck: Yes: No masses,lesions,Nodules, Trachea in good position Cardiology: Yes: Regular Rhythm, Regular Rate, S1, S2, Tachycardia Abdominal: Yes: Non Tender, Soft Musculoskeletal: Yes: full range of Motion, Other (unsteady gait) Extremities: Yes: Non-Tender, Tremors Neurological: Yes: Alert, Disoriented, Depressed Affect Integumentary: Yes: Warm - Diagnostic (1) Alcohol intoxication Current Visit: Yes Status: Acute Qualifiers: Complication of substance-induced condition: with unspecified complication Qualified Code(s): F10.929 - Alcohol use, unspecified with intoxication, unspecified Breathalyzer - Breathalyzer Breathalyzer: 0.242 Urine Drug Screen - Test Device Lot number: [id number] Expiration date: 06/23/22 - Control Is test valid?: Yes - Results Drug screen NEGATIVE: Yes Urine drug screen results: BZO-Benzodiazepines Inpatient Rehab Admission - Rehab Decision to Admit Inpatient rehab admission?: No
[2020-08-04] MEDS ORDERED: hydrOXYzine PAMOATE 25 MG CAPSULE (FP) PO PRN (21:07)
[2020-08-04] MEDS ORDERED: ACETAMINOPHEN 325 MG TABLET (FP) PO PRN (21:07)
[2020-08-04] MEDS ORDERED: MAGNESIUM CITRATE 300 ML BOTTLE PO PRN (21:07)
[2020-08-04] MEDS ORDERED: MAG HYDROX/AL HYDROX/SIMETH 30 ML UNIT-DOSE CUP PO PRN (21:07)
[2020-08-04] MEDS ORDERED: BISMUTH SUBSALICYLATE 524 MG/30 ML UD PO PRN (21:07)
[2020-08-04] MEDS ORDERED: MAGNESIUM HYDROX 2400MG/30ML ORAL SUSPENSION 30 ML CUP PO PRN (21:07)
[2020-08-04] MEDS ORDERED: MELATONIN 5 MG TABLETS PO PRN (21:07)
[2020-08-04] MEDS ORDERED: MENTHOL/PHENOL 1 EACH UD MM PRN (21:07)
[2020-08-04] MEDS ORDERED: TRIMETHOBENZAMIDE HCL 200MG/2ML INJ IM PRN (21:10)
[2020-08-04] MEDS ORDERED: chlordiazePOXIDE HCL 25 MG CAPSULE PO PRN (21:12)
--- OUTSIDE RECORDS SUMMARY | 2020-08-04 21:52 | XMS ---
:1970 Author Organization [facility] Care Team Providers Name Role Phone MD LILLY Unavailable Unavailable ALEXA Sharma Unavailable Unavailable [id number] Unavailable Unavailable ED STAFF PHYSICIAN Unavailable Unavailable NICK ELLSWORTH Unavailable Unavailable MD JENY Unavailable Unavailable DUNCAN-LENNIE Unavailable Unavailable SADAF Unavailable Unavailable RIGO Unavailable Unavailable MD JAIME Unavailable Unavailable MD Balke Unavailable MD Blake Unavailable MD Blake Unavailable [...] is protected by Article 27-F of the [facility] Public Health law. If you continue you may haveaccess to information: Regarding HIV / AIDS; Provided by facilities licensed or operated by the [facility] Office of Mental Health; or Provided by the [facility] Office for People With Developmental Disabilities. If such information is present, then the following [facility] mandated warning applies: This information has been [...] law may result in a fine or half-way sentence or both. A general authorization for the release of medical or other information is NOT sufficient authorization for further disclosure. Encounters Encounter Providers Location Date Indications Data Source(s ) Inpatient Attender: ALBERTO Nieves-HAL5 06/01/2020 [facility] 12[facility]00 AM [facility] KATHAttender: STAFF ED EDT - STAFF PHYSICIANAdmitter: 06/04/2020 ALBERTO ROMERO 01:08:00 PM KATHReferrer: ALBERTO ELLSWORTH Patient discharged. Inpatient Attender: Timo Lozano H-HAL5 12/10/2019 08:00:00 [place] UMANAttender: STAFF ED STAFF PM EST - 12/13/2019 [facility] PHYSICIANAdmitter: Timo 01:00:00 PM PRICE Lozano MDReferrer: Timo Lozano MD Patient discharged. Inpatient Attender: NOEL Nieves-HAL6 09/09/2019 06:05:00 PM [facility] ALEXA COHEN EDT - 09/11/2019 [facility] OAdmitter: NOEL 03:30:00 PM EDT ALEXA NOEL OReferrer: NOEL GUILLAUMERONKE O Patient discharged. Attender: 05/21/2019 [facility] [id number] 03:54:00 PM EDT Hospital [facility] Outpatient Attender: DHEERAJ [facility] 05/02/2019 Sever[facility] BETANCOURTttender: MENDEL 10:05:00 AM EDT - Hospital REIDAdmitter: SCARLET SIERRA 10/03/2019 10:04:00 AM EST Patient discharged. Attender: 05/02/2019 [facility] [id number] 10:05:00 AM EDT Hospital [facility]66 Outpatient Attender: FLORENCE ROLDANdmitter: [facility]OWN 01:15:00 PM EDT - H ospital 05/01/2019 02:22:00 PM EDT Patient discharged. Attender: 04/30/2019 [facility] [id number] 01:15:00 PM EDT Hospital [facility]6766 Outpatient Attender: DHEERAJ EPSTEINdmitter: [facility] JAMES DUNCAN-LENNIE 01:01:00 PM EDT Ho spital Admission cancelled. Disregard status an d admitted date. Attender: [id number] 2014 01:07:00 [facility]_6766 PM EDT Hospital Attender: [id number] 2014 09:48:00 [facility]_6766 AM EDT Hospital Immunizations Vaccine Date Status Description Data Source(s) New in 2011. IIV4 12/13/2019 completed [facility] 12:23:00 PM EST Center pneumococcal 12/13/2019 completed [facility] edical polysaccharide PPV23 12:23:00 PM EST Cent er Medications Medication Brand Start Product Dose Route Administrative Pharm[facility] Indications Reaction Description Data Name Date Form [...] MG / ocusat Medical sennosides, e Center [facility] 8.6 MG sodium Oral Tablet 8.6 sennosides- mg-50 docusate mg sodium 8.6 Tablet mg-50 mg , Tablet, Ordere Ordered By: d By: Tyrese eVnegas, s: 2 tablet MDDire oral daily ctions [...] Saint 1 MG Oral Acid 1 ed Olivai Tablet mg Medical foLIC Acid Tablet Center [...] ed Olivia Injectable micros Medical Suspension pheres [place] [Vivitrol] (Vivit naltrexone rol) microsphere 380 mg [...] 1 complet Saint Hydrochlori n 25 ed Olivia de 25 MG mg Medical Oral Capsul [...] Zoloft Sa int 100 MG Oral line [facility] Tablet (Zolof Medical [Zoloft] t) 100 Center sertraline mg (Zoloft) Tablet 100 mg , Tablet, Ordere Ordered By: d By: Mars Thorne MDDirection neno, s: 1 tablet MDDire oral daily ctions : 1 tablet oral daily multivitami 1 complet Thera Lesley t n with [facility] foLIC Acid Medical (Thera) 400 Center mcg Tablet, Ordered By: LUANNE Woodirection s: 1 tablet oral daily Insurance Providers Payer name Policy type Policy ID Covered Covered libertarian's Policy P tammy / Coverage libertarian ID relationship to [employer] Inf ormation type munoz LOCAL [id number] - [id number] SP [id number] NATIONAL ROLDAN FUND O LOCAL [id number] O [id number] LOCAL 1199 O [id number] SELF PAY 0000 Self 0000 LOCAL [id number] Self [id number] BENEFIT FUND LOCAL [id number] Self [id number] BENEFIT FUND SELF PAY 00 Self 00 Problems, Conditions, and Diagnoses Code Display Name Description Problem Type Effective Data Sour ce(s) Dates F41.1 Generalized GENERALIZED Diagnosis 06/04/2020 [facility] anxiety disorder ANXIETY DISORDER 01:08:00 PM [facility] EDT Y90.8 Blood alcohol BLOOD ALCOHOL Diagnosis 06/04/2020 [facility] level of 240 LEVEL OF 240 01:08:00 PM Medical C enter mg/100 ml or more MG/100 ML OR MORE EDT F10.20 Alcohol ALCOHOL Diagnosis 06/01/2020 [facility] dependence, DEPENDENCE, 12:24:[address] uncomplicated UNCOMPLICATED EDT F32.9 Major depressive MAJOR DEPRESSIVE Diagnosis 12/13/2019 [facility] disorder, single DISORDER, SINGLE 01:00:00 PM [facility] episode, EPISODE, EST unspecified UNSPECIFIED F41.9 Anxiety disorder, ANXIETY DISORDER, Diagnosis 12/13/2019 [facility] unspecified UNSPECIFIED 01:00:[address] EST K70.0 Alcoholic fatty ALCOHOLIC FATTY Diagnosis 12/13/2019 [facility] liver LIVER 01:00:00 PM Medical Cente r EST F10.229 Alcohol dependence ALCOHOL DEPENDENCE Diagnosis 9 [facility] with intoxication, WITH INTOXICATION, 03:30:00 PM Medical Center unspecified UNSPECIFIED EDT F10.239 Alcohol dependence ALCOHOL DEPENDENCE Diagnosis 9 [facility] with withdrawal, WITH WITHDRAWAL, 03:30:00 PM M edical Center unspecified UNSPECIFIED EDT R41.82 Altered mental ALTERED MENTAL Diagnosis 09/09/2019 [facility] status, STATUS, 06:05:00 PM Medical Cente r unspecified UNSPECIFIED EDT Results ID Date Data Source Liver 06/04/2020 05:40:00 AM EDT [facility] Profile.[id number] Name Value Range Interpretation Description Data Sup [...] s"> (3.5-5.0 G/DL)</content> ID Date Data Source HematologyRou.[id number] 06/04/2020 05:40:00 AM EDT [facility] 0400 Name Value Range Interpretation Description [...] Hematocrit 36.0-46. <content Saint [Volume 0 styleCode="Bold [facility] Fraction] of ">Hematocrit Medical Blood by </content>42.1 Center Automated count %<content styleCode="Ital ics"> (36.0-46.0 %)</content> Erythrocyte 11.5-14. Above high <content Saint distribution 5 normal styleCode="Bold [facility] width [Ratio] by ">Red Cell Medical [...] (0.0 KCUMM)</content > ID Date Data Source GFR(Creatinine).[id number] 06/04/2020 05:40:00 AM EDT [facility] 0-0400 Name Value Range Interpretation Code Description Data Nadia rce(s) Supporting Document(s ) UNK > 60 <content [facility] styleCode="Bold"> Medical Cent er EGFR </content>179 GFR<content styleCode="Italic s"> (> 60 GFR)</content> ID Date Data Source CHMROUTINECCDA.[id number] 06/04/2020 05:40:00 AM EDT [facility] -0400 Name Value Range Interpretation Description Data Sup porting Code Source(s) Document(s ) UNK >= 1.0 <content Saint styleCode="Viktor Olivia d">AG Ratio Medical </content>1.2 Center <content styleCode="Neno lics"> (>= 1.0 )</content> UNK 2.3-3.5 <content Saint styleCode="Viktor Olivia d">Globulin Medical </content>3.1 Center G/DL<content styleCode="Neno lics"> (2.3-3.5 G/DL)</content > Phosphate 2.5-4.5 <content Saint [Mass/volume] styleCode="Viktor aHns in Serum or d">Phosphorus Medical Plasma </content>3.9 Center MG/DL<content styleCode="Neno lics"> (2.5-4.5 MG/DL)</conten t> Protein 6.3-8.2 <content Saint [Mass/volume] styleCode="Viktor Hans in Serum or d">Total Medical Plasma Protein Center </content>6.7 G/DL<content styleCode="Neno lics"> (6.3-8.2 G/DL)</content > Magnesium 1.6-2.3 <content Saint [Mass/volume] styleCode="Viktor Olivia in Serum or d">Magnesium Medical Plasma </content>2.1 Center MG/DL<content styleCode="Neno lics"> (1.6-2.3 MG/DL)</conten t> ID Date Data Source [facility].[id number] 06/04/2020 05:40:00 AM EDT [facility] Name Value Range Interpretation Description Data Sup [...] Data Source Liver 06/03/2020 06:20:00 AM EDT [facility] Profile.[id number] Name Value Range Interpretation Description Data Sup [...] s"> (38-126 IU/L)</content> ID Date Data Source HematologyRou.[id number] 06/03/2020 06:20:00 AM EDT [facility] 0400 Name Value Range Interpretation Description Data [...] (0.0 KCUMM)</content > ID Date Data Source GFR(Creatinine).[id number] 06/03/2020 06:20:00 AM EDT [facility] 0-0400 Name Value Range Interpretation Code Description Data Nadia rce(s) Supporting Document(s ) UNK > 60 <content Olivia styleCode="Bold"> Medical Cent er EGFR </content>138 GFR<content styleCode="Italic s"> (> 60 GFR)</content> ID Date Data Source IRMAMROUTINECCDA.[id number] 06/03/2020 06:20:00 AM EDT [facility] -0400 Name Value Range Interpretation Description Data [...] (6.3-8.2 G/DL)</content > ID Date Data Source [facility].[id number] 06/03/2020 06:20:00 AM EDT [facility] Center Name Value Range Interpretation Description Data Sup porting Code Source(s) Document(s ) Chloride 98-107 <content Saint [Moles/volume] in styleCode="Bold"> [facility] Serum or Plasma Chloride Medical </content>99 Center MEQ/L<content styleCode="Italic s"> (98-107 MEQ/L)</content> Potassium 3.5-5.3 Below low <content Saint [Moles/volume] in normal styleCode="Bold"> [facility] Serum or Plasma Potassium Medical </content>3.2 Center MEQ/L L<content styleCode="Italic s"> (3.5-5.3 MEQ/L)</content> Sodium 137-145 Below low <content Saint [Moles/volume] in normal styleCode="Bold"> [facility] Serum or Plasma Sodium Medical </content>133 Center [...] s"> (38-126 IU/L)</content> ID Date Data Source Urinalysis.[id number] 06/03/2020 05:00:00 AM EDT [facility] 0 Name Value Range Interpretation Description Data Sup porting Code Source(s) Document(s ) Color of Urine YELLOW <content Saint styleCode="[facility] Olivia d">Color, Medical Urine Center </content>YELL OW [...] by Test d">Urine Medical strip Specific [place] </content><= 1.005 L<content styleCode="Neno lics"> (1.015-1.025 )</content> Urobilinogen 0.2-1.0 <content Saint [Units/volume] styleCode="Viktor Olivia in Urine by d">Urine Medical Test strip Urobilinogen Center </content>0.2 MG/DL<content styleCode="Neno lics"> (0.2-1.0 MG/DL)</conten t> Protein NEGATIVE <content Saint [Mass/volume] styleCode="Vitkor [facility] in Urine by d">Urine Medical Test [...] Data Source Liver 06/01/2020 08:00:00 AM EDT [facility] Profile.[id number] Name Value Range Interpretation Description Data Sup [...] s"> (0.2-1.3 MG/DL)</content> ID Date Data Source HematologyRou.[id number] 06/01/2020 08:00:00 AM EDT [facility] 0400 Name Value Range Interpretation Description Data [...] Hematocrit 36.0-46. <content Saint [Volume 0 styleCode="Bold [facility] Fraction] of ">Hematocrit Medical Blood by [...] (0.0 KCUMM)</content > ID Date Data Source GFR(Creatinine).[id number] 06/01/2020 08:00:00 AM EDT [facility] 0-0400 Name Value Range Interpretation Code Description Data Nadia rce(s) Supporting Document(s ) UNK > 60 <content [facility] styleCode="Bold"> Medical Cent er EGFR </content>138 GFR<content styleCode="Italic s"> (> 60 GFR)</content> ID Date Data Source FANTA.[id number] 06/01/2020 08:00:00 AM EDT [facility] -0400 Name Value Range Interpretation Description Data [...] (2.3-3.5 G/DL)</content > ID Date Data Source [facility].[id number] 06/01/2020 08:00:00 AM EDT [facility] Name Value Range Interpretation Description [...] MG/DL)</content> Alkaline 38-126 <content Saint phosphatase styleCode="Bold"> [facility] [Enzymatic Alkaline Medical activity/volume] Phosphatase (ALP) [...] Data Source Liver 06/01/2020 03:15:00 AM EDT [facility] Profile.[id number] Name Value Range Interpretation Description Data Sup [...] s"> (0.0-0.3 MG/DL)</content> ID Date Data Source HematologyRou.[id number] 06/01/2020 03:15:00 AM EDT [facility] 0400 Name Value Range Interpretation Description [...] (0.0 KCUMM)</content > ID Date Data Source GFR(Creatinine).[id number] 06/01/2020 03:15:00 AM EDT [facility] 0-0400 Name Value Range Interpretation Code Description Data Nadia rce(s) Supporting Document(s ) UNK > 60 <content Saint [facility] styleCode="Bold"> Medical Cent er EGFR </content>138 GFR<content styleCode="Italic s"> (> 60 GFR)</content> ID Date Data Source BMP.[id number] 06/01/2020 03:15:00 AM EDT [facility] Name Value Range Interpretation Description Data Sup [...] s"> (38-126 IU/L)</content> ID Date Data Source Urinalysis.[id number] 06/01/2020 12:35:00 AM EDT [facility] 0 Name Value Range Interpretation Description [...] by Test d">Urine Medical strip Specific [place] </content>>= 1.030 H<content styleCode="Neno lics"> (1.015-1.025 )</content> [...] )</content> Urobilinogen 0.2-1.0 <content Saint [Units/volume] styleCode="Viktor Hans in Urine by d">Urine Medical [...] lics"> (NEGATIVE HPF)</content> ID Date Data Source CHMROUTINECCDA.[id number] 06/01/2020 12:35:00 AM EDT [facility] -0400 Name Value Range Interpretation Description Data Sup porting Code Source(s) Document(s ) Cannabinoids <content Saint [Presence] in styleCode="Viktor Baker Urine by Screen d">Cannabinoid Medical method >50 ng/mL s Center </content>NEGA TIVE NG/ML (Reference Range: not available)<br/ > ID Date Data Source [id number] 06/01/2020 12:00:00 AM EDT [facility] Name Value Range Interpretation Code Description Data Nadia rce(s) Supporting Document(s ) 2019-nCoV [facility] RNA XXX ADARSH+probe- Imp This lab was ordered by [facility] and reported by [employer]. ID Date Data Source Liver 12/13/2019 06:30:00 AM EST [facility] Profile.[id number] Name Value Range Interpretation Description Data Sup [...] s"> (3.5-5.0 G/DL)</content> ID Date Data Source GFR(Creatinine).[id number] 12/13/2019 06:30:00 AM [facility] 0-0500 Name Value Range Interpretation Code Description Data Nadia rce(s) Supporting Document(s ) UNK > 60 <content [facility] styleCode="Bold"> Medical Cent er EGFR </content>138 GFR<content styleCode="Italic s"> (> 60 GFR)</content> ID Date Data Source CHMROUTINECCDA.[id number] 12/13/2019 06:30:00 AM [facility] -0500 Name Value Range Interpretation Description Data Sup porting Code Source(s) Document(s ) UNK 2.3-3.5 <content [facility] styleCode="Bold Medical ">Globulin Center </content>3.2 G/DL<content styleCode="Ital ics"> (2.3-3.5 G/DL)</content> UNK >= 1.0 <content [facility] styleCode="Bold Medical ">AG Ratio Center </content>1.3 <content styleCode="Ital ics"> (>= 1.0 )</content> Protein 6.3-8.2 <content [facility] [Mass/volum styleCode="Bold Medical e] in Serum ">Total Protein Center or Plasma </content>7.4 G/DL<content styleCode="Ital ics"> (6.3-8.2 G/DL)</content> ID Date Data Source [facility].[id number] 12/13/2019 06:30:00 AM EST [facility] Name Value Range Interpretation Description Data Sup [...] s"> (3.5-5.0 G/DL)</content> ID Date Data Source GFR(Creatinine).[id number] 12/12/2019 06:25:00 AM [facility] 0-0500 Name Value Range Interpretation Code Description Data Nadia rce(s) Supporting Document(s ) UNK > 60 <content [facility] styleCode="Bold"> Medical Cent er EGFR </content>112 GFR<content styleCode="Italic s"> (> 60 GFR)</content> ID Date Data Source CHMROUTINECCDA.[id number] 12/12/2019 06:25:00 AM [facility]00 Name Value Range Interpretation Description [...] (2.3-3.5 G/DL)</content > ID Date Data Source [facility].[id number] 12/12/2019 06:25:00 AM EST [facility] Center Name Value Range Interpretation Description Data Sup porting Code Source(s) Document(s ) Potassium 3.5-5.3 <content Saint [Moles/volume] in styleCode="Bold"> [facility] Serum or Plasma Potassium Medical </content>3.6 Center MEQ/L<content styleCode="Italic s"> (3.5-5.3 MEQ/L)</content> Chloride 98-107 <content Saint [Moles/volume] in styleCode="Bold"> [facility] Serum or Plasma Chloride Medical </content>100 Center [...] Data Source Liver 12/12/2019 06:25:00 AM EST [facility] Profile.[id number] Name Value Range Interpretation Description Data Sup [...] s"> (0.2-1.3 MG/DL)</content> ID Date Data Source HematologyRou.[id number] 12/12/2019 06:25:00 AM PRICE [facility] 0500 Name Value Range Interpretation Description Data Sup porting Code Source(s) Document(s ) Leukocytes 4.4-11.0 Below low normal <content Saint [#/volume] in styleCode="Bold [facility] Blood by ">White Blood Medical Automated [...] mean 32.0-37. <content Saint corpuscular 0 styleCode="Bold Oliiva hemoglobin ">Mean Corpus. Medical concentration Hgb Center [...] ics"> (8.0-11.0 FL)</content> ID Date Data Source CHMROUTINECCDA.[id number] 12/11/2019 11:57:00 AM [facility] -0500 Name Value Range Interpretation Description Data Sup porting Code Source(s) Document(s ) UNK 30-110 <content [facility] styleCode="Bold Medical ">Amylase Center </content>68 IU/L<content styleCode="Ital ics"> (30-110 IU/L)</content> Lipase 23-300 <content [facility] [Enzymatic styleCode="Bold Medical activity/vo ">Lipase Center lume] in </content>96 Serum or IU/L<content Plasma styleCode="Ital ics"> (23-300 IU/L)</content> ID Date Data Source Urinalysis.[id number] 12/11/2019 12:55:00 AM [facility] 0 Name Value Range Interpretation Description [...] by Test d">Urine Medical strip Specific [place] </content>1.01 5 <content styleCode="Neno lics"> (1.015-1.025 )</content> Hemoglobin NEGATIVE <content Saint [Presence] in styleCode="Viktor Olivia Urine by Test d">Urine Blood Medical strip </content>SMAL Center L <content styleCode="Neno lics"> (NEGATIVE )</content> Ketones NEGATIVE <content Saint [Mass/volume] styleCode="Viktor Oliiva in Urine by d">Urine Medical Test strip [...] lics"> (0-3 HPF)</content> ID Date Data Source MROUTINECCDA.[id number] 12/11/2019 12:55:00 AM [facility] -0500 Name Value Range Interpretation Description Data Sup porting Code Source(s) Document(s ) Cannabinoids <content Saint [Presence] in styleCode="Viktor [facility] Urine by Screen d">Cannabinoid Medical method >50 ng/mL s Center </content>NEGA TIVE NG/ML (Reference Range: not available)<br/ > ID Date Data Source Liver 12/10/2019 10:02:00 PM [facility] Profile.[id number] Name Value Range Interpretation Description Data Sup [...] s"> (0.2-1.3 MG/DL)</content> ID Date Data Source LIPID.[id number] 12/10/2019 10:02:00 PM EST [facility] Name Value Range Interpretation Description [...] Above high normal <content Saint [Mass/volume] in styleCode="[facility] Serum or Plasma d">Triglycerid [facility] Center </content>241 MG/DL H<content styleCode="Neno lics"> (< 150 MG/DL)</conten t> UNK < 100 <content Saint styleCode="Viktor [facility] d">LDL-Cholest [facility] </content>77 MG/DL<content styleCode="Neno lics"> (< 100 MG/DL)</conten t> ID Date Data Source HematologyRou.[id number] 12/10/2019 10:02:00 PM PRICE [facility] 0500 Name Value Range Interpretation Description [...] ics"> (0 /100)</content> ID Date Data Source GFR(Creatinine).[id number] 12/10/2019 10:02:00 PM [facility] 0-0500 Name Value Range Interpretation Code Description Data Nadia rce(s) Supporting Document(s ) UNK > 60 <content [facility] styleCode="Bold"> Medical Cent er EGFR </content>112 GFR<content styleCode="Italic s"> (> 60 GFR)</content> ID Date Data Source CHMROUTINECCDA.[id number] 12/10/2019 10:02:00 PM EST [facility] -0500 Name Value Range Interpretation Code Description Data Nadia rce(s) Supporting Document(s ) UNK 4.2-5.8 Above high normal <content [facility] styleCode="Bold" Medical Cente r >Hemoglobin A1C </content>5.9 % H<content styleCode="Itali cs"> (4.2-5.8 %)</content> ID Date Data Source BMP.[id number] 12/10/2019 10:02:00 PM [facility] Name Value Range Interpretation Description Data Sup porting Code Source(s) Document(s ) Chloride 98-107 <content Saint [Moles/volume] in styleCode="Bold"> [facility] Serum or Plasma Chloride Medical </content>105 Center MEQ/L<content styleCode="Italic s"> (98-107 MEQ/L)</content> Sodium 137-145 <content Saint [Moles/volume] in styleCode="Bold"> [facility] Serum or Plasma Sodium Medical </content>143 Center MEQ/L<content styleCode="Italic s"> (137-145 MEQ/L)</content> Potassium 3.5-5.3 <content Saint [Moles/volume] in styleCode="Bold"> [facility] Serum or Plasma Potassium Medical </content>3.7 Center [...] Data Source Liver 09/11/2019 05:27:00 AM EDT [facility] Profile.[id number] Name Value Range Interpretation Description Data Sup [...] s"> (3.5-5.0 G/DL)</content> ID Date Data Source HematologyRou.[id number] 09/11/2019 05:27:00 AM EDT [facility] 0400 Name Value Range Interpretation Description [...] ics"> (8.0-11.0 FL)</content> ID Date Data Source GFR(Creatinine).[id number] 09/11/2019 05:27:00 AM EDT [facility] 0-0400 Name Value Range Interpretation Code Description Data Nadia rce(s) Supporting Document(s ) UNK > 60 <content [facility] styleCode="Bold"> Medical Cent er EGFR </content>138 GFR<content styleCode="Italic s"> (> 60 GFR)</content> ID Date Data Source IRMAMROUTINECCDA.[id number] 09/11/2019 05:27:00 AM EDT [facility] -0400 Name Value Range Interpretation Description Data [...] (6.3-8.2 G/DL)</content > ID Date Data Source [facility].[id number] 09/11/2019 05:27:00 AM EDT [facility] Center Name Value Range Interpretation Description Data Sup porting Code Source(s) Document(s ) Potassium 3.5-5.3 <content Saint [Moles/volume] in styleCode="Bold"> [facility] Serum or Plasma Potassium Medical </content>4.0 Center MEQ/L<content styleCode="Italic s"> (3.5-5.3 MEQ/L)</content> Sodium 137-145 Below low <content Saint [Moles/volume] in normal styleCode="Bold"> [facility] Serum or Plasma Sodium Medical </content>136 Center [...] 98-107 <content Saint [Moles/volume] in styleCode="Bold"> [facility] Serum or Plasma Chloride Medical </content>100 Center [...] Data Source Liver 09/10/2019 01:13:00 AM EDT [facility] Profile.[id number] Name Value Range Interpretation Description Data Sup [...] s"> (0.2-1.3 MG/DL)</content> ID Date Data Source LIPID.[id number] 09/10/2019 01:13:00 AM EDT [facility] [...] (< 150 MG/DL)</content> ID Date Data Source HematologyRou.[id number] 09/10/2019 01:13:00 AM EDT [facility] 0400 Name Value Range Interpretation Description [...] (0.0 KCUMM)</content > ID Date Data Source GFR(Creatinine).[id number] 09/10/2019 01:13:00 AM EDT [facility] 0-0400 Name Value Range Interpretation Code Description Data Nadia rce(s) Supporting Document(s ) UNK > 60 <content [facility] styleCode="Bold"> Medical Cent er EGFR </content>138 GFR<content styleCode="Italic s"> (> 60 GFR)</content> ID Date Data Source [facility].[id number] 09/10/2019 01:13:00 AM EDT [facility] -0400 Name Value Range Interpretation Description Data [...] (2.5-4.5 MG/DL)</conten t> ID Date Data Source [facility].[id number] 09/10/2019 01:13:00 AM EDT [facility] Name Value Range Interpretation Description Data Sup porting Code Source(s) Document(s ) Chloride 98-107 <content Saint [Moles/volume] in styleCode="Bold"> [facility] Serum or Plasma Chloride Medical </content>104 Center MEQ/L<content styleCode="Italic s"> (98-107 MEQ/L)</content> Potassium 3.5-5.3 <content Saint [Moles/volume] in styleCode="Bold"> [facility] Serum or Plasma Potassium Medical </content>4.2 Center MEQ/L<content styleCode="Italic s"> (3.5-5.3 MEQ/L)</content> Sodium 137-145 <content Saint [Moles/volume] in styleCode="Bold"> [facility] Serum or Plasma Sodium Medical </content>143 Center [...] (0.5-1.3 MG/DL)</content> UNK 7-17 <content Saint styleCode="Bold"> [facility] BUN </content>17 Medical MG/DL<content Center styleCode="Italic s"> (7-17 MG/DL)</content> UNK > 60 <content Saint styleCode="Bold"> [facility] EGFR Medical </content>138 Center GFR<content styleCode="Italic s"> (> 60 GFR)</content> Alanine 7-30 Above high <content [facility] aminotransferase normal styleCode="Bold"> [facility] [Enzymatic Alanine Medical activity/volume] Aminotransferase Center in Serum or Plasma (ALT) </content>32 IU/L H<content styleCode="Italic s"> (7-30 IU/L)</content> Bilirubin.total 0.2-1.3 <content [facility] [Mass/volume] in styleCode="Bold"> [facility] Serum or Plasma Bilirubin Total Medical </content>0.5 Center MG/DL<content styleCode="Italic s"> (0.2-1.3 MG/DL)</content> Alkaline 38-126 <content [facility] phosphatase styleCode="Bold"> [facility] [Enzymatic Alkaline Medical activity/volume] Phosphatase (ALP) [...] s"> (3.5-5.0 G/DL)</content> ID Date Data Source Urinalysis.[id number] 09/09/2019 08:25:00 PM EDT [facility] 0 Name Value Range Interpretation Description Data Sup porting Code Source(s) Document(s ) Glucose NEGATIVE <content [facility] [Mass/volume] styleCode="Viktor Baker in Urine by d">Urine [...] by Test d">Urine Medical strip Specific Center [place] </content>>= 1.030 H<content styleCode="Neno lics"> (1.015-1.025 )</content> [...] UNK NONE SEEN <content Saint styleCode="Viktor Olivia d">Urine Mucus Medical </content>MANY Center HPF<content styleCode="Neno lics"> (NONE SEEN HPF)</content> UNK NONE SEEN <content Saint styleCode="Viktor Olivia d">Epithelial Medical Cell Center </content>10 - 20 HPF<content styleCode="Neno lics"> (NONE SEEN HPF)</content> UNK 0-2 <content Saint styleCode="Viktor Olivia d">[facility] Center </content>1-3 LPF<content styleCode="Neno lics"> (0-2 LPF)</content> ID Date Data Source IRMAMROUTSONAMCCALONZO.[id number] 09/09/2019 08:25:00 PM EDT [facility] -0400 Name Value Range Interpretation Description Data Sup porting Code Source(s) Document(s ) Cannabinoids <content Saint [Presence] in styleCode="Viktor [facility] Urine by Screen d">Cannabinoid Medical method >50 ng/mL s Center </content>NEGA TIVE NG/ML (Reference Range: not available)<br/ > ID Date Data Source [facility].[id number] 09/09/2019 08:19:00 PM EDT [facility] Name Value Range Interpretation Description Data Sup porting Code Source(s) Document(s ) Potassium 3.5-5.3 <content [facility] [Moles/volume] in styleCode="Bold"> [facility] Serum or Plasma Potassium Medical </content>4.5 Center MEQ/L<content styleCode="Italic s"> (3.5-5.3 MEQ/L)</content> Sodium 137-145 <content [facility] [Moles/volume] in styleCode="Bold"> [facility] Serum or Plasma Sodium Medical </content>143 Center MEQ/L<content styleCode="Italic s"> (137-145 MEQ/L)</content> Chloride 98-107 <content [facility] [Moles/volume] in styleCode="Bold"> [facility] Serum or Plasma Chloride Medical </content>106 Center [...] MG/DL)</content> Alkaline 38-126 <content [facility] phosphatase styleCode="Bold"> [facility] [Enzymatic Alkaline Medical activity/volume] Phosphatase (ALP) [...] Data Source Liver 09/09/2019 08:19:00 PM EDT [facility] Profile.[id number] Name Value Range Interpretation Description Data Sup [...] s"> (3.5-5.0 G/DL)</content> ID Date Data Source HematologyRou.[id number] 09/09/2019 08:19:00 PM EDT [facility] 0400 Name Value Range Interpretation Description [...] (0.0 KCUMM)</content > ID Date Data Source GFR(Creatinine).[id number] 09/09/2019 08:19:00 PM EDT [facility] 0-0400 Name Value Range Interpretation Code Description [...] Interpretation Code Description Data Source(s) Body weight 64.878650 kg 64. kg [facility] Oxygen saturation 98 % 98 % [facility] blood [facility] Center by Pulse oximetry Body height 167.597358 167.490038 cm [facility] Body mass index 22.84 kg/m2 22.84 kg/m2 [facility] (BMI) [Ratio] Medical [facility]ie [facility] Body temperature 36.755925 36.390650 [facility] Respiratory rate 18 /min 18 /min [facility] Heart rate 88 /min 88 /min [facility] Diastolic blood 76 mm[Hg] 76 mm[Hg] [facility] Systolic blood 109 mm[Hg] 109 mm[Hg] [facility] Body temperature 36.736775 36.867033 [facility] Respiratory rate 20 /min 20 /min [facility] Heart rate 80 /min 80 /min [facility] Diastolic blood 58 mm[Hg] 58 mm[Hg] [facility] Systolic blood 128 mm[Hg] 128 mm[Hg] [facility] Body temperature 37.799044 37.650555 [facility] Respiratory rate 20 /min 20 /min [facility] Heart rate 79 /min 79 /min [facility] Diastolic blood 59 mm[Hg] 59 mm[Hg] [facility] Systolic blood 102 mm[Hg] 102 mm[Hg] [facility] Respiratory rate 20 /min 20 /min [facility] Heart rate 83 /min 83 /min [facility] Diastolic blood 66 mm[Hg] 66 mm[Hg] [facility] Systolic blood 123 mm[Hg] 123 mm[Hg] [facility] Body temperature 36.507375 36.014937 [facility] Body weight 64.352625 kg 64.006918 kg [facility] Oxygen saturation 97 % 97 % [facility] in [facility] by Pulse oximetry Body height 167.235879 167.478275 cm [facility] Body mass index 22.84 kg/m2 22.84 kg/m2 [facility] ([facility]) [Ratio] Medical [facility] ter Body temperature 36.156640 36.522859 [facility] Respiratory rate 20 /min 20 /min [facility] Heart rate 89 /min 89 /min [facility] Diastolic blood 80 mm[Hg] 80 mm[Hg] [facility] pressure Medical Center Systolic blood 118 mm[Hg] 118 mm[Hg] [facility] Body weight 64.489905 kg 64.777370 kg [facility] Body temperature 36.637790 36.068758 [facility] Respiratory rate 20 /min 20 /min [facility] Heart rate 111 /min 111 /min [facility] Diastolic blood 83 mm[Hg] 83 mm[Hg] [facility] Systolic blood 135 mm[Hg] 135 mm[Hg] [facility] Body height 167.124783 167.656458 cm [facility] Body temperature 36.313212 36.123687 [facility] Respiratory rate 18 /min 18 /min [facility] Heart rate 92 /min 92 /min [facility] Diastolic blood 99 mm[Hg] 99 mm[Hg] [facility] Systolic blood 142 mm[Hg] 142 mm[Hg] [facility] Oxygen saturation 96 % 96 % [facility] J [facility]phs in [facility] blood [facility] by Pulse oximetry Body temperature 37.690175 37.502557 [facility] Respiratory rate 18 /min 18 /min [facility] Heart rate 96 /min 96 /min [facility] Diastolic blood 101 mm[Hg] 101 mm[Hg] [facility] Systolic blood 145 mm[Hg] 145 mm[Hg] [facility] Oxygen saturation 96 % 96 % [facility] J [facility]phs in [facility] blood [facility] by Pulse oximetry Body temperature 37.850604 37.271034 [facility] Respiratory rate 17 /min 17 /min [facility] Heart rate 110 /min 110 /min [facility] Diastolic blood 112 mm[Hg] 112 mm[Hg] [facility] Systolic blood 171 mm[Hg] 171 mm[Hg] [facility] Oxygen saturation 96 % 96 % [facility] in Arterial blood [facility] by Pulse oximetry Body weight 67.642378 kg 67.738257 kg [facility] Body height 149.842758 149.197917 cm [facility] Body mass index 29.89 kg/m2 29.89 kg/m2 [facility] osephs (BMI) [Ratio] Medical [facility] ter Body temperature 36.449827 36.618572 [facility] Respiratory rate 18 /min 18 /min [facility] Heart rate 69 /min 69 /min [facility] Diastolic blood 78 mm[Hg] 78 mm[Hg] [facility] Systolic blood 141 mm[Hg] 141 mm[Hg] [facility] Body temperature 36.617883 36.533130 [facility] Respiratory rate 18 /min 18 /min [facility] Oxygen saturation 98 % 98 % [facility] blood [facility] Center by Pulse oximetry Heart rate 83 /min 83 /min [facility] Diastolic blood 76 mm[Hg] 76 mm[Hg] [facility] Systolic blood 124 mm[Hg] 124 mm[Hg] [facility] Body mass index 29.89 kg/m2 29.89 kg/m2 [facility] osep (BMI) [Ratio] Medical [facility] Body weight 67.137276 kg 67.144595 kg [facility] Body height 149.555946 149.393846 cm [facility] Body temperature 36.539882 36.415898 [facility] Respiratory rate 20 /min 20 /min [facility] Heart rate 89 /min 89 /min [facility] Diastolic blood 89 mm[Hg] 89 mm[Hg] [facility] Systolic blood 129 mm[Hg] 129 mm[Hg] [facility] Body temperature 36.025768 36.218813 [facility] Respiratory rate 18 /min 18 /min [facility] Heart rate 98 /min 98 /min [facility] Diastolic blood 79 mm[Hg] 79 mm[Hg] [facility] pressure Medical Center Systolic blood 129 mm[Hg] 129 mm[Hg] [facility] Body temperature 36.606113 36.997796 [facility] Respiratory rate 18 /min 18 /min [facility] Oxygen saturation 99 % 99 % [facility] in Arterial blood Medical Center by Pulse oximetry Heart rate 80 /min 80 /min [facility] Diastolic blood 79 mm[Hg] 79 mm[Hg] [facility] pressure Medical Center Systolic blood 141 mm[Hg] 141 mm[Hg] [facility] Body temperature 36.947059 36.659760 [facility] Respiratory rate 20 /min 20 /min [facility] Heart rate 80 /min 80 /min [facility] Diastolic blood 75 mm[Hg] 75 mm[Hg] [facility] Systolic blood 144 mm[Hg] 144 mm[Hg] [facility] Body temperature 36.962042 36.413138 [facility] Respiratory rate 18 /min 18 /min [facility] Heart rate 85 /min 85 /min [facility] Diastolic blood 90 mm[Hg] 90 mm[Hg] [facility] Systolic blood 132 mm[Hg] 132 mm[Hg] [facility] Body weight 67.664497 kg 67.961998 kg [facility] Body height 149.958097 149.520187 cm [facility] Body mass index 29.89 kg/m2 29.89 kg/m2 [facility] osephs (BMI) [Ratio] Medical [facility] ter Body weight 67.904464 kg 67.624032 kg [facility] Oxygen saturation 96 % 96 % [facility] in Arterial blood [facility] Center by Pulse oximetry Body height 149.391468 149.613507 cm [facility] Body mass index 30.15 kg/m2 30.15 kg/m2 [facility] (BMI) [Ratio] Medical [facility] ter Body temperature 36.976704 36.915809 [facility] Respiratory rate 18 /min 18 /min [facility] Heart rate 86 /min 86 /min [facility] Diastolic blood 81 mm[Hg] 81 mm[Hg] [facility] pressure Medical Center Systolic blood 141 mm[Hg] 141 mm[Hg] [facility] Oxygen saturation 98 % 98 % [facility] in Arterial blood [facility] Center by Pulse oximetry Body temperature 36.821007 36.226409 [facility] Respiratory rate 18 /min 18 /min [facility] Heart rate 95 /min 95 /min [facility] Diastolic blood 86 mm[Hg] 86 mm[Hg] [facility] Systolic blood 143 mm[Hg] 143 mm[Hg] [facility] Oxygen saturation 98 % 98 % [facility] blood [facility] by Pulse oximetry Body temperature 36.543020 36.629922 [facility] Respiratory rate 18 /min 18 /min [facility] Heart rate 95 /min 95 /min [facility] Diastolic blood 86 mm[Hg] 86 mm[Hg] [facility] Medical [place] Systolic blood 143 mm[Hg] 143 mm[Hg] [facility] Body weight 68.701403 kg 68.972029 kg [facility] Body height 152.384238 152.842808 cm [facility] Body mass index 29.2 kg/m2 29.2 kg/m2 [facility] (BMI) [Ratio] Medical [facility] Oxygen saturation 97 % 97 % [facility] blood [facility] Center by Pulse oximetry Body temperature 36.563083 36.870520 [facility] Respiratory rate 20 /min 20 /min [facility] Heart rate 100 /min 100 /min [facility] Diastolic blood 81 mm[Hg] 81 mm[Hg] [facility] pressure Medical Center Systolic blood 134 mm[Hg] 134 mm[Hg] [facility] Body temperature 36.117741 36.347059 [facility] Respiratory rate 20 /min 20 /min [facility] Heart rate 80 /min 80 /min [facility] Diastolic blood 77 mm[Hg] 77 mm[Hg] [facility] pressure Medical Center Systolic blood 132 mm[Hg] 132 mm[Hg] [facility] Heart rate 83 /min 83 /min [facility] Diastolic blood 79 mm[Hg] 79 mm[Hg] [facility] Systolic blood 133 mm[Hg] 133 mm[Hg] [facility] Body temperature 36.950126 36.922644 [facility] Center Respiratory rate 20 /min 20 /min [facility] Body weight 66.083433 kg 66.305079 kg [facility] Body height 149.373576 149.891437 cm [facility] Body mass index 29.39 kg/m2 29.39 kg/m2 [facility] osephs (BMI) [Ratio] Medical [facility] Body temperature 36.688456 36.793627 [facility] Respiratory rate 20 /min 20 /min [facility] Heart rate 82 /min 82 /min [facility] Diastolic blood 68 mm[Hg] 68 mm[Hg] [facility] Systolic blood 122 mm[Hg] 122 mm[Hg] [facility] Body temperature 36.938957 36.857588 [facility] Respiratory rate 20 /min 20 /min [facility] Heart rate 93 /min 93 /min [facility] Diastolic blood 78 mm[Hg] 78 mm[Hg] [facility] Systolic blood 139 mm[Hg] 139 mm[Hg] [facility] Body weight 66.690603 kg 66.595831 kg [facility] Body height 149.061817 149.117110 cm [facility] Body mass index 29.39 kg/m2 29.39 kg/m2 [facility] osephs (BMI) [Ratio] Medical [facility] Body temperature 36.227712 36.155295 [facility] Center Respiratory rate 20 /min 20 /min [facility] Heart rate 86 /min 86 /min [facility] Diastolic blood 86 mm[Hg] 86 mm[Hg] [facility] Systolic blood 145 mm[Hg] 145 mm[Hg] [facility] Body weight 66.653096 kg 66.840196 kg [facility] Body height 149.262686 149.583970 cm [facility] Body mass index 29.39 kg/m2 29.39 kg/m2 [facility] (BMI) [Ratio] Medical [facility] ter Body temperature 36.042716 36.738259 [facility] Respiratory rate 18 /min 18 /min [facility] Heart rate 88 /min 88 /min [facility] Diastolic blood 78 mm[Hg] 78 mm[Hg] [facility] pressure Medical Center Systolic blood 120 mm[Hg] 120 mm[Hg] [facility] pressure Medical Center Oxygen saturation 96 % 96 % [facility] in Arterial blood Medical Center by Pulse oximetry Body weight 63.597924 kg 63.902891 kg [facility] Oxygen saturation 97 % 97 % [facility] in Arterial blood Medical Center by Pulse oximetry Body height 149.889381 149.827115 cm [facility] Body mass index 28.2 kg/m2 28.2 kg/m2 [facility] (BMI) [Ratio] Medical [facility] ter Patient Treatment Plan of Care Planned Activity Planned Date Details Description Data Source (s) Doxepin Hydrochloride 25 MG [facility] Oral Capsule [place] Chlordiazepoxide Hydrochloride [facility] 25 MG Oral Capsule [place] potassium chloride 20 mEq [facility] PacketDirections: 1 each oral Center daily Fluoxetine 40 MG Oral Capsule [facility] Famotidine 20 MG Oral Tablet [facility] Docusate Sodium 50 MG / [facility] sennosides, [facility] 8.6 MG Oral Center Tablet quetiapine 25 MG Oral Tablet [facility] Thiamine 100 MG Oral Tablet [facility] Simethicone 80 MG Chewable S [facility] Tablet Center Sertraline 100 MG Oral Tablet [facility] Folic Acid 1 MG Oral Tablet [facility] multivitamin with foLIC Acid [facility] (Thera) 400 mcg Tablet, Cent er Ordered By: LUANNE Woodirections: 1 tablet oral daily Thiamine 100 MG Oral Tablet [facility] Sertraline 100 MG Oral Tablet [facility] [Zoloft] [place] Naltrexone 112 MG/ML [facility] Injectable Suspension Center [Vivitrol]
[2020-08-04] MEDS: chlordiazePOXIDE HCL 25 MG CAPSULE PO SCH (22:58)
[2020-08-04] MEDS: THIAMINE HCL 100 MG TABLET (FP) PO SCH (22:59)
[2020-08-05] MEDS: chlordiazePOXIDE HCL 25 MG CAPSULE PO SCH ×4 (05:42→22:12)
[2020-08-05] MEDS: ACETAMINOPHEN 325 MG TABLET (FP) PO PRN (06:46)
--- NOTE | 2020-08-05 09:32 | CONSULT ---
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 Refer to addiction counselor's summary for further information Medical History: Significant for GERD, D&C in 2008 and orthosurgery for removal of Cheek's cyst left knee. Psychiatric History: Patient is known for four previous admissions to this facility. She reports that her first psychiatric contact occured approximaly 9 years ago when she was started on Zoloft for depression by Dr Naqvi in [place], [place]. Reports that she is still seeing the same psychiatrist and she is currently on Prozac 40 mg/day. This is confirmed by contacting [phone] at [address] [place] [address]. According to pharmacy staff, scrpt for Pozac 40 mg/kenia was last filled on 06/04/20. Denies previous psychiatric hospitalization or suicidal attempt. At present, reports feeling depressed and sleeping poorly. Claims depression is due the fact she relapsed after 6 months of clean time. Physical/Sexual Abuse/Trauma History: Denies history of abuse as a child or DV relationship as an adult Mental Status Exam - Mental Status Exam Alert and Oriented to: Time, Place, Person Cognitive Function: Fair Patient Appearance: Well Groomed Mood: Depressed Affect: Appropriate Patient Behavior: Cooperative Speech Pattern: Clear Voice Loudness: Normal Thought Process: Intact, Goal Oriented Thought Disorder: Not Present Hallucinations: Denies Suicidal Ideation: Denies Homicidal Ideation: Denies Insight/Judgement: Poor Sleep: Poorly Appetite: Poor Muscle strength/Tone: Normal Gait/Station: Normal Psychiatric Findings - Problem List ([place] 1, 2,3) (1) Depressive disorder Current Visit: Yes Status: Chronic (2) MDD (major depressive disorder) Current Visit: Yes Status: Ruled-out (3) Alcohol-induced mood disorder Current Visit: Yes Status: Acute (4) Alcohol-induced sleep disorder Current Visit: Yes Status: Acute (5) Alcohol dependence, uncomplicated Current Visit: Yes Status: Acute (6) GERD (gastroesophageal reflux disease) Current Visit: No Status: Chronic Qualifiers: Esophagitis presence: without esophagitis Qualified Code(s): K21.9 - Gastro-esophageal reflux disease without esophagitis (7) Left knee pain Current Visit: No Status: Chronic Qualifiers: Chronicity: chronic Qualified Code(s): M25.562 - Pain in left knee; G89.29 - Other chronic pain (8) Cheek's cyst, ruptured Current Visit: No Status: Resolved - Initial Treatment Plan Initial Treatment Plan: 1) Continue Prozac 40 mg po daily. 2) Start Melatonin 10 mg po HS. 3) Continue inpatient detoxification
[2020-08-05] MEDS: PRENATAL VITAMINS W/ FOLIC ACID TABLET (FP) PO SCH (10:10)
[2020-08-05] MEDS: FLUoxetine HCL 20 MG CAPSULE PO SCH (10:11)
[2020-08-05 10:29] LABS: HEMATOCRIT 42.6 % (32.4-45.2); HEMOGLOBIN 14.5 GM/dL (10.7-15.3); MCH 29.8 pg (25.7-33.7); MCHC 33.9 g/dl (32.0-36.0); MEAN PLT VOLUME 8.4 fl (7.5-11.1); PLATELET COUNT 313 K/MM3 (134-434); RBC 4.85 M/mm3 (3.60-5.2); RDW 16.5 % (11.6-15.6); WHITE BLOOD COUNT 6.4 K/mm3 (4.0-10.0)
[2020-08-05 10:44] LABS: ALBUMIN 3.9 g/dl (3.4-5.0); BILIRUBIN,TOTAL 0.6 mg/dL (0.2-1); CALCIUM 9.2 mg/dL (8.5-10.1); CREATININE 0.6 mg/dL (0.55-1.3); POTASSIUM 3.9 mmol/L (3.5-5.1)
--- NOTE | 2020-08-05 13:51 | PN ---
[facility] CIWA - CIWA Score Nausea/Vomitin-No Nausea/No Vomiting Muscle Tremors: 3 Anxiety: 2 Agitation: 3 Paroxysmal Sweats: 2 Orientation: 0-Oriented Tacttile Disturbances: 0-None Auditory Disturbances: 0-None Visual Disturbances: 0-None Headache: 0-None Present CIWA-Ar Total Score: 10 S Progress Note (SOAP) Subjective: sweats shakes anxiety interrupted sleep Objective: 08/05/20 13:50 Vital Signs Temperature 98.1 F 08/05/20 08:27 Pulse Rate 78 08/05/20 08:27 Respiratory Rate 18 08/05/20 08:27 Blood Pressure 117/84 08/05/20 08:27 O2 Sat by Pulse Oximetry (%) 95 08/05/20 05:30 Laboratory Tests 08/04/20 08/05/20 08/05/20 20:25 07:45 07:45 WBC 6.4 RBC 4.85 Hgb 14.5 Hct 42.6 MCV 88.0 MCH 29.8 MCHC 33.9 RDW 16.5 H Plt Count 313 D MPV 8.4 Sodium Potassium Chloride Carbon Dioxide Anion Gap BUN Creatinine Est GFR (CKD-EPI)AfAm Est GFR (CKD-EPI)NonAf Random Glucose Calcium Total Bilirubin AST ALT Alkaline Phosphatase Total Protein Albumin POC Urine HCG, Qual Negative Syphilis Serology Non-reactive HIV Ag/Ab Combo Qual 08/05/20 08/05/20 07:45 07:45 WBC RBC Hgb Hct MCV MCH MCHC RDW Plt Count MPV Sodium 139 Potassium 3.9 Chloride 101 Carbon Dioxide 30 Anion Gap 8 BUN 11.0 Creatinine 0.6 Est GFR (CKD-EPI)AfAm 121.46 Est GFR (CKD-EPI)NonAf 104.80 Random Glucose 86 Calcium 9.2 Total Bilirubin 0.6 AST 32 ALT 40 Alkaline Phosphatase 109 Total Protein 8.0 Albumin 3.9 POC Urine HCG, Qual Syphilis Serology HIV Ag/Ab Combo Qual Negative labs noted aaox3 ambulating no acute distress Assessment: 08/05/20 13:50 withdrawals Plan: continue detox
[2020-08-05] MEDS: MELATONIN 5 MG TABLETS PO PRN (22:13)
[2020-08-05] MEDS: THIAMINE HCL 100 MG TABLET (FP) PO SCH (22:13)
[2020-08-06] MEDS: ACETAMINOPHEN 325 MG TABLET (FP) PO PRN ×2 (01:41→17:33)
[2020-08-06] MEDS: chlordiazePOXIDE HCL 25 MG CAPSULE PO SCH ×4 (06:01→22:33)
[2020-08-06] MEDS: PRENATAL VITAMINS W/ FOLIC ACID TABLET (FP) PO SCH (10:08)
[2020-08-06] MEDS: FLUoxetine HCL 20 MG CAPSULE PO SCH (10:08)
--- NOTE | 2020-08-06 11:27 | PN ---
S CIWA - CIWA Score Nausea/Vomitin-No Nausea/No Vomiting Muscle Tremors: 2 Anxiety: 1-Mildly Anxious Agitation: 2 Paroxysmal Sweats: 1-Minimal Palms Moist Orientation: 0-Oriented Tacttile Disturbances: 0-None Auditory Disturbances: 0-None Visual Disturbances: 0-None Headache: 0-None Present CIWA-Ar Total Score: 6 BHS Progress Note (SOAP) Subjective: sweats shakes anxiety Objective: 08/06/20 11:27 Vital Signs Temperature 97.1 F L 08/06/20 08:25 Pulse Rate 79 08/06/20 08:25 Respiratory Rate 16 08/06/20 08:25 Blood Pressure 126/85 08/06/20 08:25 O2 Sat by Pulse Oximetry (%) 100 08/06/20 08:25 Laboratory Tests 08/04/20 08/04/20 08/05/20 20:25 21:00 07:45 WBC RBC Hgb Hct MCV MCH MCHC RDW Plt Count MPV Sodium Potassium Chloride Carbon Dioxide Anion Gap BUN Creatinine Est GFR (CKD-EPI)AfAm Est GFR (CKD-EPI)NonAf Random Glucose Calcium Total Bilirubin AST ALT Alkaline Phosphatase Total Protein Albumin POC Urine HCG, Qual Negative Syphilis Serology Non-reactive COVID-19 (ADARSH) Not detected HIV Ag/Ab Combo Qual 08/05/20 08/05/20 08/05/20 07:45 07:45 07:45 WBC 6.4 RBC 4.85 Hgb 14.5 Hct 42.6 MCV 88.0 MCH 29.8 MCHC 33.9 RDW 16.5 H Plt Count 313 D MPV 8.4 Sodium 139 Potassium 3.9 Chloride 101 Carbon Dioxide 30 Anion Gap 8 BUN 11.0 Creatinine 0.6 Est GFR (CKD-EPI)AfAm 121.46 Est GFR (CKD-EPI)NonAf 104.80 Random Glucose 86 Calcium 9.2 Total Bilirubin 0.6 AST 32 ALT 40 Alkaline Phosphatase 109 Total Protein 8.0 Albumin 3.9 POC Urine HCG, Qual Syphilis Serology COVID-19 (ADARSH) HIV Ag/Ab Combo Qual Negative aaox3 ambulating no acute distress Assessment: 08/06/20 11:27 withdrawals Plan: continue detox
[2020-08-06] MEDS ORDERED: LORATADINE 10 MG TABLET PO ONE (18:52)
[2020-08-06] MEDS: MELATONIN 5 MG TABLETS PO PRN (22:33)
[2020-08-06] MEDS: THIAMINE HCL 100 MG TABLET (FP) PO SCH (22:33)
[2020-08-07] MEDS ORDERED: chlordiazePOXIDE HCL 10 MG CAPSULE PO PRN
[2020-08-07] MEDS: chlordiazePOXIDE HCL 10 MG CAPSULE PO SCH ×4 (06:42→22:09)
[2020-08-07] MEDS: PRENATAL VITAMINS W/ FOLIC ACID TABLET (FP) PO SCH (10:10)
[2020-08-07] MEDS: FLUoxetine HCL 20 MG CAPSULE PO SCH (10:11)
[2020-08-07] MEDS: ACETAMINOPHEN 325 MG TABLET (FP) PO PRN (10:11)
--- NOTE | 2020-08-07 12:21 | PN ---
S CIWA - CIWA Score Nausea/Vomitin-No Nausea/No Vomiting Muscle Tremors: 1-None Visible, but [place] Anxiety: 1-Mildly Anxious Agitation: 1-Slight > Activity Paroxysmal Sweats: 1-Minimal Palms Moist Orientation: 0-Oriented Tacttile Disturbances: 0-None Auditory Disturbances: 0-None Visual Disturbances: 0-None Headache: 0-None Present CIWA-Ar Total Score: 4 S Progress Note (SOAP) Subjective: I need to go home tomorrow so i can get ready for work on monday little anxiety Objective: 08/07/20 12:20 Vital Signs Temperature 97.1 F L 08/07/20 08:53 Pulse Rate 20 L 08/07/20 08:53 Respiratory Rate 16 08/07/20 08:53 Blood Pressure 101/51 L 08/07/20 08:53 O2 Sat by Pulse Oximetry (%) 98 08/07/20 08:53 Laboratory Tests 08/04/20 08/04/20 08/05/20 20:25 21:00 07:45 WBC RBC Hgb Hct MCV MCH MCHC RDW Plt Count MPV Sodium Potassium Chloride Carbon Dioxide Anion Gap BUN Creatinine Est GFR (CKD-EPI)AfAm Est GFR (CKD-EPI)NonAf Random Glucose Calcium Total Bilirubin AST ALT Alkaline Phosphatase Total Protein Albumin POC Urine HCG, Qual Negative Syphilis Serology Non-reactive COVID-19 (ADARSH) Not detected HIV Ag/Ab Combo Qual 08/05/20 08/05/20 08/05/20 07:45 07:45 07:45 WBC 6.4 RBC 4.85 Hgb 14.5 Hct 42.6 MCV 88.0 MCH 29.8 MCHC 33.9 RDW 16.5 H Plt Count 313 D MPV 8.4 Sodium 139 Potassium 3.9 Chloride 101 Carbon Dioxide 30 Anion Gap 8 BUN 11.0 Creatinine 0.6 Est GFR (CKD-EPI)AfAm 121.46 Est GFR (CKD-EPI)NonAf 104.80 Random Glucose 86 Calcium 9.2 Total Bilirubin 0.6 AST 32 ALT 40 Alkaline Phosphatase 109 Total Protein 8.0 Albumin 3.9 POC Urine HCG, Qual Syphilis Serology COVID-19 (ADARSH) HIV Ag/Ab Combo Qual Negative aaox3 ambulating no acute distress Assessment: 08/07/20 12:20 mild withdrawals pt will be d/c tomorrow as per her request. Plan: continue and complete detox d/c in am
[2020-08-07] MEDS: MELATONIN 5 MG TABLETS PO PRN (22:09)
[2020-08-07] MEDS: THIAMINE HCL 100 MG TABLET (FP) PO SCH (22:09)
[2020-08-08] MEDS: ACETAMINOPHEN 325 MG TABLET (FP) PO PRN (04:23)
[2020-08-08] MEDS ORDERED: chlordiazePOXIDE HCL 10 MG CAPSULE PO SCH (05:00)
[2020-08-08] MEDS ORDERED: chlordiazePOXIDE HCL 10 MG CAPSULE PO ONE (06:00)
--- NOTE | 2020-08-08 09:51 | DS ---
[facility] Detox Discharge Summary Admission Date: 08/04/20 Discharge Date: 08/08/20 - History Present History: Alcohol Dependence Additional Comments: Patient was seen and examined during rounds. Alert and oriented x 3, in no acute distress. Full ROM, ambulating in the unit without assistance. Skin was to touch with any lesions. Detox protocol completed without any adverse side effects, patient stable for discharge home this morning. Pertinent Past History: History of GERD, left knee surgery and alcohol use disorder. - Physical Exam Results Vital Signs: Vital Signs Temperature 98.0 F 08/08/20 05:42 Pulse Rate 65 08/08/20 05:42 Respiratory Rate 16 08/08/20 05:42 Blood Pressure 114/68 08/08/20 05:42 O2 Sat by Pulse Oximetry (%) 96 08/08/20 05:42 Vital Signs 08/08/20 05:42 Temperature 98.0 F Pulse Rate 65 Respiratory 16 Rate Blood Pressure 114/68 O2 Sat by Pulse 96 Oximetry (%) Laboratory Last Values WBC 6.4 K/mm3 (4.0-10.0) 08/05/20 07:45 RBC 4.85 M/mm3 (3.60-5.2) 08/05/20 07:45 Hgb 14.5 GM/dL (10.7-15.3) 08/05/20 07:45 Hct 42.6 % (32.4-45.2) 08/05/20 07:45 MCV 88.0 fl (80-96) 08/05/20 07:45 MCH 29.8 pg (25.7-33.7) 08/05/20 07:45 MCHC 33.9 g/dl (32.0-36.0) 08/05/20 07:45 RDW 16.5 % (11.6-15.6) H 08/05/20 07:45 Plt Count 313 K/MM3 (134-434) D 08/05/20 07:45 MPV 8.4 fl (7.5-11.1) 08/05/20 07:45 Sodium 139 mmol/L (136-145) 08/05/20 07:45 Potassium 3.9 mmol/L (3.5-5.1) 08/05/20 07:45 Chloride 101 mmol/L (98-107) 08/05/20 07:45 Carbon Dioxide 30 mmol/L (21-32) 08/05/20 07:45 Anion Gap 8 MMOL/L (8-16) 08/05/20 07:45 BUN 11.0 mg/dL (7-18) 08/05/20 07:45 Creatinine 0.6 mg/dL (0.55-1.3) 08/05/20 07:45 Est GFR (CKD-EPI)AfAm 121.46 08/05/20 07:45 Est GFR (CKD-EPI)NonAf 104.80 08/05/20 07:45 Random Glucose 86 mg/dL (74-106) 08/05/20 07:45 Calcium 9.2 mg/dL (8.5-10.1) 08/05/20 07:45 Total Bilirubin 0.6 mg/dL (0.2-1) 08/05/20 07:45 AST 32 U/L (15-37) 08/05/20 07:45 ALT 40 U/L (13-61) 08/05/20 07:45 Alkaline Phosphatase 109 U/L (45-117) 08/05/20 07:45 Total Protein 8.0 g/dl (6.4-8.2) 08/05/20 07:45 Albumin 3.9 g/dl (3.4-5.0) 08/05/20 07:45 POC Urine HCG, Qual Negative 08/04/20 20:25 Syphilis Serology Non-reactive (NONREACTIVE) 08/05/20 07:45 COVID-19 (ADARSH) Not detected (Not Detected) 08/04/20 21:00 HIV Ag/Ab Combo Qual Negative (NEGATIVE) 08/05/20 07:45 Labs noted. Pertinent Admission Physical Exam Findings: Withdrawal symptoms. - Treatment Hospital Course: Detox Protocol Followed, Detoxed Safely, Responded well, Discharged Condition Good - Medication Discharge Medications: Ambulatory Orders Cetirizine HCl [Zyrtec -] 10 mg PO DAILY 05/04/18 Sertraline HCl [Zoloft] 200 mg PO DAILY 08/04/20 - Diagnosis (1) Alcohol dependence with uncomplicated withdrawal Current Visit: No Status: Acute (2) GERD (gastroesophageal reflux disease) Current Visit: No Status: Chronic Qualifiers: Esophagitis presence: without esophagitis Qualified Code(s): K21.9 - Gastro-esophageal reflux disease without esophagitis (3) Left knee pain Current Visit: No Status: Chronic Qualifiers: Chronicity: chronic Qualified Code(s): M25.562 - Pain in left knee; G89.29 - Other chronic pain - AMA Did Patient Leave Against Medical Advice: No
[2020-08-08 10:17] VITALS: BP 145/90; PULSE 86; TEMP 97.5
[2020-08-09] MEDS ORDERED: chlordiazePOXIDE HCL 10 MG CAPSULE PO ONE (05:00)
== END 2020-08-08 09:34 | disposition home or self-care (01) | DRG 897 ==
LOC: YASAS 19:34 → Y6N 21:46
PROVIDERS: ADMIT Allergy & Immunology; ATTEND Allergy & Immunology
PROC: HZ2ZZZZ Detoxification Services for Substance Abuse Treatment (ICD-10-PCS; principal; 2020-08-04)
DX: F10.230 Alcohol dependence with withdrawal, uncomplicated (principal); F10.24 Alcohol dependence with alcohol-induced mood disorder; F10.282 Alcohol dependence with alcohol-induced sleep disorder; F32.9 Major depressive disorder, single episode, unspecified; K21.9 Gastro-esophageal reflux disease without esophagitis; M25.562 Pain in left knee; G89.29 Other chronic pain; Z87.39 Personal history of other diseases of the musculoskeletal system and connective tissue
CPT/HCPCS: 36415; 80053; 81025; 85027; 86780; 87389; U0003

== ENCOUNTER 2020-12-29 15:14 | Inpatient (IN) | payer OTHER ==
[2020-12-29 16:28] VITALS: BMI 28.8
[2020-12-29] MEDS ORDERED: MAGNESIUM CITRATE 300 ML BOTTLE PO PRN (16:32)
[2020-12-29] MEDS ORDERED: MENTHOL/PHENOL 1 EACH UD MM PRN (16:32)
[2020-12-29] MEDS ORDERED: BISMUTH SUBSALICYLATE 524 MG/30 ML UD PO PRN (16:32)
[2020-12-29] MEDS ORDERED: ACETAMINOPHEN 325 MG TABLET (FP) PO PRN ×2 (16:32→16:44)
[2020-12-29] MEDS ORDERED: MAG HYDROX/AL HYDROX/SIMETH 30 ML UNIT-DOSE CUP PO PRN (16:32)
[2020-12-29] MEDS ORDERED: IBUPROFEN 400 MG TABLET (FP) PO PRN (16:32)
[2020-12-29] MEDS ORDERED: METHOCARBAMOL 500 MG TABLET PO PRN (16:32)
[2020-12-29] MEDS ORDERED: MAGNESIUM HYDROX 2400MG/30ML ORAL SUSPENSION 30 ML CUP PO PRN (16:32)
[2020-12-29] MEDS ORDERED: ONDANSETRON *ODT* 4 MG TABLET SL PRN (16:32)
[2020-12-29] MEDS: chlordiazePOXIDE HCL 25 MG CAPSULE PO PRN (17:49)
[2020-12-29] MEDS: hydrOXYzine PAMOATE 25 MG CAPSULE (FP) PO SCH ×2 (17:49→22:29)
[2020-12-29] MEDS: PRENATAL VITAMINS W/ FOLIC ACID TABLET (FP) PO SCH (17:50)
[2020-12-29] MEDS ORDERED: MELATONIN 5 MG TABLETS PO SCH (22:00)
[2020-12-29] MEDS: chlordiazePOXIDE HCL 25 MG CAPSULE PO SCH (22:29)
[2020-12-29] MEDS: THIAMINE HCL 100 MG TABLET (FP) PO SCH (22:29)
[2020-12-29] MEDS: FAMOTIDINE 20 MG TABLET PO SCH (22:30)
[2020-12-30] MEDS: chlordiazePOXIDE HCL 25 MG CAPSULE PO SCH ×4 (06:24→22:31)
[2020-12-30] MEDS: hydrOXYzine PAMOATE 25 MG CAPSULE (FP) PO SCH ×3 (06:24→13:53)
[2020-12-30] MEDS: PRENATAL VITAMINS W/ FOLIC ACID TABLET (FP) PO SCH (10:14)
[2020-12-30] MEDS: LORATADINE 10 MG TABLET PO SCH (10:15)
[2020-12-30] MEDS: FAMOTIDINE 20 MG TABLET PO SCH ×2 (10:15→22:30)
[2020-12-30] MEDS ORDERED: FLU VACCINE (FLULAVAL) PF 60 MCG/0.5 ML SYRINGE 2020-2021 IM ONE (12:00)
[2020-12-30 13:22] LABS: HEMATOCRIT 42.3 % (32.4-45.2); HEMOGLOBIN 13.9 GM/dL (10.7-15.3); MCHC 32.9 g/dl (32.0-36.0); MEAN CELL VOLUME 88.2 fl (80-96); MEAN PLT VOLUME 8.3 fl (7.5-11.1); PLATELET COUNT 302 K/MM3 (134-434); RDW 15.9 % (11.6-15.6); WHITE BLOOD COUNT 5.6 K/mm3 (4.0-10.0)
[2020-12-30 13:32] LABS: POTASSIUM 3.6 mmol/L (3.5-5.1)
[2020-12-30 13:36] LABS: ALBUMIN 3.7 g/dl (3.4-5.0); CALCIUM 8.7 mg/dL (8.5-10.1)
[2020-12-30 13:39] LABS: CREATININE 0.9 mg/dL (0.55-1.3)
[2020-12-30 13:41] LABS: BILIRUBIN,TOTAL 1.4 mg/dL (0.2-1); TOT PROT 7.2 g/dl (6.4-8.2)
[2020-12-30] MEDS: chlordiazePOXIDE HCL 25 MG CAPSULE PO PRN (13:53)
[2020-12-30 17:32] LABS: URINE APPEARANCE CLEAR; URINE BILIRUBIN NEGATIVE (NEGATIVE); URINE COLOR YELLOW; URINE GLUCOSE (UA) NEGATIVE (NEGATIVE); URINE KETONE NEGATIVE (NEGATIVE); URINE LEUK ESTERASE NEGATIVE (NEGATIVE); URINE NITRITE NEGATIVE (NEGATIVE); URINE PROTEIN NEGATIVE (NEGATIVE); URINE UROBILINOGEN 0.2 mg/dL (0.2-1.0)
[2020-12-30 18:25] LABS: EPI CELLS 5.3 /uL (0-25.1); HYALINE CASTS 0.12 /uL (0-3.1); URINE BACTERIA 146.1 /uL (0-1359); URINE RBC 16.1 /uL (0-23.9); URINE WBC 6.5 /uL (0-25.8)
[2020-12-30] MEDS: hydrOXYzine PAMOATE 25 MG CAPSULE (FP) PO PRN (22:30)
[2020-12-30] MEDS: MELATONIN 5 MG TABLETS PO SCH (22:31)
[2020-12-30] MEDS: THIAMINE HCL 100 MG TABLET (FP) PO SCH (22:31)
[2020-12-31] MEDS: chlordiazePOXIDE HCL 25 MG CAPSULE PO SCH ×4 (06:49→22:27)
[2020-12-31] MEDS: PRENATAL VITAMINS W/ FOLIC ACID TABLET (FP) PO SCH (10:14)
[2020-12-31] MEDS: LORATADINE 10 MG TABLET PO SCH (10:14)
[2020-12-31] MEDS: FLUoxetine HCL 20 MG CAPSULE PO SCH (10:14)
[2020-12-31] MEDS: FAMOTIDINE 20 MG TABLET PO SCH ×2 (10:14→22:27)
[2020-12-31] MEDS ORDERED: PNEUMOC 13-VAL CONJ-DIP CRM/PF 0.5 ML DISP.SYRIN IM ONE (12:00)
[2020-12-31] MEDS ORDERED: PNEUMOCOCCAL 23 VACCINE 0.5 ML VIAL IM ONE (12:00)
[2020-12-31] MEDS: chlordiazePOXIDE HCL 25 MG CAPSULE PO PRN (14:39)
[2020-12-31] MEDS: THIAMINE HCL 100 MG TABLET (FP) PO SCH (22:27)
[2020-12-31] MEDS: MELATONIN 5 MG TABLETS PO SCH (22:27)
[2021-01-01] MEDS ORDERED: chlordiazePOXIDE HCL 10 MG CAPSULE PO PRN
[2021-01-01] MEDS ORDERED: chlordiazePOXIDE HCL 10 MG CAPSULE PO SCH (05:00)
[2021-01-01 08:53] VITALS: BP 132/81; PULSE 87; TEMP 97
[2021-01-01] MEDS: FLUoxetine HCL 20 MG CAPSULE PO SCH (09:29)
[2021-01-01] MEDS: FAMOTIDINE 20 MG TABLET PO SCH (09:29)
[2021-01-01] MEDS: PRENATAL VITAMINS W/ FOLIC ACID TABLET (FP) PO SCH (09:29)
[2021-01-01] MEDS: hydrOXYzine PAMOATE 25 MG CAPSULE (FP) PO PRN (09:30)
[2021-01-01] MEDS: LORATADINE 10 MG TABLET PO SCH (09:31)
[2021-01-02] MEDS ORDERED: chlordiazePOXIDE HCL 10 MG CAPSULE PO SCH (05:00)
[2021-01-03] MEDS ORDERED: chlordiazePOXIDE HCL 10 MG CAPSULE PO ONE (05:00)
== END 2021-01-01 09:35 | disposition left against medical advice (07) | DRG 894 ==
LOC: YASAS 15:14 → Y3N 16:54
PROVIDERS: ADMIT Allergy & Immunology; ATTEND Allergy & Immunology
PROC: HZ2ZZZZ Detoxification Services for Substance Abuse Treatment (ICD-10-PCS; principal; 2020-12-29)
DX: F10.230 Alcohol dependence with withdrawal, uncomplicated (principal); F10.282 Alcohol dependence with alcohol-induced sleep disorder; F10.24 Alcohol dependence with alcohol-induced mood disorder; F32.9 Major depressive disorder, single episode, unspecified; K21.9 Gastro-esophageal reflux disease without esophagitis
CPT/HCPCS: 36415; 80053; 81003; 85027; 86780; 90732; 93005; 93010; C9803; G0008; G0009; Q2036; U0003

== ENCOUNTER 2021-03-05 13:46 | Inpatient (IN) | payer OTHER ==
[2021-03-05 14:42] VITALS: BMI 28.3
[2021-03-05] MEDS ORDERED: NICOTINE POLACRILEX 2 MG GUM BUC PRN (16:53)
[2021-03-05] MEDS ORDERED: MAGNESIUM CITRATE 300 ML BOTTLE PO PRN (16:53)
[2021-03-05] MEDS ORDERED: ACETAMINOPHEN 325 MG TABLET (FP) PO PRN (16:53)
[2021-03-05] MEDS ORDERED: MAG HYDROX/AL HYDROX/SIMETH 30 ML UNIT-DOSE CUP PO PRN (16:53)
[2021-03-05] MEDS ORDERED: ONDANSETRON *ODT* 4 MG TABLET SL PRN (16:53)
[2021-03-05] MEDS ORDERED: MAGNESIUM HYDROX 2400MG/30ML ORAL SUSPENSION 30 ML CUP PO PRN (16:53)
[2021-03-05] MEDS ORDERED: IBUPROFEN 400 MG TABLET (FP) PO PRN (16:53)
[2021-03-05] MEDS: chlordiazePOXIDE HCL 25 MG CAPSULE PO PRN (19:02)
[2021-03-05] MEDS: hydrOXYzine PAMOATE 25 MG CAPSULE (FP) PO SCH ×2 (19:02→22:15)
[2021-03-05] MEDS: MELATONIN 5 MG TABLETS PO SCH (22:15)
[2021-03-05] MEDS: chlordiazePOXIDE HCL 25 MG CAPSULE PO SCH (22:15)
[2021-03-05] MEDS: THIAMINE HCL 100 MG TABLET (FP) PO SCH (22:15)
[2021-03-05] MEDS: METHOCARBAMOL 500 MG TABLET PO PRN (22:16)
[2021-03-06] MEDS: chlordiazePOXIDE HCL 25 MG CAPSULE PO PRN ×2 (02:37→12:12)
[2021-03-06] MEDS: chlordiazePOXIDE HCL 25 MG CAPSULE PO SCH ×4 (05:37→22:25)
[2021-03-06] MEDS: hydrOXYzine PAMOATE 25 MG CAPSULE (FP) PO SCH ×5 (05:37→22:25)
[2021-03-06 10:10] LABS: HEMATOCRIT 42.2 % (32.4-45.2); HEMOGLOBIN 14.3 GM/dL (10.7-15.3); MCH 29.5 pg (25.7-33.7); MEAN CELL VOLUME 86.7 fl (80-96); MEAN PLT VOLUME 8.1 fl (7.5-11.1); PLATELET COUNT 255 K/MM3 (134-434); RBC 4.87 M/mm3 (3.60-5.2); RDW 16.6 % (11.6-15.6); WHITE BLOOD COUNT 6.4 K/mm3 (4.0-10.0)
[2021-03-06] MEDS: PRENATAL VITAMINS W/ FOLIC ACID TABLET (FP) PO SCH (10:17)
[2021-03-06] MEDS: BISMUTH SUBSALICYLATE 524 MG/30 ML UD PO PRN (10:20)
[2021-03-06 10:44] LABS: ALBUMIN 4.2 g/dl (3.4-5.0); BLOOD UREA NITROGEN 10.8 mg/dL (7-18); CALCIUM 9.3 mg/dL (8.5-10.1)
[2021-03-06 10:48] LABS: BILIRUBIN,TOTAL 1.8 mg/dL (0.2-1); CREATININE 0.7 mg/dL (0.55-1.3); TOT PROT 8.2 g/dl (6.4-8.2)
[2021-03-06] MEDS: ACETAMINOPHEN 325 MG TABLET (FP) PO PRN (12:07)
[2021-03-06] MEDS ORDERED: POTASSIUM CHLORIDE TABS 20 MEQ TABLET.ER (FP) PO ONE (14:29)
[2021-03-06] MEDS: METHOCARBAMOL 500 MG TABLET PO PRN (17:50)
[2021-03-06] MEDS: QUEtiapine FUMARATE 50 MG TABLET PO SCH (22:25)
[2021-03-06] MEDS: MELATONIN 5 MG TABLETS PO SCH (22:35)
[2021-03-06] MEDS: THIAMINE HCL 100 MG TABLET (FP) PO SCH (22:35)
[2021-03-06] MEDS ORDERED: MAG HYDROX/AL HYDROX/SIMETH 30 ML UNIT-DOSE CUP PO ONE (22:35)
[2021-03-07] MEDS: chlordiazePOXIDE HCL 25 MG CAPSULE PO SCH ×4 (05:53→22:09)
[2021-03-07] MEDS: hydrOXYzine PAMOATE 25 MG CAPSULE (FP) PO SCH ×5 (05:53→22:09)
[2021-03-07] MEDS: METHOCARBAMOL 500 MG TABLET PO PRN (05:54)
[2021-03-07] MEDS: chlordiazePOXIDE HCL 25 MG CAPSULE PO PRN ×2 (08:53→11:57)
[2021-03-07] MEDS: FLUoxetine HCL 20 MG CAPSULE PO SCH (08:59)
[2021-03-07] MEDS: PRENATAL VITAMINS W/ FOLIC ACID TABLET (FP) PO SCH (08:59)
[2021-03-07] MEDS: ACETAMINOPHEN 325 MG TABLET (FP) PO PRN (09:07)
[2021-03-07] MEDS: MENTHOL/PHENOL 1 EACH UD MM PRN ×2 (15:39→22:09)
[2021-03-07] MEDS: MELATONIN 5 MG TABLETS PO SCH (22:09)
[2021-03-07] MEDS: THIAMINE HCL 100 MG TABLET (FP) PO SCH (22:09)
[2021-03-07] MEDS: QUEtiapine FUMARATE 50 MG TABLET PO SCH (22:09)
[2021-03-08] MEDS ORDERED: chlordiazePOXIDE HCL 10 MG CAPSULE PO PRN
[2021-03-08] MEDS: MENTHOL/PHENOL 1 EACH UD MM PRN ×2 (03:21→14:25)
[2021-03-08] MEDS: METHOCARBAMOL 500 MG TABLET PO PRN ×3 (03:21→17:11)
[2021-03-08] MEDS: chlordiazePOXIDE HCL 10 MG CAPSULE PO SCH ×4 (05:18→22:06)
[2021-03-08] MEDS: hydrOXYzine PAMOATE 25 MG CAPSULE (FP) PO SCH ×5 (05:18→22:06)
[2021-03-08 08:06] LABS: SARS-CoV-2 NAA Not Detected (Not Detected)
[2021-03-08] MEDS: ACETAMINOPHEN 325 MG TABLET (FP) PO PRN (10:09)
[2021-03-08] MEDS: FLUoxetine HCL 20 MG CAPSULE PO SCH (10:10)
[2021-03-08] MEDS: PRENATAL VITAMINS W/ FOLIC ACID TABLET (FP) PO SCH (10:10)
[2021-03-08] MEDS: MELATONIN 5 MG TABLETS PO SCH (22:06)
[2021-03-08] MEDS: QUEtiapine FUMARATE 50 MG TABLET PO SCH (22:06)
[2021-03-08] MEDS: THIAMINE HCL 100 MG TABLET (FP) PO SCH (22:06)
[2021-03-09] MEDS: ACETAMINOPHEN 325 MG TABLET (FP) PO PRN (02:09)
[2021-03-09] MEDS ORDERED: MASKS NR ONE (02:54)
[2021-03-09] MEDS: chlordiazePOXIDE HCL 10 MG CAPSULE PO SCH ×2 (06:05→17:33)
[2021-03-09] MEDS: hydrOXYzine PAMOATE 25 MG CAPSULE (FP) PO SCH ×5 (06:05→22:14)
[2021-03-09] MEDS: MENTHOL/PHENOL 1 EACH UD MM PRN ×2 (06:08→13:14)
[2021-03-09] MEDS: PRENATAL VITAMINS W/ FOLIC ACID TABLET (FP) PO SCH (10:16)
[2021-03-09] MEDS: FLUoxetine HCL 20 MG CAPSULE PO SCH (10:16)
[2021-03-09] MEDS: BISMUTH SUBSALICYLATE 524 MG/30 ML UD PO PRN (15:45)
[2021-03-09] MEDS: QUEtiapine FUMARATE 50 MG TABLET PO SCH (22:13)
[2021-03-09] MEDS: THIAMINE HCL 100 MG TABLET (FP) PO SCH (22:13)
[2021-03-09] MEDS: MELATONIN 5 MG TABLETS PO SCH (22:14)
[2021-03-09 22:32] VITALS: TEMP 97.1
[2021-03-10] MEDS: METHOCARBAMOL 500 MG TABLET PO PRN (03:36)
[2021-03-10] MEDS: ACETAMINOPHEN 325 MG TABLET (FP) PO PRN ×2 (03:37→09:03)
[2021-03-10] MEDS ORDERED: chlordiazePOXIDE HCL 10 MG CAPSULE PO ONE (05:00)
[2021-03-10] MEDS: hydrOXYzine PAMOATE 25 MG CAPSULE (FP) PO SCH ×2 (06:06→09:29)
[2021-03-10] MEDS: MENTHOL/PHENOL 1 EACH UD MM PRN (07:45)
[2021-03-10 09:01] VITALS: BP 108/67; PULSE 64
[2021-03-10] MEDS: PRENATAL VITAMINS W/ FOLIC ACID TABLET (FP) PO SCH (09:28)
[2021-03-10] MEDS: FLUoxetine HCL 20 MG CAPSULE PO SCH (09:29)
== END 2021-03-10 09:58 | disposition home or self-care (01) | DRG 897 ==
LOC: YASAS 13:46 → Y3N 17:47
PROVIDERS: ADMIT Allergy & Immunology; ATTEND Allergy & Immunology
PROC: HZ2ZZZZ Detoxification Services for Substance Abuse Treatment (ICD-10-PCS; principal; 2021-03-05)
DX: F10.230 Alcohol dependence with withdrawal, uncomplicated (principal); F32.89 Other specified depressive episodes; F41.9 Anxiety disorder, unspecified; E87.6 Hypokalemia; G47.00 Insomnia, unspecified; K21.9 Gastro-esophageal reflux disease without esophagitis
CPT/HCPCS: 36415; 80053; 81025; 84132; 85027; 86780; 93005; 93010; C9803; U0003; U0005

== ENCOUNTER 2021-04-12 11:27 | Inpatient (IN) | payer OTHER ==
[2021-04-12 12:55] VITALS: BMI 27.1
[2021-04-12] MEDS ORDERED: ACETAMINOPHEN 325 MG TABLET (FP) PO PRN ×2 (13:10)
[2021-04-12] MEDS ORDERED: MAGNESIUM CITRATE 300 ML BOTTLE PO PRN (13:10)
[2021-04-12] MEDS ORDERED: BISMUTH SUBSALICYLATE 524 MG/30 ML PO PRN (13:10)
[2021-04-12] MEDS ORDERED: ONDANSETRON *ODT* 4 MG TABLET SL PRN (13:10)
[2021-04-12] MEDS ORDERED: LORazepam 1 MG TABLET PO PRN (13:10)
[2021-04-12] MEDS ORDERED: MAG HYDROX/AL HYDROX/SIMETH 30 ML UNIT-DOSE CUP PO PRN (13:10)
[2021-04-12] MEDS ORDERED: MAGNESIUM HYDROX 2400MG/30ML ORAL SUSPENSION 30 ML CUP PO PRN (13:10)
[2021-04-12] MEDS: hydrOXYzine PAMOATE 25 MG CAPSULE (FP) PO SCH ×3 (14:53→22:38)
[2021-04-12] MEDS: PRENATAL VITAMINS W/ FOLIC ACID TABLET (FP) PO SCH (14:53)
[2021-04-12] MEDS: LORazepam 2 MG TABLET PO SCH ×2 (18:30→22:37)
[2021-04-12 20:18] LABS: HEMATOCRIT 42.4 % (32.4-45.2); HEMOGLOBIN 14.2 GM/dL (10.7-15.3); MCH 28.9 pg (25.7-33.7); MCHC 33.5 g/dl (32.0-36.0); MEAN CELL VOLUME 86.3 fl (80-96); MEAN PLT VOLUME 8.1 fl (7.5-11.1); PLATELET COUNT 284 K/MM3 (134-434); RBC 4.92 M/mm3 (3.60-5.2); RDW 15.7 % (11.6-15.6); WHITE BLOOD COUNT 5.2 K/mm3 (4.0-10.0)
[2021-04-12 20:22] LABS: BLOOD UREA NITROGEN 4.4 mg/dL (7-18)
[2021-04-12 20:23] LABS: ALBUMIN 3.9 g/dl (3.4-5.0)
[2021-04-12 20:26] LABS: CREATININE 0.4 mg/dL (0.55-1.3)
[2021-04-12 20:27] LABS: BILIRUBIN,TOTAL 1.1 mg/dL (0.2-1)
[2021-04-12] MEDS: METHOCARBAMOL 500 MG TABLET PO PRN (22:37)
[2021-04-12] MEDS: MELATONIN 5 MG TABLETS PO SCH (22:37)
[2021-04-12] MEDS: THIAMINE HCL 100 MG TABLET (FP) PO SCH (22:37)
[2021-04-13] MEDS: LORazepam 2 MG TABLET PO SCH ×4 (06:14→22:30)
[2021-04-13] MEDS: hydrOXYzine PAMOATE 25 MG CAPSULE (FP) PO SCH ×5 (06:15→22:30)
[2021-04-13] MEDS: PRENATAL VITAMINS W/ FOLIC ACID TABLET (FP) PO SCH (11:16)
[2021-04-13] MEDS: METHOCARBAMOL 500 MG TABLET PO PRN (11:17)
[2021-04-13] MEDS: FLUoxetine HCL 20 MG CAPSULE PO SCH (11:17)
[2021-04-13] MEDS: IBUPROFEN 400 MG TABLET (FP) PO PRN (11:20)
[2021-04-13] MEDS: THIAMINE HCL 100 MG TABLET (FP) PO SCH (22:30)
[2021-04-13] MEDS: SUVOREXANT 10 MG TABLET PO PRN (22:32)
[2021-04-13] MEDS: MELATONIN 5 MG TABLETS PO SCH (22:51)
[2021-04-14] MEDS ORDERED: MASKS NR ONE (05:50)
[2021-04-14] MEDS: hydrOXYzine PAMOATE 25 MG CAPSULE (FP) PO SCH ×5 (05:51→22:17)
[2021-04-14] MEDS: LORazepam 1 MG TABLET PO SCH ×2 (05:51→10:35)
[2021-04-14] MEDS: PRENATAL VITAMINS W/ FOLIC ACID TABLET (FP) PO SCH (10:34)
[2021-04-14] MEDS: FLUoxetine HCL 20 MG CAPSULE PO SCH (10:35)
[2021-04-14] MEDS ORDERED: diazePAM 5 MG TABLET PO PRN (14:10)
[2021-04-14] MEDS ORDERED: diazePAM 5 MG TABLET PO SCH (18:00)
[2021-04-14] MEDS: MELATONIN 5 MG TABLETS PO SCH (22:17)
[2021-04-14] MEDS: THIAMINE HCL 100 MG TABLET (FP) PO SCH (22:19)
[2021-04-14] MEDS: SUVOREXANT 10 MG TABLET PO PRN (22:19)
[2021-04-15] MEDS ORDERED: diazePAM 5 MG TABLET PO PRN (00:01)
[2021-04-15] MEDS ORDERED: LORazepam 0.5 MG TABLET PO SCH (05:00)
[2021-04-15] MEDS: hydrOXYzine PAMOATE 25 MG CAPSULE (FP) PO SCH ×5 (05:49→22:21)
[2021-04-15] MEDS: METHOCARBAMOL 500 MG TABLET PO PRN ×2 (05:50→15:04)
[2021-04-15] MEDS ORDERED: diazePAM 5 MG TABLET PO SCH (06:00)
[2021-04-15] MEDS: IBUPROFEN 400 MG TABLET (FP) PO PRN (07:38)
[2021-04-15 08:12] LABS: SARS-CoV-2 NAA Not Detected (Not Detected)
[2021-04-15] MEDS ORDERED: LORazepam 0.5 MG TABLET PO PRN ×2 (11:01)
[2021-04-15] MEDS: PRENATAL VITAMINS W/ FOLIC ACID TABLET (FP) PO SCH (11:04)
[2021-04-15] MEDS: FLUoxetine HCL 20 MG CAPSULE PO SCH (11:04)
[2021-04-15] MEDS: MENTHOL/PHENOL 1 EACH UD MM PRN (18:43)
[2021-04-15] MEDS ORDERED: LORazepam 0.5 MG TABLET PO ONE ×2 (22:00)
[2021-04-15] MEDS: MELATONIN 5 MG TABLETS PO SCH (22:21)
[2021-04-15] MEDS: THIAMINE HCL 100 MG TABLET (FP) PO SCH (22:21)
[2021-04-16] MEDS: MENTHOL/PHENOL 1 EACH UD MM PRN (04:25)
[2021-04-16] MEDS: METHOCARBAMOL 500 MG TABLET PO PRN (04:25)
[2021-04-16] MEDS ORDERED: LORazepam 0.5 MG TABLET PO ONE ×2 (05:00)
[2021-04-16] MEDS: hydrOXYzine PAMOATE 25 MG CAPSULE (FP) PO SCH (05:55)
[2021-04-16] MEDS ORDERED: diazePAM 5 MG TABLET PO ONE (06:00)
[2021-04-16 06:39] VITALS: BP 135/90; PULSE 86; TEMP 97.7
== END 2021-04-16 09:18 | disposition home or self-care (01) | DRG 897 ==
LOC: YASAS 11:27 → Y6N 13:15
PROVIDERS: ADMIT Allergy & Immunology; ATTEND Allergy & Immunology
PROC: HZ2ZZZZ Detoxification Services for Substance Abuse Treatment (ICD-10-PCS; principal; 2021-04-12)
DX: F10.230 Alcohol dependence with withdrawal, uncomplicated (principal); F10.220 Alcohol dependence with intoxication, uncomplicated; F32.89 Other specified depressive episodes; F41.9 Anxiety disorder, unspecified; K21.9 Gastro-esophageal reflux disease without esophagitis; Z98.890 Other specified postprocedural states
CPT/HCPCS: 36415; 80053; 81025; 85027; 86780; C9803; U0003; U0005

== ENCOUNTER 2021-08-15 18:04 | Inpatient (IN) | payer SELFPAY ==
[2021-08-15 18:31] VITALS: BMI 26.2
[2021-08-15] MEDS ORDERED: METHOCARBAMOL 500 MG TABLET PO PRN (19:13)
[2021-08-15] MEDS ORDERED: MENTHOL/PHENOL 1 EACH UD MM PRN (19:13)
[2021-08-15] MEDS ORDERED: LORazepam 1 MG TABLET PO PRN (19:13)
[2021-08-15] MEDS ORDERED: MAGNESIUM CITRATE 300 ML BOTTLE PO PRN (19:13)
[2021-08-15] MEDS ORDERED: BISMUTH SUBSALICYLATE 524 MG/30 ML PO PRN (19:13)
[2021-08-15] MEDS ORDERED: MAGNESIUM HYDROX 2400MG/30ML ORAL SUSPENSION 30 ML CUP PO PRN (19:13)
[2021-08-15] MEDS ORDERED: ONDANSETRON *ODT* 4 MG TABLET SL PRN (19:13)
[2021-08-15] MEDS ORDERED: ACETAMINOPHEN 325 MG TABLET (FP) PO PRN ×2 (19:13)
[2021-08-15] MEDS ORDERED: MAG HYDROX/AL HYDROX/SIMETH 30 ML UNIT-DOSE CUP PO PRN (19:13)
[2021-08-15] MEDS ORDERED: IBUPROFEN 400 MG TABLET (FP) PO PRN (19:13)
[2021-08-15] MEDS ORDERED: MELATONIN 5 MG TABLETS PO SCH (22:00)
[2021-08-15] MEDS ORDERED: THIAMINE HCL 100 MG TABLET (FP) PO SCH (22:00)
[2021-08-15] MEDS: LORazepam 2 MG TABLET PO SCH (22:16)
[2021-08-15] MEDS: hydrOXYzine PAMOATE 25 MG CAPSULE (FP) PO SCH (22:17)
[2021-08-16] MEDS: hydrOXYzine PAMOATE 25 MG CAPSULE (FP) PO SCH (05:49)
[2021-08-16] MEDS: LORazepam 2 MG TABLET PO SCH (05:49)
[2021-08-16 06:40] VITALS: BP 154/98; PULSE 97; TEMP 97.7
[2021-08-16] MEDS ORDERED: PRENATAL VITAMINS W/ FOLIC ACID TABLET (FP) PO SCH (10:00)
[2021-08-16 10:52] LABS: HEMATOCRIT 41.7 % (32.4-45.2); HEMOGLOBIN 14.4 GM/dL (10.7-15.3); MCH 29.7 pg (25.7-33.7); MCHC 34.5 g/dl (32.0-36.0); MEAN CELL VOLUME 86.2 fl (80-96); MEAN PLT VOLUME 8.4 fl (7.5-11.1); PLATELET COUNT 270 10^3/uL (134-434); RBC 4.84 M/mm3 (3.60-5.2); RDW 16.4 % (11.6-15.6)
[2021-08-16 10:54] LABS: ALBUMIN 3.8 g/dl (3.4-5.0)
[2021-08-16 10:56] LABS: TOT PROT 7.6 g/dl (6.4-8.2)
[2021-08-16 10:57] LABS: CALCIUM 8.9 mg/dL (8.5-10.1); CREATININE 0.5 mg/dL (0.55-1.3)
[2021-08-16 11:04] LABS: BILIRUBIN,TOTAL 1.6 mg/dL (0.2-1)
[2021-08-17] MEDS ORDERED: LORazepam 1 MG TABLET PO SCH (05:00)
[2021-08-18] MEDS ORDERED: LORazepam 0.5 MG TABLET PO PRN
[2021-08-18] MEDS ORDERED: LORazepam 0.5 MG TABLET PO SCH (05:00)
[2021-08-19] MEDS ORDERED: LORazepam 0.5 MG TABLET PO ONE (05:00)
== END 2021-08-16 10:53 | disposition left against medical advice (07) | DRG 770 ==
LOC: YASAS 18:04 → Y6N 19:14
PROVIDERS: ADMIT Allergy & Immunology; ATTEND Allergy & Immunology
PROC: HZ2ZZZZ Detoxification Services for Substance Abuse Treatment (ICD-10-PCS; principal; 2021-08-15)
DX: F10.230 Alcohol dependence with withdrawal, uncomplicated (principal); F41.9 Anxiety disorder, unspecified; F32.9 Major depressive disorder, single episode, unspecified; K21.9 Gastro-esophageal reflux disease without esophagitis
CPT/HCPCS: 36415; 80053; 81025; 85027; 86780; C9803; U0003; U0005

== ENCOUNTER 2021-11-22 13:38 | Inpatient (IN) | payer OTHER ==
[2021-11-22] MEDS ORDERED: ACETAMINOPHEN 325 MG TABLET (FP) PO PRN ×2 (14:47)
[2021-11-22] MEDS ORDERED: MAGNESIUM HYDROX 2400MG/30ML ORAL SUSPENSION 30 ML CUP PO PRN (14:47)
[2021-11-22] MEDS ORDERED: BISMUTH SUBSALICYLATE 524 MG/30 ML PO PRN (14:47)
[2021-11-22] MEDS ORDERED: ONDANSETRON *ODT* 4 MG TABLET SL PRN (14:47)
[2021-11-22] MEDS ORDERED: MAG HYDROX/AL HYDROX/SIMETH 30 ML UNIT-DOSE CUP PO PRN (14:47)
[2021-11-22] MEDS ORDERED: NICOTINE 10 MG CARTRIDGE (INHALER) IH PRN (14:47)
[2021-11-22] MEDS ORDERED: MAGNESIUM CITRATE 300 ML BOTTLE PO PRN (14:47)
[2021-11-22] MEDS ORDERED: MENTHOL/PHENOL 1 EACH UD MM PRN (14:47)
[2021-11-22 19:53] VITALS: BMI 27.5
[2021-11-22] MEDS ORDERED: MELATONIN 5 MG TABLETS PO SCH (22:00)
[2021-11-22] MEDS: hydrOXYzine PAMOATE 25 MG CAPSULE (FP) PO SCH (22:11)
[2021-11-22] MEDS: chlordiazePOXIDE HCL 25 MG CAPSULE PO SCH ×2 (22:11→23:00)
[2021-11-22] MEDS: THIAMINE HCL 100 MG TABLET (FP) PO SCH (22:11)
[2021-11-23] MEDS: hydrOXYzine PAMOATE 25 MG CAPSULE (FP) PO SCH ×6 (01:23→22:28)
[2021-11-23] MEDS: chlordiazePOXIDE HCL 25 MG CAPSULE PO SCH ×4 (05:16→22:28)
[2021-11-23] MEDS: chlordiazePOXIDE HCL 25 MG CAPSULE PO PRN (08:48)
[2021-11-23] MEDS: PRENATAL VITAMINS W/ FOLIC ACID TABLET (FP) PO SCH (10:14)
[2021-11-23] MEDS: METHOCARBAMOL 500 MG TABLET PO PRN ×2 (10:14→22:28)
[2021-11-23] MEDS: FLUoxetine HCL 20 MG CAPSULE PO SCH (10:15)
[2021-11-23 12:30] LABS: BLOOD UREA NITROGEN 14.3 mg/dL (7-18); CALCIUM 9.2 mg/dL (8.5-10.1)
[2021-11-23 12:31] LABS: ALBUMIN 3.6 g/dl (3.4-5.0); HEMATOCRIT 42.7 % (32.4-45.2); MCH 28.4 pg (25.7-33.7); MCHC 32.7 g/dl (32.0-36.0); MEAN CELL VOLUME 86.8 fl (80-96); MEAN PLT VOLUME 8.6 fl (7.5-11.1); PLATELET COUNT 228 10^3/uL (134-434); RBC 4.92 M/mm3 (3.60-5.2); RDW 16.2 % (11.6-15.6); WHITE BLOOD COUNT 5.1 K/mm3 (4.0-10.0)
[2021-11-23 12:34] LABS: CREATININE 0.7 mg/dL (0.55-1.3)
[2021-11-23 12:35] LABS: TOT PROT 7.6 g/dl (6.4-8.2)
[2021-11-23] MEDS: MELATONIN 5 MG TABLETS PO SCH (22:27)
[2021-11-23] MEDS: THIAMINE HCL 100 MG TABLET (FP) PO SCH (22:28)
[2021-11-24] MEDS: hydrOXYzine PAMOATE 25 MG CAPSULE (FP) PO SCH ×5 (05:12→22:16)
[2021-11-24] MEDS: chlordiazePOXIDE HCL 25 MG CAPSULE PO SCH ×4 (05:13→22:17)
[2021-11-24] MEDS: IBUPROFEN 400 MG TABLET (FP) PO PRN (05:13)
[2021-11-24] MEDS: PRENATAL VITAMINS W/ FOLIC ACID TABLET (FP) PO SCH (10:47)
[2021-11-24] MEDS: METHOCARBAMOL 500 MG TABLET PO PRN (10:48)
[2021-11-24] MEDS: FLUoxetine HCL 20 MG CAPSULE PO SCH (10:48)
[2021-11-24] MEDS: chlordiazePOXIDE HCL 25 MG CAPSULE PO PRN (17:42)
[2021-11-24] MEDS: MELATONIN 5 MG TABLETS PO SCH (22:16)
[2021-11-24] MEDS: THIAMINE HCL 100 MG TABLET (FP) PO SCH (22:17)
[2021-11-25] MEDS: IBUPROFEN 400 MG TABLET (FP) PO PRN (01:53)
[2021-11-25] MEDS: chlordiazePOXIDE HCL 10 MG CAPSULE PO PRN ×2 (01:54→13:26)
[2021-11-25] MEDS: hydrOXYzine PAMOATE 25 MG CAPSULE (FP) PO SCH ×4 (05:49→18:23)
[2021-11-25] MEDS: chlordiazePOXIDE HCL 10 MG CAPSULE PO SCH ×3 (05:50→18:23)
[2021-11-25] MEDS: PRENATAL VITAMINS W/ FOLIC ACID TABLET (FP) PO SCH (10:38)
[2021-11-25] MEDS: METHOCARBAMOL 500 MG TABLET PO PRN (10:38)
[2021-11-25] MEDS: FLUoxetine HCL 20 MG CAPSULE PO SCH (10:39)
[2021-11-25 19:52] VITALS: BP 150/71; PULSE 119; TEMP 98.4
[2021-11-26] MEDS ORDERED: chlordiazePOXIDE HCL 10 MG CAPSULE PO SCH (05:00)
[2021-11-27] MEDS ORDERED: chlordiazePOXIDE HCL 10 MG CAPSULE PO ONE (05:00)
== END 2021-11-25 19:52 | disposition left against medical advice (07) | DRG 894 ==
LOC: YASAS 13:38 → Y6N 20:39
PROVIDERS: ADMIT Allergy & Immunology; ATTEND Allergy & Immunology
PROC: HZ2ZZZZ Detoxification Services for Substance Abuse Treatment (ICD-10-PCS; principal; 2021-11-22)
DX: F10.230 Alcohol dependence with withdrawal, uncomplicated (principal); F10.280 Alcohol dependence with alcohol-induced anxiety disorder; F10.282 Alcohol dependence with alcohol-induced sleep disorder; F10.24 Alcohol dependence with alcohol-induced mood disorder; F41.9 Anxiety disorder, unspecified; F32.A Depression, unspecified; K21.9 Gastro-esophageal reflux disease without esophagitis
CPT/HCPCS: 36415; 80053; 85027; 86780; C9803; U0003; U0005

== ENCOUNTER 2023-11-24 23:08 | Inpatient (IN) | payer OTHER ==
[2023-11-24 23:30] VITALS: BMI 22.4
[2023-11-24] MEDS ORDERED: BISMUTH SUBSALICYLATE 524 MG/30 ML PO PRN (23:52)
[2023-11-24] MEDS ORDERED: MAG HYDROX/AL HYDROX/SIMETH 30 ML UNIT-DOSE CUP PO PRN (23:52)
[2023-11-24] MEDS ORDERED: P-EPHED 60MG/TRIPROLIDI 2.5MG TABLET PO PRN (23:52)
[2023-11-24] MEDS ORDERED: ONDANSETRON *ODT* 4 MG TABLET SL PRN (23:52)
[2023-11-24] MEDS ORDERED: IBUPROFEN 400 MG TABLET (FP) PO PRN (23:52)
[2023-11-24] MEDS ORDERED: POLYETHYLENE GLYCOL (HEALTHYLAX) 3350 17 GM PACKET PO PRN (23:52)
[2023-11-24] MEDS ORDERED: DICYCLOMINE HCL 10 MG CAPSULE PO PRN (23:52)
[2023-11-24] MEDS ORDERED: BENZONATATE 200 MG CAPSULE PO PRN (23:52)
[2023-11-24] MEDS ORDERED: ACETAMINOPHEN 325 MG TABLET (FP) PO PRN (23:52)
[2023-11-24] MEDS ORDERED: MAGNESIUM HYDROX 2400MG/30ML ORAL SUSPENSION 30 ML CUP PO PRN (23:52)
[2023-11-24] MEDS ORDERED: BENZOCAINE/MENTHOL (CHLORASEPTIC ) LOZENGE MM PRN (23:52)
[2023-11-24] MEDS ORDERED: guaiFENesin 600 MG TABLET.ER (FP) PO PRN (23:52)
[2023-11-25] MEDS ORDERED: chlordiazePOXIDE HCL 25 MG CAPSULE PO ONE (00:02)
[2023-11-25] MEDS ORDERED: chlordiazePOXIDE HCL 25 MG CAPSULE PO PRN (00:02)
[2023-11-25] MEDS ORDERED: propRANOLol HCL 10 MG TABLET PO ONE (00:02)
[2023-11-25] MEDS: VITAMINS A AND D TOPICAL OINTMENT 60 GM TUBE TP SCH ×2 (07:11→12:15)
[2023-11-25] MEDS: chlordiazePOXIDE HCL 25 MG CAPSULE PO SCH ×4 (07:19→22:16)
[2023-11-25] MEDS: LOPERAMIDE HCL 2 MG CAPSULE PO PRN (09:13)
[2023-11-25 09:39] LABS: CHLORIDE 93 mmol/L (98-107); HEMATOCRIT 43.5 % (32.4-45.2); HEMOGLOBIN 14.4 GM/dL (10.7-15.3); MEAN CELL VOLUME 87.8 fl (80-96); MEAN PLT VOLUME 8.5 fl (7.5-11.1); PLATELET COUNT 175 10^3/uL (134-434); POTASSIUM 3.5 mmol/L (3.5-5.1); RBC 4.95 M/mm3 (3.60-5.2); RDW 16.9 % (11.6-15.6); SODIUM 134 mmol/L (136-145); WHITE BLOOD COUNT 4.8 K/mm3 (4.0-10.0)
[2023-11-25 09:52] LABS: ALBUMIN 4.2 g/dl (3.4-5.0); CALCIUM 8.9 mg/dL (8.5-10.1); CREATININE 0.5 mg/dL (0.55-1.3); GLUCOSE,RANDOM 76 mg/dL (74-106)
[2023-11-25 09:53] LABS: ANION GAP 12 mmol/L (4-13); CO2 29 mmol/L (21-32)
[2023-11-25 09:54] LABS: BILIRUBIN,TOTAL 1.8 mg/dL (0.2-1); TOT PROT 8.1 g/dl (6.4-8.2)
[2023-11-25 09:55] LABS: SGOT/AST 81 U/L (15-37)
[2023-11-25 09:56] LABS: ALK PHOS 115 U/L (45-117); SGPT/ALT 79 U/L (13-61)
[2023-11-25] MEDS: PRENATAL VITAMINS W/ FOLIC ACID TABLET (FP) PO SCH (10:06)
[2023-11-25] MEDS ORDERED: COLLOIDAL OATMEAL 1 BAR EACH TP PRN (13:45)
[2023-11-25] MEDS ORDERED: MELATONIN 5 MG TABLETS PO SCH (22:00)
[2023-11-25] MEDS: THIAMINE HCL 100 MG TABLET (FP) PO SCH (22:15)
[2023-11-25] MEDS: SUVOREXANT 10 MG TABLET PO PRN (23:41)
[2023-11-26] MEDS: VITAMINS A AND D TOPICAL OINTMENT 60 GM TUBE TP SCH ×5 (01:21→18:18)
[2023-11-26] MEDS: chlordiazePOXIDE HCL 25 MG CAPSULE PO SCH ×4 (05:44→22:17)
[2023-11-26] MEDS: PRENATAL VITAMINS W/ FOLIC ACID TABLET (FP) PO SCH (10:05)
[2023-11-26] MEDS: SUVOREXANT 10 MG TABLET PO PRN (22:17)
[2023-11-26] MEDS: THIAMINE HCL 100 MG TABLET (FP) PO SCH (22:17)
[2023-11-26] MEDS: SODIUM CHLORIDE NASAL SPRAY 44 ML BOTTLE NS SCH (22:18)
[2023-11-27] MEDS ORDERED: chlordiazePOXIDE HCL 10 MG CAPSULE PO PRN
[2023-11-27] MEDS: VITAMINS A AND D TOPICAL OINTMENT 60 GM TUBE TP SCH ×4 (00:45→17:12)
[2023-11-27] MEDS: chlordiazePOXIDE HCL 10 MG CAPSULE PO SCH ×4 (06:00→22:14)
[2023-11-27] MEDS ORDERED: chlordiazePOXIDE 5 MG CAPSULE ONE (10:10)
[2023-11-27] MEDS: SODIUM CHLORIDE NASAL SPRAY 44 ML BOTTLE NS SCH ×2 (10:11→22:14)
[2023-11-27] MEDS: PRENATAL VITAMINS W/ FOLIC ACID TABLET (FP) PO SCH (10:11)
[2023-11-27] MEDS: SUVOREXANT 10 MG TABLET PO PRN (22:13)
[2023-11-27] MEDS: THIAMINE HCL 100 MG TABLET (FP) PO SCH (22:14)
[2023-11-27] MEDS: ARTIFICIAL TEARS OPHTHALMIC DROPS OU SCH (22:14)
[2023-11-28] MEDS: chlordiazePOXIDE HCL 10 MG CAPSULE PO SCH ×2 (05:40→17:30)
[2023-11-28] MEDS: ARTIFICIAL TEARS OPHTHALMIC DROPS OU SCH ×3 (05:40→22:22)
[2023-11-28] MEDS: VITAMINS A AND D TOPICAL OINTMENT 60 GM TUBE TP SCH ×4 (05:41→18:18)
[2023-11-28] MEDS: IBUPROFEN 600 MG TABLET (FP) PO PRN ×2 (09:08→22:23)
[2023-11-28] MEDS: PRENATAL VITAMINS W/ FOLIC ACID TABLET (FP) PO SCH (10:08)
[2023-11-28] MEDS: SODIUM CHLORIDE NASAL SPRAY 44 ML BOTTLE NS SCH ×2 (10:08→22:24)
[2023-11-28] MEDS: hydrOXYzine PAMOATE 25 MG CAPSULE (FP) PO PRN (17:31)
[2023-11-28] MEDS: LOPERAMIDE HCL 2 MG CAPSULE PO PRN (18:43)
[2023-11-28] MEDS: SUVOREXANT 10 MG TABLET PO PRN (21:27)
[2023-11-28] MEDS: THIAMINE HCL 100 MG TABLET (FP) PO SCH (22:23)
[2023-11-29] MEDS: VITAMINS A AND D TOPICAL OINTMENT 60 GM TUBE TP SCH ×2 (00:13→05:52)
[2023-11-29] MEDS ORDERED: chlordiazePOXIDE HCL 10 MG CAPSULE PO ONE (05:00)
[2023-11-29] MEDS: ARTIFICIAL TEARS OPHTHALMIC DROPS OU SCH (05:52)
[2023-11-29] MEDS: hydrOXYzine PAMOATE 25 MG CAPSULE (FP) PO PRN (06:42)
[2023-11-29 09:08] VITALS: BP 116/78; PULSE 90; RESP 18; TEMP 98.4
[2023-11-29] MEDS: PRENATAL VITAMINS W/ FOLIC ACID TABLET (FP) PO SCH (09:37)
[2023-11-29] MEDS: SODIUM CHLORIDE NASAL SPRAY 44 ML BOTTLE NS SCH (09:37)
== END 2023-11-29 12:15 | disposition other institution (70) | DRG 775 ==
LOC: YASAS 23:08 → Y3N 11-25 02:00 → Y6N 11-25 02:37
PROVIDERS: ADMIT Allergy & Immunology; ATTEND Surgery
PROC: HZ2ZZZZ Detoxification Services for Substance Abuse Treatment (ICD-10-PCS; principal; 2023-11-25)
DX: F10.230 Alcohol dependence with withdrawal, uncomplicated (principal); F10.282 Alcohol dependence with alcohol-induced sleep disorder; K21.9 Gastro-esophageal reflux disease without esophagitis; H04.129 Dry eye syndrome of unspecified lacrimal gland; Z86.69 Personal history of other diseases of the nervous system and sense organs; Z56.0 Unemployment, unspecified
CPT/HCPCS: 36415; 80053; 80307; 82247; 85027; 86780; 87635

== ENCOUNTER 2023-11-29 12:23 | Inpatient (IN) | payer OTHER ==
[2023-11-29] MEDS ORDERED: LOPERAMIDE HCL 2 MG CAPSULE PO PRN (13:04)
[2023-11-29] MEDS ORDERED: BENZOCAINE/MENTHOL (CHLORASEPTIC ) LOZENGE MM PRN (13:04)
[2023-11-29] MEDS ORDERED: ACETAMINOPHEN 325 MG TABLET (FP) PO PRN (13:04)
[2023-11-29] MEDS ORDERED: NALOXONE HCL 0.4 MG/ML VIAL IVPUSH PRN (13:04)
[2023-11-29] MEDS ORDERED: MAGNESIUM HYDROX 2400MG/30ML ORAL SUSPENSION 30 ML CUP PO PRN (13:04)
[2023-11-29] MEDS ORDERED: BENZONATATE 200 MG CAPSULE PO PRN (13:04)
[2023-11-29] MEDS ORDERED: guaiFENesin 600 MG TABLET.ER (FP) PO PRN (13:04)
[2023-11-29] MEDS ORDERED: POLYETHYLENE GLYCOL (HEALTHYLAX) 3350 17 GM PACKET PO PRN (13:04)
[2023-11-29] MEDS ORDERED: NALOXONE HCL (KLOXXADO) 8 MG SPRAY NS PRN (13:04)
[2023-11-29] MEDS ORDERED: MAG HYDROX/AL HYDROX/SIMETH 30 ML UNIT-DOSE CUP PO PRN (13:04)
[2023-11-29] MEDS ORDERED: IBUPROFEN 400 MG TABLET (FP) PO PRN (13:04)
[2023-11-29] MEDS: ARTIFICIAL TEARS OPHTHALMIC DROPS OU SCH ×2 (13:34→21:43)
[2023-11-29] MEDS: SODIUM CHLORIDE NASAL SPRAY 44 ML BOTTLE NS SCH (21:41)
[2023-11-29] MEDS: hydrOXYzine PAMOATE 25 MG CAPSULE (FP) PO PRN (21:42)
[2023-11-29] MEDS: THIAMINE HCL 100 MG TABLET (FP) PO SCH (21:42)
[2023-11-29] MEDS: MELATONIN 5 MG TABLETS PO SCH (21:42)
[2023-11-30] MEDS: METHOCARBAMOL 500 MG TABLET PO PRN (06:21)
[2023-11-30] MEDS: hydrOXYzine PAMOATE 25 MG CAPSULE (FP) PO PRN (06:21)
[2023-11-30] MEDS: ARTIFICIAL TEARS OPHTHALMIC DROPS OU SCH ×3 (06:22→21:26)
[2023-11-30] MEDS: COLLOIDAL OATMEAL 1 BAR EACH TP PRN (07:48)
[2023-11-30] MEDS: PRENATAL VITAMINS W/ FOLIC ACID TABLET (FP) PO SCH (09:47)
[2023-11-30] MEDS: SODIUM CHLORIDE NASAL SPRAY 44 ML BOTTLE NS SCH ×2 (09:48→21:25)
[2023-11-30] MEDS: THIAMINE HCL 100 MG TABLET (FP) PO SCH (21:26)
[2023-11-30] MEDS: MELATONIN 5 MG TABLETS PO SCH (21:26)
[2023-11-30] MEDS: IBUPROFEN 600 MG TABLET (FP) PO PRN (21:29)
[2023-12-01] MEDS: ARTIFICIAL TEARS OPHTHALMIC DROPS OU SCH ×3 (07:01→21:24)
[2023-12-01] MEDS: hydrOXYzine PAMOATE 25 MG CAPSULE (FP) PO PRN ×2 (07:01→21:26)
[2023-12-01] MEDS: METHOCARBAMOL 500 MG TABLET PO PRN (07:01)
[2023-12-01] MEDS: PRENATAL VITAMINS W/ FOLIC ACID TABLET (FP) PO SCH (09:42)
[2023-12-01] MEDS: SODIUM CHLORIDE NASAL SPRAY 44 ML BOTTLE NS SCH ×2 (09:42→21:24)
[2023-12-01] MEDS: MELATONIN 5 MG TABLETS PO SCH (21:24)
[2023-12-01] MEDS: THIAMINE HCL 100 MG TABLET (FP) PO SCH (21:25)
[2023-12-02] MEDS: hydrOXYzine PAMOATE 25 MG CAPSULE (FP) PO PRN ×2 (06:35→21:20)
[2023-12-02] MEDS: ARTIFICIAL TEARS OPHTHALMIC DROPS OU SCH ×3 (06:37→21:21)
[2023-12-02] MEDS: PRENATAL VITAMINS W/ FOLIC ACID TABLET (FP) PO SCH (09:34)
[2023-12-02] MEDS: SODIUM CHLORIDE NASAL SPRAY 44 ML BOTTLE NS SCH ×2 (09:34→21:21)
[2023-12-02] MEDS: METHOCARBAMOL 500 MG TABLET PO PRN (09:35)
[2023-12-02] MEDS: IBUPROFEN 600 MG TABLET (FP) PO PRN (10:50)
[2023-12-02 13:34] LABS: HIV INTERPRETATION NEGATIVE (NEGATIVE)
[2023-12-02] MEDS: MELATONIN 5 MG TABLETS PO SCH (21:20)
[2023-12-02] MEDS: THIAMINE HCL 100 MG TABLET (FP) PO SCH (21:20)
[2023-12-03] MEDS: hydrOXYzine PAMOATE 25 MG CAPSULE (FP) PO PRN ×3 (06:08→21:17)
[2023-12-03] MEDS: ARTIFICIAL TEARS OPHTHALMIC DROPS OU SCH ×3 (06:08→21:19)
[2023-12-03] MEDS: PRENATAL VITAMINS W/ FOLIC ACID TABLET (FP) PO SCH (09:43)
[2023-12-03] MEDS: SODIUM CHLORIDE NASAL SPRAY 44 ML BOTTLE NS SCH ×2 (09:45→21:20)
[2023-12-03] MEDS: LACTULOSE 20 GM/30 ML UDC (FOR ORAL USE ONLY) PO SCH ×2 (14:00→21:18)
[2023-12-03] MEDS: THIAMINE HCL 100 MG TABLET (FP) PO SCH (21:17)
[2023-12-03] MEDS: MELATONIN 5 MG TABLETS PO SCH (21:17)
[2023-12-04] MEDS: hydrOXYzine PAMOATE 25 MG CAPSULE (FP) PO PRN ×3 (06:05→21:17)
[2023-12-04] MEDS: LACTULOSE 20 GM/30 ML UDC (FOR ORAL USE ONLY) PO SCH ×3 (06:05→21:18)
[2023-12-04] MEDS: ARTIFICIAL TEARS OPHTHALMIC DROPS OU SCH ×3 (06:06→21:18)
[2023-12-04] MEDS: SODIUM CHLORIDE NASAL SPRAY 44 ML BOTTLE NS SCH ×2 (09:35→21:16)
[2023-12-04] MEDS: PRENATAL VITAMINS W/ FOLIC ACID TABLET (FP) PO SCH (09:35)
[2023-12-04] MEDS: IBUPROFEN 600 MG TABLET (FP) PO PRN (09:37)
[2023-12-04] MEDS ORDERED: FLUCONAZOLE 150 MG TABLET PO ONE (14:54)
[2023-12-04] MEDS ORDERED: FLUCONAZOLE 50 MG TABLET PO ONE (15:45)
[2023-12-04 16:56] LABS: URINE APPEARANCE CLEAR; URINE BILIRUBIN NEGATIVE (NEGATIVE); URINE COLOR YELLOW; URINE GLUCOSE (UA) NEGATIVE (NEGATIVE); URINE KETONE NEGATIVE (NEGATIVE); URINE LEUK ESTERASE NEGATIVE (NEGATIVE); URINE NITRITE NEGATIVE (NEGATIVE); URINE PROTEIN NEGATIVE (NEGATIVE); URINE UROBILINOGEN 0.2 mg/dL (0.2-1.0)
[2023-12-04 17:58] LABS: EPI CELLS 7.2 /uL (0-25.1); HYALINE CASTS 0 /uL (0-3.1); URINE RBC 6 /uL (0-23.9); URINE WBC 2 /uL (0-25.8)
[2023-12-04 17:59] LABS: URINE BACTERIA NONE SEEN /uL (0-1359)
[2023-12-04] MEDS: THIAMINE HCL 100 MG TABLET (FP) PO SCH (21:17)
[2023-12-04] MEDS: MELATONIN 5 MG TABLETS PO SCH (21:17)
[2023-12-05] MEDS: ARTIFICIAL TEARS OPHTHALMIC DROPS OU SCH ×3 (06:15→21:31)
[2023-12-05] MEDS: LACTULOSE 20 GM/30 ML UDC (FOR ORAL USE ONLY) PO SCH ×3 (06:16→21:30)
[2023-12-05] MEDS: hydrOXYzine PAMOATE 25 MG CAPSULE (FP) PO PRN ×2 (06:16→21:32)
[2023-12-05] MEDS: SODIUM CHLORIDE NASAL SPRAY 44 ML BOTTLE NS SCH ×2 (09:51→21:30)
[2023-12-05] MEDS: PRENATAL VITAMINS W/ FOLIC ACID TABLET (FP) PO SCH (09:51)
[2023-12-05] MEDS: MELATONIN 5 MG TABLETS PO SCH (21:32)
[2023-12-05] MEDS: SUVOREXANT 10 MG TABLET PO PRN (21:32)
[2023-12-05] MEDS: THIAMINE HCL 100 MG TABLET (FP) PO SCH (21:32)
[2023-12-06] MEDS: ARTIFICIAL TEARS OPHTHALMIC DROPS OU SCH ×3 (06:07→21:36)
[2023-12-06] MEDS: LACTULOSE 20 GM/30 ML UDC (FOR ORAL USE ONLY) PO SCH ×3 (06:07→21:36)
[2023-12-06] MEDS: hydrOXYzine PAMOATE 25 MG CAPSULE (FP) PO PRN ×2 (06:07→15:18)
[2023-12-06] MEDS: SODIUM CHLORIDE NASAL SPRAY 44 ML BOTTLE NS SCH ×2 (10:22→21:36)
[2023-12-06] MEDS: PRENATAL VITAMINS W/ FOLIC ACID TABLET (FP) PO SCH (10:22)
[2023-12-06] MEDS: SUVOREXANT 10 MG TABLET PO PRN (21:36)
[2023-12-06] MEDS: MELATONIN 5 MG TABLETS PO SCH (21:36)
[2023-12-06] MEDS: THIAMINE HCL 100 MG TABLET (FP) PO SCH (21:36)
[2023-12-07] MEDS: LACTULOSE 20 GM/30 ML UDC (FOR ORAL USE ONLY) PO SCH ×3 (06:14→21:34)
[2023-12-07] MEDS: ARTIFICIAL TEARS OPHTHALMIC DROPS OU SCH ×3 (06:14→21:33)
[2023-12-07] MEDS: hydrOXYzine PAMOATE 25 MG CAPSULE (FP) PO PRN ×3 (06:15→21:34)
[2023-12-07] MEDS: COLLOIDAL OATMEAL 1 BAR EACH TP PRN (07:18)
[2023-12-07] MEDS: PRENATAL VITAMINS W/ FOLIC ACID TABLET (FP) PO SCH (09:54)
[2023-12-07] MEDS: SODIUM CHLORIDE NASAL SPRAY 44 ML BOTTLE NS SCH ×2 (09:54→21:33)
[2023-12-07] MEDS: THIAMINE HCL 100 MG TABLET (FP) PO SCH (21:34)
[2023-12-07] MEDS: MELATONIN 5 MG TABLETS PO SCH (21:34)
[2023-12-07] MEDS: SUVOREXANT 10 MG TABLET PO PRN (21:34)
[2023-12-08] MEDS: LACTULOSE 20 GM/30 ML UDC (FOR ORAL USE ONLY) PO SCH ×3 (06:26→21:31)
[2023-12-08] MEDS: hydrOXYzine PAMOATE 25 MG CAPSULE (FP) PO PRN (06:26)
[2023-12-08] MEDS: ARTIFICIAL TEARS OPHTHALMIC DROPS OU SCH ×3 (06:28→21:34)
[2023-12-08] MEDS: PRENATAL VITAMINS W/ FOLIC ACID TABLET (FP) PO SCH (09:38)
[2023-12-08] MEDS: SODIUM CHLORIDE NASAL SPRAY 44 ML BOTTLE NS SCH ×2 (09:39→21:32)
[2023-12-08] MEDS: THIAMINE HCL 100 MG TABLET (FP) PO SCH (21:32)
[2023-12-08] MEDS: MELATONIN 5 MG TABLETS PO SCH (21:32)
[2023-12-08] MEDS: SUVOREXANT 10 MG TABLET PO PRN (22:58)
[2023-12-09] MEDS: ARTIFICIAL TEARS OPHTHALMIC DROPS OU SCH ×3 (06:03→21:46)
[2023-12-09] MEDS: LACTULOSE 20 GM/30 ML UDC (FOR ORAL USE ONLY) PO SCH ×3 (06:03→21:47)
[2023-12-09] MEDS: PRENATAL VITAMINS W/ FOLIC ACID TABLET (FP) PO SCH (09:57)
[2023-12-09] MEDS: SODIUM CHLORIDE NASAL SPRAY 44 ML BOTTLE NS SCH ×2 (09:57→21:45)
[2023-12-09] MEDS ORDERED: hydrOXYzine PAMOATE 50 MG CAPSULE (FP) PO PRN (10:28)
[2023-12-09] MEDS: lamoTRIgine 25 MG TABLET PO SCH (12:01)
[2023-12-09] MEDS: BACITRACIN 0.9 GM PACKET TP SCH ×2 (13:57→21:48)
[2023-12-09] MEDS: THIAMINE HCL 100 MG TABLET (FP) PO SCH (21:48)
[2023-12-09] MEDS: IBUPROFEN 600 MG TABLET (FP) PO PRN (21:48)
[2023-12-09] MEDS: SUVOREXANT 10 MG TABLET PO PRN (21:51)
[2023-12-10] MEDS: BACITRACIN 0.9 GM PACKET TP SCH ×3 (06:21→21:12)
[2023-12-10] MEDS: LACTULOSE 20 GM/30 ML UDC (FOR ORAL USE ONLY) PO SCH ×3 (06:21→21:17)
[2023-12-10] MEDS: hydrOXYzine PAMOATE 25 MG CAPSULE (FP) PO PRN ×2 (06:22→17:46)
[2023-12-10] MEDS: ARTIFICIAL TEARS OPHTHALMIC DROPS OU SCH ×3 (06:24→21:33)
[2023-12-10] MEDS: lamoTRIgine 25 MG TABLET PO SCH (09:55)
[2023-12-10] MEDS: SODIUM CHLORIDE NASAL SPRAY 44 ML BOTTLE NS SCH ×2 (09:55→21:13)
[2023-12-10] MEDS: PRENATAL VITAMINS W/ FOLIC ACID TABLET (FP) PO SCH (09:55)
[2023-12-10 10:16] LABS: POTASSIUM 3.9 mmol/L (3.5-5.1)
[2023-12-10 10:23] LABS: CALCIUM 9.9 mg/dL (8.5-10.1)
[2023-12-10 10:24] LABS: ALBUMIN 3.6 g/dl (3.4-5.0)
[2023-12-10 10:26] LABS: CREATININE 0.6 mg/dL (0.55-1.3)
[2023-12-10 10:28] LABS: BILIRUBIN,TOTAL 0.8 mg/dL (0.2-1); TOT PROT 7.4 g/dl (6.4-8.2)
[2023-12-10] MEDS: IBUPROFEN 600 MG TABLET (FP) PO PRN (17:46)
[2023-12-10] MEDS: SUVOREXANT 10 MG TABLET PO PRN (21:18)
[2023-12-10] MEDS: THIAMINE HCL 100 MG TABLET (FP) PO SCH (21:34)
[2023-12-11] MEDS: IBUPROFEN 600 MG TABLET (FP) PO PRN ×3 (04:02→17:32)
[2023-12-11] MEDS: hydrOXYzine PAMOATE 25 MG CAPSULE (FP) PO PRN ×2 (06:35→14:43)
[2023-12-11] MEDS: LACTULOSE 20 GM/30 ML UDC (FOR ORAL USE ONLY) PO SCH ×3 (06:35→23:30)
[2023-12-11] MEDS: BACITRACIN 0.9 GM PACKET TP SCH ×3 (06:41→23:30)
[2023-12-11] MEDS: ARTIFICIAL TEARS OPHTHALMIC DROPS OU SCH ×3 (06:45→23:30)
[2023-12-11 06:50] VITALS: RESP 18
[2023-12-11] MEDS: SODIUM CHLORIDE NASAL SPRAY 44 ML BOTTLE NS SCH ×2 (09:47→23:31)
[2023-12-11] MEDS: PRENATAL VITAMINS W/ FOLIC ACID TABLET (FP) PO SCH (09:47)
[2023-12-11] MEDS: lamoTRIgine 25 MG TABLET PO SCH (09:48)
[2023-12-11 17:31] VITALS: BP 121/70; PULSE 83; TEMP 98.2
[2023-12-11] MEDS ORDERED: SUVOREXANT 10 MG TABLET PO PRN (22:00)
[2023-12-11] MEDS: THIAMINE HCL 100 MG TABLET (FP) PO SCH (23:31)
== END 2023-12-11 22:00 | disposition short-term general hospital (02) | DRG 772 ==
LOC: YASAS 12:23 → Y5N 12:24
PROVIDERS: ADMIT Allergy & Immunology; ATTEND Psychiatry & Neurology Pain Medicine
PROC: HZ42ZZZ Group Counseling for Substance Abuse Treatment, Cognitive-Behavioral (ICD-10-PCS; principal; 2023-11-29)
DX: F10.20 Alcohol dependence, uncomplicated (principal); F41.9 Anxiety disorder, unspecified; E72.20 Disorder of urea cycle metabolism, unspecified; G47.00 Insomnia, unspecified; M79.671 Pain in right foot; L02.611 Cutaneous abscess of right foot; N89.8 Other specified noninflammatory disorders of vagina; Z86.69 Personal history of other diseases of the nervous system and sense organs
CPT/HCPCS: 36415; 80053; 81003; 82140; 86695; 86696; 86803; 87086; 87389; 87491; 87591

== ENCOUNTER 2023-12-11 18:32 | Inpatient (IN) | payer OTHER ==
[2023-12-11 18:40] VITALS: BMI 31.2
[2023-12-11 23:45] LABS: BASO % 1.3 % (0-2.0); EOS % 3.1 % (0-4.5); HEMATOCRIT 38.9 % (32.4-45.2); HEMOGLOBIN 12.7 GM/dL (10.7-15.3); LYMPH % 20.6 % (8-40); MCH 28.7 pg (25.7-33.7); MCHC 32.6 g/dl (32.0-36.0); MEAN CELL VOLUME 88.1 fl (80-96); MEAN PLT VOLUME 7.5 fl (7.5-11.1); MONO % 7.1 % (3.8-10.2); NEUT % 67.9 % (42.8-82.8); PLATELET COUNT 398 10^3/uL (134-434); RBC 4.41 M/mm3 (3.60-5.2); RDW 16.6 % (11.6-15.6); WHITE BLOOD COUNT 8.3 K/mm3 (4.0-10.0)
[2023-12-11 23:56] LABS: POTASSIUM 4.3 mmol/L (3.5-5.1)
[2023-12-11 23:58] LABS: ALBUMIN 3.4 g/dl (3.4-5.0); BLOOD UREA NITROGEN 11.6 mg/dL (7-18)
[2023-12-12 00:01] LABS: CREATININE 0.4 mg/dL (0.55-1.3)
[2023-12-12 00:03] LABS: BILIRUBIN,TOTAL 0.4 mg/dL (0.2-1)
[2023-12-12] MEDS ORDERED: ACETAMINOPHEN INJECTION 100 ML IVPB ONE ×2 (05:13→09:17)
[2023-12-12] MEDS: ACETAMINOPHEN 1000 MG/100 ML BAG IVPB ONE (05:25)
[2023-12-12 06:59] LABS: HEMATOCRIT 40.5 % (32.4-45.2); HEMOGLOBIN 13.1 GM/dL (10.7-15.3); MCH 28.9 pg (25.7-33.7); MCHC 32.4 g/dl (32.0-36.0); MEAN CELL VOLUME 89.4 fl (80-96); MEAN PLT VOLUME 8.2 fl (7.5-11.1); PLATELET COUNT 391 10^3/uL (134-434); RBC 4.53 M/mm3 (3.60-5.2); RDW 17.1 % (11.6-15.6); WHITE BLOOD COUNT 8.2 K/mm3 (4.0-10.0)
[2023-12-12] MEDS ORDERED: SUVOREXANT 10 MG TABLET PO PRN (07:06)
[2023-12-12 07:22] LABS: POTASSIUM 4.1 mmol/L (3.5-5.1)
[2023-12-12 07:28] LABS: ALBUMIN 3.4 g/dl (3.4-5.0); BLOOD UREA NITROGEN 7.1 mg/dL (7-18); CALCIUM 9.4 mg/dL (8.5-10.1); MAGNESIUM 2.2 mg/dL (1.8-2.4)
[2023-12-12 07:31] LABS: CREATININE 0.3 mg/dL (0.55-1.3); PHOSPHOROUS 3.6 mg/dL (2.5-4.9)
[2023-12-12 07:33] LABS: BILIRUBIN,TOTAL 0.7 mg/dL (0.2-1); TOT PROT 6.8 g/dl (6.4-8.2)
[2023-12-12] MEDS ORDERED: PIPERACILLIN/TAZOB 3.375 GM 3.375 GM/50 ML BAG IVPB ONE (09:17)
[2023-12-12] MEDS: ACETAMINOPHEN 1000 MG/100 ML BAG IVPB PRN (09:30)
[2023-12-12] MEDS: PIPERACILLIN/TAZOB 3.375 GM 3.375 GM in DEXTROSE 5%-WATER - 50 ML IVPB SCH ×2 (09:30→17:42)
[2023-12-12] MEDS ORDERED: lamoTRIgine 25 MG TABLET PO SCH (10:00)
[2023-12-12] MEDS ORDERED: VANCOMYCIN 1 GRAM (PRE-DOCKED) 1,000 MG/250 ML BAG IVPB ONE (12:58)
[2023-12-12] MEDS: VANCOMYCIN/WATER FOR INJ (PEG) 1,000 MG/200 ML BAG IVPB SCH (13:08)
[2023-12-12] MEDS ORDERED: lamoTRIgine 25 MG TABLET ONE (15:16)
[2023-12-12] MEDS: lamoTRIgine 25 MG TABLET PO ONE (15:27)
[2023-12-12] MEDS: hydrOXYzine PAMOATE 25 MG CAPSULE (FP) PO PRN (21:48)
[2023-12-12] MEDS: FLU VACCINE (FLULAVAL) PF 60 MCG/0.5 ML SYRINGE 2023-2024 IM ONE (22:05)
[2023-12-12] MEDS ORDERED: SUVOREXANT 5 MG TABLET PO PRN (22:13)
[2023-12-12] MEDS: SUVOREXANT 10 MG TABLET PO PRN (22:53)
[2023-12-13] MEDS: lamoTRIgine 25 MG TABLET PO SCH ×2 (07:40→10:40)
[2023-12-13] MEDS: PIPERACILLIN/TAZOB 3.375 GM 3.375 GM in DEXTROSE 5%-WATER - 50 ML IVPB SCH (07:40)
[2023-12-13] MEDS: KETOROLAC TROMETHAMINE 15 MG/ML VIAL IVPUSH ONE (07:48)
[2023-12-13 09:46] LABS: BASO % 0.6 % (0-2.0); EOS % 2.3 % (0-4.5); HEMATOCRIT 40.2 % (32.4-45.2); HEMOGLOBIN 13.5 GM/dL (10.7-15.3); LYMPH % 13.5 % (8-40); MCH 29.8 pg (25.7-33.7); MCHC 33.7 g/dl (32.0-36.0); MEAN CELL VOLUME 88.3 fl (80-96); MEAN PLT VOLUME 8.2 fl (7.5-11.1); NEUT % 77.6 % (42.8-82.8); PLATELET COUNT 363 10^3/uL (134-434); RBC 4.55 M/mm3 (3.60-5.2); RDW 16.5 % (11.6-15.6); WHITE BLOOD COUNT 8.1 K/mm3 (4.0-10.0)
[2023-12-13 09:52] LABS: INR 1.1 (0.83-1.09); PROTHROMBIN TIME (PATIENT) 12.8 SEC (9.7-13.0)
[2023-12-13 10:11] LABS: CALCIUM 9.8 mg/dL (8.5-10.1)
[2023-12-13 10:12] LABS: ALBUMIN 3.5 g/dl (3.4-5.0); BLOOD UREA NITROGEN 5.9 mg/dL (7-18); MAGNESIUM 2.4 mg/dL (1.8-2.4)
[2023-12-13 10:15] LABS: CREATININE 0.5 mg/dL (0.55-1.3)
[2023-12-13 10:17] LABS: BILIRUBIN,TOTAL 0.9 mg/dL (0.2-1); TOT PROT 7.1 g/dl (6.4-8.2)
[2023-12-13] MEDS: ACETAMINOPHEN 1000 MG/100 ML BAG IVPB ONE (10:39)
[2023-12-13] MEDS ORDERED: ACETAMINOPHEN 325 MG TABLET (FP) PO PRN (13:32)
[2023-12-13] MEDS: KETOROLAC TROMETHAMINE 15 MG/ML VIAL IVPUSH PRN (23:23)
[2023-12-14] MEDS ORDERED: LIDOCAINE HCL 1%, 10 MG/ML (20ML VIAL) ONE (07:10)
[2023-12-14] MEDS ORDERED: GENTAMICIN SO4 80 MG/2 ML VIAL ONE (07:10)
[2023-12-14] MEDS ORDERED: BUPIVACAINE HCL/PF 0.5% (5MG/ML) 10 ML VIAL ONE (07:10)
[2023-12-14] MEDS ORDERED: MIDAZOLAM HCL 2 MG/2 ML SINGLE DOSE VIAL ONE (07:33)
[2023-12-14] MEDS ORDERED: ACETAMINOPHEN INJECTION 100 ML IVPB ONE (07:41)
[2023-12-14] MEDS: GENTAMICIN SO4 80 MG/2 ML VIAL IVPB ONE (07:50)
[2023-12-14] MEDS: BUPIVACAINE HCL/PF 0.5% (5MG/ML) 10 ML VIAL IJ ONE (07:51)
[2023-12-14] MEDS: LIDOCAINE HCL 1%, 10 MG/ML (20ML VIAL) NR ONE (07:51)
[2023-12-14] MEDS ORDERED: ONDANSETRON 4 MG/2 ML VIAL ONE (07:52)
[2023-12-14] MEDS ORDERED: DEXAMETHASONE SOD PHOSPHATE 4 MG/1 ML VIAL ONE (07:52)
[2023-12-14] MEDS: PIPERACILLIN/TAZOBACTAM 3.375 GM VIAL IVPB ONE (07:54)
[2023-12-14] MEDS: ACETAMINOPHEN 1000 MG/100 ML BAG IVPB ONE (07:54)
[2023-12-14] MEDS ORDERED: PIPERACILLIN/TAZOBACTAM 3.375 GM VIAL IVPB ONE (07:57)
[2023-12-14 08:32] VITALS: RESP 18
[2023-12-14 10:12] LABS: EOS % 3.2 % (0-4.5); HEMATOCRIT 37.6 % (32.4-45.2); HEMOGLOBIN 12.6 GM/dL (10.7-15.3); LYMPH % 10.7 % (8-40); MCH 29.6 pg (25.7-33.7); MCHC 33.5 g/dl (32.0-36.0); MEAN CELL VOLUME 88.2 fl (80-96); MONO % 4.8 % (3.8-10.2); NEUT % 79.3 % (42.8-82.8); PLATELET COUNT 340 10^3/uL (134-434); RBC 4.26 M/mm3 (3.60-5.2); RDW 16.4 % (11.6-15.6); WHITE BLOOD COUNT 7.4 K/mm3 (4.0-10.0)
[2023-12-14 10:31] LABS: ALBUMIN 3.2 g/dl (3.4-5.0); CALCIUM 9.1 mg/dL (8.5-10.1); MAGNESIUM 2.2 mg/dL (1.8-2.4)
[2023-12-14 10:33] LABS: BLOOD UREA NITROGEN 8.3 mg/dL (7-18)
[2023-12-14 10:34] LABS: CREATININE 0.5 mg/dL (0.55-1.3)
[2023-12-14 10:35] LABS: BILIRUBIN,TOTAL 0.7 mg/dL (0.2-1)
[2023-12-14 10:36] LABS: TOT PROT 6.7 g/dl (6.4-8.2)
[2023-12-14] MEDS ORDERED: hydrOXYzine PAMOATE 25 MG CAPSULE (FP) PO PRN (20:15)
[2023-12-14] MEDS ORDERED: ACETAMINOPHEN 325 MG TABLET (FP) PO PRN (20:15)
[2023-12-14] MEDS ORDERED: SUVOREXANT 10 MG TABLET PO PRN (20:15)
[2023-12-14] MEDS: KETOROLAC TROMETHAMINE 15 MG/ML VIAL IVPUSH PRN (21:29)
[2023-12-14] MEDS: VANCOMYCIN/WATER FOR INJ (PEG) 1,000 MG/200 ML BAG IVPB SCH (23:32)
[2023-12-14] MEDS: SUVOREXANT 10 MG TABLET PO PRN (23:52)
[2023-12-15] MEDS: PIPERACILLIN/TAZOB 3.375 GM 3.375 GM in DEXTROSE 5%-WATER - 50 ML IVPB SCH (01:10)
[2023-12-15] MEDS: lamoTRIgine 25 MG TABLET PO SCH (09:26)
[2023-12-15 10:02] LABS: BASO % 1.4 % (0-2.0); EOS % 1.8 % (0-4.5); HEMATOCRIT 36.9 % (32.4-45.2); MCH 28.9 pg (25.7-33.7); MCHC 32.5 g/dl (32.0-36.0); MEAN CELL VOLUME 88.9 fl (80-96); MEAN PLT VOLUME 7.9 fl (7.5-11.1); MONO % 6.1 % (3.8-10.2); NEUT % 71.7 % (42.8-82.8); PLATELET COUNT 344 10^3/uL (134-434); RBC 4.15 M/mm3 (3.60-5.2); RDW 16.7 % (11.6-15.6); WHITE BLOOD COUNT 8.5 K/mm3 (4.0-10.0)
[2023-12-15 10:31] LABS: POTASSIUM 4.1 mmol/L (3.5-5.1)
[2023-12-15 10:43] LABS: BLOOD UREA NITROGEN 7.4 mg/dL (7-18); CALCIUM 8.5 mg/dL (8.5-10.1); MAGNESIUM 1.9 mg/dL (1.8-2.4)
[2023-12-15 10:46] LABS: CREATININE 0.5 mg/dL (0.55-1.3)
[2023-12-15 10:47] LABS: BILIRUBIN,TOTAL 0.4 mg/dL (0.2-1); TOT PROT 6.5 g/dl (6.4-8.2)
[2023-12-15 23:52] LABS: EPI CELLS 6 /uL (0-25.1); HYALINE CASTS 0 /uL (0-3.1); URINE APPEARANCE CLEAR; URINE BACTERIA 0 /uL (0-1359); URINE BILIRUBIN NEGATIVE (NEGATIVE); URINE COLOR YELLOW; URINE GLUCOSE (UA) NEGATIVE (NEGATIVE); URINE KETONE NEGATIVE (NEGATIVE); URINE LEUK ESTERASE NEGATIVE (NEGATIVE); URINE NITRITE NEGATIVE (NEGATIVE); URINE PROTEIN NEGATIVE (NEGATIVE); URINE RBC 7 /uL (0-23.9); URINE UROBILINOGEN 0.2 mg/dL (0.2-1.0); URINE WBC 3 /uL (0-25.8)
[2023-12-16 10:20] LABS: BASO % 1.8 % (0-2.0); EOS % 3.4 % (0-4.5); HEMATOCRIT 38.2 % (32.4-45.2); HEMOGLOBIN 12.6 GM/dL (10.7-15.3); LYMPH % 16.3 % (8-40); MCH 29.1 pg (25.7-33.7); MCHC 32.9 g/dl (32.0-36.0); MEAN CELL VOLUME 88.3 fl (80-96); MEAN PLT VOLUME 8.1 fl (7.5-11.1); MONO % 6.3 % (3.8-10.2); NEUT % 72.2 % (42.8-82.8); PLATELET COUNT 353 10^3/uL (134-434); RBC 4.32 M/mm3 (3.60-5.2); RDW 16.9 % (11.6-15.6); WHITE BLOOD COUNT 6.7 K/mm3 (4.0-10.0)
[2023-12-16 10:42] LABS: POTASSIUM 4.1 mmol/L (3.5-5.1)
[2023-12-16 10:46] LABS: ALBUMIN 3.2 g/dl (3.4-5.0); BLOOD UREA NITROGEN 8.2 mg/dL (7-18); CALCIUM 9.1 mg/dL (8.5-10.1)
[2023-12-16 10:49] LABS: CREATININE 0.6 mg/dL (0.55-1.3)
[2023-12-16 10:51] LABS: BILIRUBIN,TOTAL 0.5 mg/dL (0.2-1); TOT PROT 6.8 g/dl (6.4-8.2)
[2023-12-16 13:58] VITALS: BP 104/56; PULSE 77; TEMP 98.1
== END 2023-12-16 17:45 | disposition home or self-care (01) | DRG 383 ==
LOC: JER 18:32 → JERBED 22:58 → J6S 12-12 15:38
PROVIDERS: ADMIT Internal Medicine; ATTEND Internal Medicine
PROC: 0J9Q0ZX Drainage of Right Foot Subcutaneous Tissue and Fascia, Open Approach, Diagnostic (ICD-10-PCS; principal; 2023-12-14 07:30)
DX: L02.611 Cutaneous abscess of right foot (principal); F41.9 Anxiety disorder, unspecified; F43.10 Post-traumatic stress disorder, unspecified; F31.9 Bipolar disorder, unspecified; L03.115 Cellulitis of right lower limb; F10.20 Alcohol dependence, uncomplicated; G47.00 Insomnia, unspecified
CPT/HCPCS: 36415; 73630-TC-RT-FY; 73701-TC-RT; 73718-TC-RT; 80053; 81003; 83735; 84100; 85025; 85027; 85610; 85651; 86140; 87040; 87070; 87086; 87205; 88304-TC; 90686; 99285-25; G0008; G0480; J0131

== ENCOUNTER 2024-04-28 14:06 | Inpatient (IN) | payer OTHER ==
[2024-04-28 14:39] VITALS: BMI 24.0
[2024-04-28] MEDS ORDERED: DICYCLOMINE HCL 10 MG CAPSULE PO PRN (14:50)
[2024-04-28] MEDS ORDERED: MAG HYDROX/AL HYDROX/SIMETH 30 ML UNIT-DOSE CUP PO PRN (14:50)
[2024-04-28] MEDS ORDERED: BENZOCAINE/MENTHOL (CHLORASEPTIC ) LOZENGE MM PRN (14:50)
[2024-04-28] MEDS ORDERED: guaiFENesin 600 MG TABLET.ER (FP) PO PRN (14:50)
[2024-04-28] MEDS ORDERED: IBUPROFEN 400 MG TABLET (FP) PO PRN (14:50)
[2024-04-28] MEDS ORDERED: BENZONATATE 200 MG CAPSULE PO PRN (14:50)
[2024-04-28] MEDS ORDERED: LOPERAMIDE HCL 2 MG CAPSULE PO PRN (14:50)
[2024-04-28] MEDS ORDERED: IBUPROFEN 600 MG TABLET (FP) PO PRN (14:50)
[2024-04-28] MEDS ORDERED: POLYETHYLENE GLYCOL (HEALTHYLAX) 3350 17 GM PACKET PO PRN (14:50)
[2024-04-28] MEDS ORDERED: MAGNESIUM HYDROX 2400MG/30ML ORAL SUSPENSION 30 ML CUP PO PRN (14:50)
[2024-04-28] MEDS ORDERED: ACETAMINOPHEN 325 MG TABLET (FP) PO PRN (14:50)
[2024-04-28] MEDS: chlordiazePOXIDE HCL 25 MG CAPSULE PO PRN (15:36)
[2024-04-28] MEDS: ONDANSETRON *ODT* 4 MG TABLET SL PRN (15:36)
[2024-04-28] MEDS: chlordiazePOXIDE HCL 25 MG CAPSULE PO SCH (17:25)
[2024-04-28] MEDS: hydrOXYzine PAMOATE 25 MG CAPSULE (FP) PO PRN (18:55)
[2024-04-28] MEDS: MELATONIN 5 MG TABLETS PO SCH (22:05)
[2024-04-28] MEDS: THIAMINE 100 MG TABLET PO SCH (22:05)
[2024-04-29] MEDS: METHOCARBAMOL 500 MG TABLET PO PRN (02:53)
[2024-04-29] MEDS: BISMUTH SUBSALICYLATE 524 MG/30 ML PO PRN (08:51)
[2024-04-29] MEDS: PRENATAL VITAMINS W/ FOLIC ACID TABLET (FP) PO SCH (09:49)
[2024-04-29] MEDS: SULFAMETHOXAZOLE/TRIMETHOPRIM 800MG/160MG D.S. TABLET PO SCH ×2 (10:00→22:32)
[2024-04-29] MEDS: lamoTRIgine 25 MG TABLET PO SCH (10:19)
[2024-04-29 11:58] LABS: HEMATOCRIT 38.6 % (32.4-45.2); MCH 29.6 pg (25.7-33.7); MCHC 33.8 g/dl (32.0-36.0); MEAN CELL VOLUME 87.6 fl (80-96); MEAN PLT VOLUME 8.1 fl (7.5-11.1); PLATELET COUNT 239 10^3/uL (134-434); RBC 4.41 M/mm3 (3.60-5.2); RDW 16.2 % (11.6-15.6); WHITE BLOOD COUNT 3.9 K/mm3 (4.0-10.0)
[2024-04-29 12:09] LABS: CALCIUM 8.8 mg/dL (8.5-10.1)
[2024-04-29 12:10] LABS: ALBUMIN 3.4 g/dl (3.4-5.0); BLOOD UREA NITROGEN 12.3 mg/dL (7-18)
[2024-04-29 12:12] LABS: CREATININE 0.5 mg/dL (0.55-1.3)
[2024-04-29 12:14] LABS: BILIRUBIN,TOTAL 1.5 mg/dL (0.2-1); TOT PROT 6.9 g/dl (6.4-8.2)
[2024-04-29] MEDS: DOXEPIN HCL 25 MG CAPSULE PO SCH (22:32)
[2024-04-30] MEDS: chlordiazePOXIDE HCL 25 MG CAPSULE PO SCH (05:51)
[2024-04-30] MEDS: NALTREXONE HCL 50 MG TABLET PO SCH (18:16)
[2024-05-01] MEDS ORDERED: chlordiazePOXIDE HCL 10 MG CAPSULE PO PRN
[2024-05-01] MEDS: chlordiazePOXIDE HCL 10 MG CAPSULE PO SCH (05:53)
[2024-05-01 12:18] VITALS: BP 103/70; PULSE 82; RESP 18; TEMP 98.6
[2024-05-02] MEDS ORDERED: chlordiazePOXIDE HCL 10 MG CAPSULE PO SCH (05:00)
[2024-05-03] MEDS ORDERED: chlordiazePOXIDE HCL 10 MG CAPSULE PO ONE (05:00)
== END 2024-05-01 10:15 | disposition home or self-care (01) | DRG 775 ==
LOC: YASAS 14:06 → Y6N 14:57
PROVIDERS: ADMIT Allergy & Immunology; ATTEND Surgery
PROC: HZ2ZZZZ Detoxification Services for Substance Abuse Treatment (ICD-10-PCS; principal; 2024-04-28)
DX: F10.230 Alcohol dependence with withdrawal, uncomplicated (principal); F31.9 Bipolar disorder, unspecified; F10.282 Alcohol dependence with alcohol-induced sleep disorder; F43.10 Post-traumatic stress disorder, unspecified; N39.0 Urinary tract infection, site not specified; R29.6 Repeated falls; Z62.810 Personal history of physical and sexual abuse in childhood; Z63.8 Other specified problems related to primary support group
CPT/HCPCS: 36415; 80053; 80305; 80307; 85027; 86780; 93005; 93010; Q0162

== ENCOUNTER 2024-07-06 15:08 | Inpatient (IN) | payer OTHER ==
[2024-07-06 15:50] VITALS: BMI 23.8
[2024-07-06] MEDS ORDERED: guaiFENesin 600 MG TABLET.ER (FP) PO PRN (16:01)
[2024-07-06] MEDS ORDERED: BISMUTH SUBSALICYLATE 524 MG/30 ML PO PRN (16:01)
[2024-07-06] MEDS ORDERED: ONDANSETRON *ODT* 4 MG TABLET SL PRN (16:01)
[2024-07-06] MEDS ORDERED: BENZONATATE 200 MG CAPSULE PO PRN (16:01)
[2024-07-06] MEDS ORDERED: BENZOCAINE/MENTHOL (CHLORASEPTIC ) LOZENGE MM PRN (16:01)
[2024-07-06] MEDS ORDERED: MAG HYDROX/AL HYDROX/SIMETH 30 ML UNIT-DOSE CUP PO PRN (16:01)
[2024-07-06] MEDS ORDERED: POLYETHYLENE GLYCOL (HEALTHYLAX) 3350 17 GM PACKET PO PRN (16:01)
[2024-07-06] MEDS ORDERED: MAGNESIUM HYDROX 2400MG/30ML ORAL SUSPENSION 30 ML CUP PO PRN (16:01)
[2024-07-06] MEDS ORDERED: DICYCLOMINE HCL 10 MG CAPSULE PO PRN (16:01)
[2024-07-06] MEDS ORDERED: chlordiazePOXIDE HCL 25 MG CAPSULE ONE (17:03)
[2024-07-06] MEDS: chlordiazePOXIDE HCL 25 MG CAPSULE PO SCH (17:06)
[2024-07-06] MEDS: hydrOXYzine PAMOATE 25 MG CAPSULE (FP) PO PRN (19:16)
[2024-07-06] MEDS: METHOCARBAMOL 500 MG TABLET PO PRN (19:18)
[2024-07-06] MEDS: THIAMINE 100 MG TABLET PO SCH (22:05)
[2024-07-06] MEDS: MELATONIN 5 MG TABLETS PO SCH (22:05)
[2024-07-06] MEDS: IBUPROFEN 400 MG TABLET (FP) PO PRN (23:29)
[2024-07-07] MEDS ORDERED: TETRAHYDROZOLINE HCL EYE DROPS OU PRN (10:12)
[2024-07-07] MEDS: PRENATAL VITAMINS W/ FOLIC ACID TABLET (FP) PO SCH (10:20)
[2024-07-07] MEDS: LOPERAMIDE HCL 2 MG CAPSULE PO PRN (12:21)
[2024-07-07] MEDS: chlordiazePOXIDE HCL 25 MG CAPSULE PO PRN (20:01)
[2024-07-08] MEDS: chlordiazePOXIDE HCL 25 MG CAPSULE PO SCH (05:40)
[2024-07-09] MEDS: chlordiazePOXIDE HCL 10 MG CAPSULE PO SCH (05:42)
[2024-07-09] MEDS: ACETAMINOPHEN 325 MG TABLET (FP) PO PRN (05:44)
[2024-07-09] MEDS: chlordiazePOXIDE HCL 10 MG CAPSULE PO PRN (12:58)
[2024-07-10] MEDS: chlordiazePOXIDE HCL 10 MG CAPSULE PO SCH (04:28)
[2024-07-10] MEDS: hydrOXYzine PAMOATE 50 MG CAPSULE (FP) PO ONE (10:18)
[2024-07-10 16:40] VITALS: BP 120/80; PULSE 104; RESP 16; TEMP 98
[2024-07-10] MEDS: hydrOXYzine PAMOATE 50 MG CAPSULE (FP) PO PRN (16:46)
[2024-07-11] MEDS ORDERED: chlordiazePOXIDE HCL 10 MG CAPSULE PO ONE (05:00)
== END 2024-07-10 19:25 | disposition home or self-care (01) | DRG 775 ==
LOC: YASAS 15:08 → Y3N 16:39
PROVIDERS: ADMIT Allergy & Immunology; ATTEND Surgery
PROC: HZ2ZZZZ Detoxification Services for Substance Abuse Treatment (ICD-10-PCS; principal; 2024-07-06)
DX: F10.230 Alcohol dependence with withdrawal, uncomplicated (principal); F10.282 Alcohol dependence with alcohol-induced sleep disorder; F10.24 Alcohol dependence with alcohol-induced mood disorder; F41.9 Anxiety disorder, unspecified; F31.9 Bipolar disorder, unspecified; F43.10 Post-traumatic stress disorder, unspecified; K21.9 Gastro-esophageal reflux disease without esophagitis; Z56.0 Unemployment, unspecified
CPT/HCPCS: 36415; 80053; 80305; 80307; 83735; 84100; 84484; 85025; 86850; 86900; 86901; 93005; 93010